=== PATIENT | male | born 1940 | race Caucasian/White ===

== ENCOUNTER 2022-01-16 18:25 | Inpatient (IN) ==
[2022-01-16] MEDS ORDERED: CEFEPIME 2,000 MG/20 ML VIAL IV STA (18:59)
[2022-01-16] MEDS ORDERED: SODIUM CHLORIDE 0.9% 1000ML 500 ML IV SCH (19:00)
--- NOTE | 2022-01-16 19:07 | Emergency Department Note ---
Impression & Plan Hypotension, Hypothermia, Weakness, Acute dehydration, Anemia, Hematemesis, Leukocytosis ED Provider Note NAME: VONNIE ALTAMIRANO AGE: 81 SEX: M : 1940 ARRIVES VIA: Ambulance INFORMANT: [Patient][nursing] ED PROVIDER(S): [John Fong MD] CHIEF COMPLAINT: Hypothermia, lethargy HISTORY OF PRESENT ILLNESS: The patient is a 81-year-old male who today seemed weaker and not quite himself. The family called EMS. The blood sugar was 279. Blood pressure was low at 8 0/50. On arrival to the ED, his temperature was 34.6. As per nursing staff, the patient was incontinent of stool and urine when he arrived. The patient states that he did vomit once today, he vomited his coffee. He denies chest pain or shortness of breath fever or chills. No abdominal pain. No urinary complaints, no diarrhea. The patient does live with family. REVIEW OF SYSTEMS: See HPI for pertinent positives and negatives. A total of ten systems were revie wed and were otherwise negative. PMHx/PSHx: See Below SOCIAL HISTORY: See Below. PHYSICAL EXAM: GENERAL: Patient is in no acute distress. HEENT: No acute trauma, normocephalic atraumatic, mucous membranes dry, no nasal congestion, no scleral icterus. NECK: No stridor, no adenopathy, no meningismus, trachea is midline. LUNGS: Clear to auscultation bilaterally, no wheeze, no rhonchi, breath sounds equal. HEART: 2/6 systolic murmur, regular rate and rhythm. ABDOMEN: Soft, nontender, bowel sounds positive, no peritonitis. EXTREMITIES: No cyanosis or edema, full range of motion of all the joints without pain or difficulty, no signs for acute trauma. Feet are quite dirty. NEUROLOGIC: Oriented x 3, no acute motor or sensory deficits, no focal weakness. SKIN: No rash, no jaundice, no diaphoresis. Skin is cool to the touch. Pale. Rectal: Brown stool, heme-negative. DIFFERENTIAL DIAGNOSIS: Infection, sepsis, COVID-19, RSV, influenza, dehydration, metabolic abnormality, hypo/hyperglycemia, electrolyte disturbance, anemia, hypoxia, cardiac sources, intracerebral event, toxicologic issues, stroke, TIA, as well as other pathologies. EMERGENCY DEPARTMENT COURSE/PROCEDURES: ECG: Indication was weakness. The ECG shows a sinus rhythm with a first- degree AV block. There is a right bundle branch block. The rate is 73. There is no ST elevation, no PVCs P the QTc is 493. Continuous Cardiac Monitoring: An order was placed for continuous cardiac monitoring. The monitor shows a rate of 70 with normal sinus rhythm. Critical Care Note: I have personally spent 51 minutes of critical care time in the direct management of this patient. This includes bedside care, interpretation of diagnostic studies, and testing, discussion with consultants, patient, and family members, and other required patient management activities. This 51 minutes is in excess of all separately billable procedures. MEDICAL DECISION MAKING: There is a mild leukocytosis, this certainly could be consistent with infection. Initial hemoglobin was at 9.2. There was a normal platelet count. No coagulopathy. Creatinine was mildly elevated, the BUN was elevated. Glucose was 256. Calcium was somewhat low at 7.9. Lactic acid level was not elevated making severe sepsis less likely. No worrisome liver enzyme elevation. Procalcitonin level was not elevated. ECG showed a sinus rhythm with a first- degree AV block, no acute ischemia. Cardiac enzyme testing x1 was not consistent with acute cardiac injury. COVID, influenza and RSV test were negative. Chest film does not show pneumonia or pneumothorax. Urinalysis is pending. On exam, the patient appeared dehydrated and pale. He was hypothermic. The patient had been hypotensive prior to arrival. His blood pressure seemed to respond to IV hydration. I did perform a rectal exam, stool was brown and heme-negative. Shortly after this exam was performed, the patient vomited and it was bloody as per the nursing staff. Gastroccult did return positive. The patient was given IV saline, he received a liter here as well as a liter by EMS. He received IV Protonix, IV cefepime. He was given IV Zofran. A angel hugger was placed and this increased the patient's temperature. I did have a repeat hemoglobin drawn during the ED stay. The value was 8.4, the patient had dropped 1 point. I did report the hemoglobin drop to the on-call hospitalist. I spoke to the family, I spoke with the gearcase assembler. Hospitalization is warranted. At this point, the cause for all his findings is unclear. I am concerned about GI bleeding. Bacteremia is a concern as well. Further work-up and care is warranted. Past Med/Surg History Medical History Diabetes mellitus Hypertension Social History Smoking Status: Never smoker Preferred Language: Slovak Feels Safe at Home: Yes Allergies Allergies Allergy/AdvReac Type Severity Reaction Status Date / Time No Known Allergies Allergy Verified 01/16/22 20:53 Home Meds Home Medications Medication Instructions Recorded Confirmed amlodipine 10 mg tablet 10 mg PO HS 01/16/22 01/16/22 atorvastatin 20 mg tablet 20 mg PO HS 01/16/22 01/16/22 clopidogrel 75 mg tablet 75 mg PO HS 01/16/22 01/16/22 glipizide 10 mg tablet, extended 10 mg PO HS 01/16/22 01/16/22 release 24 hr insulin NPH isoph U-100 human 100 50 unit subcut QAM 01/16/22 01/16/22 unit/mL (3 mL) subcutaneous pen (Novolin N Flexpen) lisinopril 40 mg tablet 40 mg PO HS 01/16/22 01/16/22 metformin 500 mg tablet,extended 1,000 mg PO HS 01/16/22 01/16/22 release 24 hr Results & Data (ED) Vital Signs Vital Signs - 24 hr 01/16/22 18:37 01/16/22 18:42 01/16/22 19:22 Temperature 34.6 C L Temperature Source Rectal Pulse Rate 70 75 Pulse Rate [Apical] Pulse Rate from SpO2 Sensor Pulse Rhythm Regular Pulse Rhythm [Apical] Respiratory Rate 20 18 Respiratory Effort / Characteristics Respiratory Depth Blood Pressure 129/70 Blood Pressure [Right Arm] Blood Pressure Mean 89 Blood Pressure Mean [Right Arm] Pulse Oximetry 93 90 Oxygen Delivery Method Room Air Room Air Room Air Sepsis Recent Fever Within 48 Hours No Sepsis New/Unexplained Change in Mental Status N/A Sepsis Action Taken by Nursing No Action Required 01/16/22 19:22 01/16/22 19:26 01/16/22 18:31 Temperature Temperature Source Pulse Rate 74 Pulse Rate [Apical] 75 76 Pulse Rate from SpO2 Sensor Pulse Rhythm Pulse Rhythm [Apical] Regular Respiratory Rate 18 18 18 Respiratory Effort / Characteristics Non-Labored Respiratory Depth Normal Blood Pressure Blood Pressure [Right Arm] 126/60 126/60 Blood Pressure Mean Blood Pressure Mean [Right Arm] 82 82 Pulse Oximetry 90 90 Oxygen Delivery Method Room Air Room Air Sepsis Recent Fever Within 48 Hours Sepsis New/Unexplained Change in Mental Status Sepsis Action Taken by Nursing 01/16/22 19:00 01/16/22 19:00 01/16/22 19:30 Temperature Temperature Source Pulse Rate 73 78 Pulse Rate [Apical] Pulse Rate from SpO2 Sensor 73 77 Pulse Rhythm Pulse Rhythm [Apical] Respiratory Rate 16 14 Respiratory Effort / Characteristics Respiratory Depth Blood Pressure 126/60 Blood Pressure [Right Arm] Blood Pressure Mean 82 Blood Pressure Mean [Right Arm] Pulse Oximetry 89 L 95 Oxygen Delivery Method Sepsis Recent Fever Within 48 Hours Sepsis New/Unexplained Change in Mental Status Sepsis Action Taken by Nursing 01/16/22 19:31 01/16/22 19:31 01/16/22 20:00 Temperature Temperature Source Pulse Rate 76 Pulse Rate [Apical] 75 Pulse Rate from SpO2 Sensor 77 Pulse Rhythm Pulse Rhythm [Apical] Respiratory Rate 17 18 Respiratory Effort / Characteristics Respiratory Depth Blood Pressure 110/63 Blood Pressure [Right Arm] 124/63 Blood Pressure Mean 78 Blood Pressure Mean [Right Arm] 83 Pulse Oximetry 97 97 Oxygen Delivery Method Sepsis Recent Fever Within 48 Hours Sepsis New/Unexplained Change in Mental Status Sepsis Action Taken by Nursing 01/16/22 20:37 01/16/22 21:15 01/16/22 21:30 Temperature 36.4 C L Temperature Source Oral Pulse Rate Pulse Rate [Apical] 74 83 81 Pulse Rate from SpO2 Sensor Pulse Rhythm Pulse Rhythm [Apical] Regular Respiratory Rate 18 20 20 Respiratory Effort / Characteristics Respiratory Depth Normal Blood Pressure Blood Pressure [Right Arm] 111/69 99/60 L 81/55 L Blood Pressure Mean Blood Pressure Mean [Right Arm] 83 73 63 Pulse Oximetry 97 94 Oxygen Delivery Method Sepsis Recent Fever Within 48 Hours Sepsis New/Unexplained Change in Mental Status Sepsis Action Taken by Nursing 01/16/22 20:35 01/16/22 22:00 Temperature 36.4 C L 36.6 C Temperature Source Oral Oral Pulse Rate Pulse Rate [Apical] 76 Pulse Rate from SpO2 Sensor Pulse Rhythm Pulse Rhythm [Apical] Respiratory Rate 18 Respiratory Effort / Characteristics Respiratory Depth Blood Pressure Blood Pressure [Right Arm] 97/58 L Blood Pressure Mean Blood Pressure Mean [Right Arm] 71 Pulse Oximetry 94 Oxygen Delivery Method Sepsis Recent Fever Within 48 Hours Sepsis New/Unexplained Change in Mental Status Sepsis Action Taken by Custodial Medications Current Medication List: was personally reviewed by me Laboratory Data Attestation: I reviewed the patient's lab results. Result diagrams: 01/16/22 22:21 01/16/22 19:35 Lab Results 01/16/22 01/16/22 01/16/22 Range/Units 19:20 19:35 19:35 WBC 13.24 H (4.8-10.8) K/ul RBC 2.98 L (4.63-6.08) M/uL Hgb 9.2 L (14.0-18.0) g/dl POC Hgb 10.9 L (14.0-18.0) g/dl Hct 27.4 L (40.1-51.0) % POC Hct 32 L (42-52) % MCV 91.9 (80.0-100.0) fL MCH 30.9 (25.0-34.0) pg MCHC 33.6 (32.0-36.0) g/dL RDW Std Deviation 46.7 H (36.4-46.3) fL RDW Coeff of Diana 13.8 (11.5-14.5) % Plt Count 144 (130-400) K/uL MPV 10.7 (9.4-12.4) fL Immature Gran % (Auto) 0.5 % Neut % (Auto) 86.5 % Lymph % (Auto) 8.2 % Humphreys % (Auto) 4.5 % Eos % (Auto) 0.1 % Baso % (Auto) 0.2 % Neut # (Auto) 11.45 H (1.4-6.5) K/uL Lymph # (Auto) 1.09 L (1.2-3.4) K/uL Humphreys # (Auto) 0.59 (0.24-0.82) K/uL Eos # (Auto) 0.01 (0-0.50) K/uL Baso # (Auto) 0.03 (0-0.2) K/uL Immature Gran # (Auto) 0.07 H (0.00-0.02) K/uL PT 11.8 (9.0-12.0) Seconds INR 1.1 (0.9-1.1) APTT 22.2 (21.0-31.0) Seconds PTT Ratio 0.8 POC Sodium 136 (135-144) mmol/L Sodium (136-145) mmol/L POC Potassium 5.3 H (3.3-5.0) mmol/L Potassium (3.5-5.1) mmol/L POC Chloride 105 (101-112) mmol/L Chloride (98-107) mmol/L Carbon Dioxide (21-32) mmol/L POC Total CO2 22 L (24-31) mmol/L Anion Gap (3-11) POC Anion Gap 15.0 L (16-25) mmol/L POC BUN 40 H (7-18) mg/dl BUN (6-23) mg/dl Creatinine (0.6-1.4) mg/dl POC Creatinine 1.4 H (0.6-1.3) mg/dl Est Cr Clr Drug Dosing ml/min Est GFR ( Amer) ml/min Est GFR (Non-Af Amer) ml/min BUN/Creatinine Ratio (10-20) Glucose (70-99(Fasting)) mg/dl POC Glucose (other) 232 H (70-99) mg/dl Lactate (0.4-2.0) mmol/L Calcium (8.5-10.1) mg/dl POC Ioniz Calcium Britton 1.01 L (1.12-1.32) mmol/l Magnesium (1.7-2.4) mg/dl Total Bilirubin (0.2-1.0) mg/dl Direct Bilirubin (0-0.2) mg/dl AST (13-39) U/L ALT (7-52) U/L Alkaline Phosphatase (34-104) U/L Troponin I High Sens (0-20) pg/ml Total Protein (6.0-8.3) gm/dl Albumin (3.4-5.0) gm/dl Procalcitonin (0-0.5) ng/ml Gastric Fluid pH Gastric Occult Blood (Negative) SARS-CoV-2 (PCR) (Negative) Influenza Type A (PCR) (Neg) Influenza Type B (PCR) (Neg) RSV (RT-PCR) (Neg) Blood Type Blood Type Recheck Antibody Screen Crossmatch 01/16/22 01/16/22 01/16/22 Range/Units 19:35 19:35 19:35 WBC (4.8-10.8) K/ul RBC (4.63-6.08) M/uL Hgb (14.0-18.0) g/dl POC Hgb (14.0-18.0) g/dl Hct (40.1-51.0) % POC Hct (42-52) % MCV (80.0-100.0) fL MCH (25.0-34.0) pg MCHC (32.0-36.0) g/dL RDW Std Deviation (36.4-46.3) fL RDW Coeff of Diana (11.5-14.5) % Plt Count (130-400) K/uL MPV (9.4-12.4) fL Immature Gran % (Auto) % Neut % (Auto) % Lymph % (Auto) % Humphreys % (Auto) % Eos % (Auto) % Baso % (Auto) % Neut # (Auto) (1.4-6.5) K/uL Lymph # (Auto) (1.2-3.4) K/uL Humphreys # (Auto) (0.24-0.82) K/uL Eos # (Auto) (0-0.50) K/uL Baso # (Auto) (0-0.2) K/uL Immature Gran # (Auto) (0.00-0.02) K/uL PT (9.0-12.0) Seconds INR (0.9-1.1) APTT (21.0-31.0) Seconds PTT Ratio POC Sodium (135-144) mmol/L Sodium 135 L (136-145) mmol/L POC Potassium (3.3-5.0) mmol/L Potassium 5.1 (3.5-5.1) mmol/L POC Chloride (101-112) mmol/L Chloride 105 (98-107) mmol/L Carbon Dioxide 25 (21-32) mmol/L POC Total CO2 (24-31) mmol/L Anion Gap 5 (3-11) POC Anion Gap (16-25) mmol/L POC BUN (7-18) mg/dl BUN 47 H (6-23) mg/dl Creatinine 1.30 (0.6-1.4) mg/dl POC Creatinine (0.6-1.3) mg/dl Est Cr Clr Drug Dosing 44.6 ml/min Est GFR ( Amer) 59.3 ml/min Est GFR (Non-Af Amer) 51.2 ml/min BUN/Creatinine Ratio 36.2 H (10-20) Glucose 256 H (70-99(Fasting)) mg/dl POC Glucose (other) (70-99) mg/dl Lactate 1.2 (0.4-2.0) mmol/L Calcium 7.9 L (8.5-10.1) mg/dl POC Ioniz Calcium Britton (1.12-1.32) mmol/l Magnesium 2.1 (1.7-2.4) mg/dl Total Bilirubin 0.4 (0.2-1.0) mg/dl Direct Bilirubin 0.1 (0-0.2) mg/dl AST 12 L (13-39) U/L ALT 13 (7-52) U/L Alkaline Phosphatase 62 (34-104) U/L Troponin I High Sens 6.5 (0-20) pg/ml Total Protein 5.7 L (6.0-8.3) gm/dl Albumin 3.2 L (3.4-5.0) gm/dl Procalcitonin < 0.05 (0-0.5) ng/ml Gastric Fluid pH Gastric Occult Blood (Negative) SARS-CoV-2 (PCR) (Negative) Influenza Type A (PCR) (Neg) Influenza Type B (PCR) (Neg) RSV (RT-PCR) (Neg) Blood Type Blood Type Recheck Antibody Screen Crossmatch 01/16/22 01/16/22 01/16/22 Range/Units 19:35 19:37 21:08 WBC (4.8-10.8) K/ul RBC (4.63-6.08) M/uL Hgb (14.0-18.0) g/dl POC Hgb (14.0-18.0) g/dl Hct (40.1-51.0) % POC Hct (42-52) % MCV (80.0-100.0) fL MCH (25.0-34.0) pg MCHC (32.0-36.0) g/dL RDW Std Deviation (36.4-46.3) fL RDW Coeff of Diana (11.5-14.5) % Plt Count (130-400) K/uL MPV (9.4-12.4) fL Immature Gran % (Auto) % Neut % (Auto) % Lymph % (Auto) % Humphreys % (Auto) % Eos % (Auto) % Baso % (Auto) % Neut # (Auto) (1.4-6.5) K/uL Lymph # (Auto) (1.2-3.4) K/uL Humphreys # (Auto) (0.24-0.82) K/uL Eos # (Auto) (0-0.50) K/uL Baso # (Auto) (0-0.2) K/uL Immature Gran # (Auto) (0.00-0.02) K/uL PT (9.0-12.0) Seconds INR (0.9-1.1) APTT (21.0-31.0) Seconds PTT Ratio POC Sodium (135-144) mmol/L Sodium (136-145) mmol/L POC Potassium (3.3-5.0) mmol/L Potassium (3.5-5.1) mmol/L POC Chloride (101-112) mmol/L Chloride (98-107) mmol/L Carbon Dioxide (21-32) mmol/L POC Total CO2 (24-31) mmol/L Anion Gap (3-11) POC Anion Gap (16-25) mmol/L POC BUN (7-18) mg/dl BUN (6-23) mg/dl Creatinine (0.6-1.4) mg/dl POC Creatinine (0.6-1.3) mg/dl Est Cr Clr Drug Dosing ml/min Est GFR ( Amer) ml/min Est GFR (Non-Af Amer) ml/min BUN/Creatinine Ratio (10-20) Glucose (70-99(Fasting)) mg/dl POC Glucose (other) (70-99) mg/dl Lactate (0.4-2.0) mmol/L Calcium (8.5-10.1) mg/dl POC Ioniz Calcium Britton (1.12-1.32) mmol/l Magnesium (1.7-2.4) mg/dl Total Bilirubin (0.2-1.0) mg/dl Direct Bilirubin (0-0.2) mg/dl AST (13-39) U/L ALT (7-52) U/L Alkaline Phosphatase (34-104) U/L Troponin I High Sens (0-20) pg/ml Total Protein (6.0-8.3) gm/dl Albumin (3.4-5.0) gm/dl Procalcitonin (0-0.5) ng/ml Gastric Fluid pH Gastric Occult Blood Positive A (Negative) SARS-CoV-2 (PCR) NEGATIVE (Negative) Influenza Type A (PCR) Negative (Neg) Influenza Type B (PCR) Negative (Neg) RSV (RT-PCR) Negative (Neg) Blood Type A Positive Blood Type Recheck Antibody Screen NEGATIVE Crossmatch See Detail 01/16/22 01/16/22 Range/Units 22:21 22:21 WBC (4.8-10.8) K/ul RBC (4.63-6.08) M/uL Hgb 8.4 L (14.0-18.0) g/dl POC Hgb (14.0-18.0) g/dl Hct 25.4 L (40.1-51.0) % POC Hct (42-52) % MCV (80.0-100.0) fL MCH (25.0-34.0) pg MCHC (32.0-36.0) g/dL RDW Std Deviation (36.4-46.3) fL RDW Coeff of Diana (11.5-14.5) % Plt Count (130-400) K/uL MPV (9.4-12.4) fL Immature Gran % (Auto) % Neut % (Auto) % Lymph % (Auto) % Humphreys % (Auto) % Eos % (Auto) % Baso % (Auto) % Neut # (Auto) (1.4-6.5) K/uL Lymph # (Auto) (1.2-3.4) K/uL Humphreys # (Auto) (0.24-0.82) K/uL Eos # (Auto) (0-0.50) K/uL Baso # (Auto) (0-0.2) K/uL Immature Gran # (Auto) (0.00-0.02) K/uL PT (9.0-12.0) Seconds INR (0.9-1.1) APTT (21.0-31.0) Seconds PTT Ratio POC Sodium (135-144) mmol/L Sodium (136-145) mmol/L POC Potassium (3.3-5.0) mmol/L Potassium (3.5-5.1) mmol/L POC Chloride (101-112) mmol/L Chloride (98-107) mmol/L Carbon Dioxide (21-32) mmol/L POC Total CO2 (24-31) mmol/L Anion Gap (3-11) POC Anion Gap (16-25) mmol/L POC BUN (7-18) mg/dl BUN (6-23) mg/dl Creatinine (0.6-1.4) mg/dl POC Creatinine (0.6-1.3) mg/dl Est Cr Clr Drug Dosing ml/min Est GFR ( Amer) ml/min Est GFR (Non-Af Amer) ml/min BUN/Creatinine Ratio (10-20) Glucose (70-99(Fasting)) mg/dl POC Glucose (other) (70-99) mg/dl Lactate (0.4-2.0) mmol/L Calcium (8.5-10.1) mg/dl POC Ioniz Calcium Britton (1.12-1.32) mmol/l Magnesium (1.7-2.4) mg/dl Total Bilirubin (0.2-1.0) mg/dl Direct Bilirubin (0-0.2) mg/dl AST (13-39) U/L ALT (7-52) U/L Alkaline Phosphatase (34-104) U/L Troponin I High Sens (0-20) pg/ml Total Protein (6.0-8.3) gm/dl Albumin (3.4-5.0) gm/dl Procalcitonin (0-0.5) ng/ml Gastric Fluid pH Gastric Occult Blood (Negative) SARS-CoV-2 (PCR) (Negative) Influenza Type A (PCR) (Neg) Influenza Type B (PCR) (Neg) RSV (RT-PCR) (Neg) Blood Type Blood Type Recheck A Positive Antibody Screen Crossmatch Administered Medications Discontinued Medications Sodium Chloride (Nss 1000ml) 500 mls @ 999 mls/hr IV .Q31M ABEL Stop: 01/16/22 19:30 Last Infusion: 01/16/22 20:02 Dose: 0 mls/hr Documented By: Admin: 10/30/22 19:21 Dose: 999 mls/hr Documented By: JANICE Cefepime HCl (Maxipime) 2,000 mg in 20 mls @ 5 mls/min IV NOW STA; Protocol Stop: 01/16/22 19:02 Last Admin: 01/16/22 19:20 Dose: 5 mls/min Documented By: JANICE Pantoprazole Sodium 80 mg/ (Dextrose) 100 mls @ 400 mls/hr IV ONE STA Stop: 01/16/22 21:11 Last Infusion: 01/16/22 23:29 Dose: 0 mls/hr Documented By: Admin: 01/16/22 22:56 Dose: 400 mls/hr Documented By: JANICE Pantoprazole Sodium 80 mg/ (Sodium Chloride) 100 mls @ 400 mls/hr IV ONE STA Stop: 01/16/22 22:05 Last Admin: 01/16/22 22:56 Dose: Not Given Documented By: JANICE Sodium Chloride (Nss 1000ml) 500 mls @ 999 mls/hr IV .Q31M ONE Stop: 01/16/22 22:41 Last Infusion: 01/16/22 23:29 Dose: 0 mls/hr Documented By: Admin: 01/16/22 22:56 Dose: 999 mls/hr Documented By: JANICE Ondansetron HCl (Ondansetron Inj 2 Mg/Ml 2 Ml Vial) 4 mg IV NOW STA Stop: 01/16/22 20:58 Last Admin: 01/16/22 21:12 Dose: 4 mg Documented By: JANICE Imaging Data Radiologist's Impression: Chest X-Ray 01/16/22 18:59 XR chest 1V portable CLINICAL HISTORY: Sepsis COMPARISON STUDY: No previous studies for comparison. FINDINGS: Lung volumes are normal. Lungs are clear. There is no pneumothorax or pleural effusion. Cardiac size is normal. Mediastinal contours are normal. Vascular stent within the superior mediastinum is noted. There is no evidence for pulmonary edema. 5 mm radiodensity projects over the superior left hilum. IMPRESSION: No acute cardiopulmonary findings. ACT 112: Negative or not required by law. Electronically signed by: Joao Sutton M.D. 01/16/2022 7:28 PM Discharge Plan Visit Data Chief Complaint: Hypothermia Stated Complaint: HYPOTENSION ED Provider: John Fong Discharge Problem: Hypotension, Hypothermia, Weakness, Acute dehydration, Anemia, Hematemesis, Apurva kocytosis Patient Disposition: Admitted As Inpatient Condition: Serious Discharge Instructions Interventions: ED Discharge Assessment Last Done: 01/17/22 01:28
--- NOTE | 2022-01-16 19:30 | XRay Report ---
XR chest 1V portable CLINICAL HISTORY: Sepsis COMPARISON STUDY: No previous studies for comparison. FINDINGS: Lung volumes are normal. Lungs are clear. There is no pneumothorax or pleural effusion. Car diac size is normal. Mediastinal contours are normal. Vascular stent within the superior mediastinum is noted. There is no evidence for pulmonary edema. 5 mm radiodensity projects over the superior left hilum. IMPRESSION: No acute cardiopulmonary findings. ACT 112: Negative or not required by law. Electronically signed by: Joao Sutton M.D. 01/16/2022 7:28 PM
[2022-01-16 19:35] LABS: iSTAT Creatinine 1.4 mg/dl (0.6-1.3); iSTAT Hemoglobin 10.9 g/dl (14.0-18.0); iSTAT Ionized Calcium 1.01 mmol/l (1.12-1.32); iSTAT Potassium 5.3 mmol/L (3.3-5.0)
[2022-01-16 19:48] LABS: Basophils # (auto) 0.03 K/uL (0-0.2); Basophils % (auto) 0.2 %; Eosinophils # (auto) 0.01 K/uL (0-0.50); Eosinophils % (auto) 0.1 %; Hematocrit (blood only) 27.4 % (40.1-51.0); Hemoglobin 9.2 g/dl (14.0-18.0); Immature Granulocytes # (auto) 0.07 K/uL (0.00-0.02); Immature Granulocytes % (auto) 0.5 %; Lymphocytes # (auto) 1.09 K/uL (1.2-3.4); Lymphocytes % (auto) 8.2 %; Mean Corpuscular Hemoglobin 30.9 pg (25.0-34.0); Mean Corpuscular Hgb Conc 33.6 g/dL (32.0-36.0); Mean Corpuscular Volume 91.9 fL (80.0-100.0); Mean Platelet Volume 10.7 fL (9.4-12.4); Monocytes # (auto) 0.59 K/uL (0.24-0.82); Monocytes % (auto) 4.5 %; Neutrophils # (auto) 11.45 K/uL (1.4-6.5); Neutrophils % (auto) 86.5 %; Platelet Count 144 K/uL (130-400); RDW Coefficient of Variation 13.8 % (11.5-14.5); RDW Standard Deviation 46.7 fL (36.4-46.3); Red Blood Count 2.98 M/uL (4.63-6.08); White Blood Count 13.24 K/ul (4.8-10.8)
[2022-01-16 20:12] LABS: INR 1.1 (0.9-1.1); Partial Thromboplastin Ratio 0.8; Partial Thromboplastin Time 22.2 Seconds (21.0-31.0); Prothrombin Time 11.8 Seconds (9.0-12.0)
[2022-01-16 20:16] LABS: Albumin Level 3.2 gm/dl (3.4-5.0); BUN Creatinine Ratio 36.2 (10-20); Bilirubin Direct 0.1 mg/dl (0-0.2); Bilirubin,Total 0.4 mg/dl (0.2-1.0); Calcium 7.9 mg/dl (8.5-10.1); Creatinine Clr Calc Pharmacy 44.6 ml/min; Est GFR (African American) 59.3 ml/min; Est GFR (Non-African American) 51.2 ml/min; Magnesium 2.1 mg/dl (1.7-2.4); Potassium 5.1 mmol/L (3.5-5.1); Total Protein 5.7 gm/dl (6.0-8.3)
[2022-01-16 20:19] LABS: Troponin I High Sensitivity 6.5 pg/ml (0-20)
[2022-01-16 20:31] LABS: Influenza A virus by PCR Negative (Neg); Influenza B virus by PCR Negative (Neg); RSV by PCR Negative (Neg); SARS CoV2 RNA(COVID-19)Cepheid NEGATIVE (Negative)
[2022-01-16] MEDS ORDERED: PANTOprazole 80 MG in DEXTROSE 5% 100 ML IV STA (20:57)
[2022-01-16] MEDS ORDERED: ONDANSETRON INJ 2 MG/ML 2 ML VIAL IV STA (20:57)
[2022-01-16 21:35] LABS: Gastric Occult Blood Positive (Negative)
[2022-01-16] MEDS ORDERED: SODIUM CHLORIDE 0.9% 1000ML 500 ML IV ONE (22:11)
[2022-01-16 22:50] LABS: Hematocrit (blood only) 25.4 % (40.1-51.0); Hemoglobin 8.4 g/dl (14.0-18.0)
[2022-01-17] MEDS ORDERED: ONDANSETRON INJ 2 MG/ML 2 ML VIAL IV PRN (01:27)
[2022-01-17] MEDS ORDERED: VANCOMYCIN CONSULT ACTIVE PRN (01:27)
[2022-01-17] MEDS ORDERED: NITROGLYCERIN SL 0.4 MG/TAB TAB SL PRN (01:27)
[2022-01-17] MEDS ORDERED: ACETAMINOPHEN 325 MG TAB PO PRN (01:27)
[2022-01-17] MEDS ORDERED: SODIUM CHLORIDE 0.9% 250 ML IV PRN ×3 (01:27→05:10)
[2022-01-17] MEDS ORDERED: GLUCOSE 40% GEL 15 GM TUBE PO PRN (02:00)
[2022-01-17] MEDS ORDERED: CARBOHYDRATES FOR HYPOGLYCEMIA PO PRN (02:00)
[2022-01-17] MEDS ORDERED: DEXTROSE 50% 50 ML SYRINGE IV PRN (02:00)
[2022-01-17] MEDS ORDERED: GLUCOSE 10 TAB/TUBE PO PRN (02:00)
[2022-01-17] MEDS ORDERED: VANCOMYCIN HCL 1,750 MG in SODIUM CHLORIDE 0.9% 500 ML IV ONE (02:00)
[2022-01-17] MEDS ORDERED: GLUCAGON FOR INJ 1 MG VIAL IM PRN (02:00)
[2022-01-17 02:01] LABS: Appearance Urine Clear (Clear); Bacteria Urine Automated Negative (Negative); Bilirubin Urine Negative (Negative); Blood Urine Negative (Negative); Color Urine Yellow; Glucose Urine UA Trace (Negative); Ketones Urine Trace (Negative); Leukocyte Esterase Urine Negative (Negative); Nitrite Urine Negative (Negative); Protein Urine Trace (Negative); RBC Urine Automated 0-4 /hpf (0-4); Specific Gravity Urine 1.022 (1.000-1.030); Urobilinogen Urine Negative (Negative)
[2022-01-17 02:17] LABS: Cast Urine Automated >30 /lpf (0-5); Mucus Urine Present (None Prsent)
--- NOTE | 2022-01-17 02:28 | History and Physical Report ---
DATE OF ADMISSION: 01/16/2022. CHIEF COMPLAINT: Hematemesis, hypotension and hypothermia. HISTORY OF PRESENT ILLNESS: This is an 81-year-old male with past medical history significant for diabetes, hypertension, hyperlipidemia, CAD status post stents, who lives at home with his , was brought in because of hematemesis. The patient's says he was doing okay and then in the evening, he complained of sick the stomach and _before the EMS came he ad an episode of bloody vomiting at home.and in the ER, he had another episode of hematemesis. As per the EMS, his blood pressure was low and he was somewhat lethargic. He was given a fluid bolus, blood pressure improved and he was also hypothermic around 34 degrees and with the Ursula-Hugger temperature improved. Currently, the patient is somewhat alert, awake, and oriented to name and place , could not tell date appropriately. Denies any chest pain or shortness of breath, somewhat nauseous. No headache, no fever, no cough, no abdominal pain. As per the , the patient has no known recent illnesses. No cough. Normal bowel and bladder movements. Ambulates without any support. It is somewhat difficult to get the history from the patient.Called and got some history from ALLERGIES: No known drug allergies. PAST MEDICAL HISTORY: As mentioned above. PAST SURGICAL HISTORY: toe surgery. MEDICATIONS: The patient is on amlodipine 10 mg p.o. at bedtime, atorvastatin 20 mg p.o. at bedtime, Plavix 75 mg p.o. at bedtime, glipizide 10 mg p.o. at bedtime, Novolin insulin NPH 15 units subcutaneous at a.m., lisinopril 40 mg p.o. at bedtime, metformin 1000 mg p.o. at bedtime. FAMILY HISTORY: Significant for mother had CAD and diabetes. SOCIAL HISTORY: Remote history of smoking, no alcohol. Lives with his . REVIEW OF SYSTEMS: As per HPI. Could not get complete review of systems, the patient is somewhat difficult to get history. PHYSICAL EXAMINATION: GENERAL: The patient is somewhat restless, not in acute distress. VITAL SIGNS: Temperature 36.6, pulse 76, respiratory rate 18, blood pressure 97/58, oxygen 94% on room air. HEENT: Pupils equal, round and reactive to light. Oral mucosa moist. NECK: No JVD or neck masses. CARDIOVASCULAR: S1 and S2 heard. Regular rate and rhythm. No murmur, no gallop. RESPIRATORY SYSTEM: Normal AP diameter. No accessory muscle use. No wheezing, no crackles. ABDOMEN: Soft, bowel sounds present, nontender, no distention. CENTRAL NERVOUS SYSTEM: Cranial nerves II through XII grossly intact, nonfocal. EXTREMITIES: No edema, no erythema. LABORATORY DATA: WBC 13.2, hemoglobin when he came in was 9.2, repeat is 8.4, hematocrit 25.4, platelets 144. PT 11.8, INR 1.1, APTT 22.8. Sodium 135, potassium 5.1, chloride 105, CO2 of 25, BUN 47, creatinine 1.0, glucose 256. Lactate 1.2, calcium 7.9, magnesium 2.1, total bilirubin 0.4, direct bilirubin 0.1, AST 12, ALT 13, alkaline phosphatase 62. Troponin I high sensitivity 6.5, gastric occult blood positive. SARS-CoV-2 PCR negative. Influenza A and B PCR negative. RSV PCR negative. IMAGING DATA: Chest x-ray, no acute cardiopulmonary findings. EKG: Sinus rhythm with sinus arrhythmia with first-degree AV block, rate of 73, right bundle-branch block, left anterior fascicular block, bifascicular block, QTc of 493. ASSESSMENT AND PLAN: This 81-year-old male presents with hematemesis, hypotension, hypothermia. 1. Hematemesis. Holding his Plavix. H and H q.6 hours. Started on Protonix drip. GI consult, n.p.o., IV fluids. Closely monitor in the tele floor. Closely monitor H and H and transfuse to keep hemoglobin greater than 8.Ordering unit prbc. 2. Hypotension, probably secondary to GI bleed. The patient was also hypothermic when he came in. His lactate was okay 1.2. Treat him as sepsis with empiric antibiotics, vancomycin and cefepime for 48 hours and then stop. We will follow the cultures. Follow the response. 3. History of diabetes: Hold his glipizide, insulin and metformin. Place him on insulin sliding scale. Follow the blood sugars. 4. History of hypertension: Currently hypotensive. Holding amlodipine and lisinopril. 5. History of hyperlipidemia: Holding his statin. 6. History of coronary artery disease, status post stent. Holding Plavix and statin. 7. Deep venous thrombosis prophylaxis: Sequential compression devices for now. Addendum: In morning patient again became hypotensive. Ordered 500cc fluid bolus and his bp seemed to improving. Ordered am labs. Hb again came at 6.7 after one unit of prbc.. No more episodes of hematemesis . Ordered to give two more units of prbc.Called GI and notified and was advised to start on Sandostatin drip as his liver status unknown at this time. Also morning labs showed platelets at 90. His labs came back as ca 4.7. Was transferred to ICU. Iv calcium gluconate ordered. CTA abd/plevis ordered.Patient is alert and awake. ICU repeating labs will follow on that. Close monitor in ICU. DISPOSITION: Closely monitor in ICU floor. Level 1 full code. To be determined. Job ID: [id number] MTDD
[2022-01-17] MEDS: SODIUM CHLORIDE 0.9% 1000ML 1,000 ML IV SCH ×3 (02:36→16:27)
[2022-01-17] MEDS: PANTOprazole 40 MG in DEXTROSE 5% 100 ML IV SCH ×4 (02:36→19:36)
[2022-01-17] MEDS: INSULIN ASPART PER UNIT SC SCH ×5 (02:37→23:36)
[2022-01-17] MEDS ORDERED: SODIUM CHLORIDE 0.9% 500 ML IV SCH (03:45)
[2022-01-17 04:52] LABS: BUN Creatinine Ratio 50.7 (10-20); Calcium 4.7 mg/dl (8.5-10.1); Creatinine Clr Calc Pharmacy 77.2 ml/min; Est GFR (African American) 99.7 ml/min; Magnesium 1.4 mg/dl (1.7-2.4)
[2022-01-17 05:06] LABS: Hematocrit (blood only) 20.5 % (40.1-51.0); Hemoglobin 6.7 g/dl (14.0-18.0)
[2022-01-17 05:10] LABS: Basophils # (auto) 0.02 K/uL (0-0.2); Basophils % (auto) 0.3 %; Eosinophils # (auto) 0.01 K/uL (0-0.50); Eosinophils % (auto) 0.1 %; Immature Granulocytes # (auto) 0.01 K/uL (0.00-0.02); Immature Granulocytes % (auto) 0.1 %; Lymphocytes # (auto) 1.37 K/uL (1.2-3.4); Lymphocytes % (auto) 18.3 %; Mean Corpuscular Hemoglobin 30.5 pg (25.0-34.0); Mean Corpuscular Hgb Conc 32.7 g/dL (32.0-36.0); Mean Corpuscular Volume 93.2 fL (80.0-100.0); Mean Platelet Volume 10.3 fL (9.4-12.4); Monocytes # (auto) 0.61 K/uL (0.24-0.82); Monocytes % (auto) 8.1 %; Neutrophils # (auto) 5.48 K/uL (1.4-6.5); Neutrophils % (auto) 73.1 %; Platelet Count 90 K/uL (130-400); Platelet Estimate Decreased (Normal); RBC Morphology Unremarkable; RDW Coefficient of Variation 14.9 % (11.5-14.5); RDW Standard Deviation 51.5 fL (36.4-46.3)
[2022-01-17] MEDS ORDERED: STAT IV STA ×2 (05:16→05:23)
[2022-01-17] MEDS ORDERED: CALCIUM GLUCONATE 10% 3,000 MG in DEXTROSE 5% 100 ML IV ONE (05:23)
[2022-01-17] MEDS ORDERED: CALCIUM GLUCONATE 10% 3,000 MG in DEXTROSE 5% 100 ML IV STA (05:27)
[2022-01-17] MEDS ORDERED: OCTREOTIDE ACETATE 500 MCG in DEXTROSE 5% 100 ML IV SCH (05:30)
--- NOTE | 2022-01-17 05:56 | Pharmacy Report ---
Pharmacy PK ABX Note - Date of Service January 17, 2022 - Assessment and Plan Assessment * Mr Nam is an 81 year old M receiving vancomycin/cefepime for empiric treatment. * Pt presents with hematemesis/weakness. WBC elevated (13.24), lactate and procal unremarkable. * Other significant PMH includes diabetes. * Pt has been admitted to the ICU. Plan Vancomycin * Loading dose: 1750 mg IV x 1 * Maintenance dose: 1250 mg IV every 24 hours * Regimen is predicted to achieve target AUC/KATLYN of 400-600 mg/L.hr * No level has been ordered at this time. If patient remains on vancomycin beyond 48hr, will check vanc level closer to steady-state, unless there are changes in patient's status or renal function. Cefepime 2gm IV q12h Pharmacy will continue to follow and will adjust dose/frequency as necessary. Thank you. Pharmacy has transitioned to AUC monitoring for vancomycin. AUC/KATLYN is the preferred PK/PD target and is associated with decreased risk of nephrotoxicity compared to traditional trough targets.
[2022-01-17] MEDS ORDERED: CEFEPIME 2,000 MG in SYRINGE 0 ML IV SCH (06:00)
[2022-01-17] MEDS ORDERED: ICU Protocol for HYPERglycemia PRN (06:01)
[2022-01-17] MEDS ORDERED: OPTIRAY 320 500ml IV ONE (06:26)
--- NOTE | 2022-01-17 06:47 | CT Scan Report ---
CT ANGIOGRAPHY OF THE ABDOMEN AND PELVIS CLINICAL HISTORY: abdominal pain? GI bleed. COMPARISON STUDY: No previous studies for comparison. TECHNIQUE: Helical axial images of the abdomen and pelvis were obtained during arterial phase followi ng intravenous injection of 102 cc of Optiray 320 IV. Sagittal and coronal reconstructions were viewe d as well as maximal intensity projections on an independent 3-D workstation. Automated exposure cont rol was utilized for the study. A dose lowering technique was utilized adhering to the principles of ALARA. FINDINGS: Emphysema is noted within the lower lungs. No pneumatosis, free air or portal venous gas is present. Stents of plaque of the abdominal aorta which is normal in caliber. The celiac axis is rob nt. There is approximately 40% stenosis of the proximal bilateral renal arteries. There is 60% stenos is of the proximal SMA due to calcified and noncalcified plaque. There is occlusion of the proximal i nferior mesenteric artery with distal reconstitution. There is occlusion of the left common iliac art kory with reconstitution at the level of the left iliac bifurcation. There is mild dilatation of the r ight common iliac artery, measuring 1.5 cm. No pneumatosis, free air or portal venous gas is present. Arterial phase images of liver, spleen, adr enal glands and pancreas are unremarkable. There is no biliary or pancreatic ductal dilatation. Water attenuation bilateral renal lesions reflect cysts. Moderate left and mild right renal cortical thinn ing is noted. 2 mm left renal calculus is present. There are no ureteral calculi. There is no hydrone phrosis. Large amount stool within the rectum is noted. There is no evidence for a bowel obstruction. No bowel wall thickening is noted. The appendix is normal. Colonic diverticulosis is noted without e vidence for acute diverticulitis. No intraluminal extravasation of contrast is noted to suggest the s ource for the GI bleed. No acute fractures within the visualized skeletal structures. IMPRESSION: 1. Extensive plaque of the abdominal aorta and branch vessels. 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 Patent celiac axis. 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 40% stenosis of the proximal bilateral renal arteries. Occlusion of the left commo n iliac artery with reconstitution at the iliac bifurcation. 2. No source for GI bleed identified on this exam. Large amount of stool within the rectum. Colonic d iverticulosis without evidence for acute diverticulitis. No bowel obstruction. No bowel wall thickeni ng. 3. Multiple renal cysts. ACT 112: Negative or not required by law. Electronically signed by: Joao Sutton M.D. 01/17/2022 6:44 AM
[2022-01-17] MEDS ORDERED: STAT IV Infusion **Titration per Protocol STA (06:56)
[2022-01-17] MEDS ORDERED: NOREPINEPHRINE/D5W 4 MG/250 ML IV ONE (06:57)
[2022-01-17] MEDS ORDERED: NOREPINEPHRINE/D5W 4 MG/250 ML PLCT IV SCH (07:00)
[2022-01-17] MEDS: MAGNESIUM SULFATE / D5W 1 GM/100 ML BAG IV SCH ×2 (07:24→08:46)
[2022-01-17] MEDS: ALBUMIN 25% 100 mL 25 GM/100 ML VIAL IV SCH ×2 (07:25→08:44)
--- NOTE | 2022-01-17 07:46 | Gastrointestinal Consultation ---
Date of Consultation January 17, 2022 History of Present Illness Reason for Consultation: hematemesis Requesting Physician: Dr. Chung Attending Physician: Tylor Freitas MD History of Present Illness Mr. Keith Nam is an 81 yr old male pt w a hx of HTN, CAD post stenting on Plavix, DM2 who was feeling well prior to experiening hematemesis last evening. On arrival in the ED, Hb was initial 9.2 but quickly dropped to 6.7 early this morning, then received 1 unit of RBCs and most recent HB is 9.9. BUN elevated at 47->38. Platelets 144->90. He has also been hypothermic and hypotensive. He is in the ICU and is saturating at 93% on room air. CTA A/P w extensive plaque, constipation, diverticulosis. Allergies Allergy/AdvReac Type Severity Reaction Status Date / Time No Known Allergies Allergy Verified 01/16/22 20:53 Home Medications Medication Instructions Recorded Confirmed Type amlodipine 10 mg tablet 10 mg PO HS 01/16/22 01/16/22 History atorvastatin 20 mg tablet 20 mg PO HS 01/16/22 01/16/22 History clopidogrel 75 mg tablet 75 mg PO HS 01/16/22 01/16/22 History glipizide 10 mg tablet, extended 10 mg PO HS 01/16/22 01/16/22 History release 24 hr insulin NPH isoph U-100 human 100 50 unit subcut QAM 01/16/22 01/16/22 History unit/mL (3 mL) subcutaneous pen (Novolin N Flexpen) lisinopril 40 mg tablet 40 mg PO HS 01/16/22 01/16/22 History metformin 500 mg tablet,extended 1,000 mg PO HS 01/16/22 01/16/22 History release 24 hr Patient History Medical History Diabetes mellitus Hypertension Social History Smoking Status: Never smoker Second Hand Exposure: No; Do You Dip or Chew Tobacco: No; Tobacco Cessation Education Requested by Patient: No Hx Alcohol Use: No Hx Substance Use: No Preferred Language: Urdu Communication Ability: Effective 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 Beliefs That Will Affect Care: None Current Living Situation: Spouse Other Information That Helps Us Care for You: No Feels Safe at Home: Yes Safety Concerns: Feels Safe At This Time Assistive Devices: Denture - Upper and Denture - Lower Results & Data ([facility]) Vital Signs (Past 12 Hours) Vital Signs Temp Pulse Pulse Resp BP BP Pulse Ox 01/17/22 06:38 36.6 C 81 15 76/48 L 93 01/17/22 06:23 67 L 01/17/22 05:45 88 20 93 01/17/22 05:45 115/54 L 01/17/22 05:32 119/66 01/17/22 05:32 88 17 94 01/17/22 05:30 84 27 H 93 01/17/22 05:25 90 19 80 L 01/17/22 05:25 101/56 L 01/17/22 05:19 93 01/17/22 06:41 01/17/22 06:01 85 01/17/22 06:08 36.6 C 84 16 78/59 L 92 01/17/22 05:53 36.6 C 83 17 119/66 93 01/17/22 05:36 36.8 C 84 18 119/66 92 01/17/22 05:00 86 19 01/17/22 05:00 94/55 L 01/17/22 04:45 85 22 93 01/17/22 04:34 96 H 17 93 01/17/22 04:34 78/57 L 01/17/22 04:32 98 H 13 93 01/17/22 04:30 90 19 92 01/17/22 04:15 85 24 93 01/17/22 04:01 87/41 L 01/17/22 04:01 85 17 91 01/17/22 04:00 13 79 L 01/17/22 03:56 86 3 L 93 01/17/22 03:56 69/55 L 01/17/22 03:45 79 16 75 L 01/17/22 03:33 72/46 L 01/17/22 03:33 86 11 L 94 01/17/22 03:30 84 39 H 92 01/17/22 03:30 67/42 L 01/17/22 03:15 88 19 94 01/17/22 03:15 92/60 L 01/17/22 03:00 88 20 89 L 01/17/22 03:00 84/51 L 01/17/22 02:45 91 H 15 93 01/17/22 02:45 102/60 01/17/22 02:30 91 H 21 92 01/17/22 02:30 111/53 L 01/17/22 02:15 89 20 92 01/17/22 02:15 105/54 L 01/17/22 02:00 92 H 22 96 01/17/22 02:00 87/50 L 01/17/22 01:45 90 21 01/17/22 01:45 118/71 01/17/22 01:30 91 H 20 100 01/17/22 01:30 90/51 L 01/17/22 01:15 90 28 H 100 01/17/22 01:15 96/59 L 01/17/22 01:00 89 23 97 01/17/22 01:00 100/60 01/17/22 00:45 87 29 H 01/17/22 00:45 88/67 L 01/17/22 00:30 83 26 H 86 L 01/17/22 00:30 94/50 L 01/17/22 00:15 83 18 89 L 01/17/22 00:15 84/51 L 01/17/22 00:00 81 18 92 01/17/22 00:00 94/51 L 01/16/22 23:55 81/64 L 01/16/22 23:55 82 20 88 L 01/16/22 23:45 84 15 92 01/17/22 04:36 93 H 18 78/57 L 93 01/17/22 03:45 74 72/46 L 94 01/17/22 02:00 88 18 102/60 92 01/17/22 02:03 36.7 C 89 18 87/50 L 94 01/17/22 01:43 36.7 C 93 H 18 118/71 95 01/17/22 00:43 36.6 C 83 18 88/67 L 94 01/17/22 00:00 36.6 C 84 18 79/48 L 94 01/17/22 00:13 36.8 C 85 18 84/51 L 94 01/16/22 23:58 36.6 C 83 18 81/64 L 93 01/16/22 23:40 36.6 C 83 18 76/43 L 94 01/16/22 22:00 36.6 C 76 18 97/58 L 94 01/16/22 20:35 36.4 C L 01/16/22 21:30 81 20 81/55 L 94 01/16/22 21:15 83 20 99/60 L 97 01/16/22 20:37 36.4 C L 74 18 111/69 01/16/22 20:00 75 18 124/63 97 O2 Del Method 01/17/22 06:38 01/17/22 06:23 01/17/22 05:45 01/17/22 05:45 01/17/22 05:32 01/17/22 05:32 01/17/22 05:30 01/17/22 05:25 01/17/22 05:25 01/17/22 05:19 01/17/22 06:41 Room Air 01/17/22 06:01 01/17/22 06:08 01/17/22 05:53 01/17/22 05:36 01/17/22 05:00 01/17/22 05:00 01/17/22 04:45 01/17/22 04:34 01/17/22 04:34 01/17/22 04:32 01/17/22 04:30 01/17/22 04:15 01/17/22 04:01 01/17/22 04:01 01/17/22 04:00 01/17/22 03:56 01/17/22 03:56 01/17/22 03:45 01/17/22 03:33 01/17/22 03:33 01/17/22 03:30 01/17/22 03:30 01/17/22 03:15 01/17/22 03:15 01/17/22 03:00 01/17/22 03:00 01/17/22 02:45 01/17/22 02:45 01/17/22 02:30 01/17/22 02:30 01/17/22 02:15 01/17/22 02:15 01/17/22 02:00 01/17/22 02:00 01/17/22 01:45 01/17/22 01:45 01/17/22 01:30 01/17/22 01:30 01/17/22 01:15 01/17/22 01:15 01/17/22 01:00 01/17/22 01:00 01/17/22 00:45 01/17/22 00:45 01/17/22 00:30 01/17/22 00:30 01/17/22 00:15 01/17/22 00:15 01/17/22 00:00 01/17/22 00:00 01/16/22 23:55 01/16/22 23:55 01/16/22 23:45 01/17/22 04:36 Room Air 01/17/22 03:45 01/17/22 02:00 01/17/22 02:03 01/17/22 01:43 01/17/22 00:43 01/17/22 00:00 01/17/22 00:13 01/16/22 23:58 01/16/22 23:40 01/16/22 22:00 01/16/22 20:35 01/16/22 21:30 01/16/22 21:15 01/16/22 20:37 01/16/22 20:00 Diagnostic Findings CTA of Abd Pelvis 01/17/22: 1. Extensive plaque of the abdominal aorta and branch vessels. 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 Patent celiac axis. 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 40% stenosis of the proximal bilateral renal arteries. Occlusion of the left common iliac artery with reconstitution at the iliac bifurcation. 2. No source for GI bleed identified on this exam. Large amount of stool within the rectum. Colonic diverticulosis without evidence for acute diverticulitis. No bowel obstruction. No bowel wall thickening. 3. Multiple renal cysts.
[2022-01-17 07:54] LABS: BUN Creatinine Ratio 44.5 (10-20); Calcium 7.6 mg/dl (8.5-10.1); Creatinine Clr Calc Pharmacy 52.7 ml/min; Est GFR (African American) 72.6 ml/min; Est GFR (Non-African American) 62.6 ml/min; Potassium 4.2 mmol/L (3.5-5.1)
--- NOTE | 2022-01-17 08:00 | Critical Care Progress Note ---
Date of Service January 17, 2022 Assessment & Plan (1) Hematemesis: Plan: Reason Critically Ill: 81-year-old male who was admitted to the hospital for hematemesis and transferred to the ICU for hypotension, acute blood loss anemia. Sedation: None Analgesia: Tylenol as needed Neuro Patient is alert and oriented x4. He has some dysarthria (which appears to be his baseline) but is otherwise able to communicate. He responds vocally to questions and follows commands well. * Cardiac Hypotension: Likely secondary to GI bleed. Now s/p IVF bolus x1, pRBC x2 units. Minimal pressor support required. Patient is hemodynamically stable. * Continue maintenance IVF, albumin * Per GI, likely EGD later today to r/o GI bleed. Appreciate recs. * Trend vitals Respiratory Patient breathing well on room air. No acute concerns. * GI GI bleed: Now status post IVF bolus x1.5 L (ED, ICU), pRBC x2 units. No active bleed identified on CT A/P. Currently awaiting EGD, likely later today for bleeding risk stratification. Appreciate recs. * Octreotide IV, pantoprazole IV * Antibiotic prophylaxis: Ceftriaxone 1 g every 24 hours * Holding home Plavix * N.p.o. RENAL/LYTES Hypocalcemia, hypomagnesemia: Patient received 2 g IV magnesium. * Trend electrolytes. Replace as needed. No signs or suspicion for renal end-organ damage. Patient is adequately making urine. No Troy catheter in place * No concerns at this time. ENDO DM2: Holding home glipizide, Novolin, metformin. * ICU hyperglycemia protocol. HEME Acute blood loss anemia: Hemoglobin of 6.7 on admission. Now 9.9 after 2 units of packed red blood cells. Patient is hemodynamically stable. Thrombocytopenia: Platelet count of 90 K. * Trend H&H every 6 hours * No need for FFP, as platelet count >50 K. * Holding home Plavix. * No DVT prophylaxis ID Leukocytosis: Resolved. No evidence of sepsis. Procalcitonin normal. Low suspicion for cirrhosis, given labs, imaging, history. * Stopping cefepime, vancomycin. Starting IV ceftriaxone. * Monitor fever curve. LINES/IV ACCESS * Large bore PIV x2 intact. DVT PROPHYLAXIS * Withholding anticoagulation Thank you for allowing us to be part of this patient's care. Please refer to Dr. Christie's documentation for any further recommendations. (2) Hypotension: (3) Hypothermia: (4) Weakness: (5) Anemia: (6) Leukocytosis: Admission and Anticipated Discharge Date Admission Date: January 16, 2022 Supervising Physician Co-Signing Physician Notes Patient seen and examined. EMR reviewed. Discussed with overnight critical care HALINA as well as with family practice resident. Patient was discussed on multidisciplinary rounds today as well. 81-year-old male admitted with hematochezia. Had an episode of hematemesis. Transiently dropped blood pressure but responded to volume resuscitation. Is been initiated on Protonix and octreotide drips. Discussed with GI. Plans to proceed with endoscopy today. Continue serial hemoglobin and hematocrit. Coagulation panel is normal. Replacing electrolyte abnormalities as needed. No indication for antimicrobial therapy currently. Ultimate disposition pending endoscopic evaluation. A total of 65 minutes critical care time was spent evaluation management and stabilization of this patient with potential life-threatening bleeding. Subjective Overnight, was hypotensive to the 70s systolic on arrival from the ED. He received 2 units packed red blood cells for hemoglobin of 6.7. This morning, patient reports some dizziness earlier (now resolved), and an episode of dark or red vomit (he is unsure). He denies headache, chest pain, nausea, or abdominal pain. He does not have an appetite this morning. He had a bowel movement x1, which he reports was normal in color. Review of Systems Review of Systems: All systems reviewed & are unremarkable except as noted in HPI & below Physical Exam Physical Exam: General: No acute distress HEENT: PERRLA. Normal conjunctiva, anicteric sclera. Oropharynx normal. Respiratory: Normal respiratory effort, CTA BL. Cardiovascular: RRR. Murmur heard loudest at the LUSB. No gallops or rubs. No pedal edema. GI: Soft abdomen with normal bowel sounds heard on auscultation. Nontender x4 quadrants Neuro: Alert and oriented x3. Results & Data Results & Data ([facility]) Vital Signs (Past 12 Hours) Vital Signs Temp Pulse Pulse Resp BP BP Pulse Ox 01/17/22 06:38 36.6 C 81 15 76/48 L 93 01/17/22 06:23 67 L 01/17/22 05:45 88 20 93 01/17/22 05:45 115/54 L 01/17/22 05:32 119/66 10/31/22 05:32 88 17 94 01/17/22 05:30 84 27 H 93 01/17/22 05:25 90 19 80 L 01/17/22 05:25 101/56 L 01/17/22 05:19 93 01/17/22 06:41 01/17/22 06:01 85 01/17/22 06:08 36.6 C 84 16 78/59 L 92 01/17/22 05:53 36.6 C 83 17 119/66 93 01/17/22 05:36 36.8 C 84 18 119/66 92 01/17/22 05:00 86 19 01/17/22 05:00 94/55 L 01/17/22 04:45 85 22 93 01/17/22 04:34 96 H 17 93 01/17/22 04:34 78/57 L 01/17/22 04:32 98 H 13 93 01/17/22 04:30 90 19 92 01/17/22 04:15 85 24 93 01/17/22 04:01 87/41 L 01/17/22 04:01 85 17 91 01/17/22 04:00 13 79 L 01/17/22 03:56 86 3 L 93 01/17/22 03:56 69/55 L 01/17/22 03:45 79 16 75 L 01/17/22 03:33 72/46 L 01/17/22 03:33 86 11 L 94 01/17/22 03:30 84 39 H 92 01/17/22 03:30 67/42 L 01/17/22 03:15 88 19 94 01/17/22 03:15 92/60 L 01/17/22 03:00 88 20 89 L 01/17/22 03:00 84/51 L 01/17/22 02:45 91 H 15 93 01/17/22 02:45 102/60 01/17/22 02:30 91 H 21 92 01/17/22 02:30 111/53 L 01/17/22 02:15 89 20 92 01/17/22 02:15 105/54 L 01/17/22 02:00 92 H 22 96 01/17/22 02:00 87/50 L 01/17/22 01:45 90 21 01/17/22 01:45 118/71 01/17/22 01:30 91 H 20 100 01/17/22 01:30 90/51 L 01/17/22 01:15 90 28 H 100 01/17/22 01:15 96/59 L 01/17/22 01:00 89 23 97 01/17/22 01:00 100/60 01/17/22 00:45 87 29 H 01/17/22 00:45 88/67 L 01/17/22 00:30 83 26 H 86 L 01/17/22 00:30 94/50 L 01/17/22 00:15 83 18 89 L 01/17/22 00:15 84/51 L 01/17/22 00:00 81 18 92 01/17/22 00:00 94/51 L 01/16/22 23:55 81/64 L 01/16/22 23:55 82 20 88 L 01/16/22 23:45 84 15 92 01/17/22 04:36 93 H 18 78/57 L 93 01/17/22 03:45 74 72/46 L 94 01/17/22 02:00 88 18 102/60 92 01/17/22 02:03 36.7 C 89 18 87/50 L 94 01/17/22 01:43 36.7 C 93 H 18 118/71 95 01/17/22 00:43 36.6 C 83 18 88/67 L 94 01/17/22 00:00 36.6 C 84 18 79/48 L 94 01/17/22 00:13 36.8 C 85 18 84/51 L 94 01/16/22 23:58 36.6 C 83 18 81/64 L 93 01/16/22 23:40 36.6 C 83 18 76/43 L 94 01/16/22 22:00 36.6 C 76 18 97/58 L 94 01/16/22 20:35 36.4 C L 01/16/22 21:30 81 20 81/55 L 94 01/16/22 21:15 83 20 99/60 L 97 01/16/22 20:37 36.4 C L 74 18 111/69 01/16/22 20:00 75 18 124/63 97 O2 Del Method 01/17/22 06:38 01/17/22 06:23 01/17/22 05:45 01/17/22 05:45 01/17/22 05:32 01/17/22 05:32 01/17/22 05:30 01/17/22 05:25 01/17/22 05:25 01/17/22 05:19 01/17/22 06:41 Room Air 01/17/22 06:01 01/17/22 06:08 01/17/22 05:53 01/17/22 05:36 01/17/22 05:00 01/17/22 05:00 01/17/22 04:45 01/17/22 04:34 01/17/22 04:34 01/17/22 04:32 01/17/22 04:30 01/17/22 04:15 01/17/22 04:01 01/17/22 04:01 01/17/22 04:00 01/17/22 03:56 01/17/22 03:56 01/17/22 03:45 01/17/22 03:33 01/17/22 03:33 01/17/22 03:30 01/17/22 03:30 01/17/22 03:15 01/17/22 03:15 01/17/22 03:00 01/17/22 03:00 01/17/22 02:45 01/17/22 02:45 01/17/22 02:30 01/17/22 02:30 01/17/22 02:15 01/17/22 02:15 01/17/22 02:00 01/17/22 02:00 01/17/22 01:45 01/17/22 01:45 01/17/22 01:30 01/17/22 01:30 01/17/22 01:15 01/17/22 01:15 01/17/22 01:00 01/17/22 01:00 01/17/22 00:45 01/17/22 00:45 01/17/22 00:30 01/17/22 00:30 01/17/22 00:15 01/17/22 00:15 01/17/22 00:00 01/17/22 00:00 01/16/22 23:55 01/16/22 23:55 01/16/22 23:45 10/31/22 04:36 Room Air 01/17/22 03:45 01/17/22 02:00 01/17/22 02:03 01/17/22 01:43 01/17/22 00:43 01/17/22 00:00 01/17/22 00:13 01/16/22 23:58 01/16/22 23:40 01/16/22 22:00 01/16/22 20:35 01/16/22 21:30 01/16/22 21:15 01/16/22 20:37 01/16/22 20:00 Resident Activity Tracking Resident Involvement: Resident Care Provided Care Provided: Adult Hospital Medicine (1) Anemia Anemia type: unspecified type Qualified Code(s): D64.9 - Anemia, unspecified (2) Hypothermia Encounter type: initial encounter Qualified Code(s): T68.XXXA - Hypothermia, initial encounter (3) Leukocytosis Leukocytosis type: unspecified Qualified Code(s): D72.829 - Elevated white blood cell count, unspecified (4) Hematemesis Nausea presence: with nausea Qualified Code(s): K92.0 - Hematemesis (5) Hypotension Hypotension type: unspecified hypotension type Qualified Code(s): I95.9 - Hypotension, unspecified
[2022-01-17 09:12] LABS: Estimated Average Glucose 146 mg/dl; Hemoglobin A1C 6.7 % (4.5-5.6)
[2022-01-17] MEDS ORDERED: cefTRIAXone SODIUM 1,000 MG in DEXTROSE 5% 50 ML IV SCH (09:15)
[2022-01-17] MEDS ORDERED: cefTRIAXone SODIUM 2,000 MG in DEXTROSE 5% 50 ML IV SCH (09:30)
[2022-01-17] MEDS ORDERED: LACTATED RINGER'S 500 ML IV ONE ×2 (10:16→10:46)
--- NOTE | 2022-01-17 10:32 | Gastrointestinal Consultation ---
Date of Consultation January 17, 2022 Assessment & Plan (1) Hematemesis: As evidenced by coffee-ground emesis Concern for peptic ulcer disease, esophagitis, AVMs, less likely ischemic disease based upon CT findings. Plan Continue with IV PPI Although no signs of liver disease okay to continue IV octreotide N.p.o. Continue to support hemodynamics, Plan for EGD today depending staff availability With further recommendations to follow. History of Present Illness Reason for Consultation: Coffee-ground emesis Attending Physician: Tylor Freitas MD History of Present Illness This is an 81-year-old gentleman with history but specifically for diabetes, coronary artery disease and hypertension. As below who presents to the emergency room with complaints of throwing up blood. He tells me that yesterday he felt a bit lightheaded when tending to his coal stove. He had dinner last evening, and then had nausea progressed to have 2 episodes of coffee-ground emesis 1 of which was in the ER, he denies any abdominal pain continued emesis or nausea. He states that he feels quite well now. Hemoglobin upon presentation was 9, without bleeding there was at least one blood count with a hemoglobin in the mid sixes, however repeat blood count with 1-1/2 units of blood shows a hemoglobin of 10. He denies any melena hematochezia or symptoms such as this in the past. He has been intermittently taken aspirin as well as Aleve. His blood pressure was intermittently soft in the ER, has responded to volume. He is awake alert and is without complaints at the current time. Has a history of coronary artery disease with the specifics that I am unaware of, he is on Plavix. He has been started on IV PPI, IV octreotide, and is doing well. CT scan with angiography did not show any evidence of liver disease or evidence of active bleeding. His stomach was empty, with no inflammation of the duodenum, or esophagus. CT ANGIOGRAPHY OF THE ABDOMEN AND PELVIS CLINICAL HISTORY: abdominal pain? GI bleed. COMPARISON STUDY: No previous studies for comparison. TECHNIQUE: Helical axial images of the abdomen and pelvis were obtained during arterial phase following intravenous injection of 102 cc of Optiray 320 IV. Sagittal and coronal reconstructions were viewed as well as maximal intensity projections on an independent 3-D workstation. Automated exposure control was utilized for the study. A dose lowering technique was utilized adhering to the principles of ALARA. FINDINGS: Emphysema is noted within the lower lungs. No pneumatosis, free air or portal venous gas is present. Stents of plaque of the abdominal aorta which is normal in caliber. The celiac axis is patent. There is approximately 40% stenosis of the proximal bilateral renal arteries. There is 60% stenosis of the proximal SMA due to calcified and noncalcified plaque. 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 There is occlusion of the left common iliac artery with reconstitution at the level of the left iliac bifurcation. There is mild dilatation of the right common iliac artery, measuring 1.5 cm. No pneumatosis, free air or portal venous gas is present. Arterial phase images of liver, spleen, adrenal glands and pancreas are unremarkable. There is no biliary or pancreatic ductal dilatation. Water attenuation bilateral renal lesions reflect cysts. Moderate left and mild right renal cortical thinning is noted. 2 mm left renal calculus is present. There are no ureteral calculi. There is no hydronephrosis. Large amount stool within the rectum is noted. There is no evidence for a bowel obstruction. No bowel wall thickening is noted. The marshall endix is normal. Colonic diverticulosis is noted without evidence for acute diverticulitis. No intraluminal extravasation of contrast is noted to suggest the source for the GI bleed. No acute fractures within the visualized skeletal structures. IMPRESSION: 1. Extensive plaque of the abdominal aorta and branch vessels. 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 Patent celiac axis. 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 40% stenosis of the proximal bilateral renal arteries. Occlusion of the left common iliac artery with reconstitution at the iliac bifurcation. 2. No source for GI bleed identified on this exam. Large amount of stool within the rectum. Colonic diverticulosis without evidence for acute diverticulitis. No bowel obstruction. No bowel wall thickening. 3. Multiple renal cysts. Allergies Allergy/AdvReac Type Severity Reaction Status Date / Time No Known Allergies Allergy Verified 01/16/22 20:53 Home Medications Medication Instructions Recorded Confirmed Type amlodipine 10 mg tablet 10 mg PO HS 01/16/22 01/16/22 History atorvastatin 20 mg tablet 20 mg PO HS 01/16/22 01/16/22 History clopidogrel 75 mg tablet 75 mg PO HS 01/16/22 01/16/22 History glipizide 10 mg tablet, extended 10 mg PO HS 01/16/22 01/16/22 History release 24 hr insulin NPH isoph U-100 human 100 50 unit subcut QAM 01/16/22 01/16/22 History unit/mL (3 mL) subcutaneous pen (Novolin N Flexpen) lisinopril 40 mg tablet 40 mg PO HS 01/16/22 01/16/22 History metformin 500 mg tablet,extended 1,000 mg PO HS 01/16/22 01/16/22 History release 24 hr Patient History Medical History Diabetes mellitus Hypertension Social History Smoking Status: Never smoker Second Hand Exposure: No; Do You Dip or Chew Tobacco: No; Tobacco Cessation Education Requested by Patient: No Hx Alcohol Use: No Hx Substance Use: No Preferred Language: [place] Communication Ability: Effective Welding Inspector Required: No Beliefs That Will Affect Care: None Current Living Situation: Spouse Other Information That Helps Us Care for You: No Feels Safe at Home: Yes Safety Concerns: Feels Safe At This Time Assistive Devices: Denture - Upper and Denture - Lower Review of Systems Review of Systems: All systems reviewed & are unremarkable except as noted in HPI & below Physical Exam Physical Exam: Awake alert oriented x3 heart is regular lungs are clear abdomen soft nontender nondistended no peripheral edema neurologically intact. Poor dentition with no teeth. Rectal exam shows brown stool in the vault Results & Data ([facility]) Vital Signs (Past 12 Hours) Vital Signs Temp Pulse Pulse Resp BP BP Pulse Ox 01/17/22 10:00 76 18 90 01/17/22 10:00 95/53 L 01/17/22 09:45 66 19 92 01/17/22 09:45 101/64 01/17/22 09:30 77 19 92 01/17/22 09:30 102/67 01/17/22 09:16 84 15 95 01/17/22 09:16 117/71 01/17/22 09:15 85 23 97 01/17/22 09:00 71 21 92 01/17/22 09:00 103/63 01/17/22 08:45 78 18 90 01/17/22 08:45 98/61 L 01/17/22 08:30 81 17 96 01/17/22 08:30 111/78 01/17/22 08:15 80 18 93 01/17/22 08:15 116/72 01/17/22 08:10 111/68 01/17/22 08:10 73 15 97 01/17/22 08:00 80 15 95 01/17/22 08:00 120/71 01/17/22 07:46 125/60 01/17/22 07:46 79 19 98 01/17/22 07:45 77 23 96 01/17/22 07:30 70 16 90 01/17/22 07:30 126/74 01/17/22 07:15 82 21 95 01/17/22 07:15 115/75 01/17/22 07:09 82 14 94 01/17/22 07:09 83/55 L 01/17/22 07:00 81 19 94 01/17/22 07:00 72/51 L 01/17/22 06:53 79 15 86 L 01/17/22 06:53 76/48 L 01/17/22 06:45 83 18 90 01/17/22 06:45 80/50 L 01/17/22 06:43 78/52 L 01/17/22 06:43 85 33 H 93 01/17/22 06:35 82 19 91 01/17/22 06:35 78/59 L 01/17/22 06:34 80/53 L 01/17/22 06:34 81 29 H 92 01/17/22 06:30 82 17 91 01/17/22 07:15 37.6 C 77 19 126/74 97 01/17/22 06:38 36.6 C 81 15 76/48 L 93 01/17/22 06:23 67 L 01/17/22 05:45 88 20 93 01/17/22 05:45 115/54 L 01/17/22 05:32 119/66 01/17/22 05:32 88 17 94 01/17/22 05:30 84 27 H 93 01/17/22 05:25 90 19 80 L 01/17/22 05:25 101/56 L 01/17/22 05:19 93 01/17/22 06:41 01/17/22 06:01 85 01/17/22 06:08 36.6 C 84 16 78/59 L 92 01/17/22 05:53 36.6 C 83 17 119/66 93 01/17/22 05:36 36.8 C 84 18 119/66 92 01/17/22 05:00 86 19 01/17/22 05:00 94/55 L 01/17/22 04:45 85 22 93 01/17/22 04:34 96 H 17 93 01/17/22 04:34 78/57 L 01/17/22 04:32 98 H 13 93 01/17/22 04:30 90 19 92 01/17/22 04:15 85 24 93 01/17/22 04:01 87/41 L 01/17/22 04:01 85 17 91 01/17/22 04:00 13 79 L 01/17/22 03:56 86 3 L 93 01/17/22 03:56 69/55 L 01/17/22 03:45 79 16 75 L 01/17/22 03:33 72/46 L 01/17/22 03:33 86 11 L 94 01/17/22 03:30 84 39 H 92 01/17/22 03:30 67/42 L 01/17/22 03:15 88 19 94 01/17/22 03:15 92/60 L 01/17/22 03:00 88 20 89 L 01/17/22 03:00 84/51 L 01/17/22 02:45 91 H 15 93 01/17/22 02:45 102/60 01/17/22 02:30 91 H 21 92 01/17/22 02:30 111/53 L 01/17/22 02:15 89 20 92 01/17/22 02:15 105/54 L 01/17/22 02:00 92 H 22 96 01/17/22 02:00 87/50 L 01/17/22 01:45 90 21 01/17/22 01:45 118/71 01/17/22 01:30 91 H 20 100 01/17/22 01:30 90/51 L 01/17/22 01:15 90 28 H 100 01/17/22 01:15 96/59 L 01/17/22 01:00 89 23 97 01/17/22 01:00 100/60 01/17/22 00:45 87 29 H 01/17/22 00:45 88/67 L 01/17/22 00:30 83 26 H 86 L 01/17/22 00:30 94/50 L 01/17/22 00:15 83 18 89 L 01/17/22 00:15 84/51 L 01/17/22 00:00 81 18 92 01/17/22 00:00 94/51 L 01/16/22 23:55 81/64 L 01/16/22 23:55 82 20 88 L 01/16/22 23:45 84 15 92 01/17/22 04:36 93 H 18 78/57 L 93 01/17/22 03:45 74 72/46 L 94 01/17/22 02:00 88 18 102/60 92 01/17/22 02:03 36.7 C 89 18 87/50 L 94 01/17/22 01:43 36.7 C 93 H 18 118/71 95 01/17/22 00:43 36.6 C 83 18 88/67 L 94 01/17/22 00:00 36.6 C 84 18 79/48 L 94 01/17/22 00:13 36.8 C 85 18 84/51 L 94 01/16/22 23:58 36.6 C 83 18 81/64 L 93 01/16/22 23:40 36.6 C 83 18 76/43 L 94 O2 Del Method O2 Flow Rate 01/17/22 10:00 01/17/22 10:00 01/17/22 09:45 01/17/22 09:45 01/17/22 09:30 01/17/22 09:30 01/17/22 09:16 01/17/22 09:16 01/17/22 09:15 01/17/22 09:00 01/17/22 09:00 01/17/22 08:45 01/17/22 08:45 01/17/22 08:30 01/17/22 08:30 01/17/22 08:15 01/17/22 08:15 01/17/22 08:10 01/17/22 08:10 01/17/22 08:00 01/17/22 08:00 01/17/22 07:46 01/17/22 07:46 01/17/22 07:45 01/17/22 07:30 01/17/22 07:30 01/17/22 07:15 01/17/22 07:15 01/17/22 07:09 01/17/22 07:09 01/17/22 07:00 Nasal Cannula 2 01/17/22 07:00 01/17/22 06:53 Room Air 01/17/22 06:53 01/17/22 06:45 01/17/22 06:45 01/17/22 06:43 01/17/22 06:43 01/17/22 06:35 01/17/22 06:35 01/17/22 06:34 01/17/22 06:34 01/17/22 06:30 01/17/22 07:15 2 01/17/22 06:38 01/17/22 06:23 01/17/22 05:45 01/17/22 05:45 01/17/22 05:32 01/17/22 05:32 01/17/22 05:30 01/17/22 05:25 01/17/22 05:25 01/17/22 05:19 01/17/22 06:41 Room Air 01/17/22 06:01 01/17/22 06:08 01/17/22 05:53 01/17/22 05:36 01/17/22 05:00 01/17/22 05:00 01/17/22 04:45 01/17/22 04:34 01/17/22 04:34 01/17/22 04:32 01/17/22 04:30 01/17/22 04:15 01/17/22 04:01 01/17/22 04:01 01/17/22 04:00 01/17/22 03:56 01/17/22 03:56 01/17/22 03:45 01/17/22 03:33 01/17/22 03:33 01/17/22 03:30 01/17/22 03:30 01/17/22 03:15 01/17/22 03:15 01/17/22 03:00 01/17/22 03:00 01/17/22 02:45 01/17/22 02:45 01/17/22 02:30 01/17/22 02:30 01/17/22 02:15 01/17/22 02:15 01/17/22 02:00 01/17/22 02:00 01/17/22 01:45 01/17/22 01:45 01/17/22 01:30 01/17/22 01:30 01/17/22 01:15 01/17/22 01:15 01/17/22 01:00 01/17/22 01:00 01/17/22 00:45 01/17/22 00:45 01/17/22 00:30 01/17/22 00:30 01/17/22 00:15 01/17/22 00:15 01/17/22 00:00 01/17/22 00:00 01/16/22 23:55 01/16/22 23:55 01/16/22 23:45 01/17/22 04:36 Room Air 01/17/22 03:45 01/17/22 02:00 01/17/22 02:03 01/17/22 01:43 01/17/22 00:43 01/17/22 00:00 01/17/22 00:13 01/16/22 23:58 01/16/22 23:40 (1) Hematemesis Nausea presence: with nausea Qualified Code(s): K92.0 - Hematemesis
--- NOTE | 2022-01-17 10:46 | Electrocardiogram Report ---
Test Reason : Blood Pressure : / mmHG Vent. Rate : 073 BPM Atrial Rate : 073 BPM P-R Int : 256 ms QRS Dur : 132 ms QT Int : 448 ms P-R-T Axes : 068 -56 009 degrees QTc Int : 493 ms Sinus rhythm with sinus arrhythmia with 1st degree A-V block Right bundle branch block Left anterior fascicular block Bifascicular block Abnormal ECG No previous ECGs available Confirmed by Andrew Luna ([id number]) on 01/17/2022 10:46:09 AM Referred By: REFERRED SELF Confirmed By:Balaji Luna
[2022-01-17 11:29] LABS: Hematocrit (blood only) 28.5 % (40.1-51.0); Hemoglobin 9.7 g/dl (14.0-18.0)
[2022-01-17] MEDS ORDERED: VANCOMYCIN HCL 1,250 MG in SODIUM CHLORIDE 0.9% 250 ML IV SCH (12:00)
--- NOTE | 2022-01-17 13:03 | Hospitalist Progress Note ---
Date of Service January 17, 2022 Assessment & Plan (1) Hematemesis: (2) Leukocytosis: (3) Anemia: (4) Hypotension: (5) Hypothermia: Plan: This 81-year-old male presents with hematemesis, hypotension, hypothermia. 1. Hematemesis. CT Abd./ pelvis No source for GI bleed identified on this exam. Large amount of stool within the rectum. Colonic diverticulosis without evidence for acute diverticulitis. No bowel obstruction. No bowel wall thickening. Holding his Plavix. Monitor H&H Started on Protonix drip. Acute blood loss anemia -patient received 2 units of PRBCs overnight. Monitor H&H GI consulted -plan for upper endoscopy 2. Hypotension, probably secondary to GI bleed. The patient was also hypothermic when he came in. His lactate was okay 1.2. Treat him as sepsis with empiric antibiotics, vancomycin and cefepime for 48 hours and then stop. We will follow the cultures. Follow the response. Patient will need to be hypotensive, and required ICU transfer. Required pressor support, currently off pressors. Blood pressure much improved, vancomycin and cefepime started by ICU. Ceftriaxone started. Electrolyte abnormalities, hypocalcemia, hypomagnesemia - replete and monitor 3. History of diabetes: Hold his glipizide, insulin and metformin. Place him on insulin sliding scale. Follow the blood sugars. 4. History of hypertension: Holding amlodipine and lisinopril for hypotension, as above. 5. History of hyperlipidemia: Holding his statin. 6. History of CAD, status post stent. Holding Plavix and statin. DVT prophylaxis: SCDs for now. DISPOSITION:ICU Code: Full Admission and Anticipated Discharge Date Admission Date: January 16, 2022 Subjective Pt seen in follow up of hematemesis Currently laying in bed, in no acute distress Denies fevers chills, chest pain, shortness of breath denies abdominal pain Required minimal pressor support, currently off pressors Plan for upper endoscopy Received 2 units of PRBCs overnight Review of Systems Review of Systems: All systems reviewed & are unremarkable except as noted in Subjective Physical Exam Physical Exam: GENERAL: WD/WN elderly M in NAD HEENT: NC/AT, EOMI, Pupils equal, round and reactive to light. Oral mucosa moist. NECK: No JVD or neck masses. CARDIOVASCULAR: S1 and S2 heard. Regular rate and rhythm. No murmur, no gallop. RESPIRATORY: Normal AP diameter. No accessory muscle use. No wheezing, no crackles. ABDOMEN: Soft, bowel sounds present, nontender, no distention. NEURO:Awake and alert, able to answer simple questions appropriately, speech fluent, moves extremities EXTREMITIES: No edema, no erythema. Results & Data Results & Data ([facility]) Vital Signs (Past 12 Hours) Vital Signs Temp Pulse Pulse Resp BP BP Pulse Ox 01/17/22 10:45 76 19 90 01/17/22 10:45 95/66 L 01/17/22 10:30 79 21 93 01/17/22 10:30 112/70 01/17/22 10:16 76 20 86 L 01/17/22 10:16 102/62 01/17/22 10:15 76 29 H 88 L 01/17/22 10:00 76 18 90 01/17/22 10:00 95/53 L 01/17/22 09:45 66 19 92 01/17/22 09:45 101/64 01/17/22 09:30 77 19 92 01/17/22 09:30 102/67 01/17/22 09:16 84 15 95 01/17/22 09:16 117/71 01/17/22 09:15 85 23 97 01/17/22 09:00 71 21 92 01/17/22 09:00 103/63 01/17/22 08:45 78 18 90 01/17/22 08:45 98/61 L 01/17/22 08:30 81 17 96 01/17/22 08:30 111/78 01/17/22 08:15 80 18 93 01/17/22 08:15 116/72 01/17/22 08:10 111/68 01/17/22 08:10 73 15 97 01/17/22 08:00 80 15 95 01/17/22 08:00 120/71 01/17/22 07:46 125/60 01/17/22 07:46 79 19 98 01/17/22 07:45 77 23 96 01/17/22 07:30 70 16 90 01/17/22 07:30 126/74 01/17/22 07:15 82 21 95 01/17/22 07:15 115/75 01/17/22 07:09 82 14 94 01/17/22 07:09 83/55 L 01/17/22 07:00 81 19 94 01/17/22 07:00 72/51 L 01/17/22 06:53 79 15 86 L 01/17/22 06:53 76/48 L 01/17/22 06:45 83 18 90 01/17/22 06:45 80/50 L 01/17/22 06:43 78/52 L 01/17/22 06:43 85 33 H 93 01/17/22 06:35 82 19 91 01/17/22 06:35 78/59 L 01/17/22 06:34 80/53 L 01/17/22 06:34 81 29 H 92 01/17/22 06:30 82 17 91 01/17/22 07:15 37.6 C 77 19 126/74 97 01/17/22 06:38 36.6 C 81 15 76/48 L 93 01/17/22 06:23 67 L 01/17/22 05:45 88 20 93 01/17/22 05:45 115/54 L 01/17/22 05:32 119/66 01/17/22 05:32 88 17 94 01/17/22 05:30 84 27 H 93 01/17/22 05:25 90 19 80 L 01/17/22 05:25 101/56 L 01/17/22 05:19 93 01/17/22 06:41 01/17/22 06:01 85 01/17/22 06:08 36.6 C 84 16 78/59 L 92 01/17/22 05:53 36.6 C 83 17 119/66 93 01/17/22 05:36 36.8 C 84 18 119/66 92 01/17/22 05:00 86 19 01/17/22 05:00 94/55 L 01/17/22 04:45 85 22 93 01/17/22 04:34 96 H 17 93 01/17/22 04:34 78/57 L 01/17/22 04:32 98 H 13 93 01/17/22 04:30 90 19 92 01/17/22 04:15 85 24 93 01/17/22 04:01 87/41 L 01/17/22 04:01 85 17 91 01/17/22 04:00 13 79 L 01/17/22 03:56 86 3 L 93 01/17/22 03:56 69/55 L 01/17/22 03:45 79 16 75 L 01/17/22 03:33 72/46 L 01/17/22 03:33 86 11 L 94 01/17/22 03:30 84 39 H 92 01/17/22 03:30 67/42 L 01/17/22 03:15 88 19 94 01/17/22 03:15 92/60 L 01/17/22 03:00 88 20 89 L 01/17/22 03:00 84/51 L 01/17/22 02:45 91 H 15 93 01/17/22 02:45 102/60 01/17/22 02:30 91 H 21 92 01/17/22 02:30 111/53 L 01/17/22 02:15 89 20 92 01/17/22 02:15 105/54 L 01/17/22 02:00 92 H 22 96 01/17/22 02:00 87/50 L 01/17/22 01:45 90 21 01/17/22 01:45 118/71 01/17/22 01:30 91 H 20 100 01/17/22 01:30 90/51 L 01/17/22 01:15 90 28 H 100 01/17/22 01:15 96/59 L 01/17/22 01:00 89 23 97 01/17/22 01:00 100/60 01/17/22 04:36 93 H 18 78/57 L 93 01/17/22 03:45 74 72/46 L 94 01/17/22 02:00 88 18 102/60 92 01/17/22 02:03 36.7 C 89 18 87/50 L 94 01/17/22 01:43 36.7 C 93 H 18 118/71 95 O2 Del Method O2 Flow Rate 01/17/22 10:45 01/17/22 10:45 01/17/22 10:30 01/17/22 10:30 01/17/22 10:16 01/17/22 10:16 01/17/22 10:15 01/17/22 10:00 01/17/22 10:00 01/17/22 09:45 01/17/22 09:45 01/17/22 09:30 01/17/22 09:30 01/17/22 09:16 01/17/22 09:16 01/17/22 09:15 01/17/22 09:00 01/17/22 09:00 01/17/22 08:45 01/17/22 08:45 01/17/22 08:30 01/17/22 08:30 01/17/22 08:15 01/17/22 08:15 01/17/22 08:10 01/17/22 08:10 01/17/22 08:00 01/17/22 08:00 01/17/22 07:46 01/17/22 07:46 01/17/22 07:45 01/17/22 07:30 01/17/22 07:30 01/17/22 07:15 01/17/22 07:15 01/17/22 07:09 01/17/22 07:09 01/17/22 07:00 Nasal Cannula 2 01/17/22 07:00 01/17/22 06:53 Room Air 01/17/22 06:53 01/17/22 06:45 01/17/22 06:45 01/17/22 06:43 01/17/22 06:43 01/17/22 06:35 01/17/22 06:35 01/17/22 06:34 01/17/22 06:34 01/17/22 06:30 01/17/22 07:15 2 01/17/22 06:38 01/17/22 06:23 01/17/22 05:45 01/17/22 05:45 01/17/22 05:32 01/17/22 05:32 01/17/22 05:30 01/17/22 05:25 01/17/22 05:25 01/17/22 05:19 01/17/22 06:41 Room Air 01/17/22 06:01 01/17/22 06:08 01/17/22 05:53 01/17/22 05:36 01/17/22 05:00 01/17/22 05:00 01/17/22 04:45 01/17/22 04:34 01/17/22 04:34 01/17/22 04:32 01/17/22 04:30 01/17/22 04:15 01/17/22 04:01 01/17/22 04:01 01/17/22 04:00 01/17/22 03:56 01/17/22 03:56 01/17/22 03:45 01/17/22 03:33 01/17/22 03:33 01/17/22 03:30 01/17/22 03:30 01/17/22 03:15 01/17/22 03:15 01/17/22 03:00 01/17/22 03:00 01/17/22 02:45 01/17/22 02:45 01/17/22 02:30 01/17/22 02:30 01/17/22 02:15 01/17/22 02:15 01/17/22 02:00 01/17/22 02:00 01/17/22 01:45 01/17/22 01:45 01/17/22 01:30 01/17/22 01:30 01/17/22 01:15 01/17/22 01:15 01/17/22 01:00 01/17/22 01:00 01/17/22 04:36 Room Air 01/17/22 03:45 01/17/22 02:00 01/17/22 02:03 01/17/22 01:43 Laboratory Results 01/17/22 01/17/22 01/17/22 Range/Units Unknown 11:05 08:20 WBC (4.8-10.8) K/ul RBC (4.63-6.08) M/uL Hgb 9.7 L (14.0-18.0) g/dl POC Hgb (14.0-18.0) g/dl Hct 28.5 L (40.1-51.0) % POC Hct (42-52) % MCV (80.0-100.0) fL MCH (25.0-34.0) pg MCHC (32.0-36.0) g/dL RDW Std Deviation (36.4-46.3) fL RDW Coeff of Diana (11.5-14.5) % Plt Count (130-400) K/uL MPV (9.4-12.4) fL Immature Gran % (Auto) % Neut % (Auto) % Lymph % (Auto) % [place] % (Auto) % Eos % (Auto) % Baso % (Auto) % Neut # (Auto) (1.4-6.5) K/uL Lymph # (Auto) (1.2-3.4) K/uL [place] # (Auto) (0.24-0.82) K/uL Eos # (Auto) (0-0.50) K/uL Baso # (Auto) (0-0.2) K/uL Immature Gran # (Auto) (0.00-0.02) K/uL Platelet Estimate (Normal) RBC Morphology PT (9.0-12.0) Seconds INR (0.9-1.1) APTT (21.0-31.0) Seconds PTT Ratio POC Sodium (135-144) mmol/L Sodium (136-145) mmol/L POC Potassium (3.3-5.0) mmol/L Potassium (3.5-5.1) mmol/L POC Chloride (101-112) mmol/L Chloride (98-107) mmol/L Carbon Dioxide (21-32) mmol/L POC Total CO2 (24-31) mmol/L Anion Gap (3-11) POC Anion Gap (16-25) mmol/L POC BUN (7-18) mg/dl BUN (6-23) mg/dl Creatinine (0.6-1.4) mg/dl POC Creatinine (0.6-1.3) mg/dl Est Cr Clr Drug Dosing ml/min Est GFR ( Amer) ml/min Est GFR (Non-Af Amer) ml/min BUN/Creatinine Ratio (10-20) Glucose (70-99(Fasting)) mg/dl POC Glucose 112 H (70-99) mg/dl POC Glucose (other) (70-99) mg/dl Estimat Average Glucose mg/dl Hemoglobin A1c (4.5-5.6) % Lactate (0.4-2.0) mmol/L Calcium (8.5-10.1) mg/dl POC Ioniz Calcium Britton (1.12-1.32) mmol/l Magnesium (1.7-2.4) mg/dl Total Bilirubin (0.2-1.0) mg/dl Direct Bilirubin (0-0.2) mg/dl AST (13-39) U/L ALT (7-52) U/L Alkaline Phosphatase (34-104) U/L Troponin I High Sens (0-20) pg/ml Total Protein (6.0-8.3) gm/dl Albumin (3.4-5.0) gm/dl Procalcitonin (0-0.5) ng/ml Urine Color Urine Appearance (Clear) Urine pH (4.5-7.5) Ur Specific [place] (1.000-1.030) Urine Protein (Negative) Urine Glucose (UA) (Negative) Urine Ketones (Negative) Urine Blood (Negative) Urine Nitrite (Negative) Urine Bilirubin (Negative) Urine Urobilinogen (Negative) Ur Leukocyte Esterase (Negative) Urine WBC (Auto) (0-5) /hpf Urine RBC (Auto) (0-4) /hpf U Hyaline Cast (Auto) (0-5) /lpf U Epithel Cells (Auto) (0-5) /lpf Urine Bacteria (Auto) (Negative) Urine Mucus (None Prsent) Nasal Screen MRSA (PCR) Negative (Negative) Gastric Fluid pH Gastric Occult Blood (Negative) SARS-CoV-2 (PCR) (Negative) Influenza Type A (PCR) (Neg) Influenza Type B (PCR) (Neg) RSV (RT-PCR) (Neg) Blood Type Blood Type Recheck Antibody Screen Crossmatch 01/17/22 01/17/22 01/17/22 Range/Units 06:51 06:51 06:51 WBC (4.8-10.8) K/ul RBC (4.63-6.08) M/uL Hgb 9.9 L D (14.0-18.0) g/dl POC Hgb (14.0-18.0) g/dl Hct (40.1-51.0) % POC Hct (42-52) % MCV (80.0-100.0) fL MCH (25.0-34.0) pg MCHC (32.0-36.0) g/dL RDW Std Deviation (36.4-46.3) fL RDW Coeff of Diana (11.5-14.5) % Plt Count (130-400) K/uL MPV (9.4-12.4) fL Immature Gran % (Auto) % Neut % (Auto) % Lymph % (Auto) % [place] % (Auto) % Eos % (Auto) % Baso % (Auto) % Neut # (Auto) (1.4-6.5) K/uL Lymph # (Auto) (1.2-3.4) K/uL [place] # (Auto) (0.24-0.82) K/uL Eos # (Auto) (0-0.50) K/uL Baso # (Auto) (0-0.2) K/uL Immature Gran # (Auto) (0.00-0.02) K/uL Platelet Estimate (Normal) RBC Morphology PT (9.0-12.0) Seconds INR (0.9-1.1) APTT (21.0-31.0) Seconds PTT Ratio POC Sodium (135-144) mmol/L Sodium 140 (136-145) mmol/L POC Potassium (3.3-5.0) mmol/L Potassium 4.2 D (3.5-5.1) mmol/L POC Chloride (101-112) mmol/L Chloride 110 H (98-107) mmol/L Carbon Dioxide 25 (21-32) mmol/L POC Total CO2 (24-31) mmol/L Anion Gap 5 (3-11) POC Anion Gap (16-25) mmol/L POC BUN (7-18) mg/dl BUN 49 H (6-23) mg/dl Creatinine 1.10 D (0.6-1.4) mg/dl POC Creatinine (0.6-1.3) mg/dl Est Cr Clr Drug Dosing 52.7 ml/min Est GFR ( Amer) 72.6 ml/min Est GFR (Non-Af Amer) 62.6 ml/min BUN/Creatinine Ratio 44.5 H (10-20) Glucose 107 H (70-99(Fasting)) mg/dl POC Glucose (70-99) mg/dl POC Glucose (other) (70-99) mg/dl Estimat Average Glucose mg/dl Hemoglobin A1c (4.5-5.6) % Lactate 1.0 (0.4-2.0) mmol/L Calcium 7.6 L D (8.5-10.1) mg/dl POC Ioniz Calcium Britton (1.12-1.32) mmol/l Magnesium (1.7-2.4) mg/dl Total Bilirubin (0.2-1.0) mg/dl Direct Bilirubin (0-0.2) mg/dl AST (13-39) U/L ALT (7-52) U/L Alkaline Phosphatase (34-104) U/L Troponin I High Sens (0-20) pg/ml Total Protein (6.0-8.3) gm/dl Albumin (3.4-5.0) gm/dl Procalcitonin (0-0.5) ng/ml Urine Color Urine Appearance (Clear) Urine pH (4.5-7.5) Ur Specific [place] (1.000-1.030) Urine Protein (Negative) Urine Glucose (UA) (Negative) Urine Ketones (Negative) Urine Blood (Negative) Urine Nitrite (Negative) Urine Bilirubin (Negative) Urine Urobilinogen (Negative) Ur Leukocyte Esterase (Negative) Urine WBC (Auto) (0-5) /hpf Urine RBC (Auto) (0-4) /hpf U Hyaline Cast (Auto) (0-5) /lpf U Epithel Cells (Auto) (0-5) /lpf Urine Bacteria (Auto) (Negative) Urine Mucus (None Prsent) Nasal Screen MRSA (PCR) (Negative) Gastric Fluid pH Gastric Occult Blood (Negative) SARS-CoV-2 (PCR) (Negative) Influenza Type A (PCR) (Neg) Influenza Type B (PCR) (Neg) RSV (RT-PCR) (Neg) Blood Type Blood Type Recheck Antibody Screen Crossmatch 01/17/22 01/17/22 01/17/22 Range/Units 04:18 04:18 04:18 WBC 7.50 (4.8-10.8) K/ul RBC 2.20 L (4.63-6.08) M/uL Hgb 6.7 L* (14.0-18.0) g/dl POC Hgb (14.0-18.0) g/dl Hct 20.5 L* (40.1-51.0) % POC Hct (42-52) % MCV 93.2 (80.0-100.0) fL MCH 30.5 (25.0-34.0) pg MCHC 32.7 (32.0-36.0) g/dL RDW Std Deviation 51.5 H (36.4-46.3) fL RDW Coeff of Diana 14.9 H (11.5-14.5) % Plt Count 90 L (130-400) K/uL MPV 10.3 (9.4-12.4) fL Immature Gran % (Auto) 0.1 % Neut % (Auto) 73.1 % Lymph % (Auto) 18.3 % [place] % (Auto) 8.1 % Eos % (Auto) 0.1 % Baso % (Auto) 0.3 % Neut # (Auto) 5.48 (1.4-6.5) K/uL Lymph # (Auto) 1.37 (1.2-3.4) K/uL [place] # (Auto) 0.61 (0.24-0.82) K/uL Eos # (Auto) 0.01 (0-0.50) K/uL Baso # (Auto) 0.02 (0-0.2) K/uL Immature Gran # (Auto) 0.01 (0.00-0.02) K/uL Platelet Estimate Decreased L (Normal) RBC Morphology Unremarkable PT (9.0-12.0) Seconds INR (0.9-1.1) APTT (21.0-31.0) Seconds PTT Ratio POC Sodium (135-144) mmol/L Sodium 144 D (136-145) mmol/L POC Potassium (3.3-5.0) mmol/L Potassium 3.0 L D (3.5-5.1) mmol/L POC Chloride (101-112) mmol/L Chloride 122 H (98-107) mmol/L Carbon Dioxide 19 L (21-32) mmol/L POC Total CO2 (24-31) mmol/L Anion Gap 3 (3-11) POC Anion Gap (16-25) mmol/L POC BUN (7-18) mg/dl BUN 38 H (6-23) mg/dl Creatinine 0.75 D (0.6-1.4) mg/dl POC Creatinine (0.6-1.3) mg/dl Est Cr Clr Drug Dosing 77.2 ml/min Est GFR ( Amer) 99.7 ml/min Est GFR (Non-Af Amer) 86.0 ml/min BUN/Creatinine Ratio 50.7 H (10-20) Glucose 128 H (70-99(Fasting)) mg/dl POC Glucose (70-99) mg/dl POC Glucose (other) (70-99) mg/dl Estimat Average Glucose 146 mg/dl Hemoglobin A1c 6.7 H (4.5-5.6) % Lactate (0.4-2.0) mmol/L Calcium 4.7 L* D (8.5-10.1) mg/dl POC Ioniz Calcium Britton (1.12-1.32) mmol/l Magnesium 1.4 L (1.7-2.4) mg/dl Total Bilirubin (0.2-1.0) mg/dl Direct Bilirubin (0-0.2) mg/dl AST (13-39) U/L ALT (7-52) U/L Alkaline Phosphatase (34-104) U/L Troponin I High Sens (0-20) pg/ml Total Protein (6.0-8.3) gm/dl Albumin (3.4-5.0) gm/dl Procalcitonin (0-0.5) ng/ml Urine Color Urine Appearance (Clear) Urine pH (4.5-7.5) Ur Specific [place] (1.000-1.030) Urine Protein (Negative) Urine Glucose (UA) (Negative) Urine Ketones (Negative) Urine Blood (Negative) Urine Nitrite (Negative) Urine Bilirubin (Negative) Urine Urobilinogen (Negative) Ur Leukocyte Esterase (Negative) Urine WBC (Auto) (0-5) /hpf Urine RBC (Auto) (0-4) /hpf U Hyaline Cast (Auto) (0-5) /lpf U Epithel Cells (Auto) (0-5) /lpf Urine Bacteria (Auto) (Negative) Urine Mucus (None Prsent) Nasal Screen MRSA (PCR) (Negative) Gastric Fluid pH Gastric Occult Blood (Negative) SARS-CoV-2 (PCR) (Negative) Influenza Type A (PCR) (Neg) Influenza Type B (PCR) (Neg) RSV (RT-PCR) (Neg) Blood Type Blood Type Recheck Antibody Screen Crossmatch 01/17/22 01/17/22 01/16/22 Range/Units 01:48 01:43 22:21 WBC (4.8-10.8) K/ul RBC (4.63-6.08) M/uL Hgb 8.4 L (14.0-18.0) g/dl POC Hgb (14.0-18.0) g/dl Hct 25.4 L (40.1-51.0) % POC Hct (42-52) % MCV (80.0-100.0) fL MCH (25.0-34.0) pg MCHC (32.0-36.0) g/dL RDW Std Deviation (36.4-46.3) fL RDW Coeff of Diana (11.5-14.5) % Plt Count (130-400) K/uL MPV (9.4-12.4) fL Immature Gran % (Auto) % Neut % (Auto) % Lymph % (Auto) % [place] % (Auto) % Eos % (Auto) % Baso % (Auto) % Neut # (Auto) (1.4-6.5) K/uL Lymph # (Auto) (1.2-3.4) K/uL [place] # (Auto) (0.24-0.82) K/uL Eos # (Auto) (0-0.50) K/uL Baso # (Auto) (0-0.2) K/uL Immature Gran # (Auto) (0.00-0.02) K/uL Platelet Estimate (Normal) RBC Morphology PT (9.0-12.0) Seconds INR (0.9-1.1) APTT (21.0-31.0) Seconds PTT Ratio POC Sodium (135-144) mmol/L Sodium (136-145) mmol/L POC Potassium (3.3-5.0) mmol/L Potassium (3.5-5.1) mmol/L POC Chloride (101-112) mmol/L Chloride (98-107) mmol/L Carbon Dioxide (21-32) mmol/L POC Total CO2 (24-31) mmol/L Anion Gap (3-11) POC Anion Gap (16-25) mmol/L POC BUN (7-18) mg/dl BUN (6-23) mg/dl Creatinine (0.6-1.4) mg/dl POC Creatinine (0.6-1.3) mg/dl Est Cr Clr Drug Dosing ml/min Est GFR ( Amer) ml/min Est GFR (Non-Af Amer) ml/min BUN/Creatinine Ratio (10-20) Glucose (70-99(Fasting)) mg/dl POC Glucose 222 H (70-99) mg/dl POC Glucose (other) (70-99) mg/dl Estimat Average Glucose mg/dl Hemoglobin A1c (4.5-5.6) % Lactate (0.4-2.0) mmol/L Calcium (8.5-10.1) mg/dl POC Ioniz Calcium Britton (1.12-1.32) mmol/l Magnesium (1.7-2.4) mg/dl Total Bilirubin (0.2-1.0) mg/dl Direct Bilirubin (0-0.2) mg/dl AST (13-39) U/L ALT (7-52) U/L Alkaline Phosphatase (34-104) U/L Troponin I High Sens (0-20) pg/ml Total Protein (6.0-8.3) gm/dl Albumin (3.4-5.0) gm/dl Procalcitonin (0-0.5) ng/ml Urine Color Yellow Urine Appearance Clear (Clear) Urine pH 5.0 (4.5-7.5) Ur Specific [place] 1.022 (1.000-1.030) Urine Protein Trace H (Negative) Urine Glucose (UA) Trace H (Negative) Urine Ketones Trace H (Negative) Urine Blood Negative (Negative) Urine Nitrite Negative (Negative) Urine Bilirubin Negative (Negative) Urine Urobilinogen Negative (Negative) Ur Leukocyte Esterase Negative (Negative) Urine WBC (Auto) 1-5 (0-5) /hpf Urine RBC (Auto) 0-4 (0-4) /hpf U Hyaline Cast (Auto) >30 H (0-5) /lpf U Epithel Cells (Auto) 10-20 H (0-5) /lpf Urine Bacteria (Auto) Negative (Negative) Urine Mucus Present A (None Prsent) Nasal Screen MRSA (PCR) (Negative) Gastric Fluid pH Gastric Occult Blood (Negative) SARS-CoV-2 (PCR) (Negative) Influenza Type A (PCR) (Neg) Influenza Type B (PCR) (Neg) RSV (RT-PCR) (Neg) Blood Type Blood Type Recheck Antibody Screen Crossmatch 01/16/22 01/16/22 01/16/22 Range/Units 22:21 21:08 19:37 WBC (4.8-10.8) K/ul RBC (4.63-6.08) M/uL Hgb (14.0-18.0) g/dl POC Hgb (14.0-18.0) g/dl Hct (40.1-51.0) % POC Hct (42-52) % MCV (80.0-100.0) fL MCH (25.0-34.0) pg MCHC (32.0-36.0) g/dL RDW Std Deviation (36.4-46.3) fL RDW Coeff of Diana (11.5-14.5) % Plt Count (130-400) K/uL MPV (9.4-12.4) fL Immature Gran % (Auto) % Neut % (Auto) % Lymph % (Auto) % [place] % (Auto) % Eos % (Auto) % Baso % (Auto) % Neut # (Auto) (1.4-6.5) K/uL Lymph # (Auto) (1.2-3.4) K/uL [place] # (Auto) (0.24-0.82) K/uL Eos # (Auto) (0-0.50) K/uL Baso # (Auto) (0-0.2) K/uL Immature Gran # (Auto) (0.00-0.02) K/uL Platelet Estimate (Normal) RBC Morphology PT (9.0-12.0) Seconds INR (0.9-1.1) APTT (21.0-31.0) Seconds PTT Ratio POC Sodium (135-144) mmol/L Sodium (136-145) mmol/L POC Potassium (3.3-5.0) mmol/L Potassium (3.5-5.1) mmol/L POC Chloride (101-112) mmol/L Chloride (98-107) mmol/L Carbon Dioxide (21-32) mmol/L POC Total CO2 (24-31) mmol/L Anion Gap (3-11) POC Anion Gap (16-25) mmol/L POC BUN (7-18) mg/dl BUN (6-23) mg/dl Creatinine (0.6-1.4) mg/dl POC Creatinine (0.6-1.3) mg/dl Est Cr Clr Drug Dosing ml/min Est GFR ( Amer) ml/min Est GFR (Non-Af Amer) ml/min BUN/Creatinine Ratio (10-20) Glucose (70-99(Fasting)) mg/dl POC Glucose (70-99) mg/dl POC Glucose (other) (70-99) mg/dl Estimat Average Glucose mg/dl Hemoglobin A1c (4.5-5.6) % Lactate (0.4-2.0) mmol/L Calcium (8.5-10.1) mg/dl POC Ioniz Calcium Britton (1.12-1.32) mmol/l Magnesium (1.7-2.4) mg/dl Total Bilirubin (0.2-1.0) mg/dl Direct Bilirubin (0-0.2) mg/dl AST (13-39) U/L ALT (7-52) U/L Alkaline Phosphatase (34-104) U/L Troponin I High Sens (0-20) pg/ml Total Protein (6.0-8.3) gm/dl Albumin (3.4-5.0) gm/dl Procalcitonin (0-0.5) ng/ml Urine Color Urine Appearance (Clear) Urine pH (4.5-7.5) Ur Specific [place] (1.000-1.030) Urine Protein (Negative) Urine Glucose (UA) (Negative) Urine Ketones (Negative) Urine Blood (Negative) Urine Nitrite (Negative) Urine Bilirubin (Negative) Urine Urobilinogen (Negative) Ur Leukocyte Esterase (Negative) Urine WBC (Auto) (0-5) /hpf Urine RBC (Auto) (0-4) /hpf U Hyaline Cast (Auto) (0-5) /lpf U Epithel Cells (Auto) (0-5) /lpf Urine Bacteria (Auto) (Negative) Urine Mucus (None Prsent) Nasal Screen MRSA (PCR) (Negative) Gastric Fluid pH Gastric Occult Blood Positive A (Negative) SARS-CoV-2 (PCR) NEGATIVE (Negative) Influenza Type A (PCR) Negative (Neg) Influenza Type B (PCR) Negative (Neg) RSV (RT-PCR) Negative (Neg) Blood Type Blood Type Recheck A Positive Antibody Screen Crossmatch 01/16/22 01/16/22 01/16/22 Range/Units 19:35 19:35 19:35 WBC (4.8-10.8) K/ul RBC (4.63-6.08) M/uL Hgb (14.0-18.0) g/dl POC Hgb (14.0-18.0) g/dl Hct (40.1-51.0) % POC Hct (42-52) % MCV (80.0-100.0) fL MCH (25.0-34.0) pg MCHC (32.0-36.0) g/dL RDW Std Deviation (36.4-46.3) fL RDW Coeff of Diana (11.5-14.5) % Plt Count (130-400) K/uL MPV (9.4-12.4) fL Immature Gran % (Auto) % Neut % (Auto) % Lymph % (Auto) % [place] % (Auto) % Eos % (Auto) % Baso % (Auto) % Neut # (Auto) (1.4-6.5) K/uL Lymph # (Auto) (1.2-3.4) K/uL [place] # (Auto) (0.24-0.82) K/uL Eos # (Auto) (0-0.50) K/uL Baso # (Auto) (0-0.2) K/uL Immature Gran # (Auto) (0.00-0.02) K/uL Platelet Estimate (Normal) RBC Morphology PT (9.0-12.0) Seconds INR (0.9-1.1) APTT (21.0-31.0) Seconds PTT Ratio POC Sodium (135-144) mmol/L Sodium (136-145) mmol/L POC Potassium (3.3-5.0) mmol/L Potassium (3.5-5.1) mmol/L POC Chloride (101-112) mmol/L Chloride (98-107) mmol/L Carbon Dioxide (21-32) mmol/L POC Total CO2 (24-31) mmol/L Anion Gap (3-11) POC Anion Gap (16-25) mmol/L POC BUN (7-18) mg/dl BUN (6-23) mg/dl Creatinine (0.6-1.4) mg/dl POC Creatinine (0.6-1.3) mg/dl Est Cr Clr Drug Dosing ml/min Est GFR ( Amer) ml/min Est GFR (Non-Af Amer) ml/min BUN/Creatinine Ratio (10-20) Glucose (70-99(Fasting)) mg/dl POC Glucose (70-99) mg/dl POC Glucose (other) (70-99) mg/dl Estimat Average Glucose mg/dl Hemoglobin A1c (4.5-5.6) % Lactate 1.2 (0.4-2.0) mmol/L Calcium (8.5-10.1) mg/dl POC Ioniz Calcium Britton (1.12-1.32) mmol/l Magnesium (1.7-2.4) mg/dl Total Bilirubin (0.2-1.0) mg/dl Direct Bilirubin (0-0.2) mg/dl AST (13-39) U/L ALT (7-52) U/L Alkaline Phosphatase (34-104) U/L Troponin I High Sens (0-20) pg/ml Total Protein (6.0-8.3) gm/dl Albumin (3.4-5.0) gm/dl Procalcitonin < 0.05 (0-0.5) ng/ml Urine Color Urine Appearance (Clear) Urine pH (4.5-7.5) Ur Specific [place] (1.000-1.030) Urine Protein (Negative) Urine Glucose (UA) (Negative) Urine Ketones (Negative) Urine Blood (Negative) Urine Nitrite (Negative) Urine Bilirubin (Negative) Urine Urobilinogen (Negative) Ur Leukocyte Esterase (Negative) Urine WBC (Auto) (0-5) /hpf Urine RBC (Auto) (0-4) /hpf U Hyaline Cast (Auto) (0-5) /lpf U Epithel Cells (Auto) (0-5) /lpf Urine Bacteria (Auto) (Negative) Urine Mucus (None Prsent) Nasal Screen MRSA (PCR) (Negative) Gastric Fluid pH Gastric Occult Blood (Negative) SARS-CoV-2 (PCR) (Negative) Influenza Type A (PCR) (Neg) Influenza Type B (PCR) (Neg) RSV (RT-PCR) (Neg) Blood Type A Positive Blood Type Recheck Antibody Screen NEGATIVE Crossmatch See Detail 01/16/22 01/16/22 01/16/22 Range/Units 19:35 19:35 19:35 WBC 13.24 H (4.8-10.8) K/ul RBC 2.98 L (4.63-6.08) M/uL Hgb 9.2 L (14.0-18.0) g/dl POC Hgb (14.0-18.0) g/dl Hct 27.4 L (40.1-51.0) % POC Hct (42-52) % MCV 91.9 (80.0-100.0) fL MCH 30.9 (25.0-34.0) pg MCHC 33.6 (32.0-36.0) g/dL RDW Std Deviation 46.7 H (36.4-46.3) fL RDW Coeff of Diana 13.8 (11.5-14.5) % Plt Count 144 (130-400) K/uL MPV 10.7 (9.4-12.4) fL Immature Gran % (Auto) 0.5 % Neut % (Auto) 86.5 % Lymph % (Auto) 8.2 % [place] % (Auto) 4.5 % Eos % (Auto) 0.1 % Baso % (Auto) 0.2 % Neut # (Auto) 11.45 H (1.4-6.5) K/uL Lymph # (Auto) 1.09 L (1.2-3.4) K/uL [place] # (Auto) 0.59 (0.24-0.82) K/uL Eos # (Auto) 0.01 (0-0.50) K/uL Baso # (Auto) 0.03 (0-0.2) K/uL Immature Gran # (Auto) 0.07 H (0.00-0.02) K/uL Platelet Estimate (Normal) RBC Morphology PT 11.8 (9.0-12.0) Seconds INR 1.1 (0.9-1.1) APTT 22.2 (21.0-31.0) Seconds PTT Ratio 0.8 POC Sodium (135-144) mmol/L Sodium 135 L (136-145) mmol/L POC Potassium (3.3-5.0) mmol/L Potassium 5.1 (3.5-5.1) mmol/L POC Chloride (101-112) mmol/L Chloride 105 (98-107) mmol/L Carbon Dioxide 25 (21-32) mmol/L POC Total CO2 (24-31) mmol/L Anion Gap 5 (3-11) POC Anion Gap (16-25) mmol/L POC BUN (7-18) mg/dl BUN 47 H (6-23) mg/dl Creatinine 1.30 (0.6-1.4) mg/dl POC Creatinine (0.6-1.3) mg/dl Est Cr Clr Drug Dosing 44.6 ml/min Est GFR ( Amer) 59.3 ml/min Est GFR (Non-Af Amer) 51.2 ml/min BUN/Creatinine Ratio 36.2 H (10-20) Glucose 256 H (70-99(Fasting)) mg/dl POC Glucose (70-99) mg/dl POC Glucose (other) (70-99) mg/dl Estimat Average Glucose mg/dl Hemoglobin A1c (4.5-5.6) % Lactate (0.4-2.0) mmol/L Calcium 7.9 L (8.5-10.1) mg/dl POC Ioniz Calcium [place] (1.12-1.32) mmol/l Magnesium 2.1 (1.7-2.4) mg/dl Total Bilirubin 0.4 (0.2-1.0) mg/dl Direct Bilirubin 0.1 (0-0.2) mg/dl AST 12 L (13-39) U/L ALT 13 (7-52) U/L Alkaline Phosphatase 62 (34-104) U/L Troponin I High Sens 6.5 (0-20) pg/ml Total Protein 5.7 L (6.0-8.3) gm/dl Albumin 3.2 L (3.4-5.0) gm/dl Procalcitonin (0-0.5) ng/ml Urine Color Urine Appearance (Clear) Urine pH (4.5-7.5) Ur Specific [place] (1.000-1.030) Urine Protein (Negative) Urine Glucose (UA) (Negative) Urine Ketones (Negative) Urine Blood (Negative) Urine Nitrite (Negative) Urine Bilirubin (Negative) Urine Urobilinogen (Negative) Ur Leukocyte Esterase (Negative) Urine WBC (Auto) (0-5) /hpf Urine RBC (Auto) (0-4) /hpf U Hyaline Cast (Auto) (0-5) /lpf U Epithel Cells (Auto) (0-5) /lpf Urine Bacteria (Auto) (Negative) Urine Mucus (None Prsent) Nasal Screen MRSA (PCR) (Negative) Gastric Fluid pH Gastric Occult Blood (Negative) SARS-CoV-2 (PCR) (Negative) Influenza Type A (PCR) (Neg) Influenza Type B (PCR) (Neg) RSV (RT-PCR) (Neg) Blood Type Blood Type Recheck Antibody Screen Crossmatch 01/16/22 Range/Units 19:20 WBC (4.8-10.8) K/ul RBC (4.63-6.08) M/uL Hgb (14.0-18.0) g/dl POC Hgb 10.9 L (14.0-18.0) g/dl Hct (40.1-51.0) % POC Hct 32 L (42-52) % MCV (80.0-100.0) fL MCH (25.0-34.0) pg MCHC (32.0-36.0) g/dL RDW Std Deviation (36.4-46.3) fL RDW Coeff of Diana (11.5-14.5) % Plt Count (130-400) K/uL MPV (9.4-12.4) fL Immature Gran % (Auto) % Neut % (Auto) % Lymph % (Auto) % [place] % (Auto) % Eos % (Auto) % Baso % (Auto) % Neut # (Auto) (1.4-6.5) K/uL Lymph # (Auto) (1.2-3.4) K/uL [place] # (Auto) (0.24-0.82) K/uL Eos # (Auto) (0-0.50) K/uL Baso # (Auto) (0-0.2) K/uL Immature Gran # (Auto) (0.00-0.02) K/uL Platelet Estimate (Normal) RBC Morphology PT (9.0-12.0) Seconds INR (0.9-1.1) APTT (21.0-31.0) Seconds PTT Ratio POC Sodium 136 (135-144) mmol/L Sodium (136-145) mmol/L POC Potassium 5.3 H (3.3-5.0) mmol/L Potassium (3.5-5.1) mmol/L POC Chloride 105 (101-112) mmol/L Chloride (98-107) mmol/L Carbon Dioxide (21-32) mmol/L POC Total CO2 22 L (24-31) mmol/L Anion Gap (3-11) POC Anion Gap 15.0 L (16-25) mmol/L POC BUN 40 H (7-18) mg/dl BUN (6-23) mg/dl Creatinine (0.6-1.4) mg/dl POC Creatinine 1.4 H (0.6-1.3) mg/dl Est Cr Clr Drug Dosing ml/min Est GFR ( Amer) ml/min Est GFR (Non-Af Amer) ml/min BUN/Creatinine Ratio (10-20) Glucose (70-99(Fasting)) mg/dl POC Glucose (70-99) mg/dl POC Glucose (other) 232 H (70-99) mg/dl Estimat Average Glucose mg/dl Hemoglobin A1c (4.5-5.6) % Lactate (0.4-2.0) mmol/L Calcium (8.5-10.1) mg/dl POC Ioniz Calcium [place] 1.01 L (1.12-1.32) mmol/l Magnesium (1.7-2.4) mg/dl Total Bilirubin (0.2-1.0) mg/dl Direct Bilirubin (0-0.2) mg/dl AST (13-39) U/L ALT (7-52) U/L Alkaline Phosphatase (34-104) U/L Troponin I High Sens (0-20) pg/ml Total Protein (6.0-8.3) gm/dl Albumin (3.4-5.0) gm/dl Procalcitonin (0-0.5) ng/ml Urine Color Urine Appearance (Clear) Urine pH (4.5-7.5) Ur Specific [place] (1.000-1.030) Urine Protein (Negative) Urine Glucose (UA) (Negative) Urine Ketones (Negative) Urine Blood (Negative) Urine Nitrite (Negative) Urine Bilirubin (Negative) Urine Urobilinogen (Negative) Ur Leukocyte Esterase (Negative) Urine WBC (Auto) (0-5) /hpf Urine RBC (Auto) (0-4) /hpf U Hyaline Cast (Auto) (0-5) /lpf U Epithel Cells (Auto) (0-5) /lpf Urine Bacteria (Auto) (Negative) Urine Mucus (None Prsent) Nasal Screen MRSA (PCR) (Negative) Gastric Fluid pH Gastric Occult Blood (Negative) SARS-CoV-2 (PCR) (Negative) Influenza Type A (PCR) (Neg) Influenza Type B (PCR) (Neg) RSV (RT-PCR) (Neg) Blood Type Blood Type Recheck Antibody Screen Crossmatch Medications Administered Current Inpatient Medications Acetaminophen (Acetaminophen 325 Mg Tab) 650 mg PO Q4H PRN PRN Reason: Pain or Fever Stop: 02/16/22 01:26 Dextrose (Dextrose 50% 50 Ml Syringe) 25 - 50 ml IV UD PRN; Protocol PRN Reason: Hypoglycemia Protocol Stop: 02/16/22 01:59 Glucagon (Glucagon For Inj 1 Mg Vial) 1 mg IM UD PRN; Protocol PRN Reason: Hypoglycemia Protocol Stop: 02/16/22 01:59 Glucose (Glucose 40% Gel 15 Gm Tube) 15 - 30 gm PO UD PRN; Protocol PRN Reason: Hypoglycemia Protocol Stop: 02/16/22 01:59 Glucose (Glucose 10 Tab/Tube) 4 - 8 tab PO UD PRN; Protocol PRN Reason: Hypoglycemia Protocol Stop: 02/16/22 01:59 Sodium Chloride (Nss 1000ml) 1,000 mls @ 150 mls/hr IV .Q6H40M [facility] Stop: 02/16/22 01:26 Last Admin: 01/17/22 08:46 Dose: 150 mls/hr Pantoprazole Sodium 40 mg/ (Dextrose) 100 mls @ 20 mls/hr IV Q5H [facility] Stop: 02/16/22 01:59 Last Admin: 01/17/22 08:43 Dose: 8 mg/hr, 20 mls/hr Sodium Chloride (Nss) 250 mls @ 15 mls/hr IV .[id number] PRN PRN Reason: For Transfusion Stop: 01/17/22 15:10 Octreotide Acetate 500 mcg/ (Dextrose) 100.5 mls @ 10.05 mls/hr IV .Q10H [facility] Stop: 02/16/22 05:29 Last Admin: 01/17/22 07:23 Dose: 50 mcg/hr, 10.1 mls/hr Norepinephrine Bitartrate (Levophed/D5w) 4 mg in 250 mls @ 15.881 mls/hr IV .[id number] [facility]; Protocol Stop: 02/16/22 06:59 Last Titration: 01/17/22 07:30 Dose: 0 mcg/kg/min, 0 mls/hr Ceftriaxone Sodium 2,000 mg/ (Dextrose) 70 mls @ 140 mls/hr IV Q24H [facility]; Protocol Stop: 01/21/22 09:29 Last Infusion: 01/17/22 10:52 Dose: Infused Insulin Aspart (Insulin Aspart Per Unit) 0 units SC Q6 ABEL Stop: 02/16/22 01:59 Last Admin: 01/17/22 08:42 Dose: Not Given Miscellaneous (Carbohydrates For Hypoglycemia ) 15 - 30 gm PO UD PRN PRN Reason: Hypoglycemia Treatment Stop: 02/16/22 01:59 Miscellaneous (Icu Protocol For Hyperglycemia) 1 each N/A PRN PRN; Protocol PRN Reason: Hyperglycemia Protocol Stop: 01/19/22 06:00 Nitroglycerin (Nitroglycerin Sl 0.4 Mg/Tab Tab) 0.4 mg SL UD PRN PRN Reason: Chest Pain Stop: 02/16/22 01:26 Ondansetron HCl (Ondansetron Inj 2 Mg/Ml 2 Ml Vial) 4 mg IV Q6H PRN PRN Reason: Nausea Stop: 02/16/22 01:26 (1) Anemia Anemia type: unspecified type Qualified Code(s): D64.9 - Anemia, unspecified (2) Hypothermia Encounter type: initial encounter Qualified Code(s): T68.XXXA - Hypothermia, initial encounter (3) Leukocytosis Leukocytosis type: unspecified Qualified Code(s): D72.829 - Elevated white blood cell count, unspecified (4) Hematemesis Nausea presence: with nausea Qualified Code(s): K92.0 - Hematemesis (5) Hypotension Hypotension type: unspecified hypotension type Qualified Code(s): I95.9 - Hypotension, unspecified
--- NOTE | 2022-01-17 13:21 | Anesthesiology Consultation ---
Date of Service January 17, 2022 Assessment & Plan (1) Encounter for pre-operative examination: Chart Review Chart Review: Acceptable Risk for Surgery and Patient NOT seen in Pre Admission Testing Consults Requested none History Surgery Operation Date: 01/17/22 17:15 Proposed Procedures p Esophagogastroduodenoscopy Dr Mine Blount MD Height/Weight Height: 5 ft 9 in Weight: 84.7 kg Allergies Allergy/AdvReac Type Severity Reaction Status Date / Time No Known Allergies Allergy Verified 01/16/22 20:53 Medications Home Medications Medication Instructions Recorded Confirmed Last Taken amlodipine 10 mg tablet 10 mg PO HS 01/16/22 01/16/22 01/15/22 atorvastatin 20 mg tablet 20 mg PO HS 01/16/22 01/16/22 01/15/22 clopidogrel 75 mg tablet 75 mg PO HS 01/16/22 01/16/22 01/15/22 glipizide 10 mg tablet, extended 10 mg PO HS 01/16/22 01/16/22 01/15/22 release 24 hr insulin NPH isoph U-100 human 100 50 unit subcut QAM 01/16/22 01/16/22 01/16/22 unit/mL (3 mL) subcutaneous pen (Novolin N Flexpen) lisinopril 40 mg tablet 40 mg PO HS 01/16/22 01/16/22 01/15/22 metformin 500 mg tablet,extended 1,000 mg PO HS 01/16/22 01/16/22 01/15/22 release 24 hr Active Medications Generic Name Dose Route Start Last Admin Trade Name Freq PRN Reason Stop Dose Admin Sodium Chloride 1,000 mls @ 150 mls/hr 01/17/22 01:27 01/17/22 08:46 Nss 1000ml IV 02/16/22 01:26 150 mls/hr .Q6H40M ABEL Administration Pantoprazole Sodium 40 mg/ 100 mls @ 20 mls/hr 01/17/22 02:00 01/17/22 13:20 Dextrose IV 02/16/22 01:59 8 mg/hr Q5H ABEL 20 mls/hr Administration 8 MG/HR Octreotide Acetate 500 mcg/ 100.5 mls @ 10.05 mls/hr 01/17/22 05:30 01/17/22 07:23 Dextrose IV 02/16/22 05:29 50 mcg/hr .Q10H ABEL 10.1 mls/hr Administration 50 MCG/HR Norepinephrine Bitartrate 4 mg in 250 mls @ 15.881 mls/hr 01/17/22 07:00 01/17/22 07:30 Levophed/D5w IV 02/16/22 06:59 0 mcg/kg/min .[id number] ABEL 0 mls/hr Titration Protocol 0.05 MCG/KG/MIN Ceftriaxone Sodium 2,000 mg/ 70 mls @ 140 mls/hr 01/17/22 09:30 01/17/22 10:52 Dextrose IV 01/21/22 09:29 Infused Q24H ABEL Infusion Protocol Insulin Aspart 0 units 01/17/22 02:00 01/17/22 08:42 Insulin Aspart Per Unit SC 02/16/22 01:59 Not Given Q6 ABEL Past Medical History Medical History Diabetes mellitus Hypertension Social History Smoking Status: Never smoker Do You Dip or Chew Tobacco: No Hx Alcohol Use: No Hx Substance Use: No Physical Exam Vital Signs Last Vital Signs Temp 99.6 F 01/17/22 07:15 Pulse 76 01/17/22 10:45 Resp 19 01/17/22 10:45 BP 95/66 L 01/17/22 10:45 Pulse Ox 90 01/17/22 10:45 O2 Del Method 01/17/22 07:00 O2 Flow Rate 2 01/17/22 07:15 Testing Laboratory Results 01/17/22 11:05 01/17/22 06:51 PT 11.8 Seconds (9.0-12.0) 01/16/22 19:35 INR 1.1 (0.9-1.1) 01/16/22 19:35 APTT 22.2 Seconds (21.0-31.0) 01/16/22 19:35 Hemoglobin A1c 6.7 % (4.5-5.6) H 01/17/22 04:18 Urine Color Yellow 01/17/22 01:48 Urine Appearance Clear (Clear) 01/17/22 01:48 Urine pH 5.0 (4.5-7.5) 01/17/22 01:48 Ur Specific [place] 1.022 (1.000-1.030) 01/17/22 01:48 Urine Protein Trace (Negative) H 01/17/22 01:48 Urine Glucose (UA) Trace (Negative) H 01/17/22 01:48 Urine Ketones Trace (Negative) H 01/17/22 01:48 Urine Nitrite Negative (Negative) 01/17/22 01:48 Ur Leukocyte Esterase Negative (Negative) 01/17/22 01:48 Urine WBC (Auto) 1-5 /hpf (0-5) 01/17/22 01:48 Urine RBC (Auto) 0-4 /hpf (0-4) 01/17/22 01:48 U Hyaline Cast (Auto) >30 /lpf (0-5) H 01/17/22 01:48 U Epithel Cells (Auto) 10-20 /lpf (0-5) H 01/17/22 01:48 Urine Bacteria (Auto) Negative (Negative) 01/17/22 01:48 Blood Type A Positive 01/16/22 19:35 Antibody Screen NEGATIVE 01/16/22 19:35 01/17/22 01/17/22 08:20 01:43 POC Glucose 112 H 222 H
--- NOTE | 2022-01-17 13:46 | Billing Data ---
Date of Service January 17, 2022 Coding Level of Care Code Critical Care mins
[2022-01-17] MEDS ORDERED: PROPOFOL IV EMULSION 10 MG/ML 20 ML VIAL IV ONE (14:08)
[2022-01-17] MEDS ORDERED: LIDOCAINE 2% MPF LOCAL 5 ML VIAL INFIL ONE (14:08)
--- NOTE | 2022-01-17 14:41 | GI REPORT ---
Patient Name: Keith Nam Procedure Date: 01/17/2022 2:05 PM Date of : 1940 Admit Type: Inpatient Age: 81 Gender: Male Attending MD: Joseph Blount MD Procedure: Upper GI endoscopy Providers: Joseph Blount MD Referring MD: Tylor Freitas Md Indications: Coffee-ground emesis Medicines: Monitored Anesthesia Care Complications: No immediate complications. Estimated blood loss: None. Estimated Blood Loss: Estimated blood loss: none. Procedure: Pre-Anesthesia Assessment: - Pre-Anesthesia Assessment: - Prior to the procedure, a History and Physical was performed, and patient medications, allergies and sensitivities were reviewed. The patient's tolerance of previous anesthesia was reviewed. Please see [employer] for complete details. - The risks and benefits of the procedure and the sedation options and risks were discussed with the patient. All questions were answered and informed consent was obtained. - Patient identification and proposed procedure were verified prior to the procedure by the physician and the nurse. The procedure was verified in the pre-procedure area in the procedure room. After obtaining informed consent, the endoscope was passed carefully and meticuously under direct vision and only advanced when the lumen was clearly identified, C02 insuflation was utilized throughout the entirity of the procedure. Throughout the procedure, the patient's blood pressure, pulse, and oxygen saturations were monitored continuously. After obtaining informed consent, the endoscope was passed under direct vision. Throughout the procedure, the patient's blood pressure, pulse, and oxygen saturations were monitored continuously. The Endoscope was introduced through the mouth, and advanced to the second part of duodenum. The upper GI endoscopy was accomplished without difficulty. The patient tolerated the procedure well. Findings: A hiatal hernia was present. Four non-bleeding superficial gastric ulcers with pigmented material were found in the gastric antrum. The largest lesion was 5 mm in largest dimension. Biopsies were taken with a cold forceps for Helicobacter pylori testing. The examined duodenum was normal. No Active bleeding, old hematin material in the stomach. Impression: - Hiatal hernia. - Non-bleeding gastric ulcers with pigmented material. Biopsied. - Normal examined duodenum. Recommendation: - Return patient to [facility] for [facility] care. - D/C Octretotide - Continue PPI infusion overnight, then go to BID dosing - Hold Plavix today and tomorrow if possible - Stop and Avoid all NSAIDs - Ok for clear liquid diet today - Continue supportive care Joseph Blount MD 01/17/2022 2:41:01 PM This report has been signed electronically. Note Initiated On: 01/17/2022 2:05 PM Number of Addenda: 0 I attest to the content of the Intraoperative Record and orders documented therein, exceptions below {[id number]}
--- NOTE | 2022-01-17 14:46 | Anesthesiology Progress Note ---
Date of Service January 17, 2022 Anesthesia Post Procedure Vital Signs Vital Signs: Temp Pulse Pulse Resp BP BP Pulse Ox 01/17/22 08:00 01/17/22 14:00 98.8 F 75 16 164/76 H 97 01/17/22 10:45 76 19 90 01/17/22 10:45 95/66 L 01/17/22 10:30 79 21 93 01/17/22 10:30 112/70 01/17/22 10:16 76 20 86 L 01/17/22 10:16 102/62 01/17/22 10:15 76 29 H 88 L 01/17/22 10:00 76 18 90 01/17/22 10:00 95/53 L 01/17/22 09:45 66 19 92 01/17/22 09:45 101/64 01/17/22 09:30 77 19 92 01/17/22 09:30 102/67 01/17/22 09:16 84 15 95 01/17/22 09:16 117/71 01/17/22 09:15 85 23 97 01/17/22 09:00 71 21 92 01/17/22 09:00 103/63 01/17/22 08:45 78 18 90 01/17/22 08:45 98/61 L 01/17/22 08:30 81 17 96 01/17/22 08:30 111/78 01/17/22 08:15 80 18 93 01/17/22 08:15 116/72 01/17/22 08:10 111/68 01/17/22 08:10 73 15 97 01/17/22 08:00 80 15 95 01/17/22 08:00 120/71 01/17/22 07:46 125/60 01/17/22 07:46 79 19 98 01/17/22 07:45 77 23 96 01/17/22 07:30 70 16 90 01/17/22 07:30 126/74 01/17/22 07:15 82 21 95 01/17/22 07:15 115/75 01/17/22 07:09 82 14 94 01/17/22 07:09 83/55 L 01/17/22 07:00 81 19 94 01/17/22 07:00 72/51 L 01/17/22 06:53 79 15 86 L 01/17/22 06:53 76/48 L 01/17/22 06:45 83 18 90 01/17/22 06:45 80/50 L 01/17/22 06:43 78/52 L 01/17/22 06:43 85 33 H 93 01/17/22 06:35 82 19 91 01/17/22 06:35 78/59 L 01/17/22 06:34 80/53 L 01/17/22 06:34 81 29 H 92 01/17/22 06:30 82 17 91 01/17/22 07:15 99.6 F 77 19 126/74 97 01/17/22 06:38 97.9 F 81 15 76/48 L 93 01/17/22 06:23 67 L 01/17/22 05:45 88 20 93 01/17/22 05:45 115/54 L 01/17/22 05:32 119/66 01/17/22 05:32 88 17 94 01/17/22 05:30 84 27 H 93 01/17/22 05:25 90 19 80 L 01/17/22 05:25 101/56 L 01/17/22 05:19 93 01/17/22 06:41 01/17/22 06:01 85 01/17/22 06:08 97.9 F 84 16 78/59 L 92 01/17/22 05:53 97.9 F 83 17 119/66 93 01/17/22 05:36 98.2 F 84 18 119/66 92 01/17/22 05:00 86 19 01/17/22 05:00 94/55 L 01/17/22 04:45 85 22 93 01/17/22 04:34 96 H 17 93 01/17/22 04:34 78/57 L 01/17/22 04:32 98 H 13 93 01/17/22 04:30 90 19 92 01/17/22 04:15 85 24 93 01/17/22 04:01 87/41 L 01/17/22 04:01 85 17 91 01/17/22 04:00 13 79 L 01/17/22 03:56 86 3 L 93 01/17/22 03:56 69/55 L 01/17/22 03:45 79 16 75 L 01/17/22 03:33 72/46 L 01/17/22 03:33 86 11 L 94 01/17/22 03:30 84 39 H 92 01/17/22 03:30 67/42 L 01/17/22 03:15 88 19 94 01/17/22 03:15 92/60 L 01/17/22 03:00 88 20 89 L 01/17/22 03:00 84/51 L 01/17/22 02:45 91 H 15 93 01/17/22 02:45 102/60 01/17/22 02:30 91 H 21 92 01/17/22 02:30 111/53 L 01/17/22 02:15 89 20 92 01/17/22 02:15 105/54 L 01/17/22 02:00 92 H 22 96 01/17/22 02:00 87/50 L 01/17/22 01:45 90 21 01/17/22 01:45 118/71 01/17/22 01:30 91 H 20 100 01/17/22 01:30 90/51 L 01/17/22 01:15 90 28 H 100 01/17/22 01:15 96/59 L 01/17/22 01:00 89 23 97 01/17/22 01:00 100/60 01/17/22 00:45 87 29 H 01/17/22 00:45 88/67 L 01/17/22 00:30 83 26 H 86 L 01/17/22 00:30 94/50 L 01/17/22 00:15 83 18 89 L 01/17/22 00:15 84/51 L 01/17/22 00:00 81 18 92 01/17/22 00:00 94/51 L 01/16/22 23:55 81/64 L 01/16/22 23:55 82 20 88 L 01/16/22 23:45 84 15 92 01/17/22 04:36 93 H 18 78/57 L 93 01/17/22 03:45 74 72/46 L 94 01/17/22 02:00 88 18 102/60 92 01/17/22 02:03 98.1 F 89 18 87/50 L 94 01/17/22 01:43 98.1 F 93 H 18 118/71 95 01/17/22 00:43 97.9 F 83 18 88/67 L 94 01/17/22 00:00 97.9 F 84 18 79/48 L 94 01/17/22 00:13 98.2 F 85 18 84/51 L 94 01/16/22 23:58 97.9 F 83 18 81/64 L 93 01/16/22 23:40 97.9 F 83 18 76/43 L 94 01/16/22 22:00 97.9 F 76 18 97/58 L 94 01/16/22 20:35 97.5 F L 01/16/22 21:30 81 20 81/55 L 94 01/16/22 21:15 83 20 99/60 L 97 01/16/22 20:37 97.5 F L 74 18 111/69 01/16/22 20:00 75 18 124/63 97 01/16/22 19:31 76 17 97 01/16/22 19:31 110/63 01/16/22 19:30 78 14 95 01/16/22 19:00 73 16 89 L 01/16/22 19:00 126/60 01/16/22 18:31 74 18 01/16/22 19:26 76 18 126/60 90 01/16/22 19:22 75 18 126/60 90 01/16/22 19:22 75 18 90 01/16/22 18:42 01/16/22 18:37 94.3 F L 70 20 129/70 93 O2 Del Method O2 Flow Rate 01/17/22 08:00 Nasal Cannula 2 01/17/22 14:00 Nasal Cannula 2 01/17/22 10:45 01/17/22 10:45 01/17/22 10:30 01/17/22 10:30 01/17/22 10:16 01/17/22 10:16 01/17/22 10:15 01/17/22 10:00 01/17/22 10:00 01/17/22 09:45 01/17/22 09:45 01/17/22 09:30 01/17/22 09:30 01/17/22 09:16 01/17/22 09:16 01/17/22 09:15 01/17/22 09:00 01/17/22 09:00 01/17/22 08:45 01/17/22 08:45 01/17/22 08:30 01/17/22 08:30 01/17/22 08:15 01/17/22 08:15 01/17/22 08:10 01/17/22 08:10 01/17/22 08:00 01/17/22 08:00 01/17/22 07:46 01/17/22 07:46 01/17/22 07:45 01/17/22 07:30 01/17/22 07:30 01/17/22 07:15 01/17/22 07:15 01/17/22 07:09 01/17/22 07:09 01/17/22 07:00 Nasal Cannula 2 01/17/22 07:00 01/17/22 06:53 Room Air 01/17/22 06:53 01/17/22 06:45 01/17/22 06:45 01/17/22 06:43 01/17/22 06:43 01/17/22 06:35 01/17/22 06:35 01/17/22 06:34 01/17/22 06:34 01/17/22 06:30 01/17/22 07:15 2 01/17/22 06:38 01/17/22 06:23 01/17/22 05:45 01/17/22 05:45 01/17/22 05:32 01/17/22 05:32 01/17/22 05:30 01/17/22 05:25 01/17/22 05:25 01/17/22 05:19 01/17/22 06:41 Room Air 01/17/22 06:01 01/17/22 06:08 01/17/22 05:53 01/17/22 05:36 01/17/22 05:00 01/17/22 05:00 01/17/22 04:45 01/17/22 04:34 01/17/22 04:34 01/17/22 04:32 01/17/22 04:30 01/17/22 04:15 01/17/22 04:01 01/17/22 04:01 01/17/22 04:00 01/17/22 03:56 01/17/22 03:56 01/17/22 03:45 01/17/22 03:33 01/17/22 03:33 01/17/22 03:30 01/17/22 03:30 01/17/22 03:15 01/17/22 03:15 01/17/22 03:00 01/17/22 03:00 01/17/22 02:45 01/17/22 02:45 01/17/22 02:30 01/17/22 02:30 01/17/22 02:15 01/17/22 02:15 01/17/22 02:00 01/17/22 02:00 01/17/22 01:45 01/17/22 01:45 01/17/22 01:30 01/17/22 01:30 01/17/22 01:15 01/17/22 01:15 01/17/22 01:00 01/17/22 01:00 01/17/22 00:45 01/17/22 00:45 01/17/22 00:30 01/17/22 00:30 01/17/22 00:15 01/17/22 00:15 01/17/22 00:00 01/17/22 00:00 01/16/22 23:55 01/16/22 23:55 01/16/22 23:45 01/17/22 04:36 Room Air 01/17/22 03:45 01/17/22 02:00 01/17/22 02:03 01/17/22 01:43 01/17/22 00:43 01/17/22 00:00 01/17/22 00:13 01/16/22 23:58 01/16/22 23:40 01/16/22 22:00 01/16/22 20:35 01/16/22 21:30 01/16/22 21:15 01/16/22 20:37 01/16/22 20:00 01/16/22 19:31 01/16/22 19:31 01/16/22 19:30 01/16/22 19:00 01/16/22 19:00 01/16/22 18:31 01/16/22 19:26 Room Air 01/16/22 19:22 Room Air 01/16/22 19:22 Room Air 01/16/22 18:42 Room Air 01/16/22 18:37 Room Air Transfer of Care Handoff Completed per policy Notes Mental Status: alert / awake / arousable and participated in evaluation Patient Amnestic to Procedure: Yes Nausea / Vomiting: adequately controlled Pain: adequately controlled Airway Patency, RR, SpO2: stable & adequate BP & HR: stable & adequate Hydration State: stable & adequate Anesthetic Complications: no major complications apparent and Pt Satisfied with anesthetic care
[2022-01-17] MEDS ORDERED: lisinopril 20 MG TAB PO STA (16:02)
[2022-01-17 17:08] LABS: Hematocrit (blood only) 28.9 % (40.1-51.0); Hemoglobin 9.7 g/dl (14.0-18.0)
[2022-01-17] MEDS: ICU ELECTROLYTE REPLACEMENT PROTOCOL SCH (18:29)
[2022-01-17] MEDS: amLODIPine BESYLATE 5 MG TAB PO SCH (20:19)
[2022-01-18] MEDS: PANTOprazole 40 MG in DEXTROSE 5% 100 ML IV SCH (01:12)
[2022-01-18 05:00] LABS: Basophils # (auto) 0.04 K/uL (0-0.2); Basophils % (auto) 0.5 %; Eosinophils # (auto) 0.15 K/uL (0-0.50); Eosinophils % (auto) 1.9 %; Hematocrit (blood only) 31.8 % (40.1-51.0); Hemoglobin 10.7 g/dl (14.0-18.0); Immature Granulocytes # (auto) 0.01 K/uL (0.00-0.02); Immature Granulocytes % (auto) 0.1 %; Lymphocytes % (auto) 21.3 %; Mean Corpuscular Hemoglobin 29.9 pg (25.0-34.0); Mean Corpuscular Hgb Conc 33.6 g/dL (32.0-36.0); Mean Corpuscular Volume 88.8 fL (80.0-100.0); Mean Platelet Volume 10.6 fL (9.4-12.4); Monocytes # (auto) 0.63 K/uL (0.24-0.82); Monocytes % (auto) 7.9 %; Neutrophils # (auto) 5.47 K/uL (1.4-6.5); Neutrophils % (auto) 68.3 %; Platelet Count 107 K/uL (130-400); Platelet Estimate Decreased (Normal); RDW Coefficient of Variation 16.4 % (11.5-14.5); RDW Standard Deviation 53.6 fL (36.4-46.3); Red Blood Count 3.58 M/uL (4.63-6.08)
[2022-01-18 05:12] LABS: BUN Creatinine Ratio 22.9 (10-20); Calcium 8.9 mg/dl (8.5-10.1); Creatinine Clr Calc Pharmacy 60.3 ml/min; Est GFR (African American) 85.6 ml/min; Est GFR (Non-African American) 73.8 ml/min; Magnesium 2.2 mg/dl (1.7-2.4); Phosphorus 2.3 mg/dl (2.5-4.9); Potassium 4.1 mmol/L (3.5-5.1)
[2022-01-18] MEDS: INSULIN ASPART PER UNIT SC SCH ×5 (05:28→20:42)
[2022-01-18] MEDS: ICU ELECTROLYTE REPLACEMENT PROTOCOL SCH (05:30)
[2022-01-18] MEDS: POT PHOSPHATE MONOBASIC W/ SOD TAB PO SCH ×3 (06:51→13:43)
[2022-01-18] MEDS ORDERED: Nursing to Pharmacy Communication SCH (07:00)
--- NOTE | 2022-01-18 07:34 | Critical Care Progress Note ---
Date of Service January 18, 2022 Assessment & Plan (1) Hematemesis: Plan: Reason Critically Ill: 81-year-old male who was admitted to the hospital for hematemesis and transferred to the ICU for hypotension, acute blood loss anemia. Now stable and awaiting downgrade from the ICU. Sedation: None Analgesia: Tylenol as needed Neuro Patient is alert and oriented x4. He has some dysarthria (which appears to be his baseline) but is otherwise able to communicate. He responds vocally to questions and follows commands well. Cardiac Hypotension: Now resolved. Patient's mIVF was stopped yesterday. He tolerated clear liquid diet well. Also gently resumed antihypertensive regimen yesterday with half home dose lisinopril (20 mg), regular nighttime amlodipine dose (10 mg), which patient tolerated well. Pressures moderately well controlled overnight and this morning. * Resume home regimen * Trend vitals Respiratory Patient breathing well on room air. No acute concerns. GI GI bleed: Nonbleeding superficial gastric (antrum) ulcers x4 found on EGD. No evidence of active bleeding. Normal duodenum. See GI recs below: * Stopped octreotide IV. Stopped pantoprazole IV after 24 hours. Transitioning to p.o. pantoprazole 40 mg twice daily. * Discontinued antibiotic prophylaxis * Clear liquid diet RENAL/LYTES No significant electrolyte derangements. * ICU electrolyte repletion protocol. No signs or suspicion for renal end-organ damage. Patient is adequately making urine. No Troy catheter in place * No concerns at this time. ENDO DM2: Blood sugars mostly well controlled. 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 Initially considered restarting glipizide yesterday. However, patient's sugars were better controlled. * Resuming home glipizide. Continue holding metformin. * Otherwise, glucose management per ICU hyperglycemia protocol. HEME Acute blood loss anemia: Stable, improving. Hemoglobin this morning 10.7, up from 9.7. Thrombocytopenia: Improving. New platelet count 112K, up from 90K. * Trend CBC daily * Continue holding home Plavix. ID Leukocytosis: Resolved. Stopped IV ceftriaxone after completion of EGD. Patient remains afebrile, otherwise asymptomatic for illness. * Monitor fever curve. LINES/IV ACCESS * Large bore PIV x2 intact. DVT PROPHYLAXIS * Withholding anticoagulation Thank you for allowing us to be part of this patient's care. Please refer to Dr. Christie's documentation for any further recommendations. (2) Hypotension: (3) Hypothermia: (4) Weakness: (5) Anemia: (6) Leukocytosis: Admission and Anticipated Discharge Date Admission Date: January 16, 2022 Supervising Physician Co-Signing Physician Notes Patient seen and examined. And reviewed peer discussed with family [facility] resident and agree with assessment and plan as noted. Upper GI bleed secondary to duodenal ulcers. His hemoglobin is been stable. Is tolerating a clear diet. Advance as tolerated. Discontinue Troy catheter. PT OT evaluations. Continue electrolyte replacements. Off Protonix drip and transition to oral. Outpatient follow-up with gastroenterology. Patient is stable to transfer out of the intensive care unit. Critical care services will sign off. Feel free to contact us with additional questions or concerns. Subjective No acute events overnight. This morning, patient has no acute concerns. He denies headache, dizziness, shortness of breath, abdominal pain, or nausea. Review of Systems Review of Systems: All systems reviewed & are unremarkable except as noted in HPI & below Physical Exam Physical Exam: General: No acute distress HEENT: PERRLA. Normal conjunctiva, anicteric sclera. Oropharynx moist. Respiratory: Normal respiratory effort, CTABL. Cardiovascular: RRR. 3/6 systolic murmur heard loudest at the LUSB. No gallops or rubs. No pedal edema. GI: Soft abdomen with normal bowel sounds heard on auscultation. Nontender x4 quadrants Neuro: Alert and oriented x3. Results & Data Results & Data ([facility]) Vital Signs (Past 12 Hours) Vital Signs Temp Pulse Resp BP Pulse Ox O2 Del Method O2 Flow Rate 01/18/22 06:00 78 18 91 01/18/22 06:00 135/56 L 01/18/22 05:00 81 19 91 01/18/22 05:00 103/73 01/18/22 04:30 77 23 91 01/18/22 04:00 71 22 89 L Room Air 01/18/22 04:00 137/79 01/18/22 03:30 71 19 90 01/18/22 03:00 37.1 C 70 20 90 Room Air 01/18/22 03:00 135/68 01/18/22 02:30 71 24 92 Nasal Cannula 2 01/18/22 02:00 143/72 H 01/18/22 02:00 71 20 94 01/18/22 01:30 82 17 97 01/18/22 01:00 61 18 96 Nasal Cannula 2 01/18/22 01:00 130/61 01/18/22 00:00 65 20 01/18/22 00:00 36.6 C 121/77 01/17/22 23:00 69 19 93 Nasal Cannula 2 01/17/22 23:00 139/64 01/17/22 22:00 68 17 01/17/22 22:00 123/55 L 01/17/22 21:00 75 20 86 L Room Air 01/17/22 21:00 144/78 H 01/17/22 20:00 68 17 91 01/17/22 20:00 157/60 H 01/17/22 19:36 70 18 01/17/22 20:07 Room Air Resident Activity Tracking Resident Involvement: Resident Care Provided Care Provided: Adult Hospital Medicine (1) Anemia Anemia type: unspecified type Qualified Code(s): D64.9 - Anemia, unspecified (2) Hypothermia Encounter type: initial encounter Qualified Code(s): T68.XXXA - Hypothermia, initial encounter (3) Leukocytosis Leukocytosis type: unspecified Qualified Code(s): D72.829 - Elevated white blood cell count, unspecified (4) Hematemesis Nausea presence: with nausea Qualified Code(s): K92.0 - Hematemesis (5) Hypotension Hypotension type: unspecified hypotension type Qualified Code(s): I95.9 - Hypotension, unspecified
--- NOTE | 2022-01-18 08:53 | Hospitalist Progress Note ---
Date of Service January 18, 2022 Assessment & Plan (1) Hematemesis: (2) Leukocytosis: (3) Anemia: (4) Hypotension: (5) Hypothermia: Plan: This 81-year-old male presents with hematemesis, hypotension, hypothermia. 1. Hematemesis. CT Abd./ pelvis No source for GI bleed identified on this exam. Large amount of stool within the rectum. Colonic diverticulosis without evidence for acute diverticulitis. No bowel obstruction. No bowel wall thickening. Holding his Plavix. Monitor H&H Started on Protonix drip. Acute blood loss anemia -patient received 2 units of PRBCs overnight. Monitor H&H GI consulted - s/p upper endoscopy Findings: A hiatal hernia was present. Four non-bleeding superficial gastric ulcers with pigmented material were found in the gastric antrum. The largest lesion was 5 mm in largest dimension. Biopsies were taken with a cold forceps for Helicobacter pylori testing. The examined duodenum was normal. No Active bleeding, old hematin material in the stomach. Impression: - Hiatal hernia. - Non-bleeding gastric ulcers with pigmented material. Biopsied. - Normal examined duodenum. Recommendation: - Return patient to [facility] for ongoing care. - D/C Octretotide - Continue PPI infusion overnight, then go to BID dosing - Hold Plavix today and tomorrow if possible - Stop and Avoid all NSAIDs - Ok for clear liquid diet today - Continue supportive care 2. Hypotension, probably secondary to GI bleed. The patient was also hypothermic when he came in. His lactate was normal 1.2. Treated initially as sepsis with empiric antibiotics, vancomycin and cefepime. Patient continued to be hypotensive, and required ICU transfer. Required pressor support, currently off pressors. Blood pressure much improved, vancomycin and cefepime stopped by ICU. Ceftriaxone started. Currently BP improved at 136/54 Electrolyte abnormalities, hypocalcemia, hypomagnesemia - replete and monitor 3. History of diabetes: Hold his glipizide, insulin and metformin. Place him on insulin sliding scale. Follow the blood sugars. 4. History of hypertension: Holding amlodipine and lisinopril for hypotension, as above. Likely resume today. 5. History of hyperlipidemia: Holding his statin. 6. History of CAD, status post stent. Holding Plavix and statin. DVT prophylaxis: SCDs for now. DISPOSITION:ICU-> PCU Code: Full Admission and Anticipated Discharge Date Admission Date: January 16, 2022 Subjective Pt seen in follow up of hematemesis Currently laying in bed, in no acute distress Denies fevers chills, chest pain, shortness of breath denies abdominal pain Underwent upper endoscopy yesterday Received 2 units of PRBCs on admission, now BP stable, off pressors No more episodes of vomiting Will downgrade from ICU Review of Systems Review of Systems: All systems reviewed & are unremarkable except as noted in Subjective Physical Exam Physical Exam: GENERAL: WD/WN elderly M in NAD HEENT: NC/AT, EOMI, Pupils equal, round and reactive to light. Oral mucosa moist. NECK: No JVD or neck masses. CARDIOVASCULAR: S1 and S2 heard. Regular rate and rhythm. No murmur, no gallop. RESPIRATORY: Normal AP diameter. No accessory muscle use. No wheezing, no crackles. ABDOMEN: Soft, bowel sounds present, nontender, no distention. NEURO:Awake and alert, able to answer simple questions appropriately, speech fluent, moves extremities EXTREMITIES: No edema, no erythema. Results & Data Results & Data ([facility]) Vital Signs (Past 12 Hours) Vital Signs Temp Pulse Resp BP Pulse Ox O2 Del Method O2 Flow Rate 01/18/22 08:00 80 24 93 01/18/22 08:00 143/64 H 01/18/22 07:02 135/64 01/18/22 07:02 75 21 93 01/18/22 07:00 72 22 92 01/18/22 08:00 Room Air 01/18/22 06:00 78 18 91 01/18/22 06:00 135/56 L 01/18/22 05:00 81 19 91 01/18/22 05:00 103/73 01/18/22 04:30 77 23 91 01/18/22 04:00 71 22 89 L Room Air 01/18/22 04:00 137/79 01/18/22 03:30 71 19 90 01/18/22 03:00 37.1 C 70 20 90 Room Air 01/18/22 03:00 135/68 01/18/22 02:30 71 24 92 Nasal Cannula 2 01/18/22 02:00 143/72 H 01/18/22 02:00 71 20 94 01/18/22 01:30 82 17 97 01/18/22 01:00 61 18 96 Nasal Cannula 2 01/18/22 01:00 130/61 01/18/22 00:00 65 20 01/18/22 00:00 36.6 C 121/77 01/17/22 23:00 69 19 93 Nasal Cannula 2 01/17/22 23:00 139/64 01/17/22 22:00 68 17 01/17/22 22:00 123/55 L 01/17/22 21:00 75 20 86 L Room Air 01/17/22 21:00 144/78 H Laboratory Results 01/18/22 01/18/22 01/18/22 Range/Units 05:21 04:12 04:12 WBC 8.00 (4.8-10.8) K/ul RBC 3.58 L (4.63-6.08) M/uL Hgb 10.7 L (14.0-18.0) g/dl Hct 31.8 L (40.1-51.0) % MCV 88.8 (80.0-100.0) fL MCH 29.9 (25.0-34.0) pg MCHC 33.6 (32.0-36.0) g/dL RDW Std Deviation 53.6 H (36.4-46.3) fL RDW Coeff of Diana 16.4 H (11.5-14.5) % Plt Count 107 L (130-400) K/uL MPV 10.6 (9.4-12.4) fL Immature Gran % (Auto) 0.1 % Neut % (Auto) 68.3 % Lymph % (Auto) 21.3 % [place] % (Auto) 7.9 % Eos % (Auto) 1.9 % Baso % (Auto) 0.5 % Neut # (Auto) 5.47 (1.4-6.5) K/uL Lymph # (Auto) 1.70 (1.2-3.4) K/uL [place] # (Auto) 0.63 (0.24-0.82) K/uL Eos # (Auto) 0.15 (0-0.50) K/uL Baso # (Auto) 0.04 (0-0.2) K/uL Immature Gran # (Auto) 0.01 (0.00-0.02) K/uL Platelet Estimate Decreased L (Normal) Sodium 138 (136-145) mmol/L Potassium 4.1 (3.5-5.1) mmol/L Chloride 104 (98-107) mmol/L Carbon Dioxide 28 (21-32) mmol/L Anion Gap 6 (3-11) BUN 22 D (6-23) mg/dl Creatinine 0.96 (0.6-1.4) mg/dl Est Cr Clr Drug Dosing 60.3 ml/min Est GFR ( Amer) 85.6 ml/min Est GFR (Non-Af Amer) 73.8 ml/min BUN/Creatinine Ratio 22.9 H (10-20) Glucose 154 H (70-99(Fasting)) mg/dl POC Glucose 172 H (70-99) mg/dl Estimat Average Glucose mg/dl Hemoglobin A1c (4.5-5.6) % Calcium 8.9 (8.5-10.1) mg/dl Phosphorus 2.3 L (2.5-4.9) mg/dl Magnesium 2.2 (1.7-2.4) mg/dl Crossmatch 01/17/22 01/17/22 01/17/22 Range/Units 23:33 18:47 17:00 WBC (4.8-10.8) K/ul RBC (4.63-6.08) M/uL Hgb 9.7 L (14.0-18.0) g/dl Hct 28.9 L (40.1-51.0) % MCV (80.0-100.0) fL MCH (25.0-34.0) pg MCHC (32.0-36.0) g/dL RDW Std Deviation (36.4-46.3) fL RDW Coeff of Diana (11.5-14.5) % Plt Count (130-400) K/uL MPV (9.4-12.4) fL Immature Gran % (Auto) % Neut % (Auto) % Lymph % (Auto) % [place] % (Auto) % Eos % (Auto) % Baso % (Auto) % Neut # (Auto) (1.4-6.5) K/uL Lymph # (Auto) (1.2-3.4) K/uL [place] # (Auto) (0.24-0.82) K/uL Eos # (Auto) (0-0.50) K/uL Baso # (Auto) (0-0.2) K/uL Immature Gran # (Auto) (0.00-0.02) K/uL Platelet Estimate (Normal) Sodium (136-145) mmol/L Potassium (3.5-5.1) mmol/L Chloride (98-107) mmol/L Carbon Dioxide (21-32) mmol/L Anion Gap (3-11) BUN (6-23) mg/dl Creatinine (0.6-1.4) mg/dl Est Cr Clr Drug Dosing ml/min Est GFR ( Amer) ml/min Est GFR (Non-Af Amer) ml/min BUN/Creatinine Ratio (10-20) Glucose (70-99(Fasting)) mg/dl POC Glucose 151 H 157 H (70-99) mg/dl Estimat Average Glucose mg/dl Hemoglobin A1c (4.5-5.6) % Calcium (8.5-10.1) mg/dl Phosphorus (2.5-4.9) mg/dl Magnesium (1.7-2.4) mg/dl Crossmatch 01/17/22 01/17/22 01/17/22 Range/Units 13:27 11:05 04:18 WBC (4.8-10.8) K/ul RBC (4.63-6.08) M/uL Hgb 9.7 L (14.0-18.0) g/dl Hct 28.5 L (40.1-51.0) % MCV (80.0-100.0) fL MCH (25.0-34.0) pg MCHC (32.0-36.0) g/dL RDW Std Deviation (36.4-46.3) fL RDW Coeff of Diana (11.5-14.5) % Plt Count (130-400) K/uL MPV (9.4-12.4) fL Immature Gran % (Auto) % Neut % (Auto) % Lymph % (Auto) % [place] % (Auto) % Eos % (Auto) % Baso % (Auto) % Neut # (Auto) (1.4-6.5) K/uL Lymph # (Auto) (1.2-3.4) K/uL [place] # (Auto) (0.24-0.82) K/uL Eos # (Auto) (0-0.50) K/uL Baso # (Auto) (0-0.2) K/uL Immature Gran # (Auto) (0.00-0.02) K/uL Platelet Estimate (Normal) Sodium (136-145) mmol/L Potassium (3.5-5.1) mmol/L Chloride (98-107) mmol/L Carbon Dioxide (21-32) mmol/L Anion Gap (3-11) BUN (6-23) mg/dl Creatinine (0.6-1.4) mg/dl Est Cr Clr Drug Dosing ml/min Est GFR ( Amer) ml/min Est GFR (Non-Af Amer) ml/min BUN/Creatinine Ratio (10-20) Glucose (70-99(Fasting)) mg/dl POC Glucose 123 H (70-99) mg/dl Estimat Average Glucose 146 mg/dl Hemoglobin A1c 6.7 H (4.5-5.6) % Calcium (8.5-10.1) mg/dl Phosphorus (2.5-4.9) mg/dl Magnesium (1.7-2.4) mg/dl Crossmatch 01/16/22 Range/Units 19:35 WBC (4.8-10.8) K/ul RBC (4.63-6.08) M/uL Hgb (14.0-18.0) g/dl Hct (40.1-51.0) % MCV (80.0-100.0) fL MCH (25.0-34.0) pg MCHC (32.0-36.0) g/dL RDW Std Deviation (36.4-46.3) fL RDW Coeff of Diana (11.5-14.5) % Plt Count (130-400) K/uL MPV (9.4-12.4) fL Immature Gran % (Auto) % Neut % (Auto) % Lymph % (Auto) % [place] % (Auto) % Eos % (Auto) % Baso % (Auto) % Neut # (Auto) (1.4-6.5) K/uL Lymph # (Auto) (1.2-3.4) K/uL [place] # (Auto) (0.24-0.82) K/uL Eos # (Auto) (0-0.50) K/uL Baso # (Auto) (0-0.2) K/uL Immature Gran # (Auto) (0.00-0.02) K/uL Platelet Estimate (Normal) Sodium (136-145) mmol/L Potassium (3.5-5.1) mmol/L Chloride (98-107) mmol/L Carbon Dioxide (21-32) mmol/L Anion Gap (3-11) BUN (6-23) mg/dl Creatinine (0.6-1.4) mg/dl Est Cr Clr Drug Dosing ml/min Est GFR ( Amer) ml/min Est GFR (Non-Af Amer) ml/min BUN/Creatinine Ratio (10-20) Glucose (70-99(Fasting)) mg/dl POC Glucose (70-99) mg/dl Estimat Average Glucose mg/dl Hemoglobin A1c (4.5-5.6) % Calcium (8.5-10.1) mg/dl Phosphorus (2.5-4.9) mg/dl Magnesium (1.7-2.4) mg/dl Crossmatch See Detail Medications Administered Current Inpatient Medications Acetaminophen (Acetaminophen 325 Mg Tab) 650 mg PO Q4H PRN PRN Reason: Pain or Fever Stop: 02/16/22 01:26 Amlodipine Besylate (Amlodipine Besylate 5 Mg Tab) 10 mg PO HS [facility] Stop: 02/16/22 20:59 Last Admin: 01/17/22 20:19 Dose: 10 mg Dextrose (Dextrose 50% 50 Ml Syringe) 25 - 50 ml IV UD PRN; Protocol PRN Reason: Hypoglycemia Protocol Stop: 02/16/22 01:59 Glucagon (Glucagon For Inj 1 Mg Vial) 1 mg IM UD PRN; Protocol PRN Reason: Hypoglycemia Protocol Stop: 02/16/22 01:59 Glucose (Glucose 40% Gel 15 Gm Tube) 15 - 30 gm PO UD PRN; Protocol PRN Reason: Hypoglycemia Protocol Stop: 02/16/22 01:59 Glucose (Glucose 10 Tab/Tube) 4 - 8 tab PO UD PRN; Protocol PRN Reason: Hypoglycemia Protocol Stop: 02/16/22 01:59 Insulin Aspart (Insulin Aspart Per Unit) 0 units SC ACHS ABEL Stop: 02/17/22 07:29 Last Admin: 01/18/22 07:29 Dose: Not Given Miscellaneous (Carbohydrates For Hypoglycemia ) 15 - 30 gm PO UD PRN PRN Reason: Hypoglycemia Treatment Stop: 02/16/22 01:59 Miscellaneous (Icu Protocol For Hyperglycemia) 1 each N/A PRN PRN; Protocol PRN Reason: Hyperglycemia Protocol Stop: 01/19/22 06:00 Miscellaneous (Icu Electrolyte Replacement Protocol) 1 each N/A BID@06,18 ABEL; Protocol Stop: 01/24/22 17:59 Last Admin: 01/18/22 05:30 Dose: 1 each Nitroglycerin (Nitroglycerin Sl 0.4 Mg/Tab Tab) 0.4 mg SL UD PRN PRN Reason: Chest Pain Stop: 02/16/22 01:26 Ondansetron HCl (Ondansetron Inj 2 Mg/Ml 2 Ml Vial) 4 mg IV Q6H PRN PRN Reason: Nausea Stop: 02/16/22 01:26 Pantoprazole Sodium (Pantoprazole 40 Mg Tab) 40 mg PO BID ABEL Stop: 02/17/22 08:59 Potassium Phosphate (Pot Phosphate Monobasic W/ Sod Tab) 1 tab PO Q4H ABEL Stop: 01/18/22 13:46 Last Admin: 01/18/22 06:51 Dose: 1 tab (1) Anemia Anemia type: unspecified type Qualified Code(s): D64.9 - Anemia, unspecified (2) Hypothermia Encounter type: initial encounter Qualified Code(s): T68.XXXA - Hypothermia, initial encounter (3) Leukocytosis Leukocytosis type: unspecified Qualified Code(s): D72.829 - Elevated white blood cell count, unspecified (4) Hematemesis Nausea presence: with nausea Qualified Code(s): K92.0 - Hematemesis (5) Hypotension Hypotension type: unspecified hypotension type Qualified Code(s): I95.9 - Hypotension, unspecified
--- NOTE | 2022-01-18 10:46 | Gastroenterology Progress Note ---
Date of Service January 18, 2022 Assessment & Plan (1) Gastric ulcer: Plan: BID PPI x 2 months then daily. No NSAIDs. OK to restart Plavix from a GI perspective. Regular consistency diet. GI will sign off. Please recall if any gross bleeding or drop in Hb/Hct. Admission and Anticipated Discharge Date Admission Date: January 16, 2022 Supervising Physician Co-Signing Physician Notes Attending attestation I have seen, examined this patient, and agree with the findings and above by our mid-level provider CODY Finnegan, with the following additions: No signs of bleeding Doing well Advance diet BID PPI at 40mg for at minimum two months, then daily afterwards Repeat EGD in 2 months to ensure gastric ulcers healed Will Sign off, call with questions Subjective 81-year-old male admitted 01/17 for hematemesis. CTA Abd/pelvis with diverticulosis no diverticulitis large amount of stool in the rectum. EGD yesterday with 4 nonbleeding superficial gastric ulcers and a hiatal hernia. No further gross GI bleeding. Hemoglobin stable posttransfusion at 10.7. (9.7 yesterday) Feeling well. Sitting up in a chair Review of Systems Review of Systems: ROS: Gen: Denies weakness, fevers, weight loss Eyes: No eye redness, or pain, no recent vision changes Resp: No SOB, no cough Cardio: No palpitations/irregular beats, no chest pain GI: Per HPI, otherwise (-) : Denies pain on urination Skin: No jaundice, itching or new rashes A total of 12 systems reviewed, all others negative Physical Exam Constitutional: WD/WN, vitals as above Eyes: PERRL, conjunctivae normal, anicteric sclerae ENMT: external ear and nose normal, oropharynx normal Neck: trachea midline, no thyromegaly Respiratory: normal respiratory effort, lungs clear to auscultation Cardiovascular: RRR, no murmur, no edema Gastrointestinal (Abdomen): normal bowel sounds, soft, nontender, no hepatosplenomegaly Musculoskeletal: no cyanosis or clubbing, extremities motor strength 5/5 Skin: no rashes, warm and dry Neurologic: PERRL, EOMI, accommodation nl, no face palsy, no dysarthria Psychiatric: A+Ox3, euthymic affect Lymphatic: no cervical or axillary lymphadenopathy Results & Data ([facility]) Vital Signs (Past 12 Hours) Vital Signs Temp Pulse Resp BP Pulse Ox O2 Del Method O2 Flow Rate 01/18/22 08:00 80 24 93 01/18/22 08:00 143/64 H 01/18/22 07:02 135/64 01/18/22 07:02 75 21 93 01/18/22 07:00 72 22 92 01/18/22 08:00 Room Air 01/18/22 06:00 78 18 91 01/18/22 06:00 135/56 L 01/18/22 05:00 81 19 91 01/18/22 05:00 103/73 01/18/22 04:30 77 23 91 01/18/22 04:00 71 22 89 L Room Air 01/18/22 04:00 137/79 01/18/22 03:30 71 19 90 01/18/22 03:00 37.1 C 70 20 90 Room Air 01/18/22 03:00 135/68 01/18/22 02:30 71 24 92 Nasal Cannula 2 01/18/22 02:00 143/72 H 01/18/22 02:00 71 20 94 01/18/22 01:30 82 17 97 01/18/22 01:00 61 18 96 Nasal Cannula 2 01/18/22 01:00 130/61 01/18/22 00:00 65 20 01/18/22 00:00 36.6 C 121/77 01/17/22 23:00 69 19 93 Nasal Cannula 2 01/17/22 23:00 139/64 Laboratory Results WBC 8, Hb 10.7, HCT 31.8, PLT S107, NA 138, K4.1, CL 104, CO2 28, BUN 22, CR 0.96, glucose 172 Diagnostic Findings EGD, CTA - see HPI
--- NOTE | 2022-01-18 10:46 | Billing Data ---
Date of Service January 18, 2022 Coding Level of Care Code 81546 Subseq Hosp Care Lvl 2
[2022-01-18] MEDS: PANTOprazole 40 MG TAB PO SCH ×2 (10:48→21:32)
[2022-01-18] MEDS: amLODIPine BESYLATE 5 MG TAB PO SCH (20:34)
[2022-01-18] MEDS ORDERED: lisinopril 40 MG TAB PO SCH (21:00)
[2022-01-18] MEDS ORDERED: glipiZIDE ER 2.5 MG TABCR PO SCH (21:00)
[2022-01-19 05:31] LABS: Hematocrit (blood only) 31.4 % (40.1-51.0); Hemoglobin 10.6 g/dl (14.0-18.0); Mean Corpuscular Hemoglobin 29.8 pg (25.0-34.0); Mean Corpuscular Hgb Conc 33.8 g/dL (32.0-36.0); Mean Corpuscular Volume 88.2 fL (80.0-100.0); Mean Platelet Volume 10.4 fL (9.4-12.4); Platelet Count 124 K/uL (130-400); RDW Coefficient of Variation 15.2 % (11.5-14.5); RDW Standard Deviation 49.6 fL (36.4-46.3); Red Blood Count 3.56 M/uL (4.63-6.08); White Blood Count 7.67 K/ul (4.8-10.8)
[2022-01-19 05:48] LABS: BUN Creatinine Ratio 23.3 (10-20); Calcium 8.8 mg/dl (8.5-10.1); Creatinine Clr Calc Pharmacy 67.4 ml/min; Est GFR (African American) 94.3 ml/min; Est GFR (Non-African American) 81.3 ml/min; Phosphorus 2.8 mg/dl (2.5-4.9); Potassium 3.6 mmol/L (3.5-5.1)
[2022-01-19] MEDS: PANTOprazole 40 MG TAB PO SCH (07:32)
[2022-01-19] MEDS: INSULIN ASPART PER UNIT SC SCH ×2 (07:35→11:55)
--- NOTE | 2022-01-19 15:23 | Discharge Summary ---
Discharge Summary Date of Service January 19, 2022 Notes For Next Care Provider Please review change in antiplatelet therapy with patient. Please assist patient with control of her arthritis pain so he will not reach for Aleve. Please ensure he is doing well after medication changes. Consider repeat blood work including CBC. Medication Changes From Visit NEW Aspirin 81 mg p.o. daily NEW Pantoprazole 40 mg p.o. twice daily STOP Aleve 200 mg p.o. daily as needed pain STOP aspirin 325 mg p.o. daily STOP clopidogrel 75 mg p.o. nightly Admission HPI Per Admitting Provider HISTORY OF PRESENT ILLNESS: This is an 81-year-old male with past medical history significant for diabetes, hypertension, hyperlipidemia, CAD status post stents, who lives at home with his , was brought in because of hematemesis. The patient's says he was doing okay and then in the evening, he complained of sick the stomach and _before the EMS came he ad an episode of bloody vomiting at home.and in the ER, he had another episode of hematemesis. As per the EMS, his blood pressure was low and he was somewhat lethargic. He was given a fluid bolus, blood pressure improved and he was also hypothermic around 34 degrees and with the Ursula-Hugger temperature improved. Currently, the patient is somewhat alert, awake, and oriented to name and place , could not tell date a ppropriately. Denies any chest pain or shortness of breath, somewhat nauseous. No headache, no fever, no cough, no abdominal pain. As per the , the patient has no known recent illnesses. No cough. Normal bowel and bladder movements. Ambulates without any support. It is somewhat difficult to get the history from the patient.Called and got some history from Admission Exam Per Admitting Provider PHYSICAL EXAMINATION: GENERAL: The patient is somewhat restless, not in acute distress. VITAL SIGNS: Temperature 36.6, pulse 76, respiratory rate 18, blood pressure 97/58, oxygen 94% on room air. HEENT: Pupils equal, round and reactive to light. Oral mucosa moist. NECK: No JVD or neck masses. CARDIOVASCULAR: S1 and S2 heard. Regular rate and rhythm. No murmur, no gallop. RESPIRATORY SYSTEM: Normal AP diameter. No accessory muscle use. No wheezing, no crackles. ABDOMEN: Soft, bowel sounds present, nontender, no distention. CENTRAL NERVOUS SYSTEM: Cranial nerves II through XII grossly intact, nonfocal. EXTREMITIES: No edema, no erythema. Principal Dx & Hospital Course #1 = Principal Diagnosis (1) Hematemesis: (2) Peptic ulcer disease: (3) Acute blood loss anemia: Plan 81-year-old man taking full dose aspirin, Plavix and Aleve as needed arthritis pain presented with hematemesis, hypotension, and hypothermia. He was admitted to the ICU with serial H&H and started on a Protonix drip, octreotide drip, and pressors. Prophylactic ceftriaxone was given and Plavix and aspirin were held. Acute blood loss anemia prompted two units of packed red blood cells overnight. Gastroenterology recommended an upper endoscopy which was performed on 01/17 revealing for nonbleeding superficial gastric ulcers in with biopsies taken and Helicobacter pylori testing performed. Hiatal hernia was present, duodenum was normal, no active bleeding was present with old hematin material in the stomach. Octreotide was stopped, PPI infusion was continued overnight then transitioned to oral Protonix twice daily. Plavix was held and all NSAIDs were avoided. He was [facility]. He only required minimal pressor support. Diet was advanced. Blood count remained stable. He was tolerating solid foods at discharge with no reports of pain and was hemodynamically stable and afebrile. His stents were 7-8 years prior at [facility] and records were not available. He noted having no regular beverage host and this was conformed with his by phone at time of discharge. Updated Medication List Medication Instructions Recorded Confirmed Type amlodipine 10 mg tablet 10 mg PO HS 01/16/22 01/16/22 History atorvastatin 20 mg tablet 20 mg PO HS 01/16/22 01/16/22 History glipizide 10 mg tablet, extended 10 mg PO HS 01/16/22 01/16/22 History release 24 hr insulin NPH isoph U-100 human 100 50 unit subcut QAM 01/16/22 01/16/22 History unit/mL (3 mL) subcutaneous pen (Novolin N Flexpen) lisinopril 40 mg tablet 40 mg PO HS 01/16/22 01/16/22 History metformin 500 mg tablet,extended 1,000 mg PO HS 01/16/22 01/16/22 History release 24 hr aspirin 81 mg tablet,delayed 81 mg PO DAILY #90 tabs 01/19/22 Rx release (Adult Low Dose Aspirin) pantoprazole 40 mg tablet,delayed 40 mg PO BID #60 tabs 01/19/22 Rx release Hospital Stay Data Consultations 01/16/22 21:05 ED Decision to Admit Stat 01/17/22 05:34 Consult Infant Lead Teacher Routine 01/17/22 08:00 Consult Gastroenterology Routine Procedures Performed Operation Date: 01/17/22 17:15 Actual Procedures p EGD Biopsy Cytology - Joseph Blount MD Diagnostic Imagining Performed 01/17/22 05:26 CTA abdomen pelvis w con [CT angio abdomen pelvis w con] Stat Pending Results Patient Have Any Pending Studies at Discharge: No Discharge Instructions Given to Patient (Per Discharging Provider) Please take all medications as instructed on discharge list below. Please note you should stop FULL DOSE aspirin (325mg) and start BABY aspirin (81mg) once daily. Plavix has been STOPPED. You will need to start taking PROTONIX twice daily for treatment of your ulcers. A two month followup [facility] Gastroenterology is recommended for repeat upper endoscopy to ensure your ulcers have healed. Please avoid Aleve for pain. Arthritis pain can be managed with Tylenol or Tramadol as a step up from that. Please discuss this ongoing arthritis pain with your primary care provider. You have a recommended follow-up appointment with your primary care provider in two days time to ensure you are still doing well since returning home. Please review medication changes with your primary care provider. It was a pleasure taking care of you! Please call if you have any questions or problems. You can reach a [facility] hospitalist on duty at [facility] 24 hours a day by calling [phone]. Take care of yourself. Ester Pederson, [facility] Medical Center[facility] Total Time Total Time Spent Total Time Spent (In Minutes): 60
== END 2022-01-19 17:40 | disposition home or self-care (01) | DRG 378 ==
LOC: ED 18:25 → EDINP 22:33 → SUATTDRO 22:33 → 1E 01-17 01:28

== ENCOUNTER 2024-07-02 19:30 | Inpatient (IN) ==
[2024-07-02 20:28] LABS: Basophils # (auto) 0.04 K/uL (0.00-0.20); Basophils % (auto) 0.3 %; Eosinophils # (auto) 0.03 K/uL (0.00-0.50); Eosinophils % (auto) 0.3 %; Hematocrit (blood only) 35.2 % (42.0-52.0); Hemoglobin 11.5 g/dl (14.0-18.0); Immature Granulocytes # (auto) 0.04 K/uL (0.01-0.20); Immature Granulocytes % (auto) 0.3 %; Lymphocytes # (auto) 1.84 K/uL (1.20-3.40); Lymphocytes % (auto) 15.8 %; Mean Corpuscular Hemoglobin 28.8 pg (25.0-34.0); Mean Corpuscular Hgb Conc 32.7 g/dL (32.0-36.0); Mean Platelet Volume 9.9 fL (9.4-12.4); Monocytes # (auto) 0.73 K/uL (0.11-0.59); Monocytes % (auto) 6.3 %; Neutrophils # (auto) 8.93 K/uL (1.40-6.50); Platelet Count 266 K/uL (130-400); RDW Coefficient of Variation 13.4 % (11.5-14.5); RDW Standard Deviation 43.6 fL (36.4-46.3); White Blood Count 11.61 K/ul (4.8-10.8)
[2024-07-02 20:39] LABS: Partial Thromboplastin Time 28 Seconds (21-31); Prothrombin Time 10.9 Seconds (9.0-12.0)
[2024-07-02] MEDS: CEFEPIME 2000MG 2,000 MG/20 ML SYR IV STA (20:48)
[2024-07-02] MEDS: SODIUM CHLORIDE 0.9% 1,000 ML IV ONE (20:50)
[2024-07-02 20:58] LABS: Troponin I High Sensitivity 8.2 pg/ml (0-20)
[2024-07-02 21:06] LABS: Albumin Level 3.7 gm/dl (3.4-5.0); Anion Gap 6 (3-11); Bilirubin,Total 0.4 mg/dl (0.2-1.0); Calcium 8.9 mg/dl (8.6-10.3); Carbon Dioxide 28 mmol/L (21-32); Chloride 97 mmol/L (98-107); Magnesium 1.9 mg/dl (1.7-2.4); Potassium 4.3 mmol/L (3.5-5.1); Sodium 131 mmol/L (136-145)
[2024-07-02 21:12] LABS: Alanine Aminotransferase 11 U/L (7-52); Albumin Globulin Ratio 0.8 (0.9-2); Alkaline Phosphatase 98 U/L (34-104); Aspartate Aminotransferase 12 U/L (13-39); BUN Creatinine Ratio 17.3 (10-20); Blood Urea Nitrogen 22 mg/dl (6-23); Globulin 4.7 gm/dl (2.5-4.0); Glucose 256 mg/dl (70-99(Fasting)); Total Protein 8.4 gm/dl (6.0-8.3)
--- NOTE | 2024-07-02 21:49 | Emergency Department Note ---
Impression & Plan Cellulitis, Anemia, Leukocytosis ED Provider Note NAME: VONNIE ALTAMIRANO AGE: 84 SEX: M : 1940 ARRIVES VIA: Walk-In INFORMANT: [Patient][family] ED PROVIDER(S): [John Fong MD] CHIEF COMPLAINT: Foot pain, infection HISTORY OF PRESENT ILLNESS: The patient is an 84-year-old male with diabetes. He is had previous issues with the left foot and has had some toes resected. The patient states that in the last week, he has noticed redness, increased pain and warmth as well as a foul odor. The patient did see his computer consultant and was referred to the hospital as he was likely going to require IV antibiotic therapy and may be, operative intervention. The patient denies any fever. There is no cough or congestion. 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 PMHx/PSHx/Social Hx: See Below PHYSICAL EXAM: GENERAL: Patient is in no acute distress. HEENT: No acute trauma, normocephalic atraumatic, mucous membranes moist, no nasal congestion. NECK: No stridor, no adenopathy, no meningismus, trachea is midline. LUNGS: Clear to auscultation bilaterally, no wheeze, no rhonchi, breath sounds equal. HEART: 2/6 systolic murmur, regular rate and rhythm. ABDOMEN: Soft, nontender, no peritonitis. EXTREMITIES: No cyanosis. The patient's left foot and distal leg are erythematous and warm. There is a large ulcer along the medial aspect of the left foot. There is some drainage and a foul odor present. A culture was obtained. He does have toes missing laterally. NEUROLOGIC: Oriented x 3, no acute motor or sensory deficits, no focal weakness. SKIN: No jaundice, no diaphoresis. DIFFERENTIAL DIAGNOSIS: Osteomyelitis, gangrene, cellulitis, abscess, among others. EMERGENCY DEPARTMENT PROCEDURES: MEDICAL DECISION MAKING: There is a mild leukocytosis, this would be consistent with infection. The patient is anemic with a hemoglobin of 11.5. The anemia is a chronic finding. There is a normal platelet count. No coagulopathy. Sodium somewhat low at 131. No renal failure. Lactic acid level is not elevated making severe sepsis less likely. No worrisome liver enzyme elevation. ECG shows a sinus rhythm, no acute ischemic change. Cardiac enzyme testing x 1 is not consistent with acute cardiac injury. Urinalysis shows glucose, no infection. Left foot film shows evidence for previous surgery, no obvious fracture or osteomyelitis. Chest x- ray showed some chronic change, no pneumonia. On exam, patient had a foul- smelling left foot, a culture was obtained. The patient was in need of a hospital stay. He had an obvious cellulitis of his left lower extremity. A CT of the left foot was performed, no osteomyelitis or abscess. Patient was given IV saline and IV cefepime. The patient requires a hospital stay. He has cellulitis and may in fact require surgical intervention given the extent of the infection. I did speak with the patient and family, the on-call hospitalist was consulted. Prior/Outside records/notes reviewed: None ECG per my interpretation: Indication was possible sepsis. The ECG shows a sinus rhythm with a sinus arrhythmia and a first-degree AV block. There is a right bundle branch block. The rate is 79. There is no acute ST elevation, no PVCs. The QTc is 442. Continuous Cardiac Monitoring per my interpretation: An order was placed for continuous cardiac monitoring. The monitor shows a rate of 76 with normal sinus rhythm. Imaging/x-ray results per my interpretation: Chest x-ray shows some chronic change, no obvious pneumonia. Left foot film shows evidence for previous surgery. No true osteomyelitis. No fractures. Chronic Medical/Social conditions affecting care: Advanced age, diabetes Care/Management discussed with: Case management, the on-call hospitalist. Level of care consideration(s): After review of the information above and other included data: --I believe the patient requires escalation of care to admission DISPOSITION: Admitted Past Med/Surg History Problem List (Updated 07/03/24 @ 01:27 by John Fong MD) Leukocytosis (Acute) Anemia (Acute) Cellulitis (Acute) Diabetic foot infection Acute blood loss anemia Peptic ulcer disease Encounter for pre-operative examination Hypotension (Acute) Hypothermia (Acute) Weakness (Acute) Acute dehydration (Acute) Anemia (Acute) Hematemesis (Acute) Leukocytosis (Acute) Medical History Gastric ulcer Diabetes mellitus Hypertension Social History Smoking Status: Never smoker Second Hand Exposure: No; Do You Dip or Chew Tobacco: No; Hx Alcohol Use: No Hx Substance Use: No Preferred Language: Guamanian Communication Ability: Unable Forensic Toxicologist Required: No Beliefs That Will Affect Care: None marital status: Current Living Situation: Spouse Feels Safe at Home: Yes Assistive Devices: None Allergies Allergies Allergy/AdvReac Type Severity Reaction Status Date / Time No Known Allergies Allergy Verified 07/02/24 21:47 Home Meds Home Medications Medication Instructions Recorded Confirmed amlodipine 10 mg tablet 10 mg PO HS 01/16/22 07/02/24 atorvastatin 20 mg tablet 20 mg PO HS 01/16/22 07/02/24 glipizide 10 mg tablet, extended 10 mg PO QAM 01/16/22 07/02/24 release 24 hr insulin NPH isoph U-100 human 100 50 unit subcut M 01/16/22 07/02/24 unit/mL (3 mL) subcutaneous pen (Novolin N FlexPen) lisinopril 40 mg tablet 40 mg PO HS 01/16/22 07/02/24 metformin 500 mg tablet,extended 1,000 mg PO HS 01/16/22 07/02/24 release 24 hr aspirin 81 mg tablet,delayed 81 mg PO HS 07/02/24 07/02/24 release (Adult Low Dose Aspirin) clopidogrel 75 mg tablet 75 mg PO HS 07/02/24 07/02/24 Previous Rx's Medication Instructions Recorded pantoprazole 40 mg tablet,delayed 40 mg PO BID #60 tabs 01/19/22 release Results & Data (ED) Vital Signs Vital Signs - 24 hr 07/02/24 19:47 07/02/24 20:30 07/02/24 21:21 Temperature 36.5 C Temperature Source Temporal Artery Scan Pulse Rate 158 H 75 76 Pulse Rate from SpO2 Sensor 76 78 Respiratory Rate 18 19 22 Respiratory Effort / Characteristics Non-Labored Spontaneous Respiratory Depth Normal Blood Pressure 109/70 101/80 125/77 Blood Pressure Mean 83 87 93 Pulse Oximetry 90 98 99 Oxygen Delivery Method Room Air Room Air Room Air Sepsis Recent Fever Within 48 Hours No Sepsis New/Unexplained Change in Mental Status No Sepsis Action Taken by Nursing No Action Required 07/02/24 22:05 07/02/24 23:09 Temperature Temperature Source Pulse Rate 75 81 Pulse Rate from SpO2 Sensor Respiratory Rate 22 Respiratory Effort / Characteristics Respiratory Depth Blood Pressure 122/70 Blood Pressure Mean 87 Pulse Oximetry 98 Oxygen Delivery Method Room Air Sepsis Recent Fever Within 48 Hours Sepsis New/Unexplained Change in Mental Status Sepsis Action Taken by [facility] Medications Current Medication List: was personally reviewed by me Laboratory Data Attestation: I reviewed the patient's lab results. 07/02/24 20:00 07/02/24 20:00 Lab Results 07/02/24 07/02/24 Range/Units 20:00 22:19 WBC 11.61 H (4.8-10.8) K/ul RBC 4.00 L (4.70-6.10) M/uL Hgb 11.5 L (14.0-18.0) g/dl Hct 35.2 L (42.0-52.0) % MCV 88.0 (80.0-100.0) fL MCH 28.8 (25.0-34.0) pg MCHC 32.7 (32.0-36.0) g/dL RDW Std Deviation 43.6 (36.4-46.3) fL RDW Coeff of Diana 13.4 (11.5-14.5) % Plt Count 266 (130-400) K/uL MPV 9.9 (9.4-12.4) fL Immature Gran % (Auto) 0.3 % Neut % (Auto) 77.0 % Lymph % (Auto) 15.8 % [place] % (Auto) 6.3 % Eos % (Auto) 0.3 % Baso % (Auto) 0.3 % Neut # (Auto) 8.93 H (1.40-6.50) K/uL Lymph # (Auto) 1.84 (1.20-3.40) K/uL [place] # (Auto) 0.73 H (0.11-0.59) K/uL Eos # (Auto) 0.03 (0.00-0.50) K/uL Baso # (Auto) 0.04 (0.00-0.20) K/uL Immature Gran # (Auto) 0.04 (0.01-0.20) K/uL PT 10.9 (9.0-12.0) Seconds INR 1.0 (0.9-1.1) APTT 28 (21-31) Seconds PTT Ratio 1.0 Sodium 131 L (136-145) mmol/L Potassium 4.3 (3.5-5.1) mmol/L Chloride 97 L (98-107) mmol/L Carbon Dioxide 28 (21-32) mmol/L Anion Gap 6 (3-11) BUN 22 (6-23) mg/dl Creatinine 1.27 (0.6-1.4) mg/dl Est Cr Clr Drug Dosing Not Reportable eGFR 55.71 BUN/Creatinine Ratio 17.3 (10-20) Glucose 256 H (70-99(Fasting)) mg/dl Lactate 1.2 (0.4-2.0) mmol/L Calcium 8.9 (8.6-10.3) mg/dl Magnesium 1.9 (1.7-2.4) mg/dl Total Bilirubin 0.4 (0.2-1.0) mg/dl AST 12 L (13-39) U/L ALT 11 (7-52) U/L Alkaline Phosphatase 98 (34-104) U/L Troponin I High Sens 8.2 (0-20) pg/ml Total Protein 8.4 H (6.0-8.3) gm/dl Albumin 3.7 (3.4-5.0) gm/dl Globulin 4.7 H (2.5-4.0) gm/dl Albumin/Globulin Ratio 0.8 L (0.9-2) Procalcitonin 0.11 (0-0.5) ng/ml Urine Color Yellow Urine Appearance Clear (Clear) Urine pH 5.5 (4.5-7.5) Ur Specific [place] 1.021 (1.000-1.030) Urine Protein Trace H (Negative) Urine Glucose (UA) 3+ H (Negative) Urine Ketones Negative (Negative) Urine Blood Negative (Negative) Urine Nitrite Negative (Negative) Urine Bilirubin Negative (Negative) Urine Urobilinogen Negative (Negative) Ur Leukocyte Esterase Negative (Negative) Urine WBC (Auto) 0-5 (0-5) /hpf Urine RBC (Auto) 0-2 (0-2) /hpf U Hyaline Cast (Auto) 0-2 (0-2) /lpf U Epithel Cells (Auto) 0-2 (0-2) /hpf Urine Bacteria (Auto) None Seen (None Seen) Administered Medications Discontinued Medications Cefepime HCl (Maxipime 2000mg) 2,000 mg in 20 mls @ 5 mls/min IV NOW STA; Protocol Stop: 07/02/24 20:39 Last Admin: 07/02/24 20:48 Dose: 5 mls/min Documented By: SEJAL Sodium Chloride (Nss) 1,000 mls @ 999 mls/hr IV .Q1H1M ONE Stop: 07/02/24 21:36 Last Infusion: 07/02/24 23:14 Dose: Infused Documented By: Admin: 07/02/24 20:50 Dose: 999 mls/hr Documented By: SEJAL Imaging Data Radiologist's Impression: Chest X-Ray 07/02/24 19:51 Exam(s): XR CXR 1 VIEW EXAM: XR Chest, 1 View CLINICAL HISTORY: Reason for exam: Sepsis. TECHNIQUE: Frontal view of the chest. COMPARISON: Chest x-ray 01/16/2022 FINDINGS: Lungs: No consolidation. No overt edema. Pleural space: No pleural effusion. No pneumothorax. Heart: Unremarkable. No cardiomegaly. IMPRESSION: No acute cardiopulmonary abnormality. Electronically signed by: Palomo Wright MD 07/02/24 23:20 PM Foot X-Ray 07/02/24 20:21 Exam(s): XR LEFT FOOT, 3+ views EXAM: XR Left Foot Complete, 3 or More Views CLINICAL HISTORY: Reason for exam: left foot infection. TECHNIQUE: Frontal, lateral and oblique views of the left foot. COMPARISON: No relevant prior studies available. FINDINGS: Bones/joints: Extensive chronic changes in the toes. No radiographically evident acute appearing or erosion to suggest acute osteomyelitis. Soft tissue ulcer adjacent to the first MTP joint. Severe arthritic changes of the first MTP joint. Moderate degenerative changes at the TMT joints. Soft tissues: Linear metallic foreign body measuring 7 mm in the forefoot plantar soft tissues. IMPRESSION: 1. No radiographic evidence of acute osteomyelitis. 2. Soft tissue ulcer adjacent to the first MTP joint. 3. Linear metallic foreign body measuring 7 mm in the plantar soft tissues. Electronically signed by: Palomo Wright MD 07/02/24 23:[address] 07/02/24 20:36 Exam(s): CT LEFT FOOT Without Contrast EXAM: CT Left Lower Extremity Without Intravenous Contrast, Foot CLINICAL HISTORY: Reason for exam: poss osteo. TECHNIQUE: Axial computed tomography images of the left foot without intravenous contrast. CTDI is 24.91 mGy and DLP is 490.53 mGy-cm. Automated exposure control was utilized for the study. A dose lowering technique was utilized adhering to the principles of ALARA. COMPARISON: Same-day x-ray. FINDINGS: Bones/joints: No CT evidence of acute osteomyelitis. Severe degenerative changes at the first MTP joint. Advanced degenerative changes at the TMT joints. No acute fracture. Erosive changes. 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 Soft tissues: Medial and plantar soft tissue ulcers at the first MTP joint. Skin thickening and cellulitis. No soft tissue gas or abscess. No radiopaque foreign body. IMPRESSION: 1. Medial and plantar soft tissue ulcers at the first MTP joint. Skin thickening and cellulitis. No soft tissue gas or abscess. 2. No CT evidence of acute osteomyelitis. Electronically signed by: Palomo Wright MD 07/02/24 23:56 PM Discharge Plan Visit Data Chief Complaint: Foot Injury/Pain Stated Complaint: LT INFECTED FT ED Provider: John Fong Discharge Problem: Cellulitis, Anemia, Leukocytosis Patient Disposition: Admitted As Inpatient Condition: Serious Forms Stand Alone Forms: [facility] [employer] Prescriptions Prescriptions: No Action atorvastatin 20 mg tablet 20 mg PO HS glipizide 10 mg tablet extended release 24hr 10 mg PO QAM amlodipine 10 mg tablet 10 mg PO HS lisinopril 40 mg tablet 40 mg PO HS metformin 500 mg tablet extended release 24 hr 1,000 mg PO HS Novolin N FlexPen 100 unit/mL (3 mL) insulin pen 50 unit SUBCUT QAM pantoprazole 40 mg Tablet,Delayed Release (Dr/Ec) 40 mg PO BID Qty: 60 1RF clopidogrel 75 mg tablet 75 mg PO HS aspirin [Adult Low Dose Aspirin] 81 mg tablet,delayed release (DR/EC) 81 mg PO HS Referrals Referrals: Susie House PA-C [Primary Care Provider] - Discharge Problem: Cellulitis Qualifiers: Site of cellulitis: extremity Site of cellulitis of extremity: lower extremity Laterality: left Qualified Code(s): L03.116 - Cellulitis of left lower limb Anemia Qualifiers: Anemia type: unspecified type Qualified Code(s): D64.9 - Anemia, unspecified Leukocytosis Qualifiers: Leukocytosis type: unspecified Qualified Code(s): D72.829 - Elevated white blood cell count, unspecified
[2024-07-02 22:28] LABS: Appearance Urine Clear (Clear); Bacteria Urine Automated None Seen (None Seen); Bilirubin Urine Negative (Negative); Blood Urine Negative (Negative); Cast Urine Automated 0-2 /lpf (0-2); Color Urine Yellow; Epithelial Cell Urine Auto 0-2 /hpf (0-2); Glucose Urine UA 3+ (Negative); Ketones Urine Negative (Negative); Leukocyte Esterase Urine Negative (Negative); Nitrite Urine Negative (Negative); Protein Urine Trace (Negative); RBC Urine Automated 0-2 /hpf (0-2); Specific Gravity Urine 1.021 (1.000-1.030); Urobilinogen Urine Negative (Negative); WBC Urine Automated 0-5 /hpf (0-5); pH Urine 5.5 (4.5-7.5)
--- NOTE | 2024-07-02 23:21 | XRay Report ---
Exam(s): XR CXR 1 VIEW EXAM: XR Chest, 1 View CLINICAL HISTORY: Reason for exam: Sepsis. TECHNIQUE: Frontal view of the chest. COMPARISON: Chest x-ray 01/16/2022 FINDINGS: Lungs: No consolidation. No overt edema. Pleural space: No pleural effusion. No pneumothorax. Heart: Unremarkable. No cardiomegaly. IMPRESSION: No acute cardiopulmonary abnormality. Electronically signed by: Palomo Wright MD 07/02/24 23:20 PM
--- NOTE | 2024-07-02 23:27 | XRay Report ---
Exam(s): XR LEFT FOOT, 3+ views EXAM: XR Left Foot Complete, 3 or More Views CLINICAL HISTORY: Reason for exam: left foot infection. TECHNIQUE: Frontal, lateral and oblique views of the left foot. COMPARISON: No relevant prior studies available. FINDINGS: Bones/joints: Extensive chronic changes in the toes. No radiographically evident acute appearing or erosion to suggest acute osteomyelitis. Soft tissue ulcer adjacent to the first MTP joint. Severe arthritic changes of the first MTP joint. Moderate degenerative changes at the TMT joints. Soft tissues: Linear metallic foreign body measuring 7 mm in the forefoot plantar soft tissues. IMPRESSION: 1. No radiographic evidence of acute osteomyelitis. 2. Soft tissue ulcer adjacent to the first MTP joint. 3. Linear metallic foreign body measuring 7 mm in the plantar soft tissues. Electronically signed by: Palomo Wright MD 07/02/24 23:27 PM
--- NOTE | 2024-07-02 23:57 | CT Scan Report ---
Exam(s): CT LEFT FOOT Without Contrast EXAM: CT Left Lower Extremity Without Intravenous Contrast, Foot CLINICAL HISTORY: Reason for exam: poss osteo. TECHNIQUE: Axial computed tomography images of the left foot without intravenous contrast. CTDI is 24.91 mGy and DLP is 490.53 mGy-cm. Automated exposure control was utilized for the study. A dose lowering technique was utilized adhering to the principles of ALARA. COMPARISON: Same-day x-ray. FINDINGS: Bones/joints: No CT evidence of acute osteomyelitis. Severe degenerative changes at the first MTP joint. Advanced degenerative changes at the TMT joints. No acute fracture. Erosive changes. 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 Soft tissues: Medial and plantar soft tissue ulcers at the first MTP joint. Skin thickening and cellulitis. No soft tissue gas or abscess. No radiopaque foreign body. IMPRESSION: 1. Medial and plantar soft tissue ulcers at the first MTP joint. Skin thickening and cellulitis. No soft tissue gas or abscess. 2. No CT evidence of acute osteomyelitis. Electronically signed by: Palomo Wright MD 07/02/24 23:56 PM
--- NOTE | 2024-07-03 00:59 | History & Physical Report ---
Date of Service July 03, 2024 Assessment & Plan (1) Diabetic foot infection: Plan: 84-year-old male with past medical history significant for diabetes, hypertension, hyperlipidemia, CAD status post stents who lives at home with his comes because of left foot infection. He says he went to the sr risk management consultant and was recommended to come to the hospital for antibiotics. Patient denies any pain. Denies any fevers. No chest pain. No shortness of breath. Has some cough. No headache. No runny nose or sore throat. No abdominal pain. Currently resting comfortably and hemodynamically stable. Diabetic foot infection Left foot cellulitis and wound on the big toe Foul-smelling Empiric Zosyn and Vanco CT scan shows cellulitis. But no abscess or gas or no CT evidence of osteomyelitis Will check arterial Doppler N.p.o., IV fluids Podiatry consult in a.m. Close monitor Diabetes Will hold home glipizide, metformin and Novolin FlexPen Placed on Lantus and sliding scale Will monitor Follow A1c levels Hypertension On amlodipine and lisinopril Hyperlipidemia On statin History of CAD status post stents On aspirin, Plavix and statin GERD On Protonix Hyponatremia Sodium 131 Will follow labs DVT prophylaxis SCDs for now Disposition Medical floor Full code. History of Present Illness Chief Complaint: Left foot infection Primary Care Provider: Susie House 84-year-old male with past medical history significant for diabetes, hypertension, hyperlipidemia, CAD status post stents who lives at home with his comes because of left foot infection. He says he went to the sr risk management consultant and was recommended to come to the hospital for antibiotics. Patient denies any pain. Denies any fevers. No chest pain. No shortness of breath. Has some cough. No headache. No runny nose or sore throat. No abdominal pain. Currently resting comfortably and hemodynamically stable. Past medical history. As mentioned above Past surgical history. Toe surgery. Social history. Remote history of smoking. No alcohol's. He lives with his . Family history. Mother had CAD and diabetes. Allergies Allergy/AdvReac Type Severity Reaction Status Date / Time No Known Allergies Allergy Verified 07/02/24 21:47 Home Medications Medication Instructions Recorded Confirmed Type amlodipine 10 mg tablet 10 mg PO HS 01/16/22 07/02/24 History atorvastatin 20 mg tablet 20 mg PO HS 01/16/22 07/02/24 History glipizide 10 mg tablet, extended 10 mg PO QAM 01/16/22 07/02/24 History release 24 hr insulin NPH isoph U-100 human 100 50 unit subcut QAM 01/16/22 07/02/24 History unit/mL (3 mL) subcutaneous pen (Novolin N FlexPen) lisinopril 40 mg tablet 40 mg PO HS 01/16/22 07/02/24 History metformin 500 mg tablet,extended 1,000 mg PO HS 01/16/22 07/02/24 History release 24 hr pantoprazole 40 mg tablet,delayed 40 mg PO BID #60 tabs 01/19/22 07/02/24 Rx release aspirin 81 mg tablet,delayed 81 mg PO HS 07/02/24 07/02/24 History release (Adult Low Dose Aspirin) clopidogrel 75 mg tablet 75 mg PO HS 07/02/24 07/02/24 History Past Med/Surg History Problem List (Updated 07/03/24 @ 01:27 by John Fong MD) Leukocytosis (Acute) Anemia (Acute) Cellulitis (Acute) Diabetic foot infection Acute blood loss anemia Peptic ulcer disease Encounter for pre-operative examination Hypotension (Acute) Hypothermia (Acute) Weakness (Acute) Acute dehydration (Acute) Anemia (Acute) Hematemesis (Acute) Leukocytosis (Acute) Medical History Gastric ulcer Diabetes mellitus Hypertension Social History Smoking Status: Former smoker Tobacco Type: Cigarettes Second Hand Exposure: No; Do You Dip or Chew Tobacco: No; Hx Alcohol Use: No Hx Substance Use: No Preferred Language: Mozambican Communication Ability: Effective Neck Fitter Required: No Beliefs That Will Affect Care: None marital status: Current Living Situation: Spouse Feels Safe at Home: No Is there a partner from a previous relationship who is making you feel unsafe now?: No Any Concerns about Your Family Situation: No W ould You Like to Speak to Someone About Your Situation: No Safety Concerns: Feels Safe At This Time Assistive Devices: Denture - Upper, Denture - Lower, Hearing Aid - Bilateral and Walker Review of Systems Review of Systems: All systems reviewed & are unremarkable except as noted in HPI & below Physical Exam Physical Exam: General- Not in distress Head- atraumatic Eyes- PERRL. ENT- oropharynx clear Neck- supple, no JVD. Lungs- clear to auscultation no wheezing or crackles Heart- regular rate and rhythm; no murmur, no gallop. Abdomen- normal bowel sounds, soft, nontender, no distension Extremities-Left foot erythematous and wound seen on big toe lateral aspect and foul smelling Neuro- alert, oriented PERRL, no facial palsy; no dysarthria; moves extremities Results & Data Results & Data Vital Signs (Past 12 Hours) Vital Signs Temp Pulse Resp BP Pulse Ox O2 Del Method 07/02/24 23:09 81 22 122/70 98 Room Air 07/02/24 22:05 75 07/02/24 21:21 76 22 125/77 99 Room Air 07/02/24 20:30 75 19 101/80 98 Room Air 07/02/24 19:47 36.5 C 158 H 18 109/70 90 Room Air Diagnostic Findings Laboratory Results WBC 11.61 K/ul (4.8-10.8) H 07/02/24 20:00 RBC 4.00 M/uL (4.70-6.10) L 07/02/24 20:00 Hgb 11.5 g/dl (14.0-18.0) L 07/02/24 20:00 Hct 35.2 % (42.0-52.0) L 07/02/24 20:00 MCV 88.0 fL (80.0-100.0) 07/02/24 20:00 MCH 28.8 pg (25.0-34.0) 07/02/24 20:00 MCHC 32.7 g/dL (32.0-36.0) 07/02/24 20:00 RDW Std Deviation 43.6 fL (36.4-46.3) 07/02/24 20:00 RDW Coeff of Diana 13.4 % (11.5-14.5) 07/02/24 20:00 Plt Count 266 K/uL (130-400) 07/02/24 20:00 MPV 9.9 fL (9.4-12.4) 07/02/24 20:00 Immature Gran % (Auto) 0.3 % 07/02/24 20:00 Neut % (Auto) 77.0 % 07/02/24 20:00 Lymph % (Auto) 15.8 % 07/02/24 20:00 [place] % (Auto) 6.3 % 07/02/24 20:00 Eos % (Auto) 0.3 % 07/02/24 20:00 Baso % (Auto) 0.3 % 07/02/24 20:00 Neut # (Auto) 8.93 K/uL (1.40-6.50) H 07/02/24 20:00 Lymph # (Auto) 1.84 K/uL (1.20-3.40) 07/02/24 20:00 [place] # (Auto) 0.73 K/uL (0.11-0.59) H 07/02/24 20:00 Eos # (Auto) 0.03 K/uL (0.00-0.50) 07/02/24 20:00 Baso # (Auto) 0.04 K/uL (0.00-0.20) 07/02/24 20: Immature Gran # (Auto) 0.04 K/uL (0.01-0.20) 07/02/24 20:00 PT 10.9 Seconds (9.0-12.0) 07/02/24 20:00 INR 1.0 (0.9-1.1) 07/02/24 20: APTT 28 Seconds (21-31) 07/02/24 20:00 PTT Ratio 1.0 07/02/24 20:00 Sodium 131 mmol/L (136-145) L 07/02/24 20:00 Potassium 4.3 mmol/L (3.5-5.1) 07/02/24 20:00 Chloride 97 mmol/L (98-107) L 07/02/24 20:00 Carbon Dioxide 28 mmol/L (21-32) 07/02/24 20:00 Anion Gap 6 (3-11) 07/02/24 20: BUN 22 mg/dl (6-23) 07/02/24 20:00 Creatinine 1.27 mg/dl (0.6-1.4) 07/02/24 20:00 Est Cr Clr Drug Dosing Not Reportable 07/02/24 20:00 eGFR 55.71 07/02/24:00 BUN/Creatinine Ratio 17.3 (10-20) 07/02/24 20:00 Glucose 256 mg/dl (70-99(Fasting)) H 07/02/24 20:00 Lactate 1.2 mmol/L (0.4-2.0) 07/02/24 20:00 Calcium 8.9 mg/dl (8.6-10.3) 07/02/24 20:00 Magnesium 1.9 mg/dl (1.7-2.4) 07/02/24 20:00 Total Bilirubin 0.4 mg/dl (0.2-1.0) 07/02/24 20:00 AST 12 U/L (13-39) L 07/02/24 20:00 ALT 11 U/L (7-52) 07/02/24 20:00 Alkaline Phosphatase 98 U/L (34-104) 07/02/24 20:00 Troponin I High Sens 8.2 pg/ml (0-20) 07/02/24 20:00 Total Protein 8.4 gm/dl (6.0-8.3) H 07/02/24 20:00 Albumin 3.7 gm/dl (3.4-5.0) 07/02/24 20:00 Globulin 4.7 gm/dl (2.5-4.0) H 07/02/24 20:00 Albumin/Globulin Ratio 0.8 (0.9-2) L 07/02/24 20:00 Procalcitonin 0.11 ng/ml (0-0.5) 07/02/24 20:00 Urine Color Yellow 07/02/24 22:19 Urine Appearance Clear (Clear) 07/02/24: Urine pH 5.5 (4.5-7.5) 07/02/24: Ur Specific [place] 1.021 (1.000-1.030) 07/02/24:19 Urine Protein Trace (Negative) H 07/02/24 22: Urine Glucose (UA) 3+ (Negative) H 07/02/24 22:19 Urine Ketones Negative (Negative) 07/02/24 22:19 Urine Blood Negative (Negative) 07/02/24 22: Urine Nitrite Negative (Negative) 07/02/24 22: Urine Bilirubin Negative (Negative) 04/15/25 22:19 Urine Urobilinogen Negative (Negative) 07/02/24 22:19 Ur Leukocyte Esterase Negative (Negative) 07/02/24 22:19 Urine WBC (Auto) 0-5 /hpf (0-5) 07/02/24 22:19 Urine RBC (Auto) 0-2 /hpf (0-2) 07/02/24 22:19 U Hyaline Cast (Auto) 0-2 /lpf (0-2) 07/02/24 22:19 U Epithel Cells (Auto) 0-2 /hpf (0-2) 07/02/24 22:19 Urine Bacteria (Auto) None Seen (None Seen) 07/02/24 22:19 Impressions Chest X-Ray 07/02/24 19:51 Exam(s): XR CXR 1 VIEW EXAM: XR Chest, 1 View CLINICAL HISTORY: Reason for exam: Sepsis. TECHNIQUE: Frontal view of the chest. COMPARISON: Chest x-ray 01/16/2022 FINDINGS: Lungs: No consolidation. No overt edema. Pleural space: No pleural effusion. No pneumothorax. Heart: Unremarkable. No cardiomegaly. IMPRESSION: No acute cardiopulmonary abnormality. Electronically signed by: Palomo Wright MD 07/02/24 23:20 PM Foot X-Ray 07/02/24 20:21 Exam(s): XR LEFT FOOT, 3+ views EXAM: XR Left Foot Complete, 3 or More Views CLINICAL HISTORY: Reason for exam: left foot infection. TECHNIQUE: Frontal, lateral and oblique views of the left foot. COMPARISON: No relevant prior studies available. FINDINGS: Bones/joints: Extensive chronic changes in the toes. No radiographically evident acute appearing or erosion to suggest acute osteomyelitis. Soft tissue ulcer adjacent to the first MTP joint. Severe arthritic changes of the first MTP joint. Moderate degenerative changes at the TMT joints. Soft tissues: Linear metallic foreign body measuring 7 mm in the forefoot plantar soft tissues. IMPRESSION: 1. No radiographic evidence of acute osteomyelitis. 2. Soft tissue ulcer adjacent to the first MTP joint. 3. Linear metallic foreign body measuring 7 mm in the plantar soft tissues. Electronically signed by: Palomo Wright MD 07/02/24 23:[address] 07/02/24 20:36 Exam(s): CT LEFT FOOT Without Contrast EXAM: CT Left Lower Extremity Without Intravenous Contrast, Foot CLINICAL HISTORY: Reason for exam: poss osteo. TECHNIQUE: Axial computed tomography images of the left foot without intravenous contrast. CTDI is 24.91 mGy and DLP is 490.53 mGy-cm. Automated exposure control was utilized for the study. A dose lowering technique was utilized adhering to the principles of ALARA. COMPARISON: Same-day x-ray. FINDINGS: Bones/joints: No CT evidence of acute osteomyelitis. Severe degenerative changes at the first MTP joint. Advanced degenerative changes at the TMT joints. No acute fracture. Erosive changes. 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 Soft tissues: Medial and plantar soft tissue ulcers at the first MTP joint. Skin thickening and cellulitis. No soft tissue gas or abscess. No radiopaque foreign body. IMPRESSION: 1. Medial and plantar soft tissue ulcers at the first MTP joint. Skin thickening and cellulitis. No soft tissue gas or abscess. 2. No CT evidence of acute osteomyelitis. Electronically signed by: Palomo Wright MD 07/02/24 23:56 PM Code Status & VTE Plan VTE Prophylaxis Plan VTE Prophylaxis will be ordered: Yes
[2024-07-03] MEDS ORDERED: GLUCOSE 10 TAB/TUBE PO PRN (03:21)
[2024-07-03] MEDS ORDERED: CARBOHYDRATES FOR HYPOGLYCEMIA PO PRN (03:21)
[2024-07-03] MEDS ORDERED: VANCOMYCIN CONSULT ACTIVE PRN (03:21)
[2024-07-03] MEDS ORDERED: POLYETHYLENE (MIRALAX) 17 GM PACK PO PRN (03:21)
[2024-07-03] MEDS ORDERED: DEXTROSE 50% 50 ML SYRINGE IV PRN (03:21)
[2024-07-03] MEDS ORDERED: GLUCAGON FOR INJ 1 MG VIAL SQ PRN (03:21)
[2024-07-03] MEDS: VANCOMYCIN HCL 1,500 MG in SODIUM CHLORIDE 0.9% 500 ML IV ONE (04:09)
[2024-07-03] MEDS: PIPERACILLIN/TAZOBACTAM 4.5 GM/100 ML BAG IV STA (04:11)
[2024-07-03] MEDS: SODIUM CHLORIDE 0.9% 1,000 ML IV SCH (04:12)
[2024-07-03] MEDS: VANCOMYCIN HCL 1,000 MG/270 ML BAG IV SCH (04:14)
[2024-07-03] MEDS: INSULIN ASPART PER UNIT CHARGE SC SCH ×2 (05:27→17:07)
[2024-07-03 08:34] LABS: Basophils # (auto) 0.03 K/uL (0.00-0.20); Basophils % (auto) 0.3 %; Eosinophils # (auto) 0.03 K/uL (0.00-0.50); Eosinophils % (auto) 0.3 %; Hematocrit (blood only) 33.7 % (42.0-52.0); Hemoglobin 11.1 g/dl (14.0-18.0); Immature Granulocytes # (auto) 0.04 K/uL (0.01-0.20); Immature Granulocytes % (auto) 0.4 %; Lymphocytes # (auto) 1.25 K/uL (1.20-3.40); Lymphocytes % (auto) 11.5 %; Mean Corpuscular Hemoglobin 29.4 pg (25.0-34.0); Mean Corpuscular Hgb Conc 32.9 g/dL (32.0-36.0); Mean Corpuscular Volume 89.2 fL (80.0-100.0); Mean Platelet Volume 9.9 fL (9.4-12.4); Monocytes # (auto) 0.67 K/uL (0.11-0.59); Monocytes % (auto) 6.2 %; Neutrophils # (auto) 8.84 K/uL (1.40-6.50); Neutrophils % (auto) 81.3 %; Platelet Count 254 K/uL (130-400); RDW Coefficient of Variation 13.5 % (11.5-14.5); RDW Standard Deviation 43.9 fL (36.4-46.3); Red Blood Count 3.78 M/uL (4.70-6.10); White Blood Count 10.86 K/ul (4.8-10.8)
[2024-07-03] MEDS: PANTOprazole 40 MG TAB PO SCH (08:52)
[2024-07-03] MEDS: LANTUS PER UNIT CHARGE SQ SCH (08:52)
[2024-07-03 09:06] LABS: Calcium 8.7 mg/dl (8.6-10.3); Potassium 3.7 mmol/L (3.5-5.1)
[2024-07-03 09:11] LABS: BUN Creatinine Ratio 15.3 (10-20); Creatinine Clr Calc Pharmacy 56.1 ml/min
[2024-07-03] MEDS: PIPERACILLIN/TAZOBACTAM 4.5 GM/100 ML BAG IV SCH (10:20)
[2024-07-03 10:21] LABS: Estimated Average Glucose 206 mg/dl; Hemoglobin A1C 8.8 % (4.5-5.6)
--- NOTE | 2024-07-03 10:21 | Electrocardiogram Report ---
Test Reason : Blood Pressure : */* mmHG Vent. Rate : 79 BPM Atrial Rate : 79 BPM P-R Int : 284 ms QRS Dur : 114 ms QT Int : 386 ms P-R-T Axes : 83 -44 9 degrees QTcB Int : 442 ms Sinus rhythm with sinus arrhythmia with occasional PACs Left axis deviation Right bundle branch block Abnormal ECG When compared with ECG of 16-Jan-2022 18:41, QT has shortened Confirmed by Andrew Luna ([id number]) on 07/03/2024 10:20:47 AM Referred By: REFERRED SELF Confirmed By: Andrew Luna
--- NOTE | 2024-07-03 10:33 | Ultrasound Report ---
US arterial duplex LE LT HISTORY: 84 years-old Male diabetic left foot infection . PVD? Dependent left lower leg with periphe ral arterial disease COMPARISON: CT left foot 07/02/2024 TECHNIQUE: Multiple real-time significant left lower extremity arterial structures were obtained asse ssing grayscale appearance, color and spectral flow with segmental pressures FINDINGS: Atherosclerosis. Biphasic and monophasic waveforms are noted throughout. No arterial occlusion identi fied. Mildly elevated peak systolic velocities are 192 cm/s and within the distal aspect of the super ficial femoral artery. Spectral broadening noted within the monophasic waveforms in the lower leg. Guy bcutaneous edema. Right-sided MASOOD of 0.64, left-sided MASOOD of 0.59. IMPRESSION: 1. Elevated peak systolic velocities within the distal superficial femoral artery compatible with a d egree of arterial stenosis. 2. No arterial occlusion. 3. Atherosclerosis with monophasic and biphasic waveforms throughout. 4. Diminished MASOOD's compatible with moderate arterial disease. ACT 112: Negative or not required by law. The above report was generated using voice recognition software. It may contain grammatical, syntax o r spelling errors. Electronically signed by: Suraj Perry M.D. 07/03/2024 10:31 AM
--- NOTE | 2024-07-03 11:22 | Podiatry Consultation ---
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 Significant malodor nonviable necrotic tissue to the wound bed and purulent drainage with surrounding cellulitis. Plan for OR based debridement with evaluation of first MPJ joint capsule integrity and bone biopsy as needed 07/04/2024. This will be a staged procedure and patient will require nerve minimum of return to OR for repeat washout and debridement versus transmetatarsal amputation. Reviewed noninvasive vascular studies with monophasic waveforms to the foot. Patient may require CTA prior to moving forward with any definitive procedure. Consult placed with vascular surgery to review noninvasive vascular studies and evaluate patient for feasibility of healing a transmetatarsal amputation of the left foot. - Patient added to operating room schedule for debridement washout and bone biopsy as needed of the left foot as a staged procedure 07/04/2024. NPO at midnight - CT scan and plain film radiographs reviewed showing signs of cellulitis with no radiographic signs of osteomyelitis or soft tissue gas. - Arterial Doppler: 07/03/2024: No arterial occlusion, atherosclerosis with monophasic and biphasic waveforms throughout. Diminished ABIs compatible with moderate arterial disease. - Postop shoe left foot - Dressing change once daily - Continues empiric IV Zosyn and vancomycin - Order: ESR, CRP History of Present Illness Reason for Consultation: Left diabetic foot ulceration with cellulitis Attending Physician: Juan Mcgarry DO History of Present Illness 84-year-old male presents to [facility] with left foot infection at recommendation of his engineering administrator for antibiotic therapy. 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 Patient reports presence of wound surrounding the first metatarsal phalangeal joint for the past 2 months. He has been following with a engineering administrator in [place] though he cannot recall the name of his engineering administrator. Ambulating in normal shoe gear. 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 Denies any nausea, vomiting, fever, chills, shortness of breath or chest pain. Patient lives at home with his and Jamshid. He does have family in town including his son who lives about 20 miles away and his nephew who lives close by who help him and his out with some more difficult ADLs including transporting Ciro for his school furnace and emptying the ashes however he often does this by himself. Primarily walks without assistive device but he does have a walker and cane available. Reports he and his spend time on their feet throughout the day taking care of the home and ADLs. Patient's does not drive. On admission to [facility] patient has CT of the foot and x- ray of the foot showing no signs of bony erosion, abscess or soft tissue gas. He was initiated on IV Zosyn and vancomycin for empiric antibiotics. Lower extremity arterial Doppler shows monophasic waveforms to the foot, diminished ABIs suggesting moderate arterial disease to the lower extremity. Allergies Allergy/AdvReac Type Severity Reaction Status Date / Time No Known Allergies Allergy Verified 07/02/24 21:47 Home Medications Medication Instructions Recorded Confirmed Type amlodipine 10 mg tablet 10 mg PO HS 01/16/22 07/02/24 History atorvastatin 20 mg tablet 20 mg PO HS 01/16/22 07/02/24 History glipizide 10 mg tablet, extended 10 mg PO QAM 01/16/22 07/02/24 History release 24 hr insulin NPH isoph U-100 human 100 50 unit subcut QAM 01/16/22 07/02/24 History unit/mL (3 mL) subcutaneous pen (Novolin N FlexPen) lisinopril 40 mg tablet 40 mg PO HS 01/16/22 07/02/24 History metformin 500 mg tablet,extended 1,000 mg PO HS 01/16/22 07/02/24 History release 24 hr pantoprazole 40 mg tablet,delayed 40 mg PO BID #60 tabs 01/19/22 07/02/24 Rx release aspirin 81 mg tablet,delayed 81 mg PO HS 07/02/24 07/02/24 History release (Adult Low Dose Aspirin) clopidogrel 75 mg tablet 75 mg PO HS 07/02/24 07/02/24 History Patient History Medical History Gastric ulcer Diabetes mellitus Hypertension Social History Smoking Status: Former smoker Tobacco Type: Cigarettes Second Hand Exposure: No; Do You Dip or Chew Tobacco: No; Hx Alcohol Use: No Hx Substance Use: No Preferred Language: Japanese Communication Ability: Effective Electronics Tester Required: No Beliefs That Will Affect Care: None marital status: Current Living Situation: Spouse Feels Safe at Home: No Is there a partner from a previous relationship who is making you feel unsafe now?: No Assistive Devices: Denture - Upper, Denture - Lower, Hearing Aid - Bilateral and Walker Review of Systems Review of Systems: Denies nausea, vomiting, fever, chills, shortness of breath, chest pain. Denies pain to the left foot. Physical Exam Physical Exam: Const: Appears well developed and well nourished. No signs of acute distress present. CV: Extremities: No cyanosis Capillary refill time is less than 2 seconds all digits of the bilateral foot. Posterior tibial and dorsalis pedis pulses are non-palpable bilateral. Skin: Thin atrophic skin the bilateral lower extremity below the knee with loss of hair growth. Cellulitis left foot Neuro: Loss of protective sensation of the bilateral foot extending to the level of the ankle Psych: Mood/Affect: Mood is normal. Affect is normal. Cognition: Orientation is intact to person, place and time. Focused lower extremity musculoskeletal exam: Leg: No pain with compression of the calf muscle. Ankles: Normal to inspection and palpation. No swelling bilaterally. No tenderness bilaterally. Motor strength is intact. Range of motion pain-free and unlimited. 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 Left foot cellulitis stemming from ulceration to the medial aspect of the first metatarsal head and subfirst MPJ which connects subcutaneously. There is friable tissue to the wound base with active purulent drainage and significant malodor on removal of the dressing. Cellulitis extending to the level of the ankle. No pain with probing of the wound. Wound bed appears to be capsular structures surrounding the first metatarsal phalangeal joint with no cesar probe to bone at this time. Results & Data Vital Signs (Past 12 Hours) Vital Signs Temp Pulse Pulse Resp BP BP Pulse Ox 07/03/24 08:50 66 19 118/64 96 07/03/24 07:04 73 07/03/24 05:31 88 17 125/83 93 07/03/24 05:31 07/03/24 02:11 79 07/03/24 02:03 77 24 126/65 96 07/03/24 01:47 37.1 C 86 22 127/83 96 07/03/24 00:00 84 24 92/59 L 96 Pulse Ox O2 Del Method O2 Del Method 07/03/24 08:50 Room Air 07/03/24 07:04 07/03/24 05:31 Room Air 07/03/24 05:31 93 Room Air 07/03/24 02:11 07/03/24 02:03 Room Air 07/03/24 01:47 Room Air 07/03/24 00:00 Room Air Laboratory Results WBC 10.86 Procalcitonin 0.11 Hemoglobin A1c 8.8 ESR pending CRP pending Diagnostic Findings Foot X-Ray 07/02/24 20:21 Exam(s): XR LEFT FOOT, 3+ views EXAM: XR Left Foot Complete, 3 or More Views CLINICAL HISTORY: Reason for exam: left foot infection. TECHNIQUE: Frontal, lateral and oblique views of the left foot. COMPARISON: No relevant prior studies available. FINDINGS: Bones/joints: Extensive chronic changes in the toes. No radiographically evident acute appearing or erosion to suggest acute osteomyelitis. Soft tissue ulcer adjacent to the first MTP joint. Severe arthritic changes of the first MTP joint. Moderate degenerative changes at the TMT joints. Soft tissues: Linear metallic foreign body measuring 7 mm in the forefoot plantar soft tissues. IMPRESSION: 1. No radiographic evidence of acute osteomyelitis. 2. Soft tissue ulcer adjacent to the first MTP joint. 3. Linear metallic foreign body measuring 7 mm in the plantar soft tissues. Foot CT 07/02/24 20:36 Exam(s): CT LEFT FOOT Without Contrast EXAM: CT Left Lower Extremity Without Intravenous Contrast, Foot CLINICAL HISTORY: Reason for exam: poss osteo. TECHNIQUE: Axial computed tomography images of the left foot without intravenous contrast. CTDI is 24.91 mGy and DLP is 490.53 mGy-cm. Automated exposure control was utilized for the study. A dose lowering technique was utilized adhering to the principles of ALARA. COMPARISON: Same-day x-ray. FINDINGS: Bones/joints: No CT evidence of acute osteomyelitis. Severe degenerative changes at the first MTP joint. Advanced degenerative changes at the TMT joints. No acute fracture. Erosive changes. 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 Soft tissues: Medial and plantar soft tissue ulcers at the first MTP joint. Skin thickening and cellulitis. No soft tissue gas or abscess. No radiopaque foreign body. IMPRESSION: 1. Medial and plantar soft tissue ulcers at the first MTP joint. Skin thickening and cellulitis. No soft tissue gas or abscess. 2. No CT evidence of acute osteomyelitis. US arterial duplex LE LT HISTORY: 84 years-old Male diabetic left foot infection . PVD? Dependent left lower leg with peripheral arterial disease COMPARISON: CT left foot 07/02/2024 TECHNIQUE: Multiple real-time significant left lower extremity arterial structures were obtained assessing grayscale appearance, color and spectral flow with segmental pressures FINDINGS: Atherosclerosis. Biphasic and monophasic waveforms are noted throughout. No arterial occlusion identified. Mildly elevated peak systolic velocities are 192 cm/s and within the distal aspect of the superficial femoral artery. Spectral broadening noted within the monophasic waveforms in the lower leg. Subcutaneous edema. Right-sided MASOOD of 0.64, left-sided MASOOD of 0.59. IMPRESSION: 1. Elevated peak systolic velocities within the distal superficial femoral artery compatible with a degree of arterial stenosis. 2. No arterial occlusion. 3. Atherosclerosis with monophasic and biphasic waveforms throughout. 4. Diminished MASOOD's compatible with moderate arterial disease. 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
--- NOTE | 2024-07-03 14:08 | Hospitalist Progress Note ---
Date of Service July 03, 2024 Assessment & Plan (1) Diabetic foot infection: (2) Insulin-requiring or dependent type II diabetes mellitus: (3) Peripheral vascular disease due to secondary diabetes: (4) Hypertension associated with diabetes: (5) Diabetes mellitus with peripheral artery disease: Plan Patient with significant left foot cellulitis due to diabetes Continue IV antibiotics Podiatry evaluation pending Family at bedside updated Admission and Anticipated Discharge Date Admission Date: July 03, 2024 Subjective Patient seen up and ambulating to bathroom. Denies any real significant pain Physical Exam Physical Exam: Constitutional: Alert, nontoxic HEENT: Mucous membranes moist. Lungs: Clear to auscultation, decreased, no wheezes rales or rhonchi CV: S1-S2, regular Abdomen: Soft, nontender, nondistended Extremities: Dressing on Left foot dry and intact Neuro: No focal deficits Psych: Cooperative, normal mood Results & Data Results & Data Vital Signs (Past 12 Hours) Vital Signs Pulse Pulse Resp BP Pulse Ox Pulse Ox O2 Del Method 07/03/24 08:50 66 19 118/64 96 Room Air 07/03/24 07:04 73 07/03/24 05:31 88 17 125/83 93 Room Air 07/03/24 05:31 93 07/03/24 02:11 79 O2 Del Method 07/03/24 08:50 07/03/24 07:04 07/03/24 05:31 07/03/24 05:31 Room Air 07/03/24 02:11 Diagnostic Findings Reviewed imaging, laboratory and diagnostic studies. Pertinent findings as below. Duplex artery scan lower extremity moderate arterial disease
[2024-07-03] MEDS ORDERED: Nursing to Pharmacy Communication SCH (14:45)
--- NOTE | 2024-07-03 14:55 | Pharmacy Report ---
Pharmacy PK ABX Note - Date of Service July 03, 2024 - Assessment and Plan Assessment 84 year old M receiving vancomycin and zosyn for treatment of left diabetic foot infection. Foot is foul smelling. CT shows cellulitis but no abscess, gas or osteo noted. Pertinent microbiologic data includes: wound culture growing staph aureus. Day # 1/ of antimicrobial therapy. Plan Vancomycin * Loading dose: 1500 mg IV x 1 (already administered) * Maintenance dose: 1250 mg IV every 24 hours * Regimen is predicted to achieve target AUC/KATLYN of 400-600 mg/L.hr * Random level ordered for: 07/04/24 with AM labs Pharmacy will continue to follow and will adjust dose/frequency as necessary. Thank you. Pharmacy has transitioned to AUC monitoring for vancomycin. AUC/KATLYN is the preferred PK/PD target and is associated with decreased risk of nephrotoxicity compared to traditional trough targets.
[2024-07-03] MEDS: amLODIPine BESYLATE 5 MG TAB PO SCH (20:46)
[2024-07-03] MEDS: VANCOMYCIN HCL 1,250 MG in SODIUM CHLORIDE 0.9% 250 ML IV SCH (20:46)
[2024-07-03] MEDS: CLOPIDOGREL BISULFATE 75 MG TAB PO SCH (20:47)
[2024-07-03] MEDS: ASPIRIN 81 MG ECTAB PO SCH (20:47)
[2024-07-03] MEDS: ATORVASTATIN 20 MG TAB PO SCH (20:47)
[2024-07-03] MEDS: lisinopril 40 MG TAB PO SCH (20:48)
[2024-07-04 05:31] LABS: Basophils # (auto) 0.04 K/uL (0.00-0.20); Basophils % (auto) 0.4 %; Eosinophils # (auto) 0.07 K/uL (0.00-0.50); Eosinophils % (auto) 0.8 %; Hematocrit (blood only) 31.9 % (42.0-52.0); Hemoglobin 10.5 g/dl (14.0-18.0); Immature Granulocytes # (auto) 0.03 K/uL (0.01-0.20); Immature Granulocytes % (auto) 0.3 %; Lymphocytes # (auto) 1.15 K/uL (1.20-3.40); Lymphocytes % (auto) 12.6 %; Mean Corpuscular Hgb Conc 32.9 g/dL (32.0-36.0); Mean Corpuscular Volume 88.1 fL (80.0-100.0); Mean Platelet Volume 9.7 fL (9.4-12.4); Monocytes # (auto) 0.59 K/uL (0.11-0.59); Monocytes % (auto) 6.5 %; Neutrophils # (auto) 7.25 K/uL (1.40-6.50); Neutrophils % (auto) 79.4 %; Platelet Count 243 K/uL (130-400); RDW Coefficient of Variation 13.5 % (11.5-14.5); RDW Standard Deviation 43.9 fL (36.4-46.3); Red Blood Count 3.62 M/uL (4.70-6.10); White Blood Count 9.13 K/ul (4.8-10.8)
[2024-07-04 05:59] LABS: Calcium 8.3 mg/dl (8.6-10.3); Potassium 4.2 mmol/L (3.5-5.1)
[2024-07-04 06:05] LABS: BUN Creatinine Ratio 13.3 (10-20)
[2024-07-04] MEDS ORDERED: Nursing to Pharmacy Communication SCH ×2 (08:00→14:45)
[2024-07-04] MEDS: INSULIN ASPART PER UNIT CHARGE SC SCH ×2 (08:31→17:04)
[2024-07-04] MEDS ORDERED: ATROPINE SULFATE 0.1 MG/ML 10ML SYR IV PRN (12:05)
[2024-07-04] MEDS ORDERED: ePHEDrine sulfate 50 MG/ML AMP IV PRN (12:05)
[2024-07-04] MEDS ORDERED: fentaNYL citrate PF 100 MCG/2 ML VIAL IV PRN (12:05)
[2024-07-04] MEDS ORDERED: PROMETHAZINE HCL 6.25 MG in SODIUM CHLORIDE 0.9% 50 ML IV PRN (12:05)
[2024-07-04] MEDS: LACTATED RINGER'S 1,000 ML IV SCH (12:10)
[2024-07-04] MEDS ORDERED: PROPOFOL IV EMULSION 10 MG/ML 20 ML VIAL IV ONE ×2 (12:13→12:36)
[2024-07-04] MEDS ORDERED: ONDANSETRON INJ 2 MG/ML 2 ML VIAL ONE (12:13)
[2024-07-04] MEDS ORDERED: LIDOCAINE 2% 2 ML VIAL/AMP(20MG/ML) INFIL ONE (12:13)
[2024-07-04] MEDS ORDERED: fentaNYL citrate PF 100 MCG/2 ML VIAL ONE (12:13)
--- NOTE | 2024-07-04 12:19 | History & Physical Bridge Note ---
Date of Service July 04, 2024 History & Physical Bridge Note I have examined the patient, reviewed the History & Physical and in the interval since the performance of the History & Physical I have noted the following changes of clinical significance: no changes noted
[2024-07-04] MEDS ORDERED: MIDAZOLAM HCL 1 MG/ML 2ML VIAL ONE (12:39)
[2024-07-04] MEDS ORDERED: ePHEDrine sulfate 50 MG/ML AMP ONE (12:47)
[2024-07-04] MEDS ORDERED: PHENYLEPHRINE HCL 10 MG/ML VIAL ONE (13:02)
[2024-07-04] MEDS: BUPIVACAINE 0.5 % 5 MG/1 ML MPF 30ML VIAL ONE (13:03)
--- NOTE | 2024-07-04 13:12 | Post Operative Brief Note ---
PG Immediate Post Op with CF Date of Surgery July 04, 2024 Pre & Post Diagnosis Operation Date: 07/05/24 14:00 <No data on this case meets the specified criteria> I identified the patient and participated in the time-out.: Yes Procedure Operation Date: 07/05/24 14:00 <No data on this case meets the specified criteria> Debridement left foot wound Surgeon Chau Newsome DPM Dry Molder na Estimated Blood Loss 5 Findings Consistent with Post-Op Diagnosis
--- NOTE | 2024-07-04 13:48 | Anesthesiology Progress Note ---
Date of Service July 04, 2024 Anesthesia Post Procedure Vital Signs Vital Signs: Temp Pulse Pulse Resp BP Pulse Ox O2 Del Method 07/04/24 13:45 36.4 C L 83 20 114/69 91 Room Air 07/04/24 13:35 81 22 114/51 L 92 Room Air 07/04/24 13:25 86 21 108/66 100 Room Air 07/04/24 13:17 36.4 C L 79 15 109/61 98 Room Air 07/04/24 11:56 36.7 C 63 20 117/67 96 Room Air 07/04/24 08:04 37.0 C 78 18 105/65 96 Room Air 07/04/24 07:40 Room Air 07/03/24 20:06 36.6 C 75 18 118/72 97 Room Air 07/03/24 19:20 Room Air 07/03/24 14:42 Room Air 07/03/24 14:25 36.7 C 76 16 116/69 95 Room Air Transfer of Care Handoff Completed per policy Notes Mental Status: alert / awake / arousable and participated in evaluation Nausea / Vomiting: adequately controlled Pain: adequately controlled Airway Patency, RR, SpO2: stable & adequate BP & HR: stable & adequate Hydration State: stable & adequate Anesthetic Complications: no major complications apparent and Pt Satisfied with anesthetic care
--- NOTE | 2024-07-04 13:50 | Operative Report ---
PG Post Operative Report Pre & Post Diagnosis Operation Date: 07/08/24 12:30 <No data on this case meets the specified criteria> I identified the patient and participated in the time-out.: Yes Procedure Operation Date: 07/08/24 12:30 Sharp excisional debridement to the level of and including muscle and joint capsule left foot Surgeon Chau Newsome DPM Button Spindler na Estimated Blood Loss 5 Findings Consistent with Post-Op Diagnosis Specimens None Complications None Indications Diabetic ulcer left foot associated cellulitis Description of Procedure Patient brought to the operating room placed on the operating table in supine position. Following IV sedation local anesthesia was obtained about the patient's left first ray utilizing a total of 10 cc of half percent Marcaine plain. Timeout is held confirming correct patient, side, site, procedure, site is confirmed. The left lower extremity scrubbed prepped and draped to the level of the ankle in the usual aseptic fashion. Attention was directed to the ulceration to the plantar and a second ulceration to the medial aspect of the first metatarsal head measuring 3 cm in diameter and a smaller plantar wound subfirst metatarsal head measuring 1.5 cm diameter. [place] elevator is removed within the subcutaneous tissue and ulcerations connect at the subcutaneous level. The overlying skin bridge is elevated and 2 ulcerations are connected with sharp excision of the bridge and any loose and undermining tissue was resected. Sharp dissection is carried out of the wound bed removing all fibrotic slough and nonviable/necrotic tissue with a rongeur and 15 blade to the level of joint capsule. Wound edges are excised circu mferentially for approximately 1/8 of an inch exposing healthy bleeding wound border. Nonviable/necrotic joint capsule was excised and sharp excisional debridement using a 15 blade to the level of healthy joint capsule. The joint is not exposed in the wound bed and there is no frankly exposed bone to the wound bed. Wound is flushed with 1 L of normal sterile saline. Postdebridement wound measurements cm x 4 cm x 0.5 cm. Total of 36 cm debrided Overall there is surprisingly brisk bleeding at all resected borders and to the wound bed itself in many areas with the exception of the joint capsule. Wound was dressed with Betadine soaked Adaptic 4 x 4 fluff gauze ABD pad Estephania and tape. Patient to remain nonweightbearing to the left foot until further notice. Will see patient 07/05/2024 for initial dressing change and reevaluation of the wound bed. Patient is able to maintain a relatively healthy wound bed and show signs of early granulation tissue may be able to continue with local wound care and monitor with offloading to see if he is shailesh be able to heal this wound versus transitioning to a transmetatarsal amputation. Patient would still need vascular clearance prior to moving forward with transmetatarsal amputation however today's bleeding at the debridement site was encouraging from a foot perfusion standpoint. I attest to the content of the Intraoperative Record and any orders documented therein. Any exceptions are noted below.
--- NOTE | 2024-07-04 14:17 | Pharmacy Report ---
Pharmacy PK ABX Note - Date of Service July 04, 2024 - Assessment and Plan Assessment 07/04: * Blood cultures x 2 from 07/02 are NGTD (prelim) and left foot culture from 07/02 grew ren sensitive S. aureus. * I&D of left foot done today--will follow for culture results * leukocytosis has resolved, patient has been afebrile, and has had slightly fluctuating renal function. 07/03: 84 year old M receiving vancomycin and zosyn for treatment of left diabetic foot infection. Foot is foul smelling. CT shows cellulitis but no abscess, gas or osteo noted. Pertinent microbiologic data includes: wound culture growing staph aureus. Day # 2 of antimicrobial therapy. Plan Vancomycin * Random vancomycin level drawn today was 14.8mcg/mL which extrapolates to an AUC/KATLYN within the target range. Since the vancomycin was not yet at steady state, another vanco level has been scheduled for tomorrow. * Continue maintenance dose: 1250 mg IV every 24 hours * Regimen is predicted to achieve target AUC/KATLYN of 400-600 mg/L.hr * Random level ordered for: 07/05/24. Pharmacy will continue to follow and will adjust dose/frequency as necessary. Thank you. Pharmacy has transitioned to AUC monitoring for vancomycin. AUC/KATLYN is the preferred PK/PD target and is associated with decreased risk of nephrotoxicity compared to traditional trough targets.
--- NOTE | 2024-07-04 14:38 | Hospitalist Progress Note ---
Date of Service July 04, 2024 Assessment & Plan (1) Diabetic foot infection: (2) Insulin-requiring or dependent type II diabetes mellitus: (3) Peripheral vascular disease due to secondary diabetes: (4) Hypertension associated with diabetes: (5) Diabetes mellitus with peripheral artery disease: Plan Patient with severe diabetic foot infection and evidence of peripheral vascular disease. Reviewed all operative note, status post debridement of necrotic tissue. Vascular surgery consult pending, patient may need transmetatarsal amputation Continue antibiotics, can discontinue vancomycin Continue monitor glucose with insulin management Updated patient's via phone Admission and Anticipated Discharge Date Admission Date: July 03, 2024 Subjective Patient seen prior to going to the OR. Denies any real significant pain. Physical Exam Physical Exam: Constitutional: Alert, nontoxic HEENT: Mucous membranes moist. Lungs: Clear to auscultation, decreased, no wheezes rales or rhonchi CV: S1-S2, regular Abdomen: Soft, nontender, nondistended Extremities: No significant edema,Left foot dressing clean and dry Neuro: No focal deficits Psych: Cooperative, normal mood Results & Data Results & Data Vital Signs (Past 12 Hours) Vital Signs Temp Pulse Pulse Resp BP Pulse Ox O2 Del Method 07/04/24 14:25 36.5 C 73 17 96/61 L 94 Nasal Cannula 07/04/24 13:55 80 20 105/65 94 Nasal Cannula 07/04/24 13:45 36.4 C L 83 20 114/69 91 Room Air 07/04/24 13:35 81 22 114/51 L 92 Room Air 07/04/24 13:25 86 21 108/66 100 Room Air 07/04/24 13:17 36.4 C L 79 15 109/61 98 Room Air 07/04/24 11:56 36.7 C 63 20 117/67 96 Room Air 07/04/24 08:04 37.0 C 78 18 105/65 96 Room Air 07/04/24 07:40 Room Air O2 Flow Rate 07/04/24 14:25 2 07/04/24 13:55 2 07/04/24 13:45 07/04/24 13:35 07/04/24 13:25 07/04/24 13:17 07/04/24 11:56 07/04/24 08:04 07/04/24 07:40 Diagnostic Findings Reviewed imaging, laboratory and diagnostic studies. Pertinent findings as belo w. WBCs 9.1 Hemoglobin 10.5 Electrolytes stable Creatinine 1.28 CRP 7.01 ESR 87 Wound culture noted, growing methicillin sensitive Staph aureus
[2024-07-05 07:30] LABS: Hematocrit (blood only) 31.3 % (42.0-52.0); Hemoglobin 10.3 g/dl (14.0-18.0); Mean Corpuscular Hemoglobin 29.1 pg (25.0-34.0); Mean Corpuscular Hgb Conc 32.9 g/dL (32.0-36.0); Mean Corpuscular Volume 88.4 fL (80.0-100.0); Mean Platelet Volume 9.9 fL (9.4-12.4); Platelet Count 249 K/uL (130-400); RDW Coefficient of Variation 13.5 % (11.5-14.5); RDW Standard Deviation 44.4 fL (36.4-46.3); Red Blood Count 3.54 M/uL (4.70-6.10); White Blood Count 6.97 K/ul (4.8-10.8)
[2024-07-05 07:46] LABS: BUN Creatinine Ratio 12.5 (10-20); Calcium 8.4 mg/dl (8.6-10.3); Creatinine Clr Calc Pharmacy 49.1 ml/min; Potassium 4.4 mmol/L (3.5-5.1)
--- NOTE | 2024-07-05 08:09 | Podiatry Progress Note ---
Date of Service July 05, 2024 Predebridement wound photos 07/04/2024. 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 - Wound dressing changed and tissue to the wound bed is relatively healthy in appearance postdebridement with no further development of necrotic tissue at this time. Wound is a relatively large soft tissue deficit with significant exposure of the medial aspect of the first metatarsal phalangeal joint and partial thickness debridement of the joint capsule was required to remove necrotic tissue. - Wound with normal sterile saline dressed with Adaptic and a Allevyn followed by ABD pad Estephania and tape. Orders placed for dressing change once daily. - Patient seen by vascular surgery with plan for endovascular intervention of the left common iliac artery this coming Monday. 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 Appreciate vascular input. -Wound culture left foot 07/02/2024 growing MSSA. Patient continues IV Zosyn. -Blood culture 07/02/2024 with no growth to date. -Patient okay to weight-bear as tolerated in postop shoe for short distance and transfer to the left foot at this time. Weightbearing status updated. - Will reevaluate wound on Monday morning. If patient is showing signs of reasonable granulation and healing to the wound bed may be appropriate to consider continued local wound care possible need for grafting and other modalities to heal the area. However, if there is further development of necrotic tissue to the wound bed or no reasonable signs of potential patient would benefit from tarsal amputation. Explained to patient that his are often difficult to achieve adequate soft post poorly vascularized tissues to the wound bed. Patient voices understanding. All questions answered. Admission and Anticipated Discharge Date Admission Date: July 03, 2024 Subjective Postop day 1 status post operating room based debridement of left foot wound. Patient seen resting comfortably in hospital bed. Surgical dressing remains intact with moderate sanguinous drainage. Reports no pain until about 3:00 this morning. Now having mild pain in the left foot. Denies nausea vomiting fever chills. Review of Systems 2 Review of Systems: Denies nausea, vomiting, fever, chills, shortness of breath, chest pain. Mild pain to the left foot with intermittent moderate pain which seems well- controlled at present. Physical Exam 2 Physical Exam: Const: Appears well developed and well nourished. No signs of acute distress present. CV: Extremities: No cyanosis Capillary refill time is less than 2 seconds all digits of the bilateral foot. Posterior tibial and dorsalis pedis pulses are non-palpable bilateral. Skin: Thin atrophic skin the bilateral lower extremity below the knee with loss of hair growth. Cellulitis left foot Neuro: Loss of protective sensation of the bilateral foot extending to the level of the ankle Psych: Mood/Affect: Mood is normal. Affect is normal. Cognition: Orientation is intact to person, place and time. Focused lower extremity musculoskeletal exam: Leg: No pain with compression of the calf muscle. Ankles: Normal to inspection and palpation. No swelling bilaterally. No tenderness bilaterally. Motor strength is intact. Range of motion pain-free and unlimited. 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 Decreased erythema and edema to the left foot. Surgical wound dressing is removed with moderate sanguinous drainage to dressing. No active bleeding from the wound. The wound bed is mixed joint capsule and subcutaneous tissue. Minimal slough overlying the wound bed. No frankly exposed bone. 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
--- NOTE | 2024-07-05 12:15 | Hospitalist Progress Note ---
Date of Service July 05, 2024 Assessment & Plan (1) Diabetic foot infection: (2) Insulin-requiring or dependent type II diabetes mellitus: (3) Peripheral vascular disease due to secondary diabetes: (4) Hypertension associated with diabetes: (5) Diabetes mellitus with peripheral artery disease: Plan Patient with diabetic foot infection status post debridement on 07/04/2024. No wound culture growing MSSA, continue Zosyn Communication with Dr. Berrios, planning to do iliac artery stenting on Monday to improve blood flow to the lower extremity in anticipation of possible transmetatarsal amputation Continue to monitor glucose and manage with insulin Therapies as tolerated Updated via phone Admission and Anticipated Discharge Date Admission Date: July 03, 2024 Subjective No acute issues overnight. Patient tolerated procedure. Physical Exam Physical Exam: Constitutional: Alert HEENT: Mucous membranes moist. Lungs: Clear to auscultation, decreased, no wheezes rales or rhonchi CV: S1-S2, regular Abdomen: Soft, nontender, nondistended Extremities: No significant edema, left foot with large surgical dressing, dry and clean Neuro: No focal deficits Psych: Cooperative, normal mood Results & Data Results & Data Vital Signs (Past 12 Hours) Vital Signs Temp Pulse Pulse Resp BP Pulse Ox O2 Del Method 07/05/24 07:19 36.7 C 71 18 114/67 95 Room Air 07/05/24 03:24 36.6 C 68 16 94/56 L 94 Room Air Laboratory Results Reviewed imaging, laboratory and diagnostic studies. Pertinent findings as below. WBC 6.9 Sodium 135 Creatinine 1.12 Glucose was reviewed
--- NOTE | 2024-07-05 12:34 | Consultation ---
Date of Consultation July 05, 2024 Assessment & Plan (1) Peripheral vascular disease due to secondary diabetes: At this point I would recommend endovascular intervention of his left common iliac artery lesion. This will be done in an attempt to increase the blood flow to the left foot especially if he needs further surgery on the foot for amputation or debridements. This will be scheduled for this coming Monday. I have discussed the risks options and benefits of the procedure with the patient. The patient understands the risks options and benefits and agrees to the procedure. Thank you very much for letting us participate in the care of this patient. History of Present Illness Reason for Consultation: Necrotic wound infection left foot Attending Physician: Juan Mcgarry, History of Present Illness This is an 84-year-old gentleman who was admitted with a necrotic left foot wound. He had noninvasives which showed no inflow disease of the left side. 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 His indices at this time are 0.59 on the left. Allergies Allergy/AdvReac Type Severity Reaction Status Date / Time No Known Allergies Allergy Verified 07/04/24 11:59 Home Medications Medication Instructions Recorded Confirmed Type amlodipine 10 mg tablet 10 mg PO HS 01/16/22 07/02/24 History atorvastatin 20 mg tablet 20 mg PO HS 01/16/22 07/02/24 History glipizide 10 mg tablet, extended 10 mg PO QAM 01/16/22 07/02/24 History release 24 hr insulin NPH isoph U-100 human 100 50 unit subcut QAM 01/16/22 07/02/24 History unit/mL (3 mL) subcutaneous pen (Novolin N FlexPen) lisinopril 40 mg tablet 40 mg PO HS 01/16/22 07/02/24 History metformin 500 mg tablet,extended 1,000 mg PO HS 01/16/22 07/02/24 History release 24 hr pantoprazole 40 mg tablet,delayed 40 mg PO BID #60 tabs 01/19/22 07/02/24 Rx release aspirin 81 mg tablet,delayed 81 mg PO HS 07/02/24 07/02/24 History release (Adult Low Dose Aspirin) clopidogrel 75 mg tablet 75 mg PO HS 07/02/24 07/02/24 History Patient History Medical History Gastric ulcer Diabetes mellitus Hypertension Social History Smoking Status: Former smoker Tobacco Type: Cigarettes Second Hand Exposure: No; Do You Dip or Chew Tobacco: No; Hx Alcohol Use: No Hx Substance Use: No Preferred Language: Cymro Communication Ability: Effective 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 Beliefs That Will Affect Care: None marital status: Current Living Situation: Spouse Feels Safe at Home: No Is there a partner from a previous relationship who is making you feel unsafe now?: No Assistive Devices: Cane and Walker Review of Systems Review of Systems: All systems reviewed & are unremarkable except as noted in HPI & below Physical Exam Constitutional: WD/WN, vitals as above Respiratory: normal respiratory effort, lungs clear to auscultation Cardiovascular: RRR, no murmur, no edema Vessels: femoral pulses present and radial pulses present; + posterior tibial pulses abnormal and + dorsalis pedis pulses abnormal Extremities: + abnormal capillary refill Gastrointestinal (Abdomen): Inspection/Auscultation: abdomen normal to inspection Percussion/Palpation: abdomen soft; abdomen nontender Neurologic: CN's II-XI intact bilaterally and moves all extremities Psychiatric: A+Ox3, euthymic affect Results & Data Vital Signs (Past 12 Hours) Vital Signs Temp Pulse Pulse Resp BP Pulse Ox O2 Del Method 07/05/24 07:19 36.7 C 71 18 114/67 95 Room Air 07/05/24 03:24 36.6 C 68 16 94/56 L 94 Room Air
[2024-07-05] MEDS: AMPICILLIN/SULBACTAM SOD 3,000 MG/100 ML BAG IV SCH (17:24)
--- NOTE | 2024-07-06 13:03 | Hospitalist Progress Note ---
Date of Service July 06, 2024 Assessment & Plan (1) Diabetic foot infection: (2) Insulin-requiring or dependent type II diabetes mellitus: (3) Peripheral vascular disease due to secondary diabetes: (4) Hypertension associated with diabetes: (5) Diabetes mellitus with peripheral artery disease: Plan Patient with diabetic foot infection status post debridement. Continue current antibiotics, transition to Unasyn yesterday to cover MSSA foot infection. Continue wound care as directed by podiatry Anticipating vascular intervention on Monday Continue to monitor glucose with insulin management Admission and Anticipated Discharge Date Admission Date: July 03, 2024 Subjective No acute complaints from patient. No significant pain in foot. Physical Exam Physical Exam: Constitutional: Alert HEENT: Mucous membranes moist. Lungs: Clear to auscultation, decreased, no wheezes rales or rhonchi CV: S1-S2, regular Abdomen: Soft, nontender, nondistended Extremities: No significant edema, left foot with surgical dressing dry and intact Neuro: No focal deficits Psych: Cooperative, normal mood Results & Data Results & Data Vital Signs (Past 12 Hours) Vital Signs Temp Pulse Resp BP Pulse Ox O2 Del Method 07/06/24 07:41 36.5 C 66 18 119/70 92 Room Air Diagnostic Findings Glucoses reviewed
[2024-07-07 06:23] LABS: BUN Creatinine Ratio 13.9 (10-20); Calcium 8.6 mg/dl (8.6-10.3); Creatinine Clr Calc Pharmacy 50.9 ml/min; Magnesium 2.1 mg/dl (1.7-2.4)
[2024-07-07 06:26] LABS: Hematocrit (blood only) 33.4 % (42.0-52.0); Mean Corpuscular Hemoglobin 29.3 pg (25.0-34.0); Mean Corpuscular Hgb Conc 32.9 g/dL (32.0-36.0); Mean Corpuscular Volume 88.8 fL (80.0-100.0); Mean Platelet Volume 9.8 fL (9.4-12.4); Platelet Count 265 K/uL (130-400); RDW Coefficient of Variation 13.2 % (11.5-14.5); RDW Standard Deviation 43.5 fL (36.4-46.3); Red Blood Count 3.76 M/uL (4.70-6.10); White Blood Count 7.08 K/ul (4.8-10.8)
--- NOTE | 2024-07-07 11:13 | Hospitalist Progress Note ---
Date of Service July 07, 2024 Assessment & Plan (1) Diabetic foot infection: (2) Insulin-requiring or dependent type II diabetes mellitus: (3) Peripheral vascular disease due to secondary diabetes: (4) Hypertension associated with diabetes: (5) Diabetes mellitus with peripheral artery disease: Plan Patient presented with diabetic foot ulcer and infection. Status post debridement, may need transmetatarsal amputation. Plan for vascular surgical intervention on Monday possible stenting of the iliac artery on the left to improve blood flow to the left foot for improved healing of possible amputation Continue Unasyn for MSSA foot infection Continue wound care Continue to monitor glucose with insulin management Phone conversation with patient's , updated the plans of care Admission and Anticipated Discharge Date Admission Date: July 03, 2024 Subjective No acute issues overnight. Patient wishes that he could be home to watch the kids do the [employer] amor. Physical Exam Physical Exam: Constitutional: Alert HEENT: Mucous membranes moist. Lungs: Clear to auscultation, decreased, no wheezes rales or rhonchi CV: S1-S2, regular Abdomen: Soft, nontender, nondistended Extremities: No significant edema, left foot in surgical dressing Neuro: No focal deficits Psych: Cooperative, normal mood Results & Data Results & Data Laboratory Results Reviewed imaging, laboratory and diagnostic studies. Pertinent findings as below. WBC 7.0 Hemoglobin 0.0 Platelets of 265 Electrolytes within normal range Creatinine 1.08 Glucose was reviewed
[2024-07-08] MEDS: SODIUM CHLORIDE 0.9% 1,000 ML IV SCH (08:08)
--- NOTE | 2024-07-08 08:42 | Podiatry Progress Note ---
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 - Wound dressing changed - Wound flushed with normal sterile saline dressed with Adaptic and a Allevyn followed by ABD pad Estephania and tape. Orders placed for dressing change once daily. - Plan for endovascular intervention of the left common iliac artery today. Possible femoral bypass Monday. 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 - Wound culture left foot 07/02/2024 growing MSSA. Patient continues IV Zosyn. - Blood culture 07/02/2024 with no growth to date. - Patient okay to weight-bear as tolerated in postop shoe for short distance and transfer to the left foot at this time. Weightbearing status updated. Communication order for postop shoe placed. Should patient undergo bypass surgery this coming Monday we will plan for transmetatarsal amputation of the left foot either or Monday. Admission and Anticipated Discharge Date Admission Date: July 03, 2024 Subjective Postop day 4 status post left foot wound debridement. Status post attempt of left common iliac artery endovascular procedure. It is determined that patient will need a bypass. He seen resting comfortably in hospital bed eating dinner with the assistance of an aide. Denies pain in the left foot. Review of Systems Review of Systems: Denies nausea, vomiting, fever, chills, shortness of breath, chest pain. Mild pain to the left foot with intermittent moderate pain which seems well- controlled at present. Physical Exam Physical Exam: Const: Appears well developed and well nourished. No signs of acute distress present. CV: Extremities: No cyanosis Capillary refill time is less than 2 seconds all digits of the bilateral foot. Posterior tibial and dorsalis pedis pulses are non-palpable bilateral. Skin: Thin atrophic skin the bilateral lower extremity below the knee with loss of hair growth. Cellulitis left foot Neuro: Loss of protective sensation of the bilateral foot extending to the level of the ankle Psych: Mood/Affect: Mood is normal. Affect is normal. Cognition: Orientation is intact to person, place and time. Focused lower extremity musculoskeletal exam: Leg: No pain with compression of the calf muscle. Ankles: Normal to inspection and palpation. No swelling bilaterally. No tenderness bilaterally. Motor strength is intact. Range of motion pain-free and unlimited. 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 Mild erythema and edema to the left foot. No active drainage. Scant serosanguineous drainage to wound dressing. Wound bed is joint capsule which is now turning a dusky lainez to brown discoloration, slough and subcutaneous tissue. No significant growth of granular tissue over the weekend. No frankly exposed bone. 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
--- NOTE | 2024-07-08 10:05 | History & Physical Bridge Note ---
Date of Service July 08, 2024 History & Physical Bridge Note Patient for arteriography with possible intervention today. I have discussed the risks options and benefits of the procedure with the patient. The patient understands the risks options and benefits and agrees to the procedure. I have examined the patient, reviewed the History & Physical and in the interval since the performance of the History & Physical I have noted the following changes of clinical significance: no changes noted
--- NOTE | 2024-07-08 10:59 | Pre Anesthesia Assessment ---
Date of Service July 08, 2024 Pre Sedation Assessment Vital Signs Temp Pulse Resp BP BP Pulse Ox O2 Del Method 07/08/24 09:09 37.2 C 82 20 128/79 95 Room Air 07/08/24 07:09 36.7 C 77 16 141/64 H 93 Room Air 07/07/24 19:12 36.5 C 71 18 134/63 96 Room Air 07/07/24 11:45 36.5 C 92 H 18 137/84 93 Room Air Cardiovascular RRR, no murmur, no edema Respiratory normal respiratory effort, lungs clear to auscultation Pre-Sedation Airway Assessment Smoking Status: Former smoker Hx Sleep Apnea: No Short, Thick Neck: Yes Thyromental Distance: > or= 3.5 Finger Breadths Oral Cavity: + Dental Abnormalities Mallampati Class: III ASA: ASA3 NPO Status Date of Last Intake of Fluids: 07/07/24 Time of Last Intake of Fluids: 17:00 Date of Last Intake of Solid Food: 07/07/24 Time of Last Intake of Solid Foods: 17:00 Procedure Planning Contraindications for Sedation: none Current Medications Reviewed: Yes Notes The planned sedation has been discussed with the patient. Informed Consent was obtained. I have identified the patient, determined the appropriateness of sedation and have assessed the patient immediately prior to the procedure. All medicine(s) and interventions are by my order.
[2024-07-08] MEDS: MIDAZOLAM HCL 1 MG/ML 2ML VIAL ONE (11:05)
[2024-07-08] MEDS: fentaNYL citrate PF 100 MCG/2 ML VIAL ONE (11:05)
[2024-07-08] MEDS: LIDOCAINE 1% LOCAL 20 ML VIAL ONE (11:12)
[2024-07-08] MEDS: VISIPAQUE IV PRN (12:07)
--- NOTE | 2024-07-08 12:15 | Post Anesthesia Assessment ---
Date of Service July 08, 2024 Post Sedation Assessment Vital Signs Temp Pulse Pulse Resp BP BP Pulse Ox 07/08/24 12:10 74 18 116/75 97 07/08/24 12:05 76 18 120/76 100 07/08/24 12:00 76 18 122/72 100 07/08/24 11:55 76 18 121/72 100 07/08/24 11:50 72 18 120/69 100 07/08/24 11:45 72 18 116/70 100 07/08/24 11:40 72 18 122/69 100 07/08/24 11:35 74 18 118/74 100 07/08/24 11:30 72 18 106/68 100 07/08/24 11:25 72 18 108/68 100 07/08/24 11:20 74 18 106/62 100 07/08/24 11:15 72 18 112/64 100 07/08/24 11:10 74 18 136/74 99 07/08/24 11:05 76 18 132/74 98 07/08/24 11:00 78 18 124/78 97 07/08/24 09:09 37.2 C 82 20 128/79 95 07/08/24 07:09 36.7 C 77 16 141/64 H 93 07/07/24 19:12 36.5 C 71 18 134/63 96 O2 Del Method O2 Flow Rate 07/08/24 12:10 Oxymask 3 07/08/24 12:05 Oxymask 3 07/08/24 12:00 Oxymask 3 07/08/24 11:55 Oxymask 3 07/08/24 11:50 Oxymask 3 07/08/24 11:45 Oxymask 3 07/08/24 11:40 Oxymask 3 07/08/24 11:35 Oxymask 3 07/08/24 11:30 Oxymask 3 07/08/24 11:25 Oxymask 3 07/08/24 11:20 Oxymask 3 07/08/24 11:15 Oxymask 3 07/08/24 11:10 Oxymask 3 07/08/24 11:05 Oxymask 3 07/08/24 11:00 Room Air 07/08/24 09:09 Room Air 07/08/24 07:09 Room Air 07/07/24 19:12 Room Air Recovery Score Activity: Moves 4 extremities Respiration: Deep Breath/Cough Circulation: +/-20% PreAnes Value Consciousness: Fully Awake Oxygen Saturation: > 92% On Room Air Post Anesthesia Score: 10 Discharge Sedation Level of Care: Fast Track Phase II Post Sedation Plan On clinical assessment, the patient appears to have tolerated the sedation without complications. Patient is recovering as anticipated. Patient will continue to be monitored by nursing and may be discharged when sedation discharge criteria are met per below protocol. Upon Completions of procedure up to 15 minutes continue every 5 minute vital signs and the P.A.R. score; then discharge to a Phase I or Fast Track to Phase II per the following guidelines: * Discharge Patient to appropriate Phase II area if PAR is 8 or greater or return to pre- procedure baseline. The post - procedure orders will be as directed. * If PAR score is less than 8 or not return to pre-procedure baseline then patient will follow Phase I monitoring till PAR is reached for Phase II. The Phase I may be done in procedure room or may call to secure a Phase I area. * If naloxone or flumazenil are used for reversal, hold in Phase I for continued monitoring from when last reversal dose was given for a minimum of 60 minutes or longer pending the nurse and/or physician discretion of patient condition before discharge to Phase II. Please call the Sedation Physician to re-evaluate and complete post-note for discharge to Phase II area. Do NOT discharge from procedure sedation or Phase 1 until post- sedation evaluation note is complete by procedure /sedation MD Sedation Discharge Instructions to be given to the patient at discharge to home.
--- NOTE | 2024-07-08 12:17 | Post Operative Brief Note ---
Immediate Post Op Note Date of Surgery July 08, 2024 Pre & Post Diagnosis Operation Date: 07/08/24 10:10 Pre-Op Diagnosis: Gangrene Left Foot and Left Iliac Occlusion Post-Op Diagnosis: Gangrene Left Foot and Left Iliac Occlusion I identified the patient and participated in the time-out.: Yes Procedure Operation Date: 07/08/24 10:10 Actual Procedures p Bilateral Iliac Arteriogram, Ultrasound Localization of Bilateral Iliac Arteries, Moderate Sedation [id number] (Left) - Ramiro Berrios MD Surgeon Ramiro Berrios MD Commodity Loan Clerk MD Turner Estimated Blood Loss 5 Findings Consistent with Post-Op Diagnosis Anesthesia Type RN Sedation Complications none Disposition Accompanied Patient To Recovery: No Disposition: Recovery Room
--- NOTE | 2024-07-08 12:24 | Operative Report ---
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 After discussion of the risks and benefits and procedure the patient elected to proceed with an angiogram of the left leg Description of Procedure The patient was taken to the operating room and placed in a supine position. Pre-operative antibiotics, 2g Ancef, were administered and conscious sedation was given, Versed and Fentanyl. The right and left groin were prepped and draped in the usual sterile fashion. Using ultrasound guidance, the left groin was accessed using micropuncture technique. The J wire advanced into the left common femoral artery and the micropuncture needle was exchanged for a 5Fr sheath. An angiogram was performed showing a chronic appearing occlusion of the L WILLIE with reconstitution of the EIA and IIA. An 0.35'' angled glide wire was advanced into the EIA followed by a QuickCross Catheter. The wire and catheter combination were used to attempt cross the occlusion. This was passed passed the aortic bifurcation but the wire was unable to re-enter true lumen. Using ultrasound guidance, the right groin was accessed using micropuncture technique. The J wire advanced into the right common femoral artery and the micropuncture needle was exchanged for a 5Fr sheath. A pigtail catheter was placed in the infrarenal aorta and an aortogram was performed. This showed no significant hemodynamic stenosis of the right iliac system. A Rim Catheter followed by an HK catheter, angled glide wire and V18 were used to attempt to cross the L WILLIE occlusion from above. This was ultimately unsuccessful. At this point endovascular treatment had failed. The bilateral groin sheaths were removed. Hemostasis was obtained. PT and DP signals were confirmed. The patient was transferred to the PACU in stable condition. He will require a femoral to femoral artery bypass for his CLTI Dr. Berrios was present and scrubbed for the entire procedure. I attest to the content of the Intraoperative Record and any orders documented therein. Any exceptions are noted below. Supervising Physician Co-Signing Physician Notes Ramiro Berrios MD
[2024-07-08] MEDS: HEPARIN SOD (PORCINE) 1000 UNIT/ML ONE (12:36)
--- NOTE | 2024-07-08 12:47 | Communication Note ---
Date of Service: July 08, 2024 Patient will need a fem fem bypass. Only time to get him on the schedule is next week.
[2024-07-08] MEDS: SODIUM CHLORIDE 0.9% 500 ML IV SCH (12:57)
--- NOTE | 2024-07-08 14:15 | Hospitalist Progress Note ---
Date of Service July 08, 2024 Assessment & Plan (1) Diabetic foot infection: Plan: Presented with diabetic foot and toe ulceration with gangrene on the left side Complicated by peripheral arterial disease Appreciate client experience administrator input and recommendation Status post debridement of the left foot wound and likely to need amputation Wound culture is growing MSSA on 07/02/2024 and has been on Unasyn. was on Zosyn before (2) Insulin-requiring or dependent type II diabetes mellitus: (3) Peripheral vascular disease due to secondary diabetes: Plan: Plan for vascular surgical intervention on Monday possible stenting of the iliac artery on the left to improve blood flow to the left foot for improved healing of possible amputation Status post bilateral iliac arteriogram on 07/08/2024 Appreciate vascular surgery input and recommendation He will need femorofemoral bypass on Monday (4) Hypertension associated with diabetes: (5) Diabetes mellitus with peripheral artery disease: Plan: Continue to monitor glucose with insulin management Plan Phone conversation with patient's , updated the plans of care DVT prophylaxis SQ Heparin Admission and Anticipated Discharge Date Admission Date: July 03, 2024 Subjective 07/08/2024 The patient was seen and examined in medical floor in presence of the family members He has had bilateral iliac arteriogram and will require left femorofemoral bypass which will be done on Monday He remains otherwise asymptomatic Review of Systems Review of Systems: All systems reviewed and are unremarkable except as noted below Physical Exam Physical Exam: Lying in bed without any acute distress Constitutional: well developed, well nourished, + ill appearing and average body habitus Eyes: PERRL, conjunctivae normal, anicteric sclerae ENMT: external ear and nose normal, oropharynx normal Neck: trachea midline, no thyromegaly Respiratory: no respiratory distress Auscultation: lungs clear to auscultation bilaterally and + diminished lung sounds Cardiovascular: Rate/Rhythm: regular rate and regular rhythm; not tachycardic Heart Sounds: normal S1 and normal S2; no murmur Extremities: no edema ( no edema in right and 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) Gastrointestinal (Abdomen): Inspection/Auscultation: normal bowel sounds; abdomen not distended Percussion/Palpation: abdomen soft; abdomen nontender Musculoskeletal: Has significant osteoarthritic changes involving the extremities with left foot and toes ulceration and gangrenous Neurologic: normal touch/pain/proprioception and moves all extremities; no focal motor deficits Lymphatic: no cervical or axillary lymphadenopathy Results & Data Results & Data Vital Signs (Past 12 Hours) Vital Signs Temp Pulse Pulse Pulse Resp BP BP 07/08/24 13:35 36.4 C L 76 16 117/70 07/08/24 13:06 36.7 C 76 18 131/80 07/08/24 12:32 36.7 C 77 16 127/77 07/08/24 12:22 78 18 120/74 07/08/24 12:17 78 18 119/75 07/08/24 12:15 74 18 118/75 07/08/24 12:10 74 18 116/75 07/08/24 12:05 76 18 120/76 07/08/24 12:00 76 18 122/72 07/08/24 11:55 76 18 121/72 07/08/24 11:50 72 18 120/69 07/08/24 11:45 72 18 116/70 07/08/24 11:40 72 18 122/69 07/08/24 11:35 74 18 118/74 07/08/24 11:30 72 18 106/68 07/08/24 11:25 72 18 108/68 07/08/24 11:20 74 18 106/62 07/08/24 11:15 72 18 112/64 07/08/24 11:10 74 18 136/74 07/08/24 11:05 76 18 132/74 07/08/24 11:00 78 18 124/78 07/08/24 09:09 37.2 C 82 20 128/79 07/08/24 07:09 36.7 C 77 16 141/64 H Pulse Ox O2 Del Method O2 Flow Rate 07/08/24 13:35 95 Room Air 07/08/24 13:06 96 Room Air 07/08/24 12:32 95 Room Air 07/08/24 12:22 95 Room Air 0 07/08/24 12:17 95 Room Air 0 07/08/24 12:15 97 Oxymask 3 07/08/24 12:10 97 Oxymask 3 07/08/24 12:05 100 Oxymask 3 07/08/24 12:00 100 Oxymask 3 07/08/24 11:55 100 Oxymask 3 07/08/24 11:50 100 Oxymask 3 07/08/24 11:45 100 Oxymask 3 07/08/24 11:40 100 Oxymask 3 07/08/24 11:35 100 Oxymask 3 07/08/24 11:30 100 Oxymask 3 07/08/24 11:25 100 Oxymask 3 07/08/24 11:20 100 Oxymask 3 07/08/24 11:15 100 Oxymask 3 07/08/24 11:10 99 Oxymask 3 07/08/24 11:05 98 Oxymask 3 07/08/24 11:00 97 Room Air 07/08/24 09:09 95 Room Air 07/08/24 07:09 93 Room Air Medications Administered Current Inpatient Medications Acetaminophen (Acetaminophen 325 Mg Tab) 650 mg PO Q4H PRN PRN Reason: pain/fever Stop: 08/02/24 03:20 Amlodipine Besylate (Amlodipine Besylate 5 Mg Tab) 10 mg PO HS ABEL Stop: 08/02/24 20:59 Last Admin: 07/07/24 19:51 Dose: 10 mg Aspirin (Aspirin 81 Mg Ectab) 81 mg PO HS ABEL Stop: 08/02/24 20:59 Last Admin: 07/07/24 19:51 Dose: 81 mg Atorvastatin Calcium (Atorvastatin 20 Mg Tab) 20 mg PO HS ABEL Stop: 08/02/24 20:59 Last Admin: 07/07/24 19:52 Dose: 20 mg Clopidogrel Bisulfate (Clopidogrel Bisulfate 75 Mg Tab) 75 mg PO HS ABEL Stop: 08/02/24 20:59 Last Admin: 07/07/24 19:52 Dose: 75 mg Dextrose (Dextrose 50% 50 Ml Syringe) 25 - 50 ml IV UD PRN; Protocol PRN Reason: Hypoglycemia Protocol Stop: 08/02/24 03:20 Glucagon (Glucagon For Inj 1 Mg Vial) 1 mg SQ UD PRN; Protocol PRN Reason: Hypoglycemia Protocol Stop: 08/02/24 03:20 Glucose (Glucose 40% Gel 15 Gm Tube) 15 - 30 gm PO UD PRN; Protocol PRN Reason: Hypoglycemia Protocol Stop: 08/02/24 03:20 Glucose (Glucose 10 Tab/Tube) 4 - 8 tab PO UD PRN; Protocol PRN Reason: Hypoglycemia Protocol Stop: 08/02/24 03:20 Ampicillin Sodium/Sulbactam Sodium (Unasyn) 3,000 mg in 100 mls @ 200 mls/hr IV Q6H [facility]; Protocol Stop: 07/12/24 17:59 Last Infusion: 07/08/24 13:27 Dose: Infused Sodium Chloride (Nss) 500 mls @ 125 mls/hr IV .Q4H [facility] Stop: 07/08/24 16:34 Last Admin: 07/08/24 12:57 Dose: Not Given Insulin Aspart (Insulin Aspart Per Unit Charge) 0 units SC ACHS ABEL Stop: 08/03/24 07:59 Last Admin: 07/08/24 13:08 Dose: 9 units Insulin Glargine (Lantus Per Unit Charge) 5 units SQ DAILY ABEL Stop: 08/02/24 08:59 Last Admin: 07/08/24 08:01 Dose: 5 units Lisinopril (Lisinopril 40 Mg Tab) 40 mg PO HS [facility] Stop: 08/02/24 20:59 Last Admin: 07/07/24 19:52 Dose: 40 mg Miscellaneous (Carbohydrates For Hypoglycemia ) 15 - 30 gm PO UD PRN PRN Reason: Hypoglycemia Protocol Stop: 08/02/24 03:20 Pantoprazole Sodium (Pantoprazole 40 Mg Tab) 40 mg PO BID ABEL Stop: 08/02/24 08:59 Last Admin: 07/08/24 08:02 Dose: 40 mg Polyethylene Glycol (Polyethylene (Miralax) 17 Gm Pack) 17 gm PO DAILY PRN PRN Reason: Constipation Stop: 08/02/24 03:20
--- NOTE | 2024-07-08 14:16 | Communication Note ---
Date of Service: July 08, 2024 There is a possibility we can do his surgery this monday.
[2024-07-08] MEDS: HEPARIN SOD 5,000 UNIT/0.5 ML VIAL SQ SCH (20:19)
[2024-07-09] MEDS: ACETAMINOPHEN 325 MG TAB PO PRN (03:41)
--- NOTE | 2024-07-09 15:06 | Communication Note ---
Date of Service: July 09, 2024 Discussed fem fem BPG procedure with pt, he is agreeable, but states is unable to sign his consent forms. Wishes his to sign them, will obtain consent prior to procedure tomorrow.
--- NOTE | 2024-07-09 17:35 | Hospitalist Progress Note ---
Date of Service July 09, 2024 Assessment & Plan (1) Diabetic foot infection: Plan: Presented with diabetic foot and toe ulceration with gangrene on the left side Complicated by peripheral arterial disease Appreciate security officer supervisor input and recommendation Status post debridement of the left foot wound and likely to need amputation Wound culture is growing MSSA on 07/02/2024 and has been on Unasyn. was on Zosyn before Remains medically stable without any fever and/or chills Will continue current antibiotic Further intervention following femorofemoral bypass by the security officer supervisor (2) Insulin-requiring or dependent type II diabetes mellitus: (3) Peripheral vascular disease due to secondary diabetes: Plan: Plan for vascular surgical intervention on Monday possible stenting of the iliac artery on the left to improve blood flow to the left foot for improved healing of possible amputation Status post bilateral iliac arteriogram on 07/08/2024 Appreciate vascular surgery input and recommendation He will need femorofemoral bypass on Monday Will have femorofemoral bypass tomorrow (4) Hypertension associated with diabetes: (5) Diabetes mellitus with peripheral artery disease: Plan: Continue to monitor glucose with insulin management Plan Phone conversation with patient's , updated the plans of care DVT prophylaxis SQ Heparin Admission and Anticipated Discharge Date Admission Date: July 03, 2024 Subjective 07/09/2024 The patient was seen and examined in medical floor He has been stable with minimal pain in the left foot Denies any chest pain, palpitation or shortness of breath No fever and no chills Review of Systems Review of Systems: All systems reviewed and are unremarkable except as noted below Physical Exam Physical Exam: Lying in bed without any acute distress Constitutional: well developed, well nourished, + ill appearing and average body habitus Eyes: PERRL, conjunctivae normal, anicteric sclerae ENMT: external ear and nose normal, oropharynx normal Neck: trachea midline, no thyromegaly Respiratory: no respiratory distress Auscultation: lungs clear to auscultation bilaterally and + diminished lung sounds Cardiovascular: Rate/Rhythm: regular rate and regular rhythm; not tachycardic Heart Sounds: normal S1 and normal S2; no murmur Extremities: no edema ( no edema in right and 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) Gastrointestinal (Abdomen): Inspection/Auscultation: normal bowel sounds; abdomen not distended Percussion/Palpation: abdomen soft; abdomen nontender Neurologic: normal touch/pain/proprioception and moves all extremities; no focal motor deficits Lymphatic: no cervical or axillary lymphadenopathy Results & Data Results & Data Vital Signs (Past 12 Hours) Vital Signs Temp Pulse Resp BP Pulse Ox O2 Del Method 07/09/24 15:37 36.5 C 61 16 117/66 95 Room Air 07/09/24 11:29 36.6 C 67 16 113/67 96 Room Air 07/09/24 07:17 36.5 C 78 16 118/73 97 Room Air Medications Administered Current Inpatient Medications Acetaminophen (Acetaminophen 325 Mg Tab) 650 mg PO Q4H PRN PRN Reason: pain/fever Stop: 08/02/24 03:20 Last Admin: 07/09/24 03:41 Dose: 650 mg Amlodipine Besylate (Amlodipine Besylate 5 Mg Tab) 10 mg PO HS ABEL Stop: 08/02/24 20:59 Last Admin: 07/08/24 20:19 Dose: 10 mg Aspirin (Aspirin 81 Mg Ectab) 81 mg PO HS ABEL Stop: 08/02/24 20:59 Last Admin: 07/08/24 20:19 Dose: 81 mg Atorvastatin Calcium (Atorvastatin 20 Mg Tab) 20 mg PO HS ABEL Stop: 08/02/24 20:59 Last Admin: 07/08/24 20:19 Dose: 20 mg Clopidogrel Bisulfate (Clopidogrel Bisulfate 75 Mg Tab) 75 mg PO HS ABEL Stop: 08/02/24 20:59 Last Admin: 07/08/24 20:19 Dose: 75 mg Dextrose (Dextrose 50% 50 Ml Syringe) 25 - 50 ml IV UD PRN; Protocol PRN Reason: Hypoglycemia Protocol Stop: 08/02/24 03:20 Glucagon (Glucagon For Inj 1 Mg Vial) 1 mg SQ UD PRN; Protocol PRN Reason: Hypoglycemia Protocol Stop: 08/02/24 03:20 Glucose (Glucose 40% Gel 15 Gm Tube) 15 - 30 gm PO UD PRN; Protocol PRN Reason: Hypoglycemia Protocol Stop: 08/02/24 03:20 Glucose (Glucose 10 Tab/Tube) 4 - 8 tab PO UD PRN; Protocol PRN Reason: Hypoglycemia Protocol Stop: 08/02/24 03:20 Heparin Sodium (Porcine) (Heparin Sod 5,000 Unit/0.5 Ml Vial) 5,000 units SQ Q12 ABEL Stop: 08/07/24 20:59 Last Admin: 07/09/24 08:23 Dose: 5,000 units Ampicillin Sodium/Sulbactam Sodium (Unasyn) 3,000 mg in 100 mls @ 200 mls/hr IV Q6H [facility]; Protocol Stop: 07/12/24 17:59 Last Infusion: 07/09/24 13:20 Dose: Infused Sodium Chloride (Nss) 100 mls @ 15 mls/hr IV .Q6H40M PRN PRN Reason: For Transfusion Duration Stop: 08/09/24 04:59 Insulin Aspart (Insulin Aspart Per Unit Charge) 0 units SC ACHS [facility] Stop: 08/03/24 07:59 Last Admin: 07/09/24 12:31 Dose: 12 units Insulin Glargine (Lantus Per Unit Charge) 5 units SQ DAILY [facility] Stop: 08/02/24 08:59 Last Admin: 07/09/24 08:23 Dose: 5 units Lisinopril (Lisinopril 40 Mg Tab) 40 mg PO HS [facility] Stop: 08/02/24 20:59 Last Admin: 07/08/24 20:19 Dose: 40 mg Miscellaneous (Carbohydrates For Hypoglycemia ) 15 - 30 gm PO UD PRN PRN Reason: Hypoglycemia Protocol Stop: 08/02/24 03:20 Pantoprazole Sodium (Pantoprazole 40 Mg Tab) 40 mg PO BID [facility] Stop: 08/02/24 08:59 Last Admin: 07/09/24 08:25 Dose: 40 mg Polyethylene Glycol (Polyethylene (Miralax) 17 Gm Pack) 17 gm PO DAILY PRN PRN Reason: Constipation Stop: 08/02/24 03:20
[2024-07-10] MEDS ORDERED: SODIUM CHLORIDE 0.9% 100 ML IV PRN ×2 (05:00→12:10)
[2024-07-10 06:06] LABS: Basophils # (auto) 0.05 K/uL (0.00-0.20); Basophils % (auto) 0.8 %; Eosinophils # (auto) 0.06 K/uL (0.00-0.50); Eosinophils % (auto) 0.9 %; Hematocrit (blood only) 34.7 % (42.0-52.0); Hemoglobin 11.4 g/dl (14.0-18.0); Immature Granulocytes # (auto) 0.03 K/uL (0.01-0.20); Immature Granulocytes % (auto) 0.5 %; Lymphocytes % (auto) 25.8 %; Mean Corpuscular Hemoglobin 28.9 pg (25.0-34.0); Mean Corpuscular Hgb Conc 32.9 g/dL (32.0-36.0); Mean Corpuscular Volume 88.1 fL (80.0-100.0); Mean Platelet Volume 9.6 fL (9.4-12.4); Monocytes # (auto) 0.47 K/uL (0.11-0.59); Monocytes % (auto) 7.1 %; Neutrophils # (auto) 4.27 K/uL (1.40-6.50); Neutrophils % (auto) 64.9 %; Platelet Count 260 K/uL (130-400); RDW Coefficient of Variation 13.5 % (11.5-14.5); RDW Standard Deviation 43.3 fL (36.4-46.3); Red Blood Count 3.94 M/uL (4.70-6.10); White Blood Count 6.58 K/ul (4.8-10.8)
[2024-07-10 06:18] LABS: BUN Creatinine Ratio 12.2 (10-20); Calcium 8.5 mg/dl (8.6-10.3); Creatinine Clr Calc Pharmacy 47.8 ml/min
[2024-07-10] MEDS ORDERED: Nursing to Pharmacy Communication SCH (07:00)
[2024-07-10] MEDS ORDERED: GLYCOPYRROLATE 0.2 MG/ML VIAL ONE (07:43)
[2024-07-10] MEDS ORDERED: DEXAMETHASONE SOD INJ 4 MG/ML VIAL ONE (07:43)
[2024-07-10] MEDS ORDERED: fentaNYL citrate PF 100 MCG/2 ML VIAL ONE ×2 (07:43→09:21)
[2024-07-10] MEDS ORDERED: ROCURONIUM BROMIDE 10 MG/ML 5 ML VIAL IV ONE (07:43)
[2024-07-10] MEDS ORDERED: PROPOFOL IV EMULSION 10 MG/ML 20 ML VIAL IV ONE (07:43)
[2024-07-10] MEDS ORDERED: ONDANSETRON INJ 2 MG/ML 2 ML VIAL ONE (07:43)
[2024-07-10] MEDS ORDERED: LIDOCAINE 2% 2 ML VIAL/AMP(20MG/ML) INFIL ONE (07:43)
[2024-07-10] MEDS ORDERED: MIDAZOLAM HCL 1 MG/ML 2ML VIAL ONE (07:43)
[2024-07-10] MEDS ORDERED: PHENYLEPHRINE HCL 25 MG/250 ML NSS IV ONE (07:44)
[2024-07-10] MEDS ORDERED: HEPARIN SOD (PORCINE) 1000 UNIT/ML ONE (07:44)
[2024-07-10] MEDS ORDERED: SUGAMMADEX SODIUM 200 MG/2 ML VIAL IV ONE (07:45)
--- NOTE | 2024-07-10 07:54 | Anesthesiology Consultation ---
Date of Service July 10, 2024 Assessment & Plan Chart Review Chart Review: Acceptable Risk for Surgery and Patient NOT seen in Pre Admission Testing Consults Requested none History Surgery Operation Date: 07/04/24 08:20 Proposed Procedures p Left Foot Incision and Drainage - Chau Newsome DPM Operation Date: 07/08/24 10:10 Proposed Procedures p Left Iliac Arteriogram, Possible Intervention - Ramiro Berrios MD Operation Date: 07/10/24 13:00 Proposed Procedures p Femoral to Femoral Bypass - Ramiro Berrios MD Height/Weight Height: 5 ft 9 in Weight: 77.9 kg Allergies Allergy/AdvReac Type Severity Reaction Status Date / Time No Known Allergies Allergy Verified 07/04/24 11:59 Medications Home Medications Medication Instructions Recorded Confirmed Last Taken amlodipine 10 mg tablet 10 mg PO HS 01/16/22 07/02/24 07/01/24 atorvastatin 20 mg tablet 20 mg PO HS 01/16/22 07/02/24 07/01/24 glipizide 10 mg tablet, extended 10 mg PO QAM 01/16/22 07/02/24 07/02/24 release 24 hr insulin NPH isoph U-100 human 100 50 unit subcut QAM 01/16/22 07/02/24 07/02/24 unit/mL (3 mL) subcutaneous pen (Novolin N FlexPen) lisinopril 40 mg tablet 40 mg PO HS 01/16/22 07/02/24 07/01/24 metformin 500 mg tablet,extended 1,000 mg PO HS 01/16/22 07/02/24 07/01/24 release 24 hr pantoprazole 40 mg tablet,delayed 40 mg PO BID #60 tabs 01/19/22 07/02/24 07/01/24 release aspirin 81 mg tablet,delayed 81 mg PO HS 07/02/24 07/02/24 07/01/24 release (Adult Low Dose Aspirin) clopidogrel 75 mg tablet 75 mg PO HS 07/02/24 07/02/24 07/01/24 Active Medications Generic Name Dose Route Start Last Admin Trade Name Freq PRN Reason Stop Dose Admin Acetaminophen 650 mg 07/03/24 03:21 07/09/24 21:04 Acetaminophen 325 Mg Tab PO 08/02/24 03:20 650 mg Q4H PRN Administration pain/fever Amlodipine Besylate 10 mg 07/03/24 21:00 07/09/24 20:06 Amlodipine Besylate 5 Mg Tab PO 08/02/24 20:59 10 mg HS ABEL Administration Aspirin 81 mg 07/03/24 21:00 07/09/24 20:05 Aspirin 81 Mg Ectab PO 08/02/24 20:59 81 mg HS ABEL Administration Atorvastatin Calcium 20 mg 07/03/24 21:00 07/09/24 20:06 Atorvastatin 20 Mg Tab PO 08/02/24 20:59 20 mg HS ABEL Administration Clopidogrel Bisulfate 75 mg 07/03/24 21:00 07/09/24 20:06 Clopidogrel Bisulfate 75 Mg Tab PO 08/02/24 20:59 75 mg HS ABEL Administration Heparin Sodium (Porcine) 5,000 units 07/08/24 21:00 07/09/24 20:09 Heparin Sod 5,000 Unit/0.5 Ml Vial SQ 08/07/24 20:59 5,000 units Q12 ABEL Administration Ampicillin Sodium/Sulbactam Sodium 3,000 mg in 100 mls @ 200 mls/hr 07/05/24 18:00 07/10/24 05:42 Unasyn IV 07/12/24 17:59 Infused Q6H ABEL Infusion Protocol Insulin Glargine 5 units 07/03/24 09:00 07/09/24 08:23 Lantus Per Unit Charge SQ 08/02/24 08:59 5 units DAILY ABEL Administration Lisinopril 40 mg 07/03/24 21:00 07/09/24 20:07 Lisinopril 40 Mg Tab PO 08/02/24 20:59 40 mg HS ABEL Administration Pantoprazole Sodium 40 mg 07/03/24 09:00 07/09/24 20:06 Pantoprazole 40 Mg Tab PO 08/02/24 08:59 40 mg BID ABEL Administration NPO Date Last Intake of Fluids: 07/09/24 Time Last Intake of Fluids: 21:00 Date Last Intake of Solids: 07/09/24 Time Last Intake of Solids: 18:00 Past Medical History Medical History Gastric ulcer Diabetes mellitus Hypertension Social History Smoking Status: Former smoker Do You Dip or Chew Tobacco: No Hx Alcohol Use: No Hx Substance Use: No substance use type: does not use Physical Exam Vital Signs Last Vital Signs Temp 36.7 C 07/10/24 07:34 Pulse 82 07/10/24 07:34 Resp 20 07/10/24 07:34 BP 124/65 07/10/24 07:34 Pulse Ox 97 07/10/24 07:34 O2 Del Method Room Air 07/10/24 07:34 O2 Flow Rate 0 07/08/24 12:22 Testing Laboratory Results 07/10/24 05:31 07/10/24 05:31 PT 10.9 Seconds (9.0-12.0) 07/02/24 20:00 INR 1.0 (0.9-1.1) 07/02/24 20:00 APTT 28 Seconds (21-31) 07/02/24 20:00 Hemoglobin A1c 8.8 % (4.5-5.6) H 07/03/24 08:12 Urine Color Yellow 07/02/24 22:19 Urine Appearance Clear (Clear) 07/02/24 22:19 Urine pH 5.5 (4.5-7.5) 07/02/24 22:19 Ur Specific [place] 1.021 (1.000-1.030) 07/02/24 22:19 Urine Protein Trace (Negative) H 07/02/24 22:19 Urine Glucose (UA) 3+ (Negative) H 07/02/24 22:19 Urine Ketones Negative (Negative) 07/02/24 22:19 Urine Nitrite Negative (Negative) 07/02/24 22:19 Ur Leukocyte Esterase Negative (Negative) 07/02/24 22:19 Urine WBC (Auto) 0-5 /hpf (0-5) 07/02/24 22:19 Urine RBC (Auto) 0-2 /hpf (0-2) 07/02/24 22:19 U Hyaline Cast (Auto) 0-2 /lpf (0-2) 07/02/24 22:19 U Epithel Cells (Auto) 0-2 /hpf (0-2) 07/02/24 22:19 Urine Bacteria (Auto) None Seen (None Seen) 07/02/24 22:19 Blood Type A Positive 07/10/24 05:31 Antibody Screen NEGATIVE 07/10/24 05:31 07/02/24 20:00 Aerobic Blood Culture - Final Blood No growth in Aerobic bottle after 5 days. Anaerobic Blood Culture - Final No growth in Anaerobic bottle after 5 days. 07/02/24 20:00 Aerobic Blood Culture - Final Blood No growth in Aerobic bottle after 5 days. Anaerobic Blood Culture - Final 07/02/24 20:35 Gram Stain - Final Foot,Left Aerobic and Anaerobic Culture - Final Staphylococcus aureus Staphylococcus aureus#2 Anaerococcus hydrogenalis 07/10/24 07/09/24 05:38 20:30 POC Glucose 142 H 179 H
[2024-07-10] MEDS ORDERED: ePHEDrine sulfate 50 MG/ML AMP IV PRN (07:56)
[2024-07-10] MEDS ORDERED: ATROPINE SULFATE 0.1 MG/ML 10ML SYR IV PRN (07:56)
[2024-07-10] MEDS ORDERED: fentaNYL citrate PF 100 MCG/2 ML VIAL IV PRN (07:56)
[2024-07-10] MEDS ORDERED: ONDANSETRON INJ 2 MG/ML 2 ML VIAL IV PRN (07:56)
--- NOTE | 2024-07-10 08:05 | History & Physical Bridge Note ---
Date of Service July 10, 2024 History & Physical Bridge Note Patient for a fem fem bypass today. I have discussed the risks options and benefits of the procedure with the patient. The patient understands the risks options and benefits and agrees to the procedure. I have examined the patient, reviewed the History & Physical and in the interval since the performance of the History & Physical I have noted the following changes of clinical significance: no changes noted
[2024-07-10] MEDS: LIDOCAINE 1% LOCAL 20 ML VIAL ONE (09:29)
[2024-07-10] MEDS: BUPIVACAINE/EPINEPHRINE 0.5% MPF 1:200,000 30 ML VIAL ONE (09:29)
[2024-07-10 12:28] LABS: Hematocrit (blood only) 30.8 % (42.0-52.0)
[2024-07-10] MEDS ORDERED: NOREPINEPHRINE BITARTRATE 1 MG/ML 4 ML VIAL IV ONE (13:21)
[2024-07-10] MEDS: ceFAZolin 2000MG 2,000 MG/15 ML SYR IV ONE (13:40)
--- NOTE | 2024-07-10 13:46 | Post Operative Brief Note ---
Immediate Post Op Note Date of Surgery July 10, 2024 Pre & Post Diagnosis Operation Date: 07/10/24 13:00 Pre-Op Diagnosis: Left Iliac Occlusion Post-Op Diagnosis: Left Iliac Occlusion I identified the patient and participated in the time-out.: Yes Procedure Operation Date: 07/10/24 13:00 Actual Procedures p Femoral to Femoral Bypass, Right Femoral Endarterectomy, Bovine Patch Angioplasty right(Not Applicable) - Ramiro Berrios MD Surgeon Ramiro Berrios MD Musical String Maker Juancarlos Weber MD LYonMinarchick,PAC Estimated Blood Loss 1,000 Findings Consistent with Post-Op Diagnosis Anesthesia Type General Complications none Disposition Accompanied Patient To Recovery: No Disposition: Recovery Room
[2024-07-10] MEDS: HEPARIN (PORCINE) 1000 UNIT/ML 10 ML (CATH LAB USE ONLY) ONE (14:06)
[2024-07-10] MEDS: ceFAZolin 330 MG/ML 1 GM VIAL ONE (14:07)
[2024-07-10] MEDS: GELATIN SPONGE SZ 100 ONE ×2 (14:08→16:21)
[2024-07-10] MEDS: THROMBIN FOR SOLN 20000 UNIT KIT ONE ×2 (14:08→16:21)
--- NOTE | 2024-07-10 14:22 | Operative Report ---
Post Operative Report Pre & Post Diagnosis Operation Date: 07/10/24 13:00 Pre-Op Diagnosis: Left Iliac Occlusion Post-Op Diagnosis: Left Iliac Occlusion I identified the patient and participated in the time-out.: Yes Procedure Operation Date: 07/10/24 13:00 Actual Procedures p Femoral to Femoral Bypass, Bilateral Femoral Endarterectomy, Bovine Patch Angioplasty right(Not Applicable) - Ramiro Berrios MD Surgeon Ramiro Berrios MD Data Modeling Specialist Juancarlos Weber MD [employer]Yon[employer]archick,PAC Estimated Blood Loss 1,000 Findings Consistent with Post-Op Diagnosis Severe stenosis of the bilateral DIRECTOR VALIDATION requiring endarterectomy on the right. 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 General endotracheal anesthesia was induced. The right and left groin were prepped and draped in the usual sterile fashion. A longitudinal incision was made over the left common femoral artery using a #15 blade. Dissection using electrocautery proceeded through soft tissue. When the femoral sheath was encountered this was switched to Metzenbaum scissors. The common femoral artery on the left was identified. It was dissected free circumferentially. Attention was then turned to the right common femoral artery. An incision was made over it using a #15 blade. Dissection using electrocautery proceeded through soft tissue. When the femoral sheath was encountered this was switched to Metzenbaum scissors. The common femoral artery on the right was identified. It was dissected free circumferentially. A tunnel over the lower abdomenal wall was then created using an angled aortic clamp. 6000U of heparin were given. The Right DIRECTOR VALIDATION, SFA and profunda were clamped. There was extensive plaque within the DIRECTOR VALIDATION and SFA. An endarterectomy was performed. Given the length of artery requiring endarterectomy, a patch angioplasty was then performed using 5-0 Prolene suture and a bovine carotid patch. Prior to completion, the DIRECTOR VALIDATION SFA and profunda were flushed with good backbleeding. a 8mm ringed PTFE graft was then used. The right DIRECTOR VALIDATION SFA and profunda were clamped again above and below the patch. An arteriotomy was made in the patch and the PTFE graft was sutured in place using 5-0 Gortex suture. All vessels were flushed prior to completion. The right DIRECTOR VALIDATION SFA and profunda were unclamped. Hemostasis was obtained. The graft was then clamped. Attention was turned to the left DIRECTOR VALIDATION. It was clamped as well as the SFA and profunda. An arteriotomy was made. There was posterior wall plaque but no endarterectomy was required. The PTFE bypass was then anastomosed to the left DIRECTOR VALIDATION using 5-0 Gortex. Prior to completion, the DIRECTOR VALIDATION SFA and profunda were flushed with good backbleeding. All vessels were unclamped. There was a good pulse in the graft at completion. Hemostasis was obtained. The wound was closed with interrupted 2-0 Vicryl sutures followed by 3-0 running subcutaneous Vicryl sutures. The skin was closed with millicent. Prevena Vac was applied. Dr. Berrios was present and scrubbed for the entire procedure. I attest to the content of the Intraoperative Record and any orders documented therein. Any exceptions are noted below. Supervising Physician Co-Signing Physician Notes Ramiro Berrios MD
[2024-07-10] MEDS ORDERED: VASOPRESSIN 20 UNIT/ML VIAL ONE (14:32)
--- NOTE | 2024-07-10 14:36 | Hospitalist Progress Note ---
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 Patent R WILLIE and bilateral IIA, EIA, INSULATION PROFESSIONAL, SFA and profunda Underwent fem to femoral bypass on 07/10/2024 Wound culture growing Staph aureus and and anaerococcus hydrogenalis Patient transferred to ICU after OR after he was found to be hypotensive; requiring vasopressors and IV fluid support. Estimated blood loss of about 1000 mL. Management of vasopressors as per ICU Plan for possible transmetatarsal amputation next few days as per podiatry Will change antibiotic from ampicillin to Zosyn to cover anaerobes Continue on aspirin and liptor; hold plavix (4) Hypertension associated with diabetes: Plan: On lisinopril; will hold for today (5) Diabetes mellitus with peripheral artery disease: Plan: Continue to monitor glucose with insulin management Plan Time spent evaluating patient, direct bedside care, chart review, placing orders, interpretation of diagnostic studies, discussion with consultants, patient, and family members, as well as other required patient management activities is 50 minutes Please note the above document was generated using voice recognition software. It may contain grammatical, syntax or spelling errors. Any formal questions or concerns about the content, text or information contained within the body of this dictation should be directly addressed to the provider for clarification Admission and Anticipated Discharge Date Admission Date: July 03, 2024 Review of Systems Review of Systems: All systems reviewed & are unremarkable except as noted in Subjective Physical Exam Physical Exam: Constitutional: Alert oriented x 3; not in distress. Respiratory: normal respiratory effort, lungs clear to auscultation, no wheeze, rales, rhonchi. Normal insp/exp effort, no accessory muscle use Cardiovascular: RRR, no murmur, no edema Vessels: no JVD or carotid bruit Chest: normal inspection of chest Abdomen: normal bowel sounds, soft, nontender, no hepatosplenomegaly Musculoskeletal: Left foot dressing clean dry intact. Neurologic: PERRL, EOMI, accommodation nl, no face palsy, no dysarthria CN's II- XI intact bilaterally and moves all extremities Results & Data Results & Data Vital Signs (Past 12 Hours) Vital Signs Temp Pulse Resp BP Pulse Ox O2 Del Method 07/10/24 07:34 36.7 C 82 20 124/65 97 Room Air 07/10/24 07:00 36.6 C 77 18 121/68 95 Room Air
[2024-07-10] MEDS ORDERED: ceFAZolin 2000MG 2,000 MG/15 ML SYR IV ONE (14:45)
[2024-07-10 15:02] LABS: Basophils # (auto) 0.06 K/uL (0.00-0.20); Basophils % (auto) 0.6 %; Eosinophils # (auto) 0.02 K/uL (0.00-0.50); Eosinophils % (auto) 0.2 %; Immature Granulocytes # (auto) 0.08 K/uL (0.01-0.20); Immature Granulocytes % (auto) 0.8 %; Lymphocytes # (auto) 1.04 K/uL (1.20-3.40); Lymphocytes % (auto) 9.9 %; Mean Platelet Volume 10.4 fL (9.4-12.4); Monocytes # (auto) 0.12 K/uL (0.11-0.59); Monocytes % (auto) 1.1 %; Neutrophils # (auto) 9.17 K/uL (1.40-6.50); Neutrophils % (auto) 87.4 %; Platelet Count 288 K/uL (130-400); RDW Coefficient of Variation 13.6 % (11.5-14.5); RDW Standard Deviation 43.7 fL (36.4-46.3); Red Blood Count 3.48 M/uL (4.70-6.10); White Blood Count 10.49 K/ul (4.8-10.8)
[2024-07-10 15:19] LABS: Hematocrit (blood only) 38.8 % (42.0-52.0); Hemoglobin 13.1 g/dl (14.0-18.0)
--- NOTE | 2024-07-10 15:49 | Critical Care Consultation ---
Date of Consultation July 10, 2024 Assessment & Plan (1) Hypovolemic shock: (2) Lactic acidosis: (3) Acute blood loss anemia: (4) Peripheral vascular disease due to secondary diabetes: (5) Insulin-requiring or dependent type II diabetes mellitus: (6) Diabetic ulcer of left foot with necrosis of muscle: Plan Impression: 84-year-old male admitted with diabetic foot ulcer status post revascularization procedure today. 1 L blood loss intraoperatively. Patient is hypotensive perioperatively with focused ultrasound suggesting volume depletion. Central line placed. Lactic acidosis identified. Recommendations: 1. Neurologic: Patient has some mild confusion, likely metabolic encephalopathy. Continue to follow. No indication for advanced imaging currently. Pain control per vascular surgery 2. Cardiovascular: Suspect hypovolemic shock based on limited echocardiogram. Additional crystalloid and albumin will be administered. Wean pressors as tolerated. Check random cortisol. Trend lactate. May need additional blood products. Formal echocardiogram pending. Check cardiac enzymes and trend troponin. 3. Pulmonary: No active issues. Supplemental oxygen as needed to maintain oxygen saturations at or above 90%. 4. ID: Diabetic foot ulcer. Currently on Zosyn. Deep cultures from the foot showed methicillin sensitive Staph aureus as well as anaerococcus hydrogenalis. Continue zosyn. 5. Renal: Awaiting electrolytes. ICU replacement protocol. At risk for development of acute renal failure. 6. Endocrine: Diabetes with hyperglycemia. Glycemic consult pharmacy. May need need insulin drip. Await random cortisol 7. Heme-onc: Acute blood loss anemia. Hemoglobin is stable but may be falsely reassuring in the setting of acute blood loss. Will trend indices as he is resuscitated with crystalloid and may require additional blood products. 8. GI: Will hold on diet pending improvement in hemodynamics. CRITICAL CARE TIME - I have personally spent 75 minutes of critical care time in the direct management of this patient. This is a life/limb threatening event. This includes time spent evaluating patient, direct bedside care, chart review, placing orders, interpretation of diagnostic studies, discussion with consultants, patient, and family members, as well as other required patient management activities. This time is exclusive of all separately billable procedures, and teaching time and separate from and in addition to any other critical care service time. History of Present Illness Attending Physician: Kb Mack MD History of Present Illness Asked by vascular surgery to assist in evaluation management this patient postoperative open femorofemoral bypass for severe peripheral arterial disease. History is obtained from discussion with the patient as well as review of the electronic medical record. Patient is an 84-year-old male with a history of diabetes and peripheral arterial disease who was admitted to facility with a diabetic foot infection. He was placed on Zosyn and vancomycin. He was seen by podiatry and taken to the OR the next day. He was noted to have significant left common iliac stenosis likely contributing to poor wound healing and vascular surgery was obtained who recommended intervention. On 07/08/2024 he underwent bilateral iliac arteriogram. They were unable to cross the left common inguinal artery occlusion from above and therefore recommended femorofemoral bypass. He was taken to the OR today where the above procedure was performed. Estimated blood loss was about 1 L. He received 3 units packed cells during the case. He was extubated. He was taken to the PACU but was found to be hypotensive monitoring on his arterial line which required initiation of norepinephrine with intermittent pushes of vasopressin. He is awake and emerging from general anesthesia. On arrival to the ICU the patient was assessed with focused ultrasound. The LV appeared underfilled and hyperdynamic. Carotid veins were flat suggestive of volume depletion. He was administered an additional 2 L of crystalloid and a central line was placed given escalating pressor requirements. Blood gas showed acidosis and he was given an amp of bicarb for pH of 7.3. Lactate came back at 3.1 Allergies Allergy/AdvReac Type Severity Reaction Status Date / Time No Known Allergies Allergy Verified 07/04/24 11:59 Home Medications Medication Instructions Recorded Confirmed Type amlodipine 10 mg tablet 10 mg PO HS 01/16/22 07/02/24 History atorvastatin 20 mg tablet 20 mg PO HS 01/16/22 07/02/24 History glipizide 10 mg tablet, extended 10 mg PO QAM 01/16/22 07/02/24 History release 24 hr insulin NPH isoph U-100 human 100 50 unit subcut QAM 01/16/22 07/02/24 History unit/mL (3 mL) subcutaneous pen (Novolin N FlexPen) lisinopril 40 mg tablet 40 mg PO HS 01/16/22 07/02/24 History metformin 500 mg tablet,extended 1,000 mg PO HS 01/16/22 07/02/24 History release 24 hr pantoprazole 40 mg tablet,delayed 40 mg PO BID #60 tabs 01/19/22 07/02/24 Rx release aspirin 81 mg tablet,delayed 81 mg PO HS 07/02/24 07/02/24 History release (Adult Low Dose Aspirin) clopidogrel 75 mg tablet 75 mg PO HS 07/02/24 07/02/24 History Patient History Medical History Gastric ulcer Diabetes mellitus Hypertension Social History Smoking Status: Former smoker Tobacco Type: Cigarettes Second Hand Exposure: No; Do You Dip or Chew Tobacco: No; Hx Alcohol Use: No Hx Substance Use: No Preferred Language: Venezuelan Communication Ability: Effective Church Official Required: No Beliefs That Will Affect Care: None marital status: Current Living Situation: Spouse Feels Safe at Home: No Is there a partner from a previous relationship who is making you feel unsafe now?: No Assistive Devices: Cane and Walker Review of Systems Review of Systems: Please refer to hospitalist notes. No additions or deletions Physical Exam Physical Exam: Confused Constitutional: well developed, well nourished, + ill appearing and average body habitus Eyes: PERRL, conjunctivae normal, anicteric sclerae ENMT: external ear and nose normal, oropharynx normal Neck: trachea midline, no thyromegaly Respiratory: no respiratory distress Auscultation: lungs clear to auscultation bilaterally and + diminished lung sounds Cardiovascular: Rate/Rhythm: regular rate and regular rhythm; not tachycardic Heart Sounds: normal S1 and normal S2; no murmur Extremities: no edema ( no edema in right and 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) Gastrointestinal (Abdomen): Inspection/Auscultation: normal bowel sounds; abdomen not distended Percussion/Palpation: abdomen soft; abdomen nontender Musculoskeletal: Has significant osteoarthritic changes involving the extremities with left foot and toes ulceration and gangrenous Neurologic: normal touch/pain/proprioception and moves all extremities; no focal motor deficits Lymphatic: no cervical or axillary lymphadenopathy Results & Data Results & Data Vital Signs (Past 12 Hours) Vital Signs Temp Pulse Pulse Resp BP BP Pulse Ox 07/10/24 15:05 105 H 25 H 132/68 96/48 L 94 07/10/24 14:55 100 H 22 113/69 107/65 94 07/10/24 14:45 99 H 15 90/50 L 92 07/10/24 14:35 101 H 18 74/48 L 62/42 L 98 07/10/24 14:25 105 H 20 102/59 L 92/47 L 98 07/10/24 14:19 36.1 C L 97 H 24 71/51 L 95 07/10/24 07:34 36.7 C 82 20 124/65 97 07/10/24 07:00 36.6 C 77 18 121/68 95 O2 Del Method O2 Flow Rate 07/10/24 15:05 Nasal Cannula 2 07/10/24 14:55 Nasal Cannula 2 07/10/24 14:45 Room Air 07/10/24 14:35 Oxymask 7 07/10/24 14:25 Oxymask 7 07/10/24 14:19 Oxymask 7 07/10/24 07:34 Room Air 07/10/24 07:00 Room Air Critical Care Results & Data Vital Signs (Past 12 Hours) Vital Signs Temp Pulse Pulse Resp BP BP BP 07/10/24 15:35 36.5 C 105 H 18 98/65 L 07/10/24 15:25 103 H 18 121/78 93/48 L 07/10/24 15:15 107 H 17 122/74 106/55 L 07/10/24 15:05 105 H 25 H 132/68 96/48 L 07/10/24 14:55 100 H 22 113/69 107/65 07/10/24 14:45 99 H 15 90/50 L 07/10/24 14:35 101 H 18 74/48 L 62/42 L 07/10/24 14:25 105 H 20 102/59 L 92/47 L 07/10/24 14:19 36.1 C L 97 H 24 71/51 L 07/10/24 07:34 36.7 C 82 20 124/65 07/10/24 07:00 36.6 C 77 18 121/68 Pulse Ox O2 Del Method O2 Flow Rate 07/10/24 15:35 95 Nasal Cannula 2 07/10/24 15:25 96 Nasal Cannula 2 07/10/24 15:15 97 Nasal Cannula 2 07/10/24 15:05 94 Nasal Cannula 2 07/10/24 14:55 94 Nasal Cannula 2 07/10/24 14:45 92 Room Air 07/10/24 14:35 98 Oxymask 7 07/10/24 14:25 98 Oxymask 7 07/10/24 14:19 95 Oxymask 7 07/10/24 07:34 97 Room Air 07/10/24 07:00 95 Room Air Lab & Micro Results (Past 24 Hours) RBC 3.48 M/uL (4.70-6.10) L 07/10/24 WBC 10.49 K/ul (4.8-10.8) 07/10/24 Hgb 13.1 g/dl (14.0-18.0) L 07/10/24 Hct 38.8 % (42.0-52.0) L 07/10/24 MCV 88.1 fL (80.0-100.0) 07/10/24 MCH 29.0 pg (25.0-34.0) 07/10/24 MCHC 32.9 g/dL (32.0-36.0) 07/10/24 RDW Standard Deviation 43.7 fL (36.4-46.3) 07/10/24 RDW Coefficient of Variation 13.6 % (11.5-14.5) 07/10/24 Plt Count 288 K/uL (130-400) 07/10/24 MPV 10.4 fL (9.4-12.4) 07/10/24 Neutrophils (%) (Auto) 87.4 % 07/10/24 Lymphocytes (%) (Auto) 9.9 % 07/10/24 Monocytes # (Auto) 0.12 K/uL (0.11-0.59) 07/10/24 Eosinophils # (Auto) 0.02 K/uL (0.00-0.50) 07/10/24 Immature Granulocyte % (Auto) 0.8 % 07/10/24 Neutrophils # (Auto) 9.17 K/uL (1.40-6.50) H 07/10/24 Lymphocytes # (Auto) 1.04 K/uL (1.20-3.40) L 07/10/24 Monocytes # (Auto) 0.12 K/uL (0.11-0.59) 07/10/24 Eosinophils # (Auto) 0.02 K/uL (0.00-0.50) 07/10/24 Basophils # (Auto) 0.06 K/uL (0.00-0.20) 07/10/24 Immature Granulocyte # (Auto) 0.08 K/uL (0.01-0.20) 5 Na 138 mmol/L (136-145) 07/10/24 K 4.9 mmol/L (3.5-5.1) 07/10/24 Cl 106 mmol/L (98-107) 07/10/24 CO2 20 mmol/L (21-32) L 07/10/24 Anion Gap 12 (3-11) H 07/10/24 BUN 16 mg/dl (6-23) 07/10/24 Creatinine 1.09 mg/dl (0.6-1.4) 07/10/24 BUN/Creatinine Ratio 14.7 (10-20) 07/10/24 Glu 371 mg/dl (70-99(Fasting)) H* 07/10/24 Ca 7.1 mg/dl (8.6-10.3) L 07/10/24 Total Bilirubin 0.7 mg/dl (0.2-1.0) 07/10/24 AST 13 U/L (13-39) 07/10/24 ALT 8 U/L (7-52) 07/10/24 Alkaline Phosphatase 62 U/L (34-104) 07/10/24 TP 5.2 gm/dl (6.0-8.3) L 07/10/24 Albumin 2.4 gm/dl (3.4-5.0) L 07/10/24 Globulin 2.8 gm/dl (2.5-4.0) 07/10/24 Albumin/Globulin Ratio 0.9 (0.9-2) 07/10/24 Calcium Level 7.1 mg/dl (8.6-10.3) L 07/10/24 16:11 Sherif Test NA 07/10/24 16:03 I & O Totals 24 Hours 07/09/24 07/10/24 07/11/24 06:59 06:59 06:59 Intake Total 1780 / 1780 740 / 740 3600 / 3600 Output Total 1450 / 1450 1601 / 1601 2100 / 2100 Balance 330 / 330 -861 / -861 1500 / 1500 Cumulative 07/02/24 19:30 thru 07/10/24 15:28 Intake Total 43768 Output Total 8281 Balance 4524 RT Ventilator Mngmt (Last Documented) Ventilator Ordered Settings Respiratory Rate 18 07/10/24 15:35 Ventilator - PT Measurements Respiratory Rate 18 Coding Level of Care Code 51542 CRITICAL CARE EA ADD 30M Diagnoses Hypovolemic shock R57.1 Lactic acidosis E87.20 Acute blood loss anemia D62 Peripheral vascular disease due to secondary diabetes E13.51 Insulin-requiring or dependent type II diabetes mellitus E11.9; Z79.4 Diabetic ulcer of left midfoot associated with type 2 diabetes mellitus, with necrosis of muscle E11.621; L97.423 Diabetic foot ulcer location: midfoot Diabetes mellitus type: type 2 (6) Diabetic ulcer of left foot with necrosis of muscle Diabetic foot ulcer location: midfoot Diabetes mellitus type: type 2 Qualified Code(s): E11.621 - Type 2 diabetes mellitus with foot ulcer; L97.423 - Non-pressure chronic ulcer of left heel and midfoot with necrosis of muscle
--- NOTE | 2024-07-10 15:55 | Anesthesiology Progress Note ---
Date of Service July 10, 2024 Anesthesia Post Procedure Vital Signs Vital Signs: Temp Pulse Pulse Resp BP BP BP 07/10/24 15:35 36.5 C 105 H 18 98/65 L 07/10/24 15:25 103 H 18 121/78 93/48 L 07/10/24 15:15 107 H 17 122/74 106/55 L 07/10/24 15:05 105 H 25 H 132/68 96/48 L 07/10/24 14:55 100 H 22 113/69 107/65 07/10/24 14:45 99 H 15 90/50 L 07/10/24 14:35 101 H 18 74/48 L 62/42 L 07/10/24 14:25 105 H 20 102/59 L 92/47 L 07/10/24 14:19 36.1 C L 97 H 24 71/51 L 07/10/24 07:34 36.7 C 82 20 124/65 07/10/24 07:00 36.6 C 77 18 121/68 07/09/24 20:05 07/09/24 19:46 36.5 C 64 16 125/73 Pulse Ox O2 Del Method O2 Flow Rate 07/10/24 15:35 95 Nasal Cannula 2 07/10/24 15:25 96 Nasal Cannula 2 07/10/24 15:15 97 Nasal Cannula 2 07/10/24 15:05 94 Nasal Cannula 2 07/10/24 14:55 94 Nasal Cannula 2 07/10/24 14:45 92 Room Air 07/10/24 14:35 98 Oxymask 7 07/10/24 14:25 98 Oxymask 7 07/10/24 14:19 95 Oxymask 7 07/10/24 07:34 97 Room Air 07/10/24 07:00 95 Room Air 07/09/24 20:05 Room Air 07/09/24 19:46 95 Room Air Pain Intensity Right Groin: Pain Intensity: 2 Transfer of Care Handoff Completed per policy Notes Mental Status: alert / awake / arousable Patient Amnestic to Procedure: Yes Nausea / Vomiting: adequately controlled Pain: adequately controlled Airway Patency, RR, SpO2: stable & adequate BP & HR: see Notes below Hydration State: stable & adequate Anesthetic Complications: no major complications apparent and Pt Satisfied with anesthetic care Notes: pt with adequate H/H, however, still requiring vasopressor support despite fluid resuscitation. transfer to ICU on levophed gtt.
[2024-07-10] MEDS ORDERED: oxyCODONE/ACETAMINOPHEN 5mg/325mg TAB PO PRN (16:15)
[2024-07-10] MEDS ORDERED: MoRPHine SULFATE 4 MG/ML 1 ML CARP\\VIAL IV PRN (16:15)
[2024-07-10 16:17] LABS: iSTAT Art Bld Gas pCO2 Correct 32 mmHg (35-46); iSTAT Art Bld Gas pH Corrected 7.319 (7.35-7.45); iSTAT Arterial Blood Gas HCO3 16 meg/L (19-24); iSTAT Arterial Blood Gas pCO2 32 mmHg (35-46); iSTAT Arterial Blood Gas pH 7.31 (7.35-7.45); iSTAT Arterial Blood Gas pO2 58 mmHg (80-95); iSTAT Arterial Blood Gas pO2 C 56; iSTAT Carbon Dioxide 17 mmol/L (24-31); iSTAT Hematocrit 38 % (42-52); iSTAT Hemoglobin 12.9 g/dl (14.0-18.0); iSTAT Sample Type Arterial; iSTAT Site Art Line; iSTAT Sodium 138 mmol/L (135-144); iSTAT SpO2 91
[2024-07-10] MEDS: INSULIN ASPART PER UNIT CHARGE SC SCH ×3 (16:20→21:56)
[2024-07-10] MEDS: PHENYLEPHRINE 100MCG/ML 5ML SYR ONE (16:21)
[2024-07-10] MEDS: SODIUM CHLORIDE 0.9% 1,000 ML IV SCH (16:23)
[2024-07-10] MEDS ORDERED: STAT IV Infusion **Titration per Protocol STA ×2 (16:23→20:27)
[2024-07-10] MEDS: NOREPINEPHRINE/D5W 4 MG/250 ML IV ONE (16:28)
[2024-07-10] MEDS: PIPERACILLIN/TAZOBACTAM 4.5 GM/100 ML BAG IV ONE (16:31)
[2024-07-10] MEDS: NOREPINEPHRINE/D5W 4 MG/250 ML PLCT IV SCH (16:37)
[2024-07-10] MEDS: LACTATED RINGER'S 1,000 ML IV SCH (16:39)
[2024-07-10] MEDS: ALBUMIN 25% 25 GM/100 ML VIAL IV SCH (16:39)
[2024-07-10] MEDS: SODIUM BICARB 8.4% INJ 50 MEQ/50 ML SYR IV ONE (16:46)
[2024-07-10] MEDS: SODIUM BICARB 8.4% INJ 50 MEQ/50 ML SYR IV STA (16:47)
--- NOTE | 2024-07-10 17:01 | Procedure Note ---
Procedure Note Date of Service July 10, 2024 CENTRAL LINE PROCEDURE NOTE: Procedure: Central Line Placement Provider: Timothy Christie MD Indication: Central Drug Administration, Poor Venous Access, Multiple Lab Draws Necessary, etc. Anesthesia: 5cc 1% lidocaine Site: Left subclavian A time-out was completed verifying correct patient, procedure, site, positioning, and implants(s) or special equipment if applicable. Patients left clavicular area was cleansed and draped in the typical sterile fashion using Chloraprep. Landmarks were identified. Full barrier precautions were used. The superficial tissue inferior to the mid clavicle was anesthetized using 5 mL of 1% lidocaine without epinephrine. After adequate anesthetization was achieved, the left subclavian vein was cannulated using an introducer needle on a syringe. Good venous blood return was maintained prior to removal of syringe from in troducer needle. Using Seldinger Technique, a guide wire was advanced through the introducer needle without resistance. The introducer needle was removed. A small incision was made in penetrating fashion at the guide wire insertion site utilizing an 11 blade scalpel. The dilator was advanced to the vessel without resistance. The dilator was exchanged for the triple lumen catheter which was advanced into the vessel without resistance. The guide wire was removed intact from the catheter without issue. Claves were placed on each catheter tip with confirmation of good blood flow from each lumen. Each port was easily flushed with sterile saline. The catheter was placed at the hub and sutured in place. BioPatch was applied to the catheter and a sterile Tegaderm dressing was applied over the catheter with careful attention to sterility. Patient tolerated procedure well. No immediate complications were met. Post procedure x-ray [place] [facility] [place] (Charges) Tubes, Drains, and Vasc Access Procedure 1: Tubes, Drains, and Vasc Access: [id number] Place catheter in vein superior or inferior vena cava Coding CPT Codes Tubes, Drains, and Vasc Access - Tubes, Drains, and Vasc Access: [id number] Place catheter in vein superior or inferior vena cava ([id number]) Additional Codes Date of Service ([facility].SURGERY)
[2024-07-10 17:03] LABS: Albumin Globulin Ratio 0.9 (0.9-2); Albumin Level 2.4 gm/dl (3.4-5.0); BUN Creatinine Ratio 14.7 (10-20); Bilirubin,Total 0.7 mg/dl (0.2-1.0); Calcium 7.1 mg/dl (8.6-10.3); Creatinine Clr Calc Pharmacy 50.4 ml/min; Globulin 2.8 gm/dl (2.5-4.0); Potassium 4.9 mmol/L (3.5-5.1); Total Protein 5.2 gm/dl (6.0-8.3); Troponin I High Sensitivity 7.5 pg/ml (0-20)
[2024-07-10] MEDS ORDERED: PHARMACY GLYCEMIC MGMT CONSULT PRN (17:06)
[2024-07-10] MEDS: HYDROCORTISONE SOD 50 MG in SYRINGE 0 ML IV SCH (17:25)
[2024-07-10] MEDS: FLUDROCORTISONE ACETATE 0.1 MG TAB PO SCH (17:25)
[2024-07-10] MEDS: CALCIUM CHLORIDE 10% 1,000 MG in DEXTROSE 5% 50 ML IV STA (17:32)
[2024-07-10] MEDS: LANTUS PER UNIT CHARGE SQ ONE (17:32)
[2024-07-10] MEDS: ICU ELECTROLYTE REPLACEMENT PROTOCOL SCH (17:39)
--- NOTE | 2024-07-10 17:52 | XRay Report ---
Clinical History: Line placement Technique: A frontal view of the chest was obtained Comparison is made to the prior examination dated 07/02/2024 Findings: There are no confluent pulmonary infiltrates. The heart size is within normal limits. No pleural effusion or pneumothorax is seen. There is suspected mild pulmonary vascular congestion There are old healed right rib fractures. There is a new left subclavian central line with its tip in the SVC Impression: 1. New left subclavian central line with its tip in the SVC 2. Mild pulmonary vascular congestion ACT 112: Positive. There are findings on this exam that require communication between the performing entity and the patient following Patient Test Result Information Act ([place] ACT 112) guidelines. Electronically signed by Antony Hermosillo 07-10-2024 5:52 PM
[2024-07-10 19:23] LABS: Mean Corpuscular Hgb Conc 32.5 g/dL (32.0-36.0); Mean Corpuscular Volume 88.5 fL (80.0-100.0)
[2024-07-10 20:18] LABS: iSTAT Art Bld Gas pCO2 Correct 35 mmHg (35-46); iSTAT Art Bld Gas pH Corrected 7.304 (7.35-7.45); iSTAT Arterial Blood Gas HCO3 17 meg/L (19-24); iSTAT Arterial Blood Gas pCO2 33 mmHg (35-46); iSTAT Arterial Blood Gas pH 7.32 (7.35-7.45); iSTAT Arterial Blood Gas pO2 78 mmHg (80-95); iSTAT Arterial Blood Gas pO2 C 83; iSTAT Carbon Dioxide 18 mmol/L (24-31); iSTAT Hematocrit 34 % (42-52); iSTAT Hemoglobin 11.6 g/dl (14.0-18.0); iSTAT Potassium 4.5 mmol/L (3.3-5.0); iSTAT Sample Type Arterial; iSTAT Site Art Line; iSTAT Sodium 137 mmol/L (135-144); iSTAT SpO2 96
[2024-07-10] MEDS ORDERED: INSULIN PROTOCOL GOAL RANGE ONE (20:27)
[2024-07-10] MEDS ORDERED: SEVERE STRESS LEVEL ONE (20:27)
[2024-07-10] MEDS: INSULIN REGULAR 250 UNITS in SODIUM CHLORIDE 0.9% 247.5 ML IV SCH (20:59)
[2024-07-10] MEDS: NovoLIN-R BOLUS FROM BAG IV ONE (21:01)
[2024-07-10] MEDS: LACTATED RINGER'S 1,000 ML IV ONE (21:36)
[2024-07-10] MEDS: PIPERACILLIN/TAZOBACTAM 4.5 GM/100 ML BAG IV SCH (22:43)
[2024-07-11 05:32] LABS: BUN Creatinine Ratio 14.6 (10-20); Calcium 7.8 mg/dl (8.6-10.3); Creatinine Clr Calc Pharmacy 61.8 ml/min; Magnesium 1.7 mg/dl (1.7-2.4); Phosphorus 2.4 mg/dl (2.5-4.9); Potassium 3.6 mmol/L (3.5-5.1)
[2024-07-11] MEDS: POT PHOSPHATE MONOBASIC W/ SOD TAB PO SCH (06:06)
[2024-07-11] MEDS: POTASSIUM CHLORIDE CRTAB 20 MEQ TABCR PO SCH (06:06)
[2024-07-11] MEDS: MAGNESIUM SULFATE / D5W 1 GM/100 ML BAG IV SCH (06:06)
[2024-07-11 06:28] LABS: Basophils # (auto) 0.04 K/uL (0.00-0.20); Basophils % (auto) 0.3 %; Hematocrit (blood only) 26.6 % (42.0-52.0); Hemoglobin 9.2 g/dl (14.0-18.0); Immature Granulocytes # (auto) 0.05 K/uL (0.01-0.20); Immature Granulocytes % (auto) 0.4 %; Lymphocytes # (auto) 1.02 K/uL (1.20-3.40); Lymphocytes % (auto) 7.7 %; Mean Corpuscular Hgb Conc 34.6 g/dL (32.0-36.0); Mean Corpuscular Volume 83.9 fL (80.0-100.0); Mean Platelet Volume 10.4 fL (9.4-12.4); Monocytes # (auto) 0.75 K/uL (0.11-0.59); Monocytes % (auto) 5.6 %; Neutrophils # (auto) 11.47 K/uL (1.40-6.50); Platelet Count 184 K/uL (130-400); RDW Coefficient of Variation 15.4 % (11.5-14.5); RDW Standard Deviation 47.1 fL (36.4-46.3); Red Blood Count 3.17 M/uL (4.70-6.10); White Blood Count 13.33 K/ul (4.8-10.8)
[2024-07-11] MEDS ORDERED: SODIUM CHLORIDE 0.9% 100 ML IV PRN (06:33)
--- NOTE | 2024-07-11 07:20 | Podiatry Progress Note ---
Date of Service July 11, 2024 Assessment & Plan (1) Cellulitis of left foot: (2) Diabetic ulcer of left foot with necrosis of muscle: (3) Diabetes mellitus with peripheral artery disease: (4) Peripheral vascular disease due to secondary diabetes: Plan Status post debridement left foot wound 07/04/2024. Status post femoral to femoral bypass 07/10/2024. - Wound dressing changed - Wound flushed with normal sterile saline dressed with Optifoam border. Continue dressing changes once daily. - Patient okay to weight-bear as tolerated in postop shoe for short distance and transfer to the left foot at this time. Weightbearing status updated. Communication order for postop shoe placed. Lower extremity surgical plan discussed with hospitalist team. Plan for transmetatarsal amputation of the left foot potentially Monday pending further medical stabilization. Patient okay to continue Plavix and aspirin through the perioperative period for transmetatarsal amputation. Would like to see his hemoglobin above 10 and hematocrit above 30 and stabilized prior to moving forward with amputation. Admission and Anticipated Discharge Date Admission Date: July 03, 2024 Subjective Patient seen resting comfortably in ICU bed status post femoral to femoral bypass for correction of obstructed left inguinal artery. 1 L blood loss intraoperatively received 3 units of packed red cells intraoperatively. Patient is hypotensive postoperatively requiring pressors which he is currently slowly weaning off. Hemoglobin of 9.2 this morning and he received 1 unit of packed red blood cells. Patient denies pain in the left foot. Dressing is changed and wound is cleansed without discomfort. Explained to patient that there are some signs of early healing around the wound periphery unfortunately there is desiccation of the joint capsule immediately overlying the first MPJ and first metatarsal head which is concerning and likely to contribute to nonhealing wound in this location. Patient is still on board with the idea of moving the transmetatarsal amputation for more definitive correction of the left foot with reduce risk of future breakdown. Plan to revisit this discussion with patient and his and daughter prior to consent and procedure. Review of Systems Review of Systems: Denies nausea, vomiting, fever, chills, shortness of breath, chest pain. No pain to the left foot. Physical Exam Physical Exam: Const: Appears well developed and well nourished. No signs of acute distress present. CV: Extremities: No cyanosis Capillary refill time is less than 2 seconds all digits of the bilateral foot. Posterior tibial and dorsalis pedis pulses are non-palpable bilateral. Skin: Thin atrophic skin the bilateral lower extremity below the knee with loss of hair growth. Cellulitis left foot Neuro: Loss of protective sensation of the bilateral foot extending to the level of the ankle Psych: Mood/Affect: Mood is normal. Patient having trouble remembering specific names and finding words. Cognition: Orientation is intact to person, place and time. Focused lower extremity musculoskeletal exam: Leg: No pain with compression of the calf muscle. Ankles: Normal to inspection and palpation. No swelling bilaterally. No tenderness bilaterally. Motor strength is intact. Range of motion pain-free and unlimited. 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 Wound to the plantar and plantar medial aspect of the left first MPJ with e xposed joint capsule. No active drainage. Scant serosanguineous drainage to wound dressing. Wound bed is joint capsule which is now turning a dusky lainez to brown discoloration, slough and subcutaneous tissue. New development of granular tissue to the wound periphery. No frankly exposed bone. Results & Data Results & Data Vital Signs (Past 12 Hours) Vital Signs Temp Pulse Resp BP Pulse Ox O2 Del Method O2 Flow Rate 07/11/24 06:58 36.5 C 64 18 118/59 L 98 07/11/24 05:00 63 19 96 07/11/24 05:00 132/57 L 07/11/24 05:00 132/57 L 07/11/24 04:30 64 16 98 07/11/24 04:30 136/63 07/11/24 04:00 140/63 07/11/24 04:00 140/63 07/11/24 04:00 72 14 98 07/11/24 04:00 65 129/65 07/11/24 03:33 60 20 98 07/11/24 03:30 138/57 L 07/11/24 03:18 66 22 98 07/11/24 03:03 68 17 97 07/11/24 03:00 134/70 07/11/24 03:00 134/70 07/11/24 02:51 65 22 99 07/11/24 02:30 65 20 96 07/11/24 02:30 129/65 07/11/24 02:03 68 19 95 04/24/25 02:00 138/54 L 07/11/24 01:45 75 24 86 L 07/11/24 01:36 66 21 92 07/11/24 01:30 143/62 H 07/11/24 01:27 71 21 94 07/11/24 01:09 73 16 97 07/11/24 00:36 68 18 96 07/11/24 00:30 130/65 07/11/24 00:30 130/65 07/11/24 00:30 130/65 07/11/24 00:18 74 20 96 07/11/24 00:03 85 19 98 07/11/24 00:00 138/68 07/11/24 00:00 138/68 07/10/24 23:57 78 21 90 07/10/24 23:51 65 22 96 07/10/24 23:43 85 07/10/24 23:30 129/61 07/10/24 23:18 83 20 89 L 07/10/24 23:15 83 21 93 07/10/24 22:33 87 22 97 07/10/24 22:30 143/60 H 07/10/24 22:30 143/60 H 07/10/24 22:21 87 20 93 07/10/24 22:06 91 H 20 96 07/10/24 22:04 Nasal Cannula 4 07/10/24 21:57 92 H 20 93 07/10/24 21:45 146/70 H 07/10/24 21:45 97 H 20 96 07/10/24 21:30 139/63 07/10/24 21:30 139/63 07/10/24 21:24 99 H 23 95 07/10/24 21:15 124/58 L 07/10/24 21:12 102 H 21 90 07/10/24 21:03 100 H 19 98 07/10/24 21:00 113/59 L 07/10/24 21:00 113/59 L 07/10/24 20:51 99 H 20 93 07/10/24 20:45 118/61 07/10/24 20:39 101 H 20 94 07/10/24 20:30 140/72 07/10/24 20:24 107 H 22 97 07/10/24 20:15 140/69 07/10/24 20:15 140/69 07/10/24 20:15 140/69 07/10/24 20:15 140/69 07/10/24 20:12 105 H 19 96 07/10/24 20:06 100 H 19 96 07/10/24 20:00 125/63 07/10/24 20:00 125/63 07/10/24 20:00 125/63 07/10/24 20:00 125/63 07/10/24 19:48 105 H 20 97 07/10/24 19:45 112 H 18 95 07/10/24 19:45 117/67 07/10/24 19:45 117/67 07/10/24 19:39 102 H 13 95 07/10/24 19:30 120/76 07/10/24 19:27 113 H 23 97 Coding Level of Care Code 42519 SUB INP/OBS CARE MIN Diagnoses Cellulitis of left foot L03.116 Diabetic ulcer of left midfoot associated with type 2 diabetes mellitus, with necrosis of muscle E11.621; L97.423 Diabetic foot ulcer location: midfoot Diabetes mellitus type: type 2 Diabetes mellitus with peripheral artery disease E11.51 Peripheral vascular disease due to secondary diabetes E13.51 (2) Diabetic ulcer of left foot with necrosis of muscle Diabetic foot ulcer location: midfoot Diabetes mellitus type: type 2 Qualified Code(s): E11.621 - Type 2 diabetes mellitus with foot ulcer; L97.423 - Non-pressure chronic ulcer of left heel and midfoot with necrosis of muscle
--- NOTE | 2024-07-11 07:37 | Hospitalist Progress Note ---
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 Patent R WILLIE and bilateral IIA, EIA, INSTALLATION HELPER, SFA and profunda Underwent fem to femoral bypass on 07/10/2024 Wound culture growing Staph aureus and and anaerococcus hydrogenalis Patient transferred to ICU after OR after he was found to be hypotensive; requiring vasopressors and IV fluid support. Estimated blood loss of about 1000 mL. Management of vasopressors as per ICU;; Given 3 packed RBCs Plan for possible transmetatarsal amputation next few days as per podiatry Continue on zoysn Continue on aspirin and liptor and plavix (4) Hypertension associated with diabetes: Plan: On lisinopril; will hold give hypotension (5) Diabetes mellitus with peripheral artery disease: Plan: On insulin drip while he in the ICU Plan Full code DVT prophylaxis heparin Time spent evaluating patient, direct bedside care, chart review, placing orders, interpretation of diagnostic studies, discussion with consultants, patient, and family members, as well as other required patient management activities is 50 minutes Please note the above document was generated using voice recognition software. It may contain grammatical, syntax or spelling errors. Any formal questions or concerns about the content, text or information contained within the body of this dictation should be directly addressed to the provider for clarification Admission and Anticipated Discharge Date Admission Date: July 03, 2024 Subjective Patient seen and examined at bedside. He is comfortably lying in the bed; not in distress. He is alert oriented x 3. He is requiring Levophed for vasopressor support. Review of Systems Review of Systems: All systems reviewed & are unremarkable except as noted in Subjective Physical Exam Physical Exam: Constitutional: Alert oriented x 3; not in distress. Respiratory: normal respiratory effort, lungs clear to auscultation, no wheeze, rales, rhonchi. 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 Neurologic: PERRL, EOMI, accommodation nl, no face palsy, no dysarthria CN's II- XI intact bilaterally and moves all extremities Results & Data Results & Data Vital Signs (Past 12 Hours) Vital Signs Temp Pulse Resp BP Pulse Ox O2 Del Method O2 Flow Rate 07/11/24 07:30 36.4 C L 80 18 107/64 97 07/11/24 07:15 36.3 C L 75 19 116/53 L 93 07/11/24 06:58 36.5 C 64 18 118/59 L 98 07/11/24 05:00 63 19 96 07/11/24 05:00 132/57 L 07/11/24 05:00 132/57 L 07/11/24 04:30 64 16 98 07/11/24 04:30 136/63 07/11/24 04:00 140/63 07/11/24 04:00 140/63 07/11/24 04:00 72 14 98 07/11/24 04:00 65 129/65 07/11/24 03:33 60 20 98 07/11/24 03:30 138/57 L 07/11/24 03:18 66 22 98 07/11/24 03:03 68 17 97 07/11/24 03:00 134/70 07/11/24 03:00 134/70 07/11/24 02:51 65 22 99 07/11/24 02:30 65 20 96 07/11/24 02:30 129/65 07/11/24 02:03 68 19 95 07/11/24 02:00 138/54 L 07/11/24 01:45 75 24 86 L 07/11/24 01:36 66 21 92 07/11/24 01:30 143/62 H 07/11/24 01:27 71 21 94 07/11/24 01:09 73 16 97 07/11/24 00:36 68 18 96 07/11/24 00:30 130/65 07/11/24 00:30 130/65 07/11/24 00:30 130/65 07/11/24 00:18 74 20 96 07/11/24 00:03 85 19 98 07/11/24 00:00 138/68 07/11/24 00:00 138/68 07/10/24 23:57 78 21 90 07/10/24 23:51 65 22 96 07/10/24 23:43 85 07/10/24 23:30 129/61 07/10/24 23:18 83 20 89 L 07/10/24 23:15 83 21 93 07/10/24 22:33 87 22 97 07/10/24 22:30 143/60 H 07/10/24 22:30 143/60 H 07/10/24 22:21 87 20 93 07/10/24 22:06 91 H 20 96 07/10/24 22:04 Nasal Cannula 4 07/10/24 21:57 92 H 20 93 07/10/24 21:45 146/70 H 07/10/24 21:45 97 H 20 96 07/10/24 21:30 139/63 07/10/24 21:30 139/63 07/10/24 21:24 99 H 23 95 07/10/24 21:15 124/58 L 07/10/24 21:12 102 H 21 90 07/10/24 21:03 100 H 19 98 07/10/24 21:00 113/59 L 07/10/24 21:00 113/59 L 07/10/24 20:51 99 H 20 93 07/10/24 20:45 118/61 07/10/24 20:39 101 H 20 94 07/10/24 20:30 140/72 07/10/24 20:24 107 H 22 97 07/10/24 20:15 140/69 07/10/24 20:15 140/69 07/10/24 20:15 140/69 07/10/24 20:15 140/69 07/10/24 20:12 105 H 19 96 07/10/24 20:06 100 H 19 96 07/10/24 20:00 125/63 07/10/24 20:00 125/63 07/10/24 20:00 125/63 07/10/24 20:00 125/63 07/10/24 19:48 105 H 20 97 07/10/24 19:45 112 H 18 95 07/10/24 19:45 117/67 07/10/24 19:45 117/67 07/10/24 19:39 102 H 13 95
--- NOTE | 2024-07-11 07:54 | Critical Care Progress Note ---
Date of Service July 11, 2024 Assessment & Plan (1) Diabetic foot infection: (2) Insulin-requiring or dependent type II diabetes mellitus: (3) Peripheral vascular disease due to secondary diabetes: (4) Hypertension associated with diabetes: (5) Diabetes mellitus with peripheral artery disease: Plan Keith is 84-year-old male admitted with diabetic foot ulcer status post femoral-femoral bypass due to obstruction at left inguinal artery. 1 L blood loss intraoperatively. Patient was hypotensive perioperatively with focused ultrasound suggesting volume depletion. Central line placed. Lactic acidosis identified. Pt was started on norepi and given IVF, albumin, and bicarb. Today, his BP and MAP are improved. Acidosis is resolving. Recommendations: 1. Neurologic: Pt is A&O x 3. Pt is at risk for delirium. Will continue to monitor. Pain is controlled as per vascular surgery. 2. Cardiovascular: Pt continues on 0.03mcg/kg/hr of noriepi and did not tolerate stoppage. Will continue IV norepi, and add midodrine. Continue weaning from pressors. Holding home BP meds. Pt also had Hbg drop from 13.3 to 9.2 this morning and continued concern for pt to maintain volume. 1 unit of pRBCs given. Continue LR at 125mls/hr. Continue corticosteroids. Will recheck H & H 2 hr following infusion. Echocardiogram without significant cardiac structural issues. Troponin is stable at this time, lactate down trended yesterday. Will follow as needed 3. Pulmonary: No active issues. Pt maintaining O2 sat > 90% without supplemental O2 this morning. Due to noted upper lung field expiratory wheezing and and noted aspiration of eggs at breakfast, consider chest XR of pt's O2 drops below 90% 4. ID: Diabetic foot ulcer found to have MSSA. Currently on Zosyn, but likely to have good coverage with Unisyn. Podiatry following 5. Renal: Kidney function at baseline. Potassium, calcium, and phos low this morning- replaced. Continue to monitor with AM labs. 6. Endocrine: Diabetes with hyperglycemia. Pt on insulin drip with BSG ranging 311-127 downtrending since last night. Plan to stop insulin drip and return to basal insulin and aspart on sliding scale when pt is able to wean from pressors. Wean corticosteroid when BPs are stable 7. Heme-onc: Acute blood loss anemia. Hemoglobin dropped significantly overnight. Pt received 1 unit this AM, planning to recheck H&H. Will trend continue to trend and transfuse as appropriate 8. GI: Due to choking this morning, pt's diet changed to minced and moist. Continue home dose of PPI 9. : Remove weems to decrease risk of infection after pressors are stopped. Admission and Anticipated Discharge Date Admission Date: July 03, 2024 Supervising Physician Co-Signing Physician Notes Patient seen and examined. EMR reviewed. Discussed with bedside critical care nurse and overnight critical care HALINA as well as with family practice resident. Patient was reviewed on multidisciplinary rounds. Agree with assessment plan as noted. Overall the patient is improved. His pressor requirement is decreased. CVP remains low likely consistent with hypovolemic underfilled ventricle. Lactate is clearing and acid-base status is improved. Has persistent respiratory alkalosis this morning. Echocardiogram reviewed and unrevealing with the exception of stage I diastolic dysfunction Return antibiotics to Unasyn which would provide adequate anaerobic coverage as well as coverage for the methicillin sensitive Staph aureus identified. Defer duration of antibiotics to podiatry and primary admitting service Anticoagulation per vascular surgery. Blood counts appear stable. Will discontinue Weems catheter once the patient is off pressors. Continue stress dose steroids for relative adrenal insufficiency. Start midodrine and follow clinically. Replace calcium. Arterial line may not be providing accurate data so may need to go based on cuff pressures. Do not feel it needs to be replaced at this point in time. Disposition per vascular surgery Subjective Pt had not acute events over night. this morning, Pt was coughing after choking on scrambled eggs this morning. He reports that he is feeling ok this morning. Denies significant left foot pain. Denies CP, SOB, nausea or abdominal pain, headache or dizziness. Review of Systems Review of Systems: As per HPI Physical Exam Constitutional: well nourished; no acute distress Alert and oriented x 3 ENMT: external ear and nose normal, oropharynx normal Respiratory: normal respiratory effort Auscultation: + wheezes (expiratory at bilateral upper lung bejarano) Cardiovascular: Rate/Rhythm: regular rate and regular rhythm Heart Sounds: normal S1 and normal S2; no murmur Extremities: + edema (left foot) Gastrointestinal (Abdomen): normal bowel sounds, soft, nontender, no hepatosplenomegaly Skin: Left foot is erythematous and swollen. Bandage covering wound. Groin incision covered with wound vac Neurologic: PERRL, EOMI, accommodation nl, no face palsy, no dysarthria Results & Data Results & Data Vital Signs (Past 12 Hours) Vital Signs Temp Pulse Resp BP Pulse Ox O2 Del Method O2 Flow Rate 07/11/24 07:30 36.4 C L 80 18 107/64 97 07/11/24 07:15 36.3 C L 75 19 116/53 L 93 07/11/24 06:58 36.5 C 64 18 118/59 L 98 07/11/24 05:00 63 19 96 07/11/24 05:00 132/57 L 07/11/24 05:00 132/57 L 07/11/24 04:30 64 16 98 07/11/24 04:30 136/63 07/11/24 04:00 140/63 07/11/24 04:00 140/63 07/11/24 04:00 72 14 98 07/11/24 04:00 65 129/65 07/11/24 03:33 60 20 98 07/11/24 03:30 138/57 L 07/11/24 03:18 66 22 98 07/11/24 03:03 68 17 97 07/11/24 03:00 134/70 07/11/24 03:00 134/70 07/11/24 02:51 65 22 99 07/11/24 02:30 65 20 96 07/11/24 02:30 129/65 07/11/24 02:03 68 19 95 07/11/24 02:00 138/54 L 07/11/24 01:45 75 24 86 L 07/11/24 01:36 66 21 92 07/11/24 01:30 143/62 H 07/11/24 01:27 71 21 94 07/11/24 01:09 73 16 97 07/11/24 00:36 68 18 96 07/11/24 00:30 130/65 07/11/24 00:30 130/65 07/11/24 00:30 130/65 07/11/24 00:18 74 20 96 07/11/24 00:03 85 19 98 07/11/24 00:00 138/68 07/11/24 00:00 138/68 07/10/24 23:57 78 21 90 07/10/24 23:51 65 22 96 07/10/24 23:43 85 07/10/24 23:30 129/61 07/10/24 23:18 83 20 89 L 07/10/24 23:15 83 21 93 07/10/24 22:33 87 22 97 07/10/24 22:30 143/60 H 07/10/24 22:30 143/60 H 07/10/24 22:21 87 20 93 07/10/24 22:06 91 H 20 96 07/10/24 22:04 Nasal Cannula 4 07/10/24 21:57 92 H 20 93 07/10/24 21:45 146/70 H 07/10/24 21:45 97 H 20 96 07/10/24 21:30 139/63 07/10/24 21:30 139/63 07/10/24 21:24 99 H 23 95 07/10/24 21:15 124/58 L 07/10/24 21:12 102 H 21 90 07/10/24 21:03 100 H 19 98 07/10/24 21:00 113/59 L 07/10/24 21:00 113/59 L 07/10/24 20:51 99 H 20 93 07/10/24 20:45 118/61 07/10/24 20:39 101 H 20 94 07/10/24 20:30 140/72 07/10/24 20:24 107 H 22 97 07/10/24 20:15 140/69 07/10/24 20:15 140/69 07/10/24 20:15 140/69 07/10/24 20:15 140/69 07/10/24 20:12 105 H 19 96 07/10/24 20:06 100 H 19 96 07/10/24 20:00 125/63 07/10/24 20:00 125/63 07/10/24 20:00 125/63 07/10/24 20:00 125/63
--- NOTE | 2024-07-11 09:25 | XCELERA ---
[id number] \\[id number]
[2024-07-11 10:00] LABS: iSTAT Art Bld Gas pCO2 Correct 33 mmHg (35-46); iSTAT Art Bld Gas pH Corrected 7.435 (7.35-7.45); iSTAT Arterial Blood Gas HCO3 22 meg/L (19-24); iSTAT Arterial Blood Gas pCO2 33 mmHg (35-46); iSTAT Arterial Blood Gas pH 7.43 (7.35-7.45); iSTAT Arterial Blood Gas pO2 79 mmHg (80-95); iSTAT Arterial Blood Gas pO2 C 76; iSTAT Carbon Dioxide 23 mmol/L (24-31); iSTAT Hematocrit 28 % (42-52); iSTAT Hemoglobin 9.5 g/dl (14.0-18.0); iSTAT Potassium 3.5 mmol/L (3.3-5.0); iSTAT Sample Type Arterial; iSTAT Site Art Line; iSTAT Sodium 139 mmol/L (135-144); iSTAT SpO2 97
[2024-07-11] MEDS: ALBUMIN 25% 25 GM/100 ML VIAL IV SCH (10:51)
[2024-07-11] MEDS: CALCIUM CHLORIDE 10% 1,000 MG in DEXTROSE 5% 50 ML IV STA (10:52)
[2024-07-11] MEDS: MIDODRINE HCL 2.5 MG TAB PO SCH (10:52)
--- NOTE | 2024-07-11 11:14 | Billing Data ---
Date of Service July 11, 2024 Coding Level of Care Code 19820 SUB INP/OBS CARE
[2024-07-11] MEDS: AMPICILLIN/SULBACTAM SOD 3,000 MG/100 ML BAG IV SCH (12:10)
--- NOTE | 2024-07-11 13:37 | Pharmacy Report ---
Pharmacy Glycemic Short Note 2 - Date of Service July 11, 2024 - Glycemic Short BSG Results (Last 24 hours): 07/10/24 07/10/24 07/10/24 15:32 16:11 20:20 Glucose 371 H* POC Glucose 258 H POC Glucose (other) 365 H* 07/10/24 07/10/24 07/11/24 22:08 23:01 00:00 Glucose POC Glucose POC Glucose (other) 311 H 282 H 263 H 07/11/24 07/11/24 07/11/24 01:05 02:05 03:10 Glucose POC Glucose POC Glucose (other) 243 H 224 H 205 H 07/11/24 07/11/24 07/11/24 04:03 04:20 05:07 Glucose 178 H POC Glucose POC Glucose (other) 183 H 159 H 07/11/24 07/11/24 07/11/24 06:06 07:07 08:25 Glucose POC Glucose POC Glucose (other) 138 H 127 H 126 H 07/11/24 07/11/24 09:32 11:35 Glucose POC Glucose 116 H POC Glucose (other) 129 H OUTPATIENT ANTIDIABETIC REGIMEN: * Novolin-N Flexpen 48-50 units in AM, Glipizide ER 10mg AM, Metformin ER 500mg HS * A1c 8.8% (eAG 206) on 07/03/24 ASSESSMENT: * Patient admitted to the ICU requiring pressors following femoral bypass. Patient received 8 mg IV dexamethasone and is currently receiving hydrocortisone 50 mg q6H in addition to low dose norepinephrine. * Patient received 25 units of lantus and 12 units of novolog prior to initiation of insulin infusion. * Anticipate requirements to decrease after dexamethasone wears off. Insulin infusion has been running at 4.2 units/hr within goal range. * Discussed at multidisciplinary rounds, will continue with insulin infusion at this time given fluctuating pressor needs PLAN FOR INPATIENT GLYCEMIC CONTROL: * Hold outpatient oral diabetes medications * Continue insulin infusion to maintain goal 110-180 mg/dL
--- NOTE | 2024-07-11 13:46 | Surgery Progress Note ---
Date of Service July 11, 2024 Assessment & Plan (1) S/P vascular surgery: Plan: Patient doing well post op. Continue present care. (2) Acute blood loss as cause of postoperative anemia: Plan: There was significant blood loss during surgery. Hgb of 13 had to be a false reading. He normally runs 10 to 11. Will follow serial hgb. Admission and Anticipated Discharge Date Admission Date: July 03, 2024 Subjective Patient claims foot feels better. Physical Exam Constitutional: WD/WN, vitals as above Respiratory: normal respiratory effort; no respiratory distress Cardiovascular: Rate/Rhythm: regular rate and regular rhythm Skin: + incision (no complications) Neurologic: CN's II-XI intact bilaterally and moves all extremities Psychiatric: A+Ox3, euthymic affect Results & Data Vital Signs (Past 12 Hours) Vital Signs Temp Pulse Resp BP Pulse Ox O2 Del Method 07/11/24 12:17 36.6 C 07/11/24 12:09 80 17 97 07/11/24 12:00 117/46 L 07/11/24 11:56 89/54 L 07/11/24 11:54 71 17 95 07/11/24 11:33 73 18 96 07/11/24 11:30 143/61 H 07/11/24 11:18 67 20 96 07/11/24 11:00 71 19 96 07/11/24 11:00 125/63 07/11/24 10:54 114/54 L 07/11/24 10:48 116/54 L 07/11/24 10:42 64 18 96 07/11/24 10:39 61 19 95 07/11/24 10:37 121/50 L 07/11/24 10:30 123/49 L 07/11/24 10:12 60 21 94 07/11/24 10:06 62 19 95 07/11/24 10:00 107/44 L 07/11/24 09:54 62 21 96 07/11/24 09:32 90/45 L 07/11/24 09:32 90/45 L 07/11/24 09:30 67 19 07/11/24 09:25 36.6 C 78 18 105/50 L 95 07/11/24 09:00 36.5 C 60 18 125/55 L 92 07/11/24 08:00 Room Air 07/11/24 08:00 36.5 C 62 15 107/64 93 07/11/24 07:30 36.4 C L 80 18 107/64 97 07/11/24 07:15 36.3 C L 75 19 116/53 L 93 07/11/24 06:58 36.5 C 64 18 118/59 L 98 07/11/24 05:00 63 19 96 07/11/24 05:00 132/57 L 07/11/24 05:00 132/57 L 07/11/24 04:30 64 16 98 07/11/24 04:30 136/63 07/11/24 04:00 140/63 07/11/24 04:00 140/63 07/11/24 04:00 72 14 98 07/11/24 04:00 65 129/65 07/11/24 03:33 60 20 98 07/11/24 03:30 138/57 L 07/11/24 03:18 66 22 98 07/11/24 03:03 68 17 97 07/11/24 03:00 134/70 07/11/24 03:00 134/70 07/11/24 02:51 65 22 99 07/11/24 02:30 65 20 96 07/11/24 02:30 129/65 07/11/24 02:03 68 19 95 07/11/24 02:00 138/54 L 07/11/24 01:45 75 24 86 L
[2024-07-12] MEDS: GLUCOSE 40% GEL 15 GM TUBE PO PRN (00:15)
[2024-07-12 05:13] LABS: Basophils # (auto) 0.03 K/uL (0.00-0.20); Basophils % (auto) 0.2 %; Hematocrit (blood only) 26.8 % (42.0-52.0); Hemoglobin 9.3 g/dl (14.0-18.0); Immature Granulocytes # (auto) 0.07 K/uL (0.01-0.20); Immature Granulocytes % (auto) 0.5 %; Lymphocytes # (auto) 0.82 K/uL (1.20-3.40); Lymphocytes % (auto) 5.9 %; Mean Corpuscular Hemoglobin 29.4 pg (25.0-34.0); Mean Corpuscular Hgb Conc 34.7 g/dL (32.0-36.0); Mean Corpuscular Volume 84.8 fL (80.0-100.0); Mean Platelet Volume 10.4 fL (9.4-12.4); Monocytes # (auto) 0.64 K/uL (0.11-0.59); Monocytes % (auto) 4.6 %; Neutrophils # (auto) 12.31 K/uL (1.40-6.50); Neutrophils % (auto) 88.8 %; Platelet Count 142 K/uL (130-400); RDW Coefficient of Variation 15.1 % (11.5-14.5); RDW Standard Deviation 45.9 fL (36.4-46.3); Red Blood Count 3.16 M/uL (4.70-6.10); White Blood Count 13.87 K/ul (4.8-10.8)
[2024-07-12 05:25] LABS: BUN Creatinine Ratio 18.5 (10-20); Calcium 7.6 mg/dl (8.6-10.3); Creatinine Clr Calc Pharmacy 67.9 ml/min; Magnesium 2.2 mg/dl (1.7-2.4); Phosphorus 2.3 mg/dl (2.5-4.9); Potassium 3.3 mmol/L (3.5-5.1)
[2024-07-12] MEDS: POTASSIUM CHLORIDE CRTAB 20 MEQ TABCR PO SCH (06:13)
[2024-07-12] MEDS: POT PHOSPHATE MONOBASIC W/ SOD TAB PO SCH (06:13)
--- NOTE | 2024-07-12 07:39 | Critical Care Progress Note ---
Date of Service July 12, 2024 Assessment & Plan (1) Diabetic foot infection: (2) Insulin-requiring or dependent type II diabetes mellitus: (3) Peripheral vascular disease due to secondary diabetes: (4) Hypertension associated with diabetes: (5) Diabetes mellitus with peripheral artery disease: Plan Keith is 84-year-old male admitted with diabetic foot ulcer status post femoral-femoral bypass due to obstruction at left inguinal artery. Acute blood loss causing hypovolumic shock and lactic acidosis requiring pressors for hemodynamic control. Pt's BP began to stabilize yesterday and was hemodynamically stable to pressors yesterday afternoon. Pt will be ready to downgrade to med tele today. Recommendations: 1. Neurologic: Pt is A&O x 2 with more confusion this morning as compared to yesterday. Pt is at risk for delirium. Plan to stop opioid pain meds in favor of Tylenol for pain control. 2. Cardiovascular: BP is stable and mildly elevated this morning. Plan to stop midodrine and resume home BP meds of amlodipine 10mg and lisinopril 40mg qhs. Reduce corticosteroids to 50mg Q12h. Hbg is stable, will continue to monitor. 3. Pulmonary: No active issues. Pt maintaining O2 sat > 90% during waking hours without supplemental O2. Hypoxic event over night maybe due to sleep apnea. Recommended testing and treatment in outpatient setting. 4. ID: Diabetic foot ulcer found to have MSSA. Currently on IV Unisyn. Podiatry following. Will defer to podiatry for abx regimen 5. Renal: Kidney function at baseline. Potassium, calcium, and phos low this morning- replaced. Continue to monitor with AM labs. 6. Endocrine: DMT2. Due to stoppage of pressures and hypoglycemic event overnight, plan to DC insulin drip and resume SQ aspart on sliding scale per pharmacy recommendation. Relative adrenal insufficiency. Reduced corticosteroid as above for stabilized BP. 7. Heme-onc: Acute blood loss anemia is able with Hbg stable at 9.3. Baseline Hbg is 10. Will trend continue to trend and transfuse as appropriate. Started antiplatelets clopidogrel 75mg and aspirin 81mg 8. GI: No new episodes of choking since breakfast yesterday morning. No need for ST swallow evaluation at this time. Continue diabetic diet with minced and moist texture. Continue home dose of PPI 9. : Noted edema at penis and scrotum. Ordered one dose lasix 20mg. Will consider scheduled if pt continues with edema. Remove weems to decrease risk of infection Admission and Anticipated Discharge Date Admission Date: July 03, 2024 Supervising Physician Co-Signing Physician Notes Patient seen and examined. EMR reviewed. Discussed with overnight critical care HALINA as well as with family practice resident and on multidisciplinary rounds. The patient has improved significantly clinically. He is now off pressors. Will discontinue midodrine and commence taper of steroids to off over the next 3 days. Discontinue Florinef. Diuresis initiated given his significant resuscitation. Continue antibiotics under the direction of podiatry. Out of bed to chair. Discontinue Weems. PT and OT evaluations. The patient's critical care issues have resolved. He can transfer to the floor. Additional management per hospitalist services. Critical care signing off. Feel free to contact us with questions or concerns Subjective Overnight, pt had a hypoglycemic event and short hypoxic event while sleeping. Both were resolved. This morning, Pt reports feeling well without mild to moderate pain at his bilateral groin, but no pain at left foot. Review of Systems Review of Systems: As per HPI Physical Exam Constitutional: well nourished; no acute distress ENMT: external ear and nose normal, oropharynx normal Respiratory: normal respiratory effort Auscultation: lungs clear to auscultation bilaterally Cardiovascular: Rate/Rhythm: regular rate and regular rhythm Heart Sounds: normal S1 and normal S2; no murmur Extremities: normal capillary refill (Doppler + for pulses at B posterior tib and dosalis pedis) and + edema (left foot. ) Gastrointestinal (Abdomen): normal bowel sounds, soft, nontender, no hepatosplenomegaly Skin: Surgical incisions at bilateral groin with wound vac in place. Bloody drainage at left, not drainage at right Neurologic: PERRL, EOMI, accommodation nl, no face palsy, no dysarthria Psychiatric: A&O x 2, confusion regarding place. Some tangential speech noted today Genitourinary: + edematous penis and + edematous scrotu m Results & Data Results & Data Vital Signs (Past 12 Hours) Vital Signs Pulse Resp BP Pulse Ox O2 Del Method 07/12/24 04:00 60 136/57 L 07/12/24 03:33 78 21 134/52 L 95 07/12/24 03:09 70 22 86 L 07/12/24 03:00 140/62 07/12/24 02:45 60 22 91 07/12/24 02:42 70 23 90 07/12/24 02:41 136/65 07/12/24 02:30 139/68 07/12/24 02:06 63 15 88 L 07/12/24 01:42 72 20 92 07/12/24 01:00 73 23 93 07/12/24 01:00 146/62 H 07/12/24 00:30 136/62 07/12/24 00:06 65 26 H 94 07/12/24 00:00 139/63 07/12/24 00:00 66 07/11/24 23:15 69 25 H 94 07/11/24 22:30 120/62 07/11/24 22:09 80 21 94 07/11/24 22:00 133/68 07/11/24 21:06 76 20 93 07/11/24 21:00 107/45 L 94 07/11/24 20:30 69 23 95 07/11/24 20:30 142/53 H 07/11/24 20:00 69 22 131/53 L 93 07/11/24 20:00 Room Air 07/11/24 20:00 80 106/51 L
[2024-07-12] MEDS: ACETAMINOPHEN 325 MG TAB PO PRN (08:34)
[2024-07-12] MEDS: LANTUS PER UNIT CHARGE SC ONE (08:41)
[2024-07-12] MEDS: FUROSEMIDE 20 MG TAB PO ONE (08:50)
[2024-07-12] MEDS: amLODIPine BESYLATE 5 MG TAB PO SCH (08:50)
--- NOTE | 2024-07-12 10:42 | Billing Data ---
Date of Service July 12, 2024 Coding Level of Care Code 32620 SUB INP/OBS CARE
--- NOTE | 2024-07-12 10:48 | Surgery Progress Note ---
Date of Service July 12, 2024 Assessment & Plan (1) S/P vascular surgery: Plan: Patient doing well post op. Continue present care. (2) Acute blood loss as cause of postoperative anemia: Plan: There was significant blood loss during surgery, now stable near baseline. Admission and Anticipated Discharge Date Admission Date: July 03, 2024 Subjective 84 yo m s/p R to L fem fem BPG, seen in f/u today. Pt states feeling ok, pain well controlled. anxious to get OOB. Review of Systems Review of Systems: All systems reviewed & are unremarkable except as noted in HPI & below Physical Exam Constitutional: WD/WN, vitals as above Respiratory: normal respiratory effort, lungs clear to auscultation normal respiratory effort; no respiratory distress Cardiovascular: RRR, no murmur, no edema Rate/Rhythm: regular rate and r egular rhythm Vessels: femoral pulses present and radial pulses present; + posterior tibial pulses abnormal and + dorsalis pedis pulses abnormal Extremities: + abnormal capillary refill Gastrointestinal (Abdomen): Inspection/Auscultation: abdomen normal to inspection Percussion/Palpation: abdomen soft; abdomen nontender Skin: + incision (no complications) Neurologic: CN's II-XI intact bilaterally and moves all extremities Psychiatric: A+Ox3, euthymic affect Results & Data Vital Signs (Past 12 Hours) Vital Signs Temp Pulse Resp BP Pulse Ox O2 Del Method 07/12/24 10:00 70 19 92 07/12/24 10:00 144/68 H 07/12/24 09:30 68 20 07/12/24 09:30 139/57 L 07/12/24 09:06 72 20 96 07/12/24 09:00 162/70 H 07/12/24 08:30 131/62 07/12/24 08:30 75 18 97 07/12/24 08:21 36.3 C L 07/12/24 08:00 165/71 H 07/12/24 08:00 89 24 95 07/12/24 08:00 Room Air 07/12/24 07:31 159/73 H 07/12/24 07:18 73 22 97 07/12/24 07:15 79 20 96 07/12/24 07:05 91/70 L 07/12/24 04:00 60 136/57 L 07/12/24 03:33 78 21 134/52 L 95 07/12/24 03:09 70 22 86 L 07/12/24 03:00 140/62 07/12/24 02:45 60 22 91 07/12/24 02:42 70 23 90 07/12/24 02:41 136/65 07/12/24 02:30 139/68 07/12/24 02:06 63 15 88 L 07/12/24 01:42 72 20 92 07/12/24 01:00 73 23 93 07/12/24 01:00 146/62 H 07/12/24 00:30 136/62 07/12/24 00:06 65 26 H 94 07/12/24 00:00 139/63 07/12/24 00:00 66 07/11/24 23:15 69 25 H 94
[2024-07-12] MEDS: INSULIN ASPART PER UNIT CHARGE SC SCH (11:43)
--- NOTE | 2024-07-12 11:58 | Hospitalist Progress Note ---
Date of Service July 12, 2024 Assessment & Plan (1) Diabetic foot infection: (2) Insulin-requiring or dependent type II diabetes mellitus: (3) Acute blood loss as cause of postoperative anemia: (4) Peripheral vascular disease due to secondary diabetes: Plan: Presented with diabetic foot and toe ulceration with gangrene on the left side Complicated by peripheral arterial disease Status post debridement of the left foot wound on 07/04 Patient underwent bilateral iliac angiogram on 07/08; 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 Patent R WILLIE and bilateral IIA, EIA, COLORER MACHINE, SFA and profunda Underwent fem to femoral bypass on 07/10/2024 Wound culture growing Staph aureus and and anaerococcus hydrogenalis Patient transferred to ICU after OR after he was found to be hypotensive; requiring vasopressors and IV fluid support. Estimated blood loss of about 1000 mL. Management of vasopressors as per ICU;; Given 3 packed RBCs Transferred out of ICU on 07/12/2024 Plan for possible transmetatarsal amputation on 07/15/2024 Continue on Unasyn until definitive management is done with surgery next week Continue on aspirin and liptor and plavix Wean off stress dose steroids (5) Hypertension associated with diabetes: Plan: On lisinopril; ; Will resume if blood pressure continues to rise. Also on aml odipine continue. (6) Diabetes mellitus with peripheral artery disease: Plan: Continue on subcu insulin Maintain hypoglycemia protocol Plan Full code DVT prophylaxis heparin Time spent evaluating patient, direct bedside care, chart review, placing orders, interpretation of diagnostic studies, discussion with consultants, patient, and family members, as well as other required patient management activities is 50 minutes Please note the above document was generated using voice recognition software. It may contain grammatical, syntax or spelling errors. Any formal questions or concerns about the content, text or information contained within the body of this dictation should be directly addressed to the provider for clarification Admission and Anticipated Discharge Date Admission Date: July 03, 2024 Subjective Patient seen and examined at bedside. He is sitting up on bed; not in distress Denies any pain or discomfort. Denies fever, chills, chest pain or shortness of breath. Hemodynamically stable; off vasopressors Review of Systems Review of Systems: All systems reviewed & are unremarkable except as noted in Subjective Physical Exam Physical Exam: Constitutional: Alert oriented x 3; not in distress. Respiratory: normal respiratory effort, lungs clear to auscultation, no wheeze, rales, rhonchi. 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 Neurologic: PERRL, EOMI, accommodation nl, no face palsy, no dysarthria CN's II- XI intact bilaterally and moves all extremities Results & Data Results & Data Vital Signs (Past 12 Hours) Vital Signs Temp Pulse Resp BP Pulse Ox O2 Del Method 07/12/24 11:36 36.4 C L 07/12/24 11:30 142/60 H 07/12/24 11:03 65 15 95 07/12/24 11:00 129/64 07/12/24 10:42 64 15 96 07/12/24 10:33 62 20 95 07/12/24 10:00 70 19 92 07/12/24 10:00 144/68 H 07/12/24 09:30 68 20 07/12/24 09:30 139/57 L 07/12/24 09:06 72 20 96 07/12/24 09:00 162/70 H 07/12/24 08:30 131/62 07/12/24 08:30 75 18 97 07/12/24 08:21 36.3 C L 07/12/24 08:00 165/71 H 07/12/24 08:00 89 24 95 07/12/24 08:00 Room Air 07/12/24 07:31 159/73 H 07/12/24 07:18 73 22 97 07/12/24 07:15 79 20 96 07/12/24 07:05 91/70 L 07/12/24 04:00 60 136/57 L 07/12/24 03:33 78 21 134/52 L 95 07/12/24 03:09 70 22 86 L 07/12/24 03:00 140/62 07/12/24 02:45 60 22 91 07/12/24 02:42 70 23 90 07/12/24 02:41 136/65 07/12/24 02:30 139/68 07/12/24 02:06 63 15 88 L 07/12/24 01:42 72 20 92 07/12/24 01:00 73 23 93 07/12/24 01:00 146/62 H 07/12/24 00:30 136/62 07/12/24 00:06 65 26 H 94 07/12/24 00:00 139/63 07/12/24 00:00 66
--- NOTE | 2024-07-12 12:30 | Pharmacy Report ---
Pharmacy Glycemic Short Note 2 - Date of Service July 12, 2024 - Glycemic Short BSG Results (Last 24 hours): 07/11/24 07/11/24 07/12/24 16:13 20:12 00:06 Glucose POC Glucose 123 H 120 H 58 L* 07/12/24 07/12/24 07/12/24 00:07 00:31 01:04 Glucose POC Glucose 60 L* 71 115 H 07/12/24 07/12/24 07/12/24 01:35 02:41 04:02 Glucose POC Glucose 144 H 160 H 156 H 07/12/24 07/12/24 07/12/24 04:44 04:50 05:58 Glucose 156 H POC Glucose 164 H 133 H 07/12/24 07/12/24 07/12/24 07:08 09:06 09:58 Glucose POC Glucose 137 H 200 H 191 H 07/12/24 07/12/24 10:59 11:31 Glucose POC Glucose 162 H 142 H OUTPATIENT ANTIDIABETIC REGIMEN: * Novolin-N Flexpen 48-50 units in AM, Glipizide ER 10mg AM, Metformin ER 500mg HS * A1c 8.8% (eAG 206) on 07/03/24 ASSESSMENT: 07/12 * Patient has been weaned off pressors. Hypoglycemic event on insulin drip last night, resolved with decrease in insulin drip rate. * Will transition to basal/bolus. Given 20 units of lantus this morning and transitioned off insulin drip at lunch. * Patient is tolerating diet- will begin weight stress of 2 novolog 07/11 * Patient admitted to the ICU requiring pressors following femoral bypass. Patient received 8 mg IV dexamethasone and is currently receiving hydrocortisone 50 mg q6H in addition to low dose norepinephrine. * Patient received 25 units of lantus and 12 units of novolog prior to initiation of insulin infusion. * Anticipate requirements to decrease after dexamethasone wears off. Insulin infusion has been running at 4.2 units/hr within goal range. * Discussed at multidisciplinary rounds, will continue with insulin infusion at this time given fluctuating pressor needs PLAN FOR INPATIENT GLYCEMIC CONTROL: * Hold outpatient oral diabetes medications * Basal Insulin * Lantus 20 units SQ x 1- reassess in AM * Bolus insulin * Novolog ACHS or q6H if NPO * Correction Factor 30 mg/dl/unit * Carb Ratio: 1 unit per 10 gram CHO consumed
[2024-07-12] MEDS ORDERED: HYDROCORTISONE SOD 50 MG in SYRINGE 0 ML IV SCH (18:00)
[2024-07-12] MEDS: Nursing to Pharmacy Communication SCH (22:26)
[2024-07-13 04:57] LABS: Basophils # (auto) 0.02 K/uL (0.00-0.20); Basophils % (auto) 0.2 %; Eosinophils # (auto) 0.09 K/uL (0.00-0.50); Eosinophils % (auto) 0.8 %; Hematocrit (blood only) 30.4 % (42.0-52.0); Hemoglobin 10.2 g/dl (14.0-18.0); Immature Granulocytes # (auto) 0.04 K/uL (0.01-0.20); Immature Granulocytes % (auto) 0.4 %; Lymphocytes # (auto) 2.37 K/uL (1.20-3.40); Lymphocytes % (auto) 21.6 %; Mean Corpuscular Hemoglobin 29.4 pg (25.0-34.0); Mean Corpuscular Hgb Conc 33.6 g/dL (32.0-36.0); Mean Corpuscular Volume 87.6 fL (80.0-100.0); Mean Platelet Volume 10.4 fL (9.4-12.4); Monocytes # (auto) 0.77 K/uL (0.11-0.59); Neutrophils # (auto) 7.66 K/uL (1.40-6.50); Platelet Count 142 K/uL (130-400); RDW Coefficient of Variation 15.1 % (11.5-14.5); RDW Standard Deviation 47.5 fL (36.4-46.3); Red Blood Count 3.47 M/uL (4.70-6.10); White Blood Count 10.95 K/ul (4.8-10.8)
[2024-07-13 06:07] LABS: Calcium 7.9 mg/dl (8.6-10.3); Creatinine Clr Calc Pharmacy 71.4 ml/min; Magnesium 2.1 mg/dl (1.7-2.4); Phosphorus 1.8 mg/dl (2.5-4.9); Potassium 3.6 mmol/L (3.5-5.1)
[2024-07-13] MEDS ORDERED: POTASSIUM PHOS 3 MMOL/1 ML INFUSION IV STA (07:23)
[2024-07-13] MEDS: HYDROCORTISONE SOD 50 MG in SYRINGE 0 ML IV SCH (07:40)
[2024-07-13] MEDS: POTASSIUM PHOSPHATE 15 MMOL in SODIUM CHLORIDE 0.9% 250 ML IV ONE (08:15)
[2024-07-13] MEDS: LANTUS PER UNIT CHARGE SC SCH (08:16)
--- NOTE | 2024-07-13 08:24 | Hospitalist Progress Note ---
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 Patent R WILLIE and bilateral IIA, EIA, WEDDING FLORIST, SFA and profunda Underwent fem to femoral bypass on 07/10/2024 Wound culture growing Staph aureus and and anaerococcus hydrogenalis Patient transferred to ICU after OR after he was found to be hypotensive; requiring vasopressors and IV fluid support. Estimated blood loss of about 1000 mL. Management of vasopressors as per ICU;; Given 3 packed RBCs Transferred out of ICU on 07/12/2024 Plan for possible transmetatarsal amputation on 07/15/2024 Continue on Unasyn until definitive management is done with surgery next week Continue on aspirin and liptor and plavix Wean off stress dose steroids (5) Hypertension associated with diabetes: Plan: On lisinopril; ; Will resume if blood pressure continues to rise. Also on aml odipine continue. (6) Diabetes mellitus with peripheral artery disease: Plan: Continue on subcu insulin Maintain hypoglycemia protocol Plan Full code DVT prophylaxis heparin Time spent evaluating patient, direct bedside care, chart review, placing orders, interpretation of diagnostic studies, discussion with consultants, patient, and family members, as well as other required patient management activities is 50 minutes Please note the above document was generated using voice recognition software. It may contain grammatical, syntax or spelling errors. Any formal questions or concerns about the content, text or information contained within the body of thi s dictation should be directly addressed to the provider for clarification Admission and Anticipated Discharge Date Admission Date: July 03, 2024 Subjective Patient is seen and examined at bedside. He is sitting up on the chair comfortable; not in any distress. Hemodynamically stable. No pain or discomfort. Review of Systems Review of Systems: All systems reviewed & are unremarkable except as noted in Subjective Physical Exam Physical Exam: Constitutional: Alert oriented x 3; not in distress. Respiratory: normal respiratory effort, lungs clear to auscultation, no wheeze, rales, rhonchi. 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 Neurologic: PERRL, EOMI, accommodation nl, no face palsy, no dysarthria CN's II- XI intact bilaterally and moves all extremities Results & Data Results & Data Vital Signs (Past 12 Hours) Vital Signs Temp Pulse Pulse Resp BP Pulse Ox O2 Del Method 07/13/24 03:49 36.4 C L 92 H 21 143/82 H 94 Room Air 07/12/24 23:07 75 07/12/24 22:52 36.5 C 72 12 137/59 L 96 Room Air 07/12/24 22:21 Room Air
[2024-07-14 05:00] LABS: Magnesium 2.1 mg/dl (1.7-2.4)
[2024-07-14] MEDS ORDERED: POTASSIUM PHOS 3 MMOL/1 ML INFUSION IV STA (07:52)
[2024-07-14] MEDS: POTASSIUM PHOSPHATE 21 MMOL in SODIUM CHLORIDE 0.9% 500 ML IV ONE (09:39)
--- NOTE | 2024-07-14 12:54 | Hospitalist Progress Note ---
Date of Service July 14, 2024 Assessment & Plan (1) Diabetic foot infection: Plan: Presented with diabetic foot and toe ulceration with gangrene on the left side Complicated by peripheral arterial disease Appreciate cloth piecer input and recommendation Status post debridement of the left foot wound on 07/04 Plan for possible transmetatarsal amputation on 07/15/2024 Wound culture growing Staph aureus and and anaerococcus hydrogenalis Continue on Unasyn until definitive management is done with surgery next week Denies any significant pain in the foot No fever no chills He will have possible transmetatarsal amputation tomorrow (2) Insulin-requiring or dependent type II diabetes mellitus: (3) Acute blood loss as cause of postoperative anemia: (4) Peripheral vascular disease due to secondary diabetes: Plan: Appreciated vascular surgery input and recommendation Patient underwent bilateral iliac angiogram on 07/08; 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 Patent R WILLIE and bilateral IIA, EIA, SCHOOL PSYCHOLOGY SPECIALIST, SFA and profunda Underwent fem to femoral bypass on 07/10/2024 Patient transferred to ICU after OR after he was found to be hypotensive; requiring vasopressors and IV fluid support. Estimated blood loss of about 1000 mL. Management of vasopressors as per ICU;; Given 3 packed RBCs Transferred out of ICU on 07/12/2024 Continue on aspirin and liptor and plavix Wean off stress dose steroids (5) Hypertension associated with diabetes: Plan: On lisinopril; ; Will resume if blood pressure continues to rise. Also on amlodipine continue. Blood pressure remains stable (6) Diabetes mellitus with peripheral artery disease: Plan: Continue on subcu insulin Maintain hypoglycemia protocol Plan Full code DVT prophylaxis heparin Admission and Anticipated Discharge Date Admission Date: July 03, 2024 Subjective 07/09/2024 The patient was seen and examined in medical floor He has been stable with minimal pain in the left foot Denies any chest pain, palpitation or shortness of breath No fever and no chills 07/14/2024 The patient was seen and examined in intensive care unit He is sitting on a chair without any acute distress Denies any significant pain Review of Systems Review of Systems: All systems reviewed and are unremarkable except as noted below Physical Exam Physical Exam: Sitting on a chair without any acute distress Constitutional: well developed, well nourished, + ill appearing and average body habitus Eyes: PERRL, conjunctivae normal, anicteric sclerae ENMT: external ear and nose normal, oropharynx normal Neck: trachea midline, no thyromegaly Respiratory: no respiratory distress Auscultation: lungs clear to auscultation bilaterally and + diminished lung sounds Cardiovascular: Rate/Rhythm: regular rate and regular rhythm; not tachycardic Heart Sounds: normal S1 and normal S2; no murmur Extremities: no edema ( no edema in right and 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) Gastrointestinal (Abdomen): Inspection/Auscultation: normal bowel sounds; abdomen not distended Percussion/Palpation: abdomen soft; abdomen nontender Neurologic: normal touch/pain/proprioception and moves all extremities; no focal motor deficits Lymphatic: no cervical or axillary lymphadenopathy Results & Data Results & Data Vital Signs (Past 12 Hours) Vital Signs Temp Pulse Pulse Resp BP BP Pulse Ox 07/14/24 11:26 36.5 C 07/14/24 11:20 120/57 L 97 07/14/24 11:12 65 19 07/14/24 10:15 74 19 07/14/24 08:00 89 20 96 07/14/24 08:00 36.6 C 07/14/24 07:09 76 23 136/74 07/14/24 03:47 36.5 C 76 22 144/82 H 95 O2 Del Method 07/14/24 11:26 07/14/24 11:20 Room Air 07/14/24 11:12 07/14/24 10:15 07/14/24 08:00 Room Air 07/14/24 08:00 07/14/24 07:09 07/14/24 03:47 Room Air Medications Administered Current Inpatient Medications Acetaminophen (Acetaminophen 325 Mg Tab) 650 mg PO Q4H PRN PRN Reason: Mild-Mod Pain (Scale 1-6) Stop: 08/11/24 08:10 Last Admin: 07/14/24 07:35 Dose: 650 mg Amlodipine Besylate (Amlodipine Besylate 5 Mg Tab) [facility] Stop: 08/11/24 08:59 Last Admin: 07/14/24 07:36 Dose: 10 mg Aspirin (Aspirin 81 Mg Ectab) 81 mg PO [facility] Stop: 08/02/24 20:59 Last Admin: 07/13/24 20:53 Dose: 81 mg Atorvastatin Calcium (Atorvastatin 20 Mg Tab) 20 mg PO HS [facility] Stop: 08/02/24 20:59 Last Admin: 07/13/24 20:53 Dose: 20 mg Clopidogrel Bisulfate (Clopidogrel Bisulfate 75 Mg Tab) 75 mg PO HS [facility] Stop: 08/02/24 20:59 Last Admin: 07/13/24 20:53 Dose: 75 mg Dextrose (Dextrose 50% 50 Ml Syringe) 25 - 50 ml IV UD PRN; Protocol PRN Reason: Hypoglycemia Protocol Stop: 08/02/24 03:20 Glucagon (Glucagon For Inj 1 Mg Vial) 1 mg SQ UD PRN; Protocol PRN Reason: Hypoglycemia Protocol Stop: 08/02/24 03:20 Glucose (Glucose 40% Gel 15 Gm Tube) 15 - 30 gm PO UD PRN; Protocol PRN Reason: Hypoglycemia Protocol Stop: 08/02/24 03:20 Last Admin: 07/12/24 00:15 Dose: 15 gm Glucose (Glucose 10 Tab/Tube) 4 - 8 tab PO UD PRN; Protocol PRN Reason: Hypoglycemia Protocol Stop: 08/02/24 03:20 Heparin Sodium (Beef Lung) (Heparin 10 Unit/Ml 5 Ml Flush) 5 ml FLUSH PRN PRN PRN Reason: Flush Stop: 08/10/24 03:45 Heparin Sodium (Porcine) (Heparin Sod 5,000 Unit/0.5 Ml Vial) 5,000 units SQ Q12 [facility] Stop: 08/07/24 20:59 Last Admin: 07/14/24 07:35 Dose: 5,000 units Ampicillin Sodium/Sulbactam Sodium (Unasyn) 3,000 mg in 100 mls @ 200 mls/hr IV Q6H [facility]; Protocol Stop: 07/18/24 13:59 Last Infusion: 07/14/24 08:37 Dose: Infused Insulin Aspart (Insulin Aspart Per Unit Charge) 0 units SC ACHS [facility] Stop: 08/11/24 11:29 Last Admin: 07/14/24 11:16 Dose: 4 units Insulin Glargine (Lantus Per Unit Charge) 20 units SC DAILY [facility] Stop: 08/12/24 08:59 Last Admin: 07/14/24 07:34 Dose: 20 units Lisinopril (Lisinopril 40 Mg Tab) 40 mg PO HS [facility] Stop: 08/02/24 20:59 Last Admin: 07/09/24 20:07 Dose: 40 mg Miscellaneous (Carbohydrates For Hypoglycemia ) 15 - 30 gm PO UD PRN PRN Reason: Hypoglycemia Protocol Stop: 08/02/24 03:20 Miscellaneous Information (Pharmacy Glycemic Mgmt Consult) 1 each N/A UD PRN; Protocol PRN Reason: Consult Stop: 08/09/24 17:05 Pantoprazole Sodium (Pantoprazole 40 Mg Tab) 40 mg PO BID [facility] Stop: 08/02/24 08:59 Last Admin: 07/14/24 07:36 Dose: 40 mg Polyethylene Glycol (Polyethylene (Miralax) 17 Gm Pack) 17 gm PO DAILY PRN PRN Reason: Constipation Stop: 08/02/24 03:20
[2024-07-15 06:51] LABS: Basophils # (auto) 0.05 K/uL (0.00-0.20); Basophils % (auto) 0.6 %; Eosinophils # (auto) 0.08 K/uL (0.00-0.50); Hematocrit (blood only) 34.3 % (42.0-52.0); Hemoglobin 11.2 g/dl (14.0-18.0); Immature Granulocytes # (auto) 0.06 K/uL (0.01-0.20); Immature Granulocytes % (auto) 0.7 %; Lymphocytes # (auto) 1.68 K/uL (1.20-3.40); Lymphocytes % (auto) 20.7 %; Mean Corpuscular Hemoglobin 29.3 pg (25.0-34.0); Mean Corpuscular Hgb Conc 32.7 g/dL (32.0-36.0); Mean Corpuscular Volume 89.8 fL (80.0-100.0); Mean Platelet Volume 10.3 fL (9.4-12.4); Monocytes # (auto) 0.85 K/uL (0.11-0.59); Monocytes % (auto) 10.5 %; Neutrophils # (auto) 5.38 K/uL (1.40-6.50); Neutrophils % (auto) 66.5 %; Platelet Count 191 K/uL (130-400); RDW Coefficient of Variation 15.3 % (11.5-14.5); RDW Standard Deviation 48.5 fL (36.4-46.3); Red Blood Count 3.82 M/uL (4.70-6.10)
[2024-07-15 07:09] LABS: BUN Creatinine Ratio 25.6 (10-20); Calcium 8.2 mg/dl (8.6-10.3); Creatinine Clr Calc Pharmacy 63.9 ml/min; Magnesium 2.1 mg/dl (1.7-2.4); Phosphorus 2.6 mg/dl (2.5-4.9); Potassium 4.2 mmol/L (3.5-5.1)
--- NOTE | 2024-07-15 08:14 | Podiatry Progress Note ---
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 Status post femoral to femoral bypass 07/10/2024. Transferred from ICU to [facility] 06/22/2024. Hemoglobin and hematocrit stabilized at 11.2/34.3. - Wound dressing changed - Wound flushed with normal sterile saline dressed with Optifoam border. Continue dressing changes once daily. - Plan for transmetatarsal amputation today around 10 AM. Continue n.p.o. until postop. Again reviewed recommendation for transmetatarsal amputation and tendo Achilles lengthening given patient's large wound with necrotic first metatarsal phalangeal joint joint capsule and history of partial 3rd and 5th ray amputation on the left foot. Reviewed written informed consent with patient for procedure left foot transmetatarsal amputation, tendo Achilles lengthening, possible foreign body removal and debridement of all nonviable soft tissue and bone. All patient's questions were answered. We reviewed risks and benefits to the procedure as well as alternatives to the procedure which would include wound care, offloading and antibiotic therapy. Patient would like to move forward with the procedure as planned. Written informed consent signed by patient and witnessed by his nurse who is present in room for our discussion. Following today's interview with patient I did call his Maura and updated her on plan for today's surgery and answered all her questions. plans to visit Keith either this evening or tomorrow. Admission and Anticipated Discharge Date Admission Date: July 03, 2024 Subjective Patient resting comfortably in hospital bed. Blood pressure stabilized. Transferred from the ICU to the [facility] 07/12/2024. Plan for transmetatarsal amputation with tendo Achilles lengthening potentially around 1130 this morning. Review of Systems Review of Systems: Denies nausea, vomiting, fever, chills, shortness of breath, chest pain. No pain to the left foot. Physical Exam Physical Exam: Const: Appears well developed and well nourished. No signs of acute distress present. CV: Extremities: No cyanosis Capillary refill time is less than 2 seconds all digits of the bilateral foot. Posterior tibial and dorsalis pedis pulses are non-palpable bilateral. Skin: Thin atrophic skin the bilateral lower extremity below the knee with loss of hair growth. Cellulitis left foot Neuro: Loss of protective sensation of the bilateral foot extending to the level of the ankle Psych: Mood/Affect: Mood is normal. Patient having trouble remembering specific names and finding words. Cognition: Orientation is intact to person, place and time. Focused lower extremity musculoskeletal exam: Leg: No pain with compression of the calf muscle. Ankles: Normal to inspection and palpation. No swelling bilaterally. No tenderness bilaterally. Motor strength is intact. Range of motion pain-free and unlimited. 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 Wound to the plantar and plantar medial aspect of the left first MPJ with exposed joint capsule. No active drainage. Moderate serosanguineous drainage to wound dressing. Wound bed is joint capsule which is now turning a dusky lainez to yellow discoloration, slough and subcutaneous tissue. There are some granular tissue around the periphery of the wound with large area of exposed joint capsule of the first MPJ centrally. No change in wound dimensions. No frankly exposed bone. Results & Data Results & Data Vital Signs (Past 12 Hours) Vital Signs Temp Pulse Pulse Resp BP Pulse Ox O2 Del Method 07/15/24 08:00 36.5 C 88 18 113/61 95 Room Air 07/15/24 04:00 36.8 C 85 18 135/69 96 Room Air 07/14/24 23:50 36.5 C 88 18 153/76 H 95 Room Air 07/14/24 23:17 84 07/14/24 20:11 36.7 C 73 17 150/69 H 97 Room Air Laboratory Results Hemoglobin 11.2 Hematocrit 34.3 Coding Level of Care Code 45684 SUB INP/OBS CARE 2/35MIN Diagnoses Cellulitis of left foot L03.116 Diabetic ulcer of left midfoot associated with type 2 diabetes mellitus, with necrosis of muscle E11.621; L97.423 Diabetes mellitus type: type 2 Diabetic foot ulcer location: midfoot Diabetes mellitus with peripheral artery disease E11.51 Peripheral vascular disease due to secondary diabetes E13.51 (2) 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
--- NOTE | 2024-07-15 10:27 | Pharmacy Report ---
Pharmacy Glycemic Short Note 2 - Date of Service July 15, 2024 - Glycemic Short BSG Results (Last 24 hours): 07/14/24 07/14/24 07/14/24 11:11 16:24 20:55 Glucose POC Glucose 176 H 94 146 H 07/15/24 07/15/24 06:03 07:13 Glucose 225 H POC Glucose 232 H OUTPATIENT ANTIDIABETIC REGIMEN: * Novolin-N Flexpen 48-50 units in AM, Glipizide ER 10mg AM, Metformin ER 500mg HS * A1c 8.8% (eAG 206) on 07/03/24 ASSESSMENT: 07/15 * Keith received 38 units of insulin yesterday (20 were basal) * Fasting BSG this AM elevated, will not increase at this time as patient is NPO for potential procedure, will add a basal scale at bedtime if BSGs remain elevated * Carbohydrate ratio loosened as steroids have been discontinued, He continues on Unasyn. 07/12 * Patient has been weaned off pressors. Hypoglycemic event on insulin drip last night, resolved with decrease in insulin drip rate. * Will transition to basal/bolus. Given 20 units of lantus this morning and transitioned off insulin drip at lunch. * Patient is tolerating diet- will begin weight stress of 2 novolog 07/11 * Patient admitted to the ICU requiring pressors following femoral bypass. Patient received 8 mg IV dexamethasone and is currently receiving hydrocortisone 50 mg q6H in addition to low dose norepinephrine. * Patient received 25 units of lantus and 12 units of novolog prior to initiation of insulin infusion. * Anticipate requirements to decrease after dexamethasone wears off. Insulin infusion has been running at 4.2 units/hr within goal range. * Discussed at multidisciplinary rounds, will continue with insulin infusion at this time given fluctuating pressor needs PLAN FOR INPATIENT GLYCEMIC CONTROL: * Hold outpatient oral diabetes medications * Basal Insulin * Lantus 20 units SQ QAM * Lantus 0-10 units SQ HS (10 units if BSG is greater than 180mg/dL) * Bolus insulin * Novolog ACHS or q6H if NPO * Correction Factor 30 mg/dl/unit * Carb Ratio: 1 unit per 9 gram CHO consumed
[2024-07-15] MEDS: LACTATED RINGER'S 1,000 ML IV SCH (11:04)
--- NOTE | 2024-07-15 11:12 | Anesthesiology Consultation ---
Date of Service July 15, 2024 Assessment & Plan Chart Review Chart Review: Acceptable Risk for Surgery Consults Requested none History Surgery Operation Date: 07/04/24 08:20 Proposed Procedures p Left Foot Incision and Drainage - Chau Newsome DPM Operation Date: 07/08/24 10:10 Proposed Procedures p Left Iliac Arteriogram, Possible Intervention - Ramiro Berrios MD Operation Date: 07/10/24 13:00 Proposed Procedures p Femoral to Femoral Bypass - Ramiro Berrios MD Operation Date: 07/15/24 07:00 Proposed Procedures p Left Tendo Achilles Lengthening - Chau Newsome DPM s Left Transmetatarsal Amputation - Chau Newsome DPM Height/Weight Height: 5 ft 9 in Weight: 79.7 kg Allergies Allergy/AdvReac Type Severity Reaction Status Date / Time No Known Allergies Allergy Verified 07/04/24 11:59 Medications Home Medications Medication Instructions Recorded Confirmed Last Taken amlodipine 10 mg tablet 10 mg PO 01/16/22 07/02/24 07/01/24 atorvastatin 20 mg tablet 20 mg PO 01/16/22 07/02/24 07/01/24 glipizide 10 mg tablet, extended 10 mg PO [facility] 01/16/22 07/02/24 07/02/24 release 24 hr insulin NPH isoph U-100 human 100 50 unit subcut [facility] 01/16/22 07/02/24 07/02/24 unit/mL (3 mL) subcutaneous pen (Novolin N FlexPen) lisinopril 40 mg tablet 40 mg PO 01/16/22 07/02/24 07/01/24 metformin 500 mg tablet,extended 1,000 mg PO 01/16/22 07/02/24 07/01/24 release 24 hr pantoprazole 40 mg tablet,delayed 40 mg PO BID #60 tabs 01/19/22 07/02/24 07/01/24 release aspirin 81 mg tablet,delayed 81 mg PO HS 07/02/24 07/02/24 07/01/24 release (Adult Low Dose Aspirin) clopidogrel 75 mg tablet 75 mg PO 07/02/24 07/02/24 07/01/24 Active Medications Generic Name Dose Route Start Last Admin Trade Name Freq PRN Reason Stop Dose Admin Acetaminophen 650 mg 07/12/24 08:11 07/14/24 07:35 Acetaminophen 325 Mg Tab PO 08/11/24 08:10 650 mg Q4H PRN Administration Mild-Mod Pain (Scale 1-6) Amlodipine Besylate 10 mg 07/12/24 09:00 07/14/24 07:36 Amlodipine Besylate 5 Mg Tab PO 08/11/24 08:59 10 mg QAM ABEL Administration Aspirin 81 mg 07/03/24 21:00 07/14/24 19:46 Aspirin 81 Mg Ectab PO 08/02/24 20:59 81 mg HS ABEL Administration Atorvastatin Calcium 20 mg 07/03/24 21:00 07/14/24 19:46 Atorvastatin 20 Mg Tab PO 08/02/24 20:59 20 mg HS ABEL Administration Clopidogrel Bisulfate 75 mg 07/03/24 21:00 07/14/24 19:46 Clopidogrel Bisulfate 75 Mg Tab PO 08/02/24 20:59 75 mg HS ABEL Administration Glucose 15 - 30 gm 07/03/24 03:21 07/12/24 00:15 Glucose 40% Gel 15 Gm Tube PO 08/02/24 03:20 15 gm UD PRN Administration Hypoglycemia Protocol Protocol Heparin Sodium (Porcine) 5,000 units 07/08/24 21:00 07/14/24 20:07 Heparin Sod 5,000 Unit/0.5 Ml Vial SQ 08/07/24 20:59 5,000 units Q12 ABEL Administration Ampicillin Sodium/Sulbactam Sodium 3,000 mg in 100 mls @ 200 mls/hr 07/11/24 14:00 07/15/24 08:45 Unasyn IV 07/18/24 13:59 Infused Q6H ABEL Infusion Protocol Lactated Ringer's 1,000 mls @ 15 mls/hr 07/15/24 11:15 07/15/24 11:04 Lr IV 07/16/24 11:14 15 mls/hr .Q24H ABEL Administration Insulin Aspart 0 units 07/12/24 11:30 07/15/24 07:55 Insulin Aspart Per Unit Charge SC 08/11/24 11:29 3 units ACHS ABEL Administration Insulin Glargine 20 units 07/13/24 09:00 07/15/24 07:54 Lantus Per Unit Charge SC 08/12/24 08:59 20 units DAILY ABEL Administration Lisinopril 40 mg 07/03/24 21:00 07/09/24 20:07 Lisinopril 40 Mg Tab PO 08/02/24 20:59 40 mg HS ABEL Administration Pantoprazole Sodium 40 mg 07/03/24 09:00 07/14/24 19:46 Pantoprazole 40 Mg Tab PO 08/02/24 08:59 40 mg BID ABEL Administration NPO Date Last Intake of Fluids: 07/14/24 Time Last Intake of Fluids: 20:00 Date Last Intake of Solids: 07/14/24 Time Last Intake of Solids: 18:00 Past Medical History Medical History Gastric ulcer Diabetes mellitus Hypertension Social History Smoking Status: Former smoker Do You Dip or Chew Tobacco: No Hx Alcohol Use: No Hx Substance Use: No substance use type: does not use Physical Exam Vital Signs Last Vital Signs Temp 36.8 C 07/15/24 10:52 Pulse 79 07/15/24 10:52 Resp 20 07/15/24 10:52 BP 133/70 07/15/24 10:52 Pulse Ox 97 07/15/24 10:52 O2 Del Method Room Air 07/15/24 10:52 O2 Flow Rate 4 07/10/24 22:04 Testing Laboratory Results 07/15/24 06:03 07/15/24 06:03 PT 10.9 Seconds (9.0-12.0) 07/02/24 20:00 INR 1.0 (0.9-1.1) 07/02/24 20:00 APTT 28 Seconds (21-31) 07/02/24 20:00 Hemoglobin A1c 8.8 % (4.5-5.6) H 07/03/24 08:12 Urine Color Yellow 07/02/24 22:19 Urine Appearance Clear (Clear) 07/02/24 22:19 Urine pH 5.5 (4.5-7.5) 07/02/24 22:19 Ur Specific [place] 1.021 (1.000-1.030) 07/02/24 22:19 Urine Protein Trace (Negative) H 07/02/24 22:19 Urine Glucose (UA) 3+ (Negative) H 07/02/24 22:19 Urine Ketones Negative (Negative) 07/02/24 22:19 Urine Nitrite Negative (Negative) 07/02/24 22:19 Ur Leukocyte Esterase Negative (Negative) 07/02/24 22:19 Urine WBC (Auto) 0-5 /hpf (0-5) 07/02/24 22:19 Urine RBC (Auto) 0-2 /hpf (0-2) 07/02/24 22:19 U Hyaline Cast (Auto) 0-2 /lpf (0-2) 07/02/24 22:19 U Epithel Cells (Auto) 0-2 /hpf (0-2) 07/02/24 22:19 Urine Bacteria (Auto) None Seen (None Seen) 07/02/24 22:19 Blood Type A Positive 07/10/24 05:31 Antibody Screen NEGATIVE 07/10/24 05:31 07/02/24 20:00 Aerobic Blood Culture - Final Blood No growth in Aerobic bottle after 5 days. Anaerobic Blood Culture - Final No growth in Anaerobic bottle after 5 days. 07/02/24 20:00 Aerobic Blood Culture - Final Blood No growth in Aerobic bottle after 5 days. Anaerobic Blood Culture - Final 07/02/24 20:35 Gram Stain - Final Foot,Left Aerobic and Anaerobic Culture - Final Staphylococcus aureus Staphylococcus aureus#2 Anaerococcus hydrogenalis 07/15/24 07/15/24 10:49 07:13 POC Glucose 185 H 232 H
[2024-07-15] MEDS ORDERED: ATROPINE SULFATE 0.1 MG/ML 10ML SYR IV PRN (11:17)
[2024-07-15] MEDS ORDERED: ONDANSETRON INJ 2 MG/ML 2 ML VIAL IV PRN (11:17)
[2024-07-15] MEDS ORDERED: fentaNYL citrate PF 100 MCG/2 ML VIAL IV PRN (11:17)
[2024-07-15] MEDS ORDERED: ePHEDrine sulfate 50 MG/ML AMP IV PRN (11:17)
[2024-07-15] MEDS ORDERED: PROMETHAZINE HCL 6.25 MG in SODIUM CHLORIDE 0.9% 50 ML IV PRN (11:17)
[2024-07-15] MEDS ORDERED: HYDROmorphone INJ 2 MG/ML SYR/VIAL IV PRN (11:17)
[2024-07-15] MEDS ORDERED: PROPOFOL IV EMULSION 10 MG/ML 20 ML VIAL IV ONE (11:28)
[2024-07-15] MEDS ORDERED: DexMEDEtomidine HCL IV 100 MCG/ML VIAL IV ONE (11:28)
[2024-07-15] MEDS ORDERED: ROCURONIUM BROMIDE 10 MG/ML 5 ML VIAL IV ONE (11:44)
[2024-07-15] MEDS ORDERED: fentaNYL citrate PF 100 MCG/2 ML VIAL ONE (11:47)
[2024-07-15] MEDS ORDERED: PHENYLEPHRINE 100MCG/ML 5ML SYR ONE ×2 (11:53→12:52)
[2024-07-15] MEDS ORDERED: ONDANSETRON INJ 2 MG/ML 2 ML VIAL ONE (11:54)
[2024-07-15] MEDS ORDERED: ePHEDrine sulfate 50 MG/5 ML SYR ONE (11:54)
[2024-07-15] MEDS: LIDOCAINE 1% LOCAL 20 ML VIAL ONE (11:56)
[2024-07-15] MEDS: BUPIVACAINE 0.5 % 5 MG/1 ML MPF 30ML VIAL ONE (11:56)
[2024-07-15] MEDS ORDERED: SUGAMMADEX SODIUM 200 MG/2 ML VIAL IV ONE (12:57)
[2024-07-15] MEDS: VANCOMYCIN HCL 1000MG/20ML VIAL ONE (13:17)
--- NOTE | 2024-07-15 13:22 | Post Operative Brief Note ---
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, Diabetes mellitus with peripheral artery disease, Peripheral vascular disease due to secondary diabetes I identified the patient and participated in the time-out.: Yes Procedure Operation Date: 07/15/24 07:00 Actual Procedures p Left Tendo Achilles Lengthening(Left) - Chau Newsome DPM s Left Transmetatarsal Amputation, Debridement of All Nonviable Soft Tissue and Bone(Left) - Chau Newsome DPM Surgeon Chau Newsome DPM Vp [employer] Marketing Juancarlos Weber MD [facility] Estimated Blood Loss 30 Findings Consistent with Post-Op Diagnosis Remove the foreign body noted on plain film work radiograph would require significant dissection of tenuous plantar flap and so this is foregone Specimens Specimen Description: Proximal margin for pathology metatarsals 1 through 4. First metatarsal head for culture. Left foot for pathology. Anesthesia Type General Complications NOne
--- NOTE | 2024-07-15 13:23 | Hospitalist Progress Note ---
Date of Service July 15, 2024 Assessment & Plan (1) Diabetic foot infection: Plan: Presented with diabetic foot and toe ulceration with gangrene on the left side Complicated by peripheral arterial disease Appreciate steward/stewardess wine input and recommendation Status post debridement of the left foot wound on 07/04, status post femoral femoral bypass on 07/10/2024 Plan for possible transmetatarsal amputation on 07/15/2024 Wound culture growing Staph aureus and and anaerococcus hydrogenalis Continue on Unasyn until definitive management is done with surgery next week Denies any significant pain in the foot No fever no chills He remains stable and will go for left transmetatarsal amputation this morning (2) Insulin-requiring or dependent type II diabetes mellitus: (3) Acute blood loss as cause of postoperative anemia: (4) Peripheral vascular disease due to secondary diabetes: Plan: Appreciated vascular surgery input and recommendation Patient underwent bilateral iliac angiogram on 07/08; 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 Estimated blood loss of about 1000 mL. Management of vasopressors as per ICU;; Given 3 packed RBCs Transferred out of ICU on 07/12/2024 Continue on aspirin and liptor and plavix Wean off stress dose steroids The color of his feet improves following the bypass surgery- denies any more pain (5) Hypertension associated with diabetes: Plan: On lisinopril; ; Will resume if blood pressure continues to rise. Also on amlodipine continue. Blood pressure remains stable (6) Diabetes mellitus with peripheral artery disease: Plan: Continue on subcu insulin Maintain hypoglycemia protocol Plan Full code DVT prophylaxis heparin Admission and Anticipated Discharge Date Admission Date: July 03, 2024 Subjective 07/09/2024 The patient was seen and examined in medical floor He has been stable with minimal pain in the left foot Denies any chest pain, palpitation or shortness of breath No fever and no chills 07/14/2024 The patient was seen and examined in intensive care unit He is sitting on a chair without any acute distress Denies any significant pain 07/15/2024 The patient was seen and examined in telemetry unit He has been feeling much better and awaiting left transmetatarsal amputation today Denies any significant symptoms except some weakness Review of Systems Review of Systems: All systems reviewed and are unremarkable except as noted below Physical Exam Physical Exam: Sitting on a chair without any acute distress Constitutional: well developed, well nourished, + ill appearing and average body habitus Eyes: PERRL, conjunctivae normal, anicteric sclerae ENMT: external ear and nose normal, oropharynx normal Neck: trachea midline, no thyromegaly Respiratory: no respiratory distress Auscultation: lungs clear to auscultation bilaterally and + diminished lung sounds Cardiovascular: Rate/Rhythm: regular rate and regular rhythm; not tachycardic Heart Sounds: normal S1 and normal S2; no murmur Extremities: no edema ( no edema in right and 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) Gastrointestinal (Abdomen): Inspection/Auscultation: normal bowel sounds; abdomen not distended Percussion/Palpation: abdomen soft; abdomen nontender Musculoskeletal: No acute arthritis involving any of the joint Neurologic: normal touch/pain/proprioception and moves all extremities; no focal motor deficits Lymphatic: no cervical or axillary lymphadenopathy Results & Data Results & Data Vital Signs (Past 12 Hours) Vital Signs Temp Pulse Pulse Resp BP Pulse Ox O2 Del Method 07/15/24 10:52 36.8 C 79 20 133/70 97 Room Air 07/15/24 08:00 Room Air 07/15/24 08:00 84 07/15/24 08:00 36.5 C 88 18 113/61 95 Room Air 07/15/24 04:00 36.8 C 85 18 135/69 96 Room Air Laboratory Results Short CBC 07/15/24 Range/Units 06:03 WBC 8.10 (4.8-10.8) K/ul Hgb 11.2 L (14.0-18.0) g/dl Hct 34.3 L (42.0-52.0) % Plt Count 191 (130-400) K/uL BMP 07/15/24 06:03 Sodium 137 Potassium 4.2 Chloride 101 Carbon Dioxide 31 BUN 22 Creatinine 0.86 Glucose 225 H Calcium 8.2 L Medications Administered Current Inpatient Medications Acetaminophen (Acetaminophen 325 Mg Tab) 650 mg PO Q4H PRN PRN Reason: Mild-Mod Pain (Scale 1-6) Stop: 08/11/24 08:10 Last Admin: 07/14/24 07:35 Dose: 650 mg Amlodipine Besylate (Amlodipine Besylate 5 Mg Tab) 10 mg PO QAM [facility] Stop: 08/11/24 08:59 Last Admin: 07/14/24 07:36 Dose: 10 mg Aspirin (Aspirin 81 Mg Ectab) 81 mg PO [facility] Stop: 08/02/24 20:59 Last Admin: 07/14/24 19:46 Dose: 81 mg Atorvastatin Calcium (Atorvastatin 20 Mg Tab) 20 mg PO HS [facility] Stop: 08/02/24 20:59 Last Admin: 07/14/24 19:46 Dose: 20 mg Atropine Sulfate (Atropine Sulfate 0.1 Mg/Ml 10ml Syr) 0.5 mg IV Q1M PRN PRN Reason: PACU Use-HR<40 &/or Bradycardi Stop: 07/15/24 19:17 Clopidogrel Bisulfate (Clopidogrel Bisulfate 75 Mg Tab) 75 mg PO [facility] Stop: 08/02/24 20:59 Last Admin: 07/14/24 19:46 Dose: 75 mg Dextrose (Dextrose 50% 50 Ml Syringe) 25 - 50 ml IV UD PRN; Protocol PRN Reason: Hypoglycemia Protocol Stop: 08/02/24 03:20 Ephedrine Sulfate (Ephedrine Sulfate 50 Mg/Ml Amp) 5 mg IV Q5M PRN PRN Reason: PACU Use Only-SBP<90 mmHg Stop: 07/15/24 19:17 Fentanyl Citrate (Fentanyl Citrate Pf 100 Mcg/2 Ml Vial) 50 mcg IV Q5M PRN PRN Reason: PACU Use Only-Pain Stop: 07/15/24 19:17 Glucagon (Glucagon For Inj 1 Mg Vial) 1 mg SQ UD PRN; Protocol PRN Reason: Hypoglycemia Protocol Stop: 08/02/24 03:20 Glucose (Glucose 40% Gel 15 Gm Tube) 15 - 30 gm PO UD PRN; Protocol PRN Reason: Hypoglycemia Protocol Stop: 08/02/24 03:20 Last Admin: 07/12/24 00:15 Dose: 15 gm Glucose (Glucose 10 Tab/Tube) 4 - 8 tab PO UD PRN; Protocol PRN Reason: Hypoglycemia Protocol Stop: 08/02/24 03:20 Heparin Sodium (Beef Lung) (Heparin 10 Unit/Ml 5 Ml Flush) 5 ml FLUSH PRN PRN PRN Reason: Flush Stop: 08/10/24 03:45 Heparin Sodium (Porcine) (Heparin Sod 5,000 Unit/0.5 Ml Vial) 5,000 units SQ Q12 ABEL Stop: 08/07/24 20:59 Last Admin: 07/14/24 20:07 Dose: 5,000 units Hydromorphone HCl (Hydromorphone Inj 2 Mg/Ml Syr/Vial) 0.5 mg IV Q5M PRN PRN Reason: PACU Use Only-Pain Stop: 07/15/24 19:17 Ampicillin Sodium/Sulbactam Sodium (Unasyn) 3,000 mg in 100 mls @ 200 mls/hr IV Q6H [facility]; Protocol Stop: 07/18/24 13:59 Last Infusion: 07/15/24 08:45 Dose: Infused Lactated Ringer's (Lr) 1,000 mls @ 15 mls/hr IV .Q24H [facility] Stop: 07/16/24 11:14 Last Admin: 07/15/24 11:04 Dose: 15 mls/hr Promethazine HCl 6.25 mg/ (Sodium Chloride) 50.25 mls @ 204 mls/hr IV ONCE PRN PRN Reason: PACU Use Only-Nausea/Vomiting Stop: 07/15/24 19:17 Insulin Aspart (Insulin Aspart Per Unit Charge) 0 units SC ACHS [facility] Stop: 08/11/24 11:29 Last Admin: 07/15/24 07:55 Dose: 3 units Insulin Glargine (Lantus Per Unit Charge) 20 units SC DAILY [facility] Stop: 08/12/24 08:59 Last Admin: 07/15/24 07:54 Dose: 20 units Insulin Glargine (Lantus Per Unit Charge) 0 units SC HS [facility]; Protocol Stop: 08/14/24 20:59 Lisinopril (Lisinopril 40 Mg Tab) 40 mg PO HS ABEL Stop: 08/02/24 20:59 Last Admin: 07/09/24 20:07 Dose: 40 mg Miscellaneous (Carbohydrates For Hypoglycemia ) 15 - 30 gm PO UD PRN PRN Reason: Hypoglycemia Protocol Stop: 08/02/24 03:20 Miscellaneous Information (Pharmacy Glycemic Mgmt Consult) 1 each N/A UD PRN; Protocol PRN Reason: Consult Stop: 08/09/24 17:05 Ondansetron HCl (Ondansetron Inj 2 Mg/Ml 2 Ml Vial) 4 mg IV ONCE PRN PRN Reason: PACU Use Only-Nausea/Vomiting Stop: 07/15/24 19:17 Pantoprazole Sodium (Pantoprazole 40 Mg Tab) 40 mg PO BID ABEL Stop: 08/02/24 08:59 Last Admin: 07/14/24 19:46 Dose: 40 mg Polyethylene Glycol (Polyethylene (Miralax) 17 Gm Pack) 17 gm PO DAILY PRN PRN Reason: Constipation Stop: 08/02/24 03:20
--- NOTE | 2024-07-15 14:38 | Anesthesiology Progress Note ---
Date of Service July 15, 2024 Anesthesia Post Procedure Vital Signs Vital Signs: Temp Pulse Pulse Resp BP BP Pulse Ox 07/15/24 14:25 81 20 88/50 L 94 07/15/24 14:15 36.7 C 82 20 96/52 L 94 07/15/24 14:05 81 20 87/52 L 94 07/15/24 13:55 90 18 85/52 L 97 07/15/24 13:45 93 H 16 88/52 L 97 07/15/24 13:35 97 H 20 92/58 L 96 07/15/24 13:25 36.0 C L 99 H 20 90/64 L 97 07/15/24 10:52 36.8 C 79 20 133/70 97 07/15/24 08:00 07/15/24 08:00 84 07/15/24 08:00 36.5 C 88 18 113/61 95 07/15/24 04:00 36.8 C 85 18 135/69 96 07/14/24 23:50 36.5 C 88 18 153/76 H 95 07/14/24 23:17 84 07/14/24 20:11 36.7 C 73 17 150/69 H 97 07/14/24 20:00 07/14/24 15:52 07/14/24 15:52 65 O2 Del Method O2 Flow Rate 07/15/24 14:25 Nasal Cannula 2 07/15/24 14:15 Nasal Cannula 2 07/15/24 14:05 Nasal Cannula 2 07/15/24 13:55 Oxymask 2 07/15/24 13:45 Oxymask 4 07/15/24 13:35 Oxymask 4 07/15/24 13:25 Oxymask 6 07/15/24 10:52 Room Air 07/15/24 08:00 Room Air 07/15/24 08:00 07/15/24 08:00 Room Air 07/15/24 04:00 Room Air 07/14/24 23:50 Room Air 07/14/24 23:17 07/14/24 20:11 Room Air 07/14/24 20:00 Room Air 07/14/24 15:52 Room Air 07/14/24 15:52 Pain Intensity Left Leg: Pain Intensity: 0 Right Groin: Pain Intensity: 0 Transfer of Care Handoff Completed per policy Notes Mental Status: alert / awake / arousable and participated in evaluation Patient Amnestic to Procedure: Yes Nausea / Vomiting: adequately controlled Pain: adequately controlled Airway Patency, RR, SpO2: stable & adequate BP & HR: stable & adequate Hydration State: stable & adequate Anesthetic Complications: no major complications apparent
--- NOTE | 2024-07-15 19:36 | Operative Report ---
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, Diabetes mellitus with peripheral artery disease, Peripheral vascular disease due to secondary diabetes I identified the patient and participated in the time-out.: Yes Procedure Operation Date: 07/15/24 07:00 Actual Procedures p Left Tendo Achilles Lengthening(Left) - Chau Newsome DPM s Left Transmetatarsal Amputation, Debridement of All Nonviable Soft Tissue and Bone(Left) - Chau Newsome DPM Surgeon Chau Newsome DPM Cnc Maintenance Technician MD Getachew Chow,PAC Estimated Blood Loss 30 Findings Consistent with Post-Op Diagnosis Specimens 1 proximal margin first metatarsal left to pathology 2 proximal margin second metatarsal left to pathology 3 proximal margin third metatarsal left to pathology 4 proximal margin fourth metatarsal left to pathology 5 left foot transmetatarsal amputation pathology 6 first metatarsal head bone for culture Drains None Anesthesia Type General Complications none Disposition Accompanied Patient To Recovery: Yes Disposition: Recovery Room Description of Procedure Left foot transmetatarsal amputation and tendo Achilles lengthening. Patient brought in the operating room and remains in hospital bed for general anesthesia. Timeout is held confirming patient identity, side, site, procedure with all necessary parties confirming. Following general anesthesia ankle block is performed utilizing a total of 14 cc of one-to-one mixture of half percent Marcaine 1% lidocaine plain in a modified ankle block fashion. The left lower extremity is scrubbed prepped and draped in the usual aseptic fashion to the level of a nonsterile calf tourniquet. Attention was directed to the distal end of the left foot where a large ulceration is noted overlying the medial and plantar aspect of the first metatarsal head and metatarsal phalangeal joint. There is significant exposed joint capsule with desiccation and nonviable joint capsule exposed centrally with brown to yellow discoloration. Skin scribe was utilized to plan incision for transmetatarsal amputation in a modified [place] fashion to include the ulceration excision medially. 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 Dorsal incision is created with electrocautery attempted cauterize all small bleeding vessels within the dorsal soft tissue and incision is carried deep to the level of bone. Centering dissection of the intermetatarsal spaces the intermetatarsal arteries are noted to have relatively brisk bleeding and though they are ligated with 2-0 Vicryl there is bleeding from multiple other areas and decision is made to inflate calf tourniquet to 250 mmHg without exsanguination of the foot. This procedure is typically done without the use of a calf tourniquet however patient had significant blood loss with recent bypass surgery and was just recently stabilized hemodynamically and therefore tourniquet is used to reduce blood loss and risk any potential side effects or need for blood products. At the level of bone periosteum is freed from the dorsal medial and lateral aspect of the first second third remnant and fourth metatarsal head recreating metatarsal parabola at the level of amputation. A sagittal saw was utilized to resect the distal third of the metatarsals with cuts being oriented dorsal distal to plantar proximal. Once the bones have been resected there carefully dissected plantarly to create a soft viable and padded plantar flap as possible for closure. Plantar flap is explored bluntly for metallic foreign body noted plain film radiographs. On review of radiographs of the foreign body has been noted to be early close to be close to the skin surface and blunt dissection is foregone after not finding the foreign body as to not further disrupt the soft tissue planes or vascularity to the plantar flap. On the back table sagittal saw was utilized to resect the proximal margin for pathology from each of the 4 metatarsal bones. Tourniquet is released at a total of 21 minutes total tourniquet time and a prompt hyperemic response is noted to the remaining soft tissues of the left foot and amputation site. All bleeding vessels are cauterized with electrocautery or ligated with 2-0 Vicryl as necessary to achieve hemostasis. The plantar flap is also held under direct pressure for 2 minutes to aid in hemostasis of smaller bleeding vessels. Surgical wound is flushed with 1 L of normal sterile saline. Amputation site is evaluated and noted to be free of all nonviable appearing soft tissue and bone. The tendons are pulled distally cut and allowed to retract into soft tissue. 0.75 g of vancomycin powder was placed within the wound bed and along the cut margins of the metatarsal. Plantar flap was reapproximated over the distal end of the foot and wound edges are reapproximated and closed with 3-0 nylon suture in simple interrupted fashion. Attention is directed to the posterior aspect of the left leg when the Achilles tendon is identified and skin scribe is utilized to stevie the medial border of the Achilles tendon at 3 and 8 cm proximal to its insertion on the calcaneus and laterally at 5 cm proximal to the insertion of the calcaneus and 3 percutaneous incisions are created that these intervals blade is rotated toward the border of the Achilles tendon to create 3 hemisections of the tendon for lengthening. The foot is dorsiflexed and patient is able to reach 7 to 10 degrees of dorsiflexion with the knee extended. These wounds were flushed with normal sterile saline and dressed with Betadine soaked Adaptic 4 x 4 fluff gauze and an ABD pad. Foot is cleansed with normal sterile saline, dried and dressed with Betadine soaked Adaptic 4 x 4 fluff gauze ABD pad Estephania and Ronan followed by an Johann bandage to hold dressings in place. Patient tolerated the procedure and anesthesia well. He is transferred to the recovery room with vital signs stable and vascular status intact to the left foot. Following a brief period of mild postoperative monitoring in the recovery room patient is transferred back to the telemetry floor for ongoing medical management. Dressing to be left clean dry and intact. Patient remain nonweightbearing to the left foot until further notice. Will likely have patient fit with cam walker prior to discharge to allow at least heel touch weightbearing in the cam walker for short distance and transfer. I do not believe it is necessary to await on pathology results for discharge as all bone in close proximity to the open wound at the medial aspect of the foot has been resected and bone at the amputation margin appears clinically healthy. I attest to the content of the Intraoperative Record and any orders documented therein. Any exceptions are noted below.
[2024-07-15] MEDS: LANTUS PER UNIT CHARGE SC SCH (20:16)
[2024-07-16 07:02] LABS: Phosphorus 3.1 mg/dl (2.5-4.9)
[2024-07-16] MEDS: LANTUS PER UNIT CHARGE SC SCH (08:55)
--- NOTE | 2024-07-16 13:06 | Hospitalist Progress Note ---
Date of Service July 16, 2024 Assessment & Plan (1) Diabetic foot infection: Plan: Presented with diabetic foot and toe ulceration with gangrene on the left side Complicated by peripheral arterial disease Appreciate coding coordinator input and recommendation Status post debridement of the left foot wound on 07/04, status post femoral femoral bypass on 07/10/2024 Plan for possible transmetatarsal amputation on 07/15/2024 Wound culture growing Staph aureus and and anaerococcus hydrogenalis Continue on Unasyn until definitive management is done with surgery next week Denies any significant pain in the foot No fever no chills He remains stable and will go for left transmetatarsal amputation this morning Continue current antibiotic with Unasyn and duration will be as per coding coordinator specially after the amputation Status post left tendo Achilles lengthening and left transmetatarsal amputation, debridement on 07/15/2024 Has been feeling much better following the procedure and denies any pain involving the amputation site Will continue current medications (2) Insulin-requiring or dependent type II diabetes mellitus: (3) Acute blood loss as cause of postoperative anemia: (4) Peripheral vascular disease due to secondary diabetes: Plan: Appreciated vascular surgery input and recommendation Patient underwent bilateral iliac angiogram on 07/08; 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 Patent R WILLIE and bilateral IIA, EIA, INDUSTRI[employer] ILLUMINATING ENGINEER, SFA and profunda Underwent fem to femoral bypass on 07/10/2024 Patient transferred to ICU after OR after he was found to be hypotensive; requiring vasopressors and IV fluid support. Estimated blood loss of about 1000 mL. Management of vasopressors as per ICU;; Given 3 packed RBCs Transferred out of ICU on 07/12/2024 Continue on aspirin and liptor and plavix Wean off stress dose steroids The color of his feet improves following the bypass surgery- denies any more pain Denies any pain in the legs (5) Hypertension associated with diabetes: Plan: On lisinopril; ; Will resume if blood pressure continues to rise. Also on amlodipine continue. Blood pressure remains on the lower side at 99/61 His amlodipine will be on hold and monitor blood pressure (6) Diabetes mellitus with peripheral artery disease: Plan: Continue on subcu insulin Maintain hypoglycemia protocol Plan Full code DVT prophylaxis heparin Admission and Anticipated Discharge Date Admission Date: July 03, 2024 Subjective 07/09/2024 The patient was seen and examined in medical floor He has been stable with minimal pain in the left foot Denies any chest pain, palpitation or shortness of breath No fever and no chills 07/14/2024 The patient was seen and examined in intensive care unit He is sitting on a chair without any acute distress Denies any significant pain 07/15/2024 The patient was seen and examined in telemetry unit He has been feeling much better and awaiting left transmetatarsal amputation today Denies any significant symptoms except some weakness 07/16/2024 The patient was seen and examined in telemetry unit He is status post left tendo Achilles lengthening and left transmetatarsal amputation, debridement of all nonviable soft tissue and bone on 07/15/2024 He has been stable since the procedure and denies any significant pain involving the left foot She does not have any other acute distress Review of Systems Review of Systems: All systems reviewed and are unremarkable except as noted below Physical Exam Physical Exam: Sitting on a chair without any acute distress Constitutional: well developed, well nourished, + ill appearing and average body habitus Eyes: PERRL, conjunctivae normal, anicteric sclerae ENMT: external ear and nose normal, oropharynx normal Neck: trachea midline, no thyromegaly Respiratory: no respiratory distress Auscultation: lungs clear to auscultation bilaterally and + diminished lung sounds Cardiovascular: Rate/Rhythm: regular rate and regular rhythm; not tachycardic Heart Sounds: normal S1 and normal S2; no murmur Extremities: no edema ( no edema in right and 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) Gastrointestinal (Abdomen): Inspection/Auscultation: normal bowel sounds; abdomen not distended Percussion/Palpation: abdomen soft; abdomen nontender Neurologic: normal touch/pain/proprioception and moves all extremities; no focal motor deficits Lymphatic: no cervical or axillary lymphadenopathy Results & Data Results & Data Vital Signs (Past 12 Hours) Vital Signs Temp Pulse Pulse Resp BP Pulse Ox O2 Del Method 07/16/24 10:41 36.4 C L 80 18 99/61 L 97 Room Air 07/16/24 08:00 Room Air 07/16/24 08:00 74 07/16/24 07:30 36.5 C 70 18 129/64 95 Room Air 07/16/24 03:03 36.8 C 83 18 110/57 L 95 Room Air Medications Administered Current Inpatient Medications Acetaminophen (Acetaminophen 325 Mg Tab) 650 mg PO Q4H PRN PRN Reason: Mild-Mod Pain (Scale 1-6) Stop: 08/11/24 08:10 Last Admin: 07/16/24 01:52 Dose: 650 mg Amlodipine Besylate (Amlodipine Besylate 5 Mg Tab) 10 mg PO QAM [facility] Stop: 08/11/24 08:59 Last Admin: 07/16/24 08:57 Dose: 10 mg Aspirin (Aspirin 81 Mg Ectab) 81 mg PO HS [facility] Stop: 08/02/24 20:59 Last Admin: 07/15/24 20:10 Dose: 81 mg Atorvastatin Calcium (Atorvastatin 20 Mg Tab) 20 mg PO HS [facility] Stop: 08/02/24 20:59 Last Admin: 07/15/24 20:10 Dose: 20 mg Clopidogrel Bisulfate (Clopidogrel Bisulfate 75 Mg Tab) 75 mg PO HS [facility] Stop: 08/02/24 20:59 Last Admin: 07/15/24 20:10 Dose: 75 mg Dextrose (Dextrose 50% 50 Ml Syringe) 25 - 50 ml IV UD PRN; Protocol PRN Reason: Hypoglycemia Protocol Stop: 08/02/24 03:20 Glucagon (Glucagon For Inj 1 Mg Vial) 1 mg SQ UD PRN; Protocol PRN Reason: Hypoglycemia Protocol Stop: 08/02/24 03:20 Glucose (Glucose 40% Gel 15 Gm Tube) 15 - 30 gm PO UD PRN; Protocol PRN Reason: Hypoglycemia Protocol Stop: 08/02/24 03:20 Last Admin: 07/12/24 00:15 Dose: 15 gm Glucose (Glucose 10 Tab/Tube) 4 - 8 tab PO UD PRN; Protocol PRN Reason: Hypoglycemia Protocol Stop: 08/02/24 03:20 Heparin Sodium (Beef Lung) (Heparin 10 Unit/Ml 5 Ml Flush) 5 ml FLUSH PRN PRN PRN Reason: Flush Stop: 08/10/24 03:45 Heparin Sodium (Porcine) (Heparin Sod 5,000 Unit/0.5 Ml Vial) 5,000 units SQ Q12 ABEL Stop: 08/07/24 20:59 Last Admin: 07/16/24 08:57 Dose: 5,000 units Ampicillin Sodium/Sulbactam Sodium (Unasyn) 3,000 mg in 100 mls @ 200 mls/hr IV Q6H [facility]; Protocol Stop: 07/18/24 13:59 Last Infusion: 07/16/24 09:51 Dose: Infused Insulin Aspart (Insulin Aspart Per Unit Charge) 0 units SC ACHS [facility] Stop: 08/11/24 11:29 Last Admin: 07/16/24 12:21 Dose: 13 units Insulin Glargine (Lantus Per Unit Charge) 0 units SC HS [facility]; Protocol Stop: 08/14/24 20:59 Last Admin: 07/15/24 20:16 Dose: Not Given Insulin Glargine (Lantus Per Unit Charge) 25 units SC DAILY [facility] Stop: 08/15/24 08:59 Last Admin: 07/16/24 08:55 Dose: 25 units Lisinopril (Lisinopril 40 Mg Tab) 40 mg PO HS [facility] Stop: 08/02/24 20:59 Last Admin: 07/09/24 20:07 Dose: 40 mg Miscellaneous (Carbohydrates For Hypoglycemia ) 15 - 30 gm PO UD PRN PRN Reason: Hypoglycemia Protocol Stop: 08/02/24 03:20 Miscellaneous Information (Pharmacy Glycemic Mgmt Consult) 1 each N/A UD PRN; Protocol PRN Reason: Consult Stop: 08/09/24 17:05 Pantoprazole Sodium (Pantoprazole 40 Mg Tab) 40 mg PO BID [facility] Stop: 08/02/24 08:59 Last Admin: 07/16/24 08:57 Dose: 40 mg Polyethylene Glycol (Polyethylene (Miralax) 17 Gm Pack) 17 gm PO DAILY PRN PRN Reason: Constipation Stop: 08/02/24 03:20
--- NOTE | 2024-07-16 14:12 | Pharmacy Report ---
Pharmacy Glycemic Short Note 2 - Date of Service July 16, 2024 - Glycemic Short BSG Results (Last 24 hours): 07/15/24 07/15/24 07/16/24 16:03 20:15 07:28 POC Glucose 185 H 173 H 225 H 07/16/24 07/16/24 11:25 11:28 POC Glucose 341 H* 329 H* OUTPATIENT ANTIDIABETIC REGIMEN: * Novolin-N Flexpen 48-50 units in AM, Glipizide ER 10mg AM, Metformin ER 500mg HS * A1c 8.8% (eAG 206) on 07/03/24 ASSESSMENT: 07/16 * Keith received 32 units of insulin yesterday (20 were basal) * Fasting BSG this AM still elevated, will increase Lantus slightly and continue with Lantus at bedtime if BSGs are elevated * NovoLog carbohydrate ratio tightened slightly. Lunchtime postprandial significantly elevated, unclear cause, will continue to trend, patient has been correcting fairly well with current correction factor, do not want to over adjust, will continue to trend. 07/15 * Keith received 38 units of insulin yesterday (20 were basal) * Fasting BSG this AM elevated, will not increase at this time as patient is NPO for potential procedure, will add a basal scale at bedtime if BSGs remain elevated * Carbohydrate ratio loosened as steroids have been discontinued, He continues on Unasyn. 07/12 * Patient has been weaned off pressors. Hypoglycemic event on insulin drip last night, resolved with decrease in insulin drip rate. * Will transition to basal/bolus. Given 20 units of lantus this morning and transitioned off insulin drip at lunch. * Patient is tolerating diet- will begin weight stress of 2 novolog 07/11 * Patient admitted to the ICU requiring pressors following femoral bypass. Patient received 8 mg IV dexamethasone and is currently receiving hydrocortisone 50 mg q6H in addition to low dose norepinephrine. * Patient received 25 units of lantus and 12 units of novolog prior to initiation of insulin infusion. * Anticipate requirements to decrease after dexamethasone wears off. Insulin infusion has been running at 4.2 units/hr within goal range. * Discussed at multidisciplinary rounds, will continue with insulin infusion at this time given fluctuating pressor needs PLAN FOR INPATIENT GLYCEMIC CONTROL: * Hold outpatient oral diabetes medications * Basal Insulin * Lantus 25 units SQ QAM * Lantus 0-10 units SQ HS (10 units if BSG is greater than 180mg/dL) * Bolus insulin * Novolog ACHS or q6H if NPO * Correction Factor 30 mg/dl/unit * Carb Ratio: 1 unit per 8 gram CHO consumed
--- NOTE | 2024-07-16 14:19 | Podiatry Progress Note ---
Date of Service July 16, 2024 Assessment & Plan (1) Status post transmetatarsal amputation of left foot: Plan Postop day 1 status post transmetatarsal amputation left and tendo Achilles lengthening left. - Surgical dressing remains clean dry and intact. - Order placed for high tide cam walker left lower extremity which we will plan to have patient fit sometime following tomorrow's dressing change. Once patient is fit with high tide Cam walker we will likely adjust weightbearing status to heel touch weightbearing for short distance and transfer to the left lower extremity. - Okay from podiatry standpoint to transition to p.o. antibiotic for discharge. - At discharge will have patient leave hospital place dressing in place until follow-up in the podiatry clinic - Patient cleared for discharge from podiatry standpoint following tomorrow's dressing change and boot fitting pending clearance from PT/OT. Follow-up in the podiatry clinic with myself within 1 week of discharge. Admission and Anticipated Discharge Date Admission Date: July 03, 2024 Subjective Patient seen resting in bedside chair just having finished lunch. Postop day 1 status post left transmetatarsal amputation and tendo Achilles lengthening. Foot is elevated on stool pillows behind the leg. Denies pain in the left foot. No strikethrough to dressing. Review of Systems Review of Systems: Denies nausea, vomiting, fever, chills, shortness of breath, chest pain, he adache, dizziness or lightheadedness. Denies pain in the left foot at present. 2 points over the past 24 hours he had mild pain in the left foot which he attributes to changing position in bed. Review of systems otherwise negative unless noted above. Physical Exam Physical Exam: Const: Appears well developed and well nourished. No signs of acute distress present. CV: Extremities: No cyanosis Capillary refill time is less than 2 seconds all digits of the bilateral foot. Posterior tibial and dorsalis pedis pulses are non-palpable bilateral. Skin: Thin atrophic skin the bilateral lower extremity below the knee with loss of hair growth. Cellulitis left foot Neuro: Loss of protective sensation of the bilateral foot extending to the level of the ankle Psych: Mood/Affect: Mood is normal. Patient having trouble remembering specific names and finding words. Cognition: Orientation is intact to person, place and time. Focused lower extremity musculoskeletal exam: Leg: No pain with compression of the calf muscle. Ankles: Normal to inspection and palpation. No swelling bilaterally. No tenderness bilaterally. Motor strength is intact. Range of motion pain-free and unlimited. Feet: Postop day 1 status post left transmetatarsal amputation and tendo Achilles lengthening. Surgical dressing is clean dry and intact with no signs of strikethrough. Dressing left in place today plan for first dressing change on 07/17/2024. Results & Data Results & Data Vital Signs (Past 12 Hours) Vital Signs Temp Pulse Pulse Resp BP Pulse Ox O2 Del Method 07/16/24 10:41 36.4 C L 80 18 99/61 L 97 Room Air 07/16/24 08:00 Room Air 07/16/24 08:00 74 07/16/24 07:30 36.5 C 70 18 129/64 95 Room Air 07/16/24 03:03 36.8 C 83 18 110/57 L 95 Room Air Laboratory Results White blood count 8.1 Hemoglobin 11.2 Hematocrit 34.3 Coding Level of Care Code 43616 Post Operative Follow-Up Diagnoses Status post transmetatarsal amputation of left foot Z89.432
[2024-07-17 06:50] LABS: Basophils # (auto) 0.04 K/uL (0.00-0.20); Basophils % (auto) 0.5 %; Eosinophils # (auto) 0.15 K/uL (0.00-0.50); Eosinophils % (auto) 1.8 %; Hematocrit (blood only) 29.9 % (42.0-52.0); Hemoglobin 9.8 g/dl (14.0-18.0); Immature Granulocytes # (auto) 0.04 K/uL (0.01-0.20); Immature Granulocytes % (auto) 0.5 %; Lymphocytes # (auto) 1.37 K/uL (1.20-3.40); Lymphocytes % (auto) 16.3 %; Mean Corpuscular Hemoglobin 29.3 pg (25.0-34.0); Mean Corpuscular Hgb Conc 32.8 g/dL (32.0-36.0); Mean Corpuscular Volume 89.5 fL (80.0-100.0); Mean Platelet Volume 10.1 fL (9.4-12.4); Monocytes # (auto) 0.84 K/uL (0.11-0.59); Neutrophils # (auto) 5.97 K/uL (1.40-6.50); Neutrophils % (auto) 70.9 %; Platelet Count 178 K/uL (130-400); RDW Coefficient of Variation 15.8 % (11.5-14.5); RDW Standard Deviation 50.3 fL (36.4-46.3); Red Blood Count 3.34 M/uL (4.70-6.10); White Blood Count 8.41 K/ul (4.8-10.8)
[2024-07-17 07:12] LABS: BUN Creatinine Ratio 20.8 (10-20); Calcium 8.1 mg/dl (8.6-10.3); Creatinine Clr Calc Pharmacy 71.4 ml/min; Phosphorus 2.5 mg/dl (2.5-4.9); Potassium 3.9 mmol/L (3.5-5.1)
--- NOTE | 2024-07-17 08:06 | Podiatry Progress Note ---
Date of Service July 17, 2024 Assessment & Plan (1) Status post transmetatarsal amputation of left foot: Plan Postop day 2 status post transmetatarsal amputation left and tendo Achilles lengthening left. - Surgical dressing removed, foot cleansed with Betadine and wound redressed with dry sterile dressing loosely applied Johann bandage. -Continue resting supine position with foot elevated when possible. - Order placed for high tide cam walker left lower extremity. Once patient is fit with high tide Cam walker okay to begin heel touch weightbearing in CAM Walker with walker to assist for short distance and transfer. - Okay from podiatry standpoint to transition to p.o. antibiotic for discharge. - At discharge will have patient leave hospital place dressing in place until follow-up in the podiatry clinic - Patient cleared for discharge from podiatry standpoint following tomorrow's dressing change and boot fitting pending clearance from PT/OT. Follow-up in the podiatry clinic with myself within 1 week of discharge. Admission and Anticipated Discharge Date Admission Date: July 03, 2024 Subjective Patient seen resting comfortably in hospital bed. Reports mild intermittent pain to the left foot which is currently well-controlled. Dressing remains clean dry and intact. Reports doing relatively well with physical therapy though he had some issues with the walker height which has been resolved. Planning for discharge to half-way facility. Review of Systems Review of Systems: Reports mild pain to the left foot. Denies nausea, vomiting, fever, chills, shortness of breath, chest pain. All other systems reviewed and negative unless detailed in HPI. Physical Exam Physical Exam: Const: Appears well developed and well nourished. No signs of acute distress present. CV: Extremities: No cyanosis Capillary refill time is less than 2 seconds all digits of the bilateral foot. Posterior tibial and dorsalis pedis pulses are non-palpable bilateral. Skin: Thin atrophic skin the bilateral lower extremity below the knee with loss of hair growth. Cellulitis left foot Neuro: Loss of protective sensation of the bilateral foot extending to the level of the ankle Psych: Mood/Affect: Mood is normal. Patient having trouble remembering specific names and finding words. Cognition: Orientation is intact to person, place and time. Focused lower extremity musculoskeletal exam: Leg: No pain with compression of the calf muscle. Ankles: Normal to inspection and palpation. No swelling bilaterally. No tenderness bilaterally. Motor strength is intact. Range of motion pain-free and unlimited. Feet: Postop day 2 status post left transmetatarsal amputation and tendo Achilles lengthening. Surgical dressing is clean dry and intact with no signs of strikethrough. Surgical dressing removed incision line is evaluated painted with Betadine and redressed with a dry sterile dressing and lightly applied Johann bandage. Wound edges are well-approximated with all sutures intact. There are no dusky areas along the incision. Capillary refill time is 2 to 3 seconds along the entire incision line. No active drainage. No signs of local soft tissue infection. Results & Data Results & Data Vital Signs (Past 12 Hours) Vital Signs Temp Pulse Pulse Resp BP Pulse Ox O2 Del Method 07/17/24 07:01 36.5 C 69 19 121/57 L 96 Room Air 07/17/24 02:52 36.7 C 80 16 144/63 H 96 Room Air 07/16/24 22:56 36.6 C 68 16 131/61 96 Room Air 07/16/24 21:59 70 Coding Level of Care Code 28831 Post Operative Follow-Up Diagnoses Status post transmetatarsal amputation of left foot Z89.432
[2024-07-17] MEDS: INSULIN ASPART PER UNIT CHARGE SC SCH ×2 (08:50→12:20)
--- NOTE | 2024-07-17 11:18 | Pharmacy Report ---
Pharmacy Glycemic Short Note 2 - Date of Service July 17, 2024 - Glycemic Short BSG Results (Last 24 hours): 07/16/24 07/16/24 07/16/24 11:25 11:28 16:03 Glucose POC Glucose 341 H* 329 H* 219 H 07/16/24 07/17/24 07/17/24 20:05 06:34 06:57 Glucose 167 H POC Glucose 164 H 161 H 07/17/24 11:02 Glucose POC Glucose 270 H OUTPATIENT ANTIDIABETIC REGIMEN: * Novolin-N Flexpen 48-50 units in AM, Glipizide ER 10mg AM, Metformin ER 500mg HS * A1c 8.8% (eAG 206) on 07/03/24 ASSESSMENT: 07/17 * Keith received 55 units of insulin yesterday (25 were basal) * Fasting BSG this AM acceptable, continue current regimen * Lunch time post-prandials elevated, tighter breakfast parameters trialed today with some improvement, will tighten carbohydrate ratio further for the morning. 07/16 * Keith received 32 units of insulin yesterday (20 were basal) * Fasting BSG this AM still elevated, will increase Lantus slightly and continue with Lantus at bedtime if BSGs are elevated * NovoLog carbohydrate ratio tightened slightly. Lunchtime postprandial significantly elevated, unclear cause, will continue to trend, patient has been correcting fairly well with current correction factor, do not want to over adjust, will continue to trend. 07/15 * Keith received 38 units of insulin yesterday (20 were basal) * Fasting BSG this AM elevated, will not increase at this time as patient is NPO for potential procedure, will add a basal scale at bedtime if BSGs remain elevated * Carbohydrate ratio loosened as steroids have been discontinued, He continues on Unasyn. 07/12 * Patient has been weaned off pressors. Hypoglycemic event on insulin drip last night, resolved with decrease in insulin drip rate. * Will transition to basal/bolus. Given 20 units of lantus this morning and transitioned off insulin drip at lunch. * Patient is tolerating diet- will begin weight stress of 2 novolog 07/11 * Patient admitted to the ICU requiring pressors following femoral bypass. Patient received 8 mg IV dexamethasone and is currently receiving hydrocortisone 50 mg q6H in addition to low dose norepinephrine. * Patient received 25 units of lantus and 12 units of novolog prior to initiation of insulin infusion. * Anticipate requirements to decrease after dexamethasone wears off. Insulin infusion has been running at 4.2 units/hr within goal range. * Discussed at multidisciplinary rounds, will continue with insulin infusion at this time given fluctuating pressor needs PLAN FOR INPATIENT GLYCEMIC CONTROL: * Hold outpatient oral diabetes medications * Basal Insulin * Lantus 25 units SQ QAM * Lantus 0-10 units SQ HS (10 units if BSG is greater than 180mg/dL) * Bolus insulin * Novolog QDB * Correction Factor 20 mg/dl/unit * Carb Ratio: 1 unit per 6 gram CHO consumed * Novolog QDL, QDD, and HS or q6H if NPO * Correction Factor 30 mg/dl/unit * Carb Ratio: 1 unit per 8 gram CHO consumed
--- NOTE | 2024-07-17 12:06 | Infectious Disease Consult ---
Date of Service July 17, 2024 Telehealth Information I performed this visit using a real-time telehealth connection between my location and the patients location ([facility]). After connecting through interactive tele-video, patient was identified by name and date of and/or wristband check.Patient (or authorized healthcare marketing development representative) was informed that this was a telemedicine visit and it was being conducted confidentially over secure lines. My office door was closed and no on e else was present in the room with me.Patient (or authorized healthcare marketing development representative) provided consent to proceed with the visit, expressed an understanding of privacy and security of the telemedicine visit, and gave permission to have a hospital marketing development representative in the room in order to assist with the visit and to conduct portions of the visit, as needed. I informed the patient (or authorized healthcare marketing development representative) that I reviewed their record and presented the opportunity for them to ask any questions regarding the visit today. The patient agreed to participate. Assessment & Plan (1) Status post transmetatarsal amputation of left foot: Plan: I agree with Unasyn. Discuss dosing with your pharmacist. Whether to complete a full 6-week course depends on whether Podiatry has a suspicion for residual OM after surgery. If there is suspicion (or confirmation), then the patient will need 6 weeks of Unasyn with weekly CBCd, CMP and CRP. All orders are deferred to the primary/requesting service. Recommendations were communicated to and/or discussed with the primary/requesting service. These recommendations are not final. For subsequent recommendations, use the on- call schedule to find out which ID provider is covering your facility. ID will not follow the patient after discharge. If any antibiotics/lab were recommended, these will need to be managed by the patients PCP. History of Present Illness History of Present Illness The patient was admitted for worsening of a previous foot wound (in the context of diabetes). The patient was seen by Podiatry and they took the patient for I&D (07/08) and L TMA (07/15). Foot cultures from prior to admission on 07/02 grew MSSA and anaerococcus. OR cultures from 07/15 were negative. The patient reports stable pain. Allergies Allergy/AdvReac Type Severity Reaction Status Date / Time No Known Allergies Allergy Verified 07/04/24 11:59 Home Medications Medication Instructions Recorded Confirmed Type amlodipine 10 mg tablet 10 mg PO HS 01/16/22 07/02/24 History atorvastatin 20 mg tablet 20 mg PO HS 01/16/22 07/02/24 History glipizide 10 mg tablet, extended 10 mg PO QAM 01/16/22 07/02/24 History release 24 hr insulin NPH isoph U-100 human 100 50 unit subcut QAM 01/16/22 07/02/24 History unit/mL (3 mL) subcutaneous pen (Novolin N FlexPen) lisinopril 40 mg tablet 40 mg PO HS 01/16/22 07/02/24 History metformin 500 mg tablet,extended 1,000 mg PO HS 01/16/22 07/02/24 History release 24 hr pantoprazole 40 mg tablet,delayed 40 mg PO BID #60 tabs 01/19/22 07/02/24 Rx release aspirin 81 mg tablet,delayed 81 mg PO HS 07/02/24 07/02/24 History release (Adult Low Dose Aspirin) clopidogrel 75 mg tablet 75 mg PO HS 07/02/24 07/02/24 History Patient History Medical History Gastric ulcer Diabetes mellitus Hypertension Social History Smoking Status: Former smoker Tobacco Type: Cigarettes Second Hand Exposure: No; Do You Dip or Chew Tobacco: No; Hx Alcohol Use: No Hx Substance Use: No Preferred Language: Swedish Communication Ability: Effective Spanish Interpreter Required: No Beliefs That Will Affect Care: None marital status: Current Living Situation: Spouse Feels Safe at Home: No Is there a partner from a previous relationship who is making you feel unsafe now?: No Assistive Devices: Cane and Walker Review of Systems As reviewed in HPI; a complete ROS was otherwise negative Physical Exam Vitals: see EMR Exam limited due to constraints of telemedicine Gen/Constitutional: appears at stated age, NAD, nontoxic Head: AT, NC Eyes: sclera anicteric, no conjunctival injection ENT: MMM, trachea midline Card: appears to be well-perfused Resp: not tachypneic, nml effort, symmetric chest rise, no accessory muscle use Derm: no visible diaphoresis, no visible rash, no visible jaundice Results & Data Vital Signs (Past 12 Hours) Vital Signs Temp Pulse Resp BP Pulse Ox O2 Del Method 07/17/24 10:25 36.4 C L 69 18 120/69 97 Room Air 07/17/24 07:01 36.5 C 69 19 121/57 L 96 Room Air 07/17/24 02:52 36.7 C 80 16 144/63 H 96 Room Air Laboratory Results SEE EMR Diagnostic Findings [facility] [address] [place] [address] / Director: Mariela Cade M.D. Clinical Laboratory Report Name: VONNIE ALTAMIRANO Acct: [id number] Status: ADM [place] : 1940 [facility] Date: 07/03/24 Age: 84 Sex: M Dis Date: Loc: Telemetry [address] [place] [address]/Bed: [facility] Spec: [id number] Collected: 07/02/24 Received: 07/02/[address]: John Fong M.D. Source: Foot,Left OV Order: Ordered: Aer/Violette Cult/Sm Procedure Result Verified Site Gram Stain Final 07/02/24-2156 Gram Stain Result Few Gram Positive Cocci Rare WBCs Seen Aero/Violette Cult Final 07/07/24-1027 Organism 1 Staphylococcus aureus Quantity Moderate Sens No Sensitivities to Follow +MixWound Plus Moderate Counts of Probable Skin Aurora Organism 2 Staphylococcus aureus#2 Quantity Moderate Sens Sensitivities to Follow Organism 3 Anaerococcus hydrogenalis Probable Organism Identification Quantity Moderate Sens No Sensitivities to Follow Identification and susceptibility testing have confirmed the two organisms previously reported are the same organism. No susceptibility results will be generated on the first isolate. S aureus#2 RX M.I.C. --- --------- Clindamycin S <=0.25 Daptomycin S <=0.5 Erythromycin S <=0.25 Linezolid S 2 Oxacillin S <=0.25 Tetracycline S <=4 Trimeth/Sulfa S <=0.5/9.5 Vancomycin S 1 S = SENSITIVE I = INTERMEDIATE R = RESISTANT Name: VONNIE ALTAMIRANO : 1940 PAGE 1 Printed: 07/17/24 4550 END OF REPORT [address], [place] [address] / Director: Mariela Cade M.D. Clinical Laboratory Report Name: VONNIE ALTAMIRANO Acct: [id number] Status: ADM [place] : 1940 [facility] Date: 07/03/24 Age: 84 Sex: M Dis Date: Loc: Telemetry [address] [place] [address]/Bed: [facility] Spec: [id number] Collected: 07/15/24 Received: 07/15/24-[address]: Chau Newsome, DPM Copy To: Efren Chung MD Source: Toe,Left OV Order: Ordered: Aer/Violette Cult/Sm Comments: Comment Culture 1) First metarsal head Procedure Result Verified Site Gram Stain Final 07/15/24 Gram Stain Result Few WBCs Seen No Organisms Seen Aero/Violette Cult Preliminary 07/17/24 No growth to date. Name: VONNIE ALTAMIRANO : 1940 PAGE 1 Printed: 07/17/24 1904 END OF REPORT
[2024-07-17] MEDS: NYSTATIN POWDER 15GM BTL EXT SCH (12:20)
--- NOTE | 2024-07-17 13:23 | Hospitalist Progress Note ---
Date of Service July 17, 2024 Assessment & Plan (1) Diabetic foot infection: Plan: per previous hospitalist notes with addendum: Presented with diabetic foot and toe ulceration with gangrene on the left side Complicated by peripheral arterial disease Appreciate malted milk supervisor input and recommendation Status post debridement of the left foot wound on 07/04, status post femoral femoral bypass on 07/10/2024 Plan for possible transmetatarsal amputation on 07/15/2024 Wound culture growing Staph aureus and and anaerococcus hydrogenalis Continue on Unasyn until definitive management is done with surgery next week Denies any significant pain in the foot No fever no chills He remains stable and will go for left transmetatarsal amputation this morning Continue current antibiotic with Unasyn and duration will be as per malted milk supervisor specially after the amputation Status post left tendo Achilles lengthening and left transmetatarsal amputation, debridement on 07/15/2024 Has been feeling much better following the procedure and denies any pain involving the amputation site Will continue current medications 07/17 Status post transmetatarsal amputation, day number 2 patient appears to be stable overall Awaiting Ortho shoe Podiatry service recommendations noted, appreciate the recommendations currently on IV Unasyn ID consulted for antibiotic recommendations upon discharge (2) Insulin-requiring or dependent type II diabetes mellitus: (3) Acute blood loss as cause of postoperative anemia: (4) Peripheral vascular disease due to secondary diabetes: Plan: Appreciated vascular surgery input and recommendation Patient underwent bilateral iliac angiogram on 07/08; 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 Patent R WILLIE and bilateral IIA, EIA, [employer], SFA and profunda Underwent fem to femoral bypass on 07/10/2024 Patient transferred to ICU after OR after he was found to be hypotensive; requiring vasopressors and IV fluid support. Estimated blood loss of about 1000 mL. Management of vasopressors as per ICU;; Given 3 packed RBCs Transferred out of ICU on 07/12/2024 Continue on aspirin and liptor and plavix Wean off stress dose steroids The color of his feet improves following the bypass surgery- denies any more pain Denies any pain in the legs 07/17 Wound VAC on bilateral inguinal region still in place Vascular surgery notified to request follow-up evaluation, and to obtain recommendations regarding wound VAC (5) Hypertension associated with diabetes: Plan: On lisinopril; ; Will resume if blood pressure continues to rise. Also on amlodipine continue. Blood pressure remains on the lower side at 99/61 His amlodipine will be on hold and monitor blood pressure 07/17 Blood pressure seems to be more stable since lisinopril, amlodipine held monitor closely (6) Diabetes mellitus with peripheral artery disease: Plan: Continue on subcu insulin Maintain hypoglycemia protocol Plan Full code DVT prophylaxis heparin Disposition [facility] 2 days Admission and Anticipated Discharge Date Admission Date: July 03, 2024 Subjective Follow-up for status post left foot amputation, peripheral artery disease, etc. Seen resting in bed, comfortable, not in distress states he feels fine overall Denies significant foot pain No chest pain, shortness of breath, abdominal pain, nausea vomiting, fevers or chills No other new symptoms Review of Systems Review of Systems: all noted and negative except for above Physical Exam Physical Exam: General- oriented x 3, not in distress, speaks in sentences with no effort or accessory muscle use Eyes- anicteric Neck- no JVD Lungs- clear breath sounds bilaterally, no rales/wheezes Heart- normal rate, regular rhythm; no murmurs Abdomen- normal bowel sounds, nondistended, soft, nontender Extremities- left lower extremity: Heavy dressing over the left foot, no bleeding or discharge Right lower extremity: Essentially normal Neuro- alert, oriented x 3; no gross focal neurologic deficits Skin- warm & dry Results & Data Results & Data Vital Signs (Past 12 Hours) Vital Signs Temp Pulse Resp BP Pulse Ox O2 Del Method 07/17/24 10:25 36.4 C L 69 18 120/69 97 Room Air 07/17/24 07:01 36.5 C 69 19 121/57 L 96 Room Air 07/17/24 02:52 36.7 C 80 16 144/63 H 96 Room Air all noted and reviewed including below
[2024-07-18] MEDS: ALBUMIN 25% 12.5 GM/50 ML VIAL IV ONE (01:05)
[2024-07-18 07:24] VITALS: RESP 19
[2024-07-18] MEDS ORDERED: LANTUS PER UNIT CHARGE SC SCH (09:00)
[2024-07-18 11:03] LABS: Ferritin 98.2 ng/ml (8-388)
[2024-07-18 11:09] LABS: Folate (Folic Acid),Ser orPlas 6.23 ng/ml (>5.38)
[2024-07-18 11:16] VITALS: TEMP 97.9; O2SAT 100
[2024-07-18] MEDS: ADVANCED PROBIOTIC 625 MG CAPSULE PO SCH (12:17)
--- NOTE | 2024-07-18 12:35 | Discharge Summary ---
Discharge Summary Date of Service July 18, 2024 Principal Dx & Hospital Course #1 = Principal Diagnosis (1) Diabetic foot infection: per previous hospitalist notes with addendum: Presented with diabetic foot and toe ulceration with gangrene on the left side Complicated by peripheral arterial disease Appreciate oil well services supervisor input and recommendation Status post debridement of the left foot wound on 07/04, status post femoral femoral bypass on 07/10/2024 Plan for possible transmetatarsal amputation on 07/15/2024 Wound culture growing Staph aureus and and anaerococcus hydrogenalis Continue on Unasyn until definitive management is done with surgery next week Denies any significant pain in the foot No fever no chills He remains stable and will go for left transmetatarsal amputation this morning Continue current antibiotic with Unasyn and duration will be as per oil well services supervisor specially after the amputation Status post left tendo Achilles lengthening and left transmetatarsal amputation, debridement on 07/15/2024 Has been feeling much better following the procedure and denies any pain involving the amputation site Will continue current medications 07/18 Status post transmetatarsal amputation, day number 3 stable overall oil well services supervisor Dr. Newsome changed surgical dressing on July 17, 2024 Recommend continued resting supine position with foot elevated when possible Recommend begin heel touch weightbearing in CAM Walker with walker to assist for short distance and transfer Leave hospital dressing in place until follow-up with podiatry clinic- Please call his office to set up an appointment Received IV Unasyn while admitted ID consulted for antibiotic recommendations upon discharge Also discussed with Dr. Newsome- Clear margins obtained with surgical cure upon discussion with Dr. 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 Patent R WILLIE and bilateral IIA, EIA, PIPEMAN, SFA and profunda Underwent fem to femoral bypass on 07/10/2024 Patient transferred to ICU after OR after he was found to be hypotensive; requiring vasopressors and IV fluid support. Estimated blood loss of about 1000 mL. Management of vasopressors as per ICU;; Given 3 packed RBCs Transferred out of ICU on 07/12/2024 Continue on aspirin and liptor and plavix Wean off stress dose steroids The color of his feet improves following the bypass surgery- denies any more pain Denies any pain in the legs 07/18 Prevena dressing bilateral inguinal region still in place per wound care nurse, once the battery runs out, Prevena dressing should be removed continue aspirin and Plavix, Lipitor (5) Hypertension associated with diabetes: On lisinopril; ; Will resume if blood pressure continues to rise. Also on amlodipine continue. Blood pressure remains on the lower side at 99/61 His amlodipine will be on hold and monitor blood pressure 07/18 Blood pressure seems to be more stable since lisinopril, amlodipine held change lisinopril to 20 mg daily from 40 mg Monitor blood pressure closely (6) Diabetes mellitus with peripheral artery disease: continue insulin sliding scale and Lantus in a.m. A1c 8.8 upon admission Usually on glipizide, metformin, Novolin Plan Full code DVT prophylaxis heparin Disposition discharged to group home facility Follow-up with vascular surgeon Dr. Ramiro Berrios and oil well services supervisor Dr. Chau Newsome Notes For Next Care Provider Medication Changes From Visit as per assessment and plan Admission HPI Per Admitting Provider 84-year-old male with past medical history significant for diabetes, hypertension, hyperlipidemia, CAD status post stents who lives at home with his comes because of left foot infection. He says he went to the oil well services supervisor and was recommended to come to the hospital for antibiotics. Patient denies any pain. Denies any fevers. No chest pain. No shortness of breath. Has some cough. No headache. No runny nose or sore throat. No abdominal pain. Currently resting comfortably and hemodynamically stable. Past medical history. As mentioned above Past surgical history. Toe surgery. Social history. Remote history of smoking. No alcohol's. He lives with his . Family history. Mother had CAD and diabetes. Admission Exam Per Admitting Provider General- Not in distress Head- atraumatic Eyes- PERRL. ENT- oropharynx clear Neck- supple, no JVD. Lungs- clear to auscultation no wheezing or crackles Heart- regular rate and rhythm; no murmur, no gallop. Abdomen- normal bowel sounds, soft, nontender, no distension Extremities-Left foot erythematous and wound seen on big toe lateral aspect and foul smelling Neuro- alert, oriented PERRL, no facial palsy; no dysarthria; moves extremities Discharge Exam General- oriented x 3, not in distress, speaks in sentences with no effort or accessory muscle use Eyes- anicteric Neck- no JVD Lungs- clear breath sounds bilaterally, no rales/wheezes Heart- normal rate, regular rhythm; no murmurs Abdomen- normal bowel sounds, nondistended, soft, nontender Extremities- left lower extremity: Heavy dressing over the left foot, no bleeding or discharge Right lower extremity: Essentially normal Neuro- alert, oriented x 3; no gross focal neurologic deficits Skin- warm & dry Updated Medication List Medication Instructions Recorded Confirmed Type Lactobacillus acidophilus, 1 packet PO DAILY #30 ea 07/18/24 Rx bulgaricus 100 million cell granules packet (Floranex) amoxicillin 875 mg-potassium 1 tab PO BIDM 3 days #6 tabs 07/18/24 Rx clavulanate 125 mg tablet aspirin 81 mg tablet,delayed 81 mg PO HS 30 days #30 tabs 07/18/24 Rx release (Adult Low Dose Aspirin) atorvastatin 20 mg tablet 20 mg PO HS 30 days #30 tabs 07/18/24 Rx clopidogrel 75 mg tablet 75 mg PO HS 30 days #30 tabs 07/18/24 Rx heparin, porcine (PF) 5,000 5,000 unit (0.5 mL) subcut Q12 30 07/18/24 Rx unit/0.5 mL injection syringe days #30 mL insulin aspart U-100 100 unit/mL 1 unit (0.01 mL) SC ACHS #10 mL 07/18/24 Rx subcutaneous solution (Novolog U-100 Insulin aspart) insulin glargine 100 unit/mL 27 unit (0.27 mL) SC DAILY #10 mL 07/18/24 Rx subcutaneous solution (Lantus U-100 Insulin) lisinopril 40 mg tablet 20 mg (1/2 x 40 mg) PO HS 30 days 07/18/24 Rx #15 tabs nystatin 100,000 unit/gram topical 1 applic EXT BID 10 days #60 grams 07/18/24 Rx powder (Nystop) pantoprazole 40 mg tablet,delayed 40 mg PO DAILY #30 tabs 07/18/24 Rx release polyethylene glycol 3350 17 gram 17 g PO DAILY PRN constipation #10 05/01/25 Rx oral powder packet (Miralax) ea Hospital Stay Data Consultations 07/02/24 21:25 ED Decision to Admit Stat 07/03/24 08:00 Consult Podiatry Routine 07/03/24 18:49 Consult Vascular Surgery Routine 07/10/24 16:15 Consult Optical Fabricator Routine 07/17/24 07:57 Consult Infectious Diseases Routine Procedures Performed Operation Date: 07/15/24 07:00 Actual Procedures p Left Tendo Achilles Lengthening(Left) - Chau Newsome DPM s Left Transmetatarsal Amputation, Debridement of All Nonviable Soft Tissue and Bone(Left) - Chau Newsome DPM Diagnostic Imagining Performed Laboratory Results WBC 8.41 K/ul (4.8-10.8) 07/17/24 06:34 RBC 3.34 M/uL (4.70-6.10) L 07/17/24 06:34 Hgb 9.8 g/dl (14.0-18.0) L 07/17/24 06:34 POC Hgb 9.5 g/dl (14.0-18.0) L 07/11/24 09:47 Hct 29.9 % (42.0-52.0) L 07/17/24 06:34 POC Hct 28 % (42-52) L 07/11/24 09:47 MCV 89.5 fL (80.0-100.0) 07/17/24 06:34 MCH 29.3 pg (25.0-34.0) 07/17/24 06:34 MCHC 32.8 g/dL (32.0-36.0) 07/17/24 06:34 RDW Std Deviation 50.3 fL (36.4-46.3) H 07/17/24 06:34 RDW Coeff of Diana 15.8 % (11.5-14.5) H 07/17/24 06:34 Plt Count 178 K/uL (130-400) 07/17/24 06:34 MPV 10.1 fL (9.4-12.4) 07/17/24 06:34 Immature Gran % (Auto) 0.5 % 07/17/24 06:34 Neut % (Auto) 70.9 % 07/17/24 06:34 Lymph % (Auto) 16.3 % 07/17/24 06:34 [place] % (Auto) 10.0 % 07/17/24 06:34 Eos % (Auto) 1.8 % 07/17/24 06:34 Baso % (Auto) 0.5 % 07/17/24 06:34 Neut # (Auto) 5.97 K/uL (1.40-6.50) 07/17/24 06:34 Lymph # (Auto) 1.37 K/uL (1.20-3.40) 07/17/24 06:34 [place] # (Auto) 0.84 K/uL (0.11-0.59) H 07/17/24 06:34 Eos # (Auto) 0.15 K/uL (0.00-0.50) 07/17/24 06:34 Baso # (Auto) 0.04 K/uL (0.00-0.20) 07/17/24 06:34 Immature Gran # (Auto) 0.04 K/uL (0.01-0.20) 07/17/24 06:34 Absolute Nucleated RBC Cancelled 07/10/24 12:15 Nucleated RBC % (auto) Cancelled 07/10/24 12:15 Neutrophils % (Manual) Cancelled 07/10/24 12:15 Band Neutrophils % Cancelled 07/10/24 12:15 Lymphocytes % (Manual) Cancelled 07/10/24 12:15 Prolymphocyte % Cancelled 07/10/24 12:15 Reactive Lymphs % (Man) Cancelled 07/10/24 12:15 Monocytes % (Manual) Cancelled 07/10/24 12:15 Eosinophils % (Manual) Cancelled 07/10/24 12:15 Basophils % (Manual) Cancelled 07/10/24 12:15 Metamyelocytes % (Man) Cancelled 07/10/24 12:15 Myelocytes % (Man) Cancelled 07/10/24 12:15 Promyelocytes % (Man) Cancelled 07/10/24 12:15 Blast Cells % (Manual) Cancelled 07/10/24 12:15 Plasma Cell % (Manual) Cancelled 07/10/24 12:15 Other Cells % Cancelled 07/10/24 12:15 Nucleated RBC % Cancelled 07/10/24 12:15 Neutrophils # (Manual) Cancelled 07/10/24 12:15 Band Neutrophils # Cancelled 07/10/24 12:15 Total Absolute Neuts Cancelled 07/10/24 12:15 Lymphocytes # (Manual) Cancelled 07/10/24 12:15 Prolymphocyte # Cancelled 07/10/24 12:15 Reactive Lymphs # Cancelled 07/10/24 12:15 Total Abs Lymphocytes Cancelled 07/10/24 12:15 Monocytes # (Manual) Cancelled 07/10/24 12:15 Eosinophils # (Manual) Cancelled 07/10/24 12:15 Basophils # (Manual) Cancelled 07/10/24 12:15 Metamyelocytes # (Man) Cancelled 07/10/24 12:15 Myelocytes # (Manual) Cancelled 07/10/24 12:15 Promyelocytes # (Man) Cancelled 07/10/24 12:15 Blast Cells # (Man) Cancelled 07/10/24 12:15 Plasma Cell # (Manual) Cancelled 07/10/24 12:15 Other Cells # Cancelled 07/10/24 12:15 Nucleated RBCs # (Man) Cancelled 07/10/24 12:15 Hypersegmented Neuts Cancelled 07/10/24 12:15 Hyposegmented Neuts Cancelled 07/10/24 12:15 Hypogranular Neuts Cancelled 07/10/24 12:15 Large Granular Lymphs Cancelled 07/10/24 12:15 # Lrg Granular Lymphs Cancelled 07/10/24 12:15 Hairy Cells Cancelled 07/10/24 12:15 Smudge Cells Cancelled 07/10/24 12:15 Toxic Granulation Cancelled 07/10/24 12:15 Toxic Vacuolation Cancelled 07/10/24 12:15 Dohle Bodies Cancelled 07/10/24 12:15 Samir Rods Cancelled 07/10/24 12:15 Platelet Estimate Cancelled 07/10/24 12:15 Hypogranular Platelets Cancelled 07/10/24 12:15 Giant Platelets Cancelled 07/10/24 12:15 Platelet Satelliting Cancelled 07/10/24 12:15 RBC Morphology Cancelled 07/10/24 12:15 Polychromasia Cancelled 07/10/24 12:15 Hypochromasia Cancelled 07/10/24 12:15 Poikilocytosis Cancelled 07/10/24 12:15 Basophilic Stippling Cancelled 07/10/24 12:15 Anisocytosis Cancelled 07/10/24 12:15 Microcytosis Cancelled 07/10/24 12:15 Macrocytosis Cancelled 07/10/24 12:15 Spherocytes Cancelled 07/10/24 12:15 Pappenheimer Bodies Cancelled 07/10/24 12:15 Sickle Cells Cancelled 07/10/24 12:15 Target Cells Cancelled 07/10/24 12:15 Tear Drop Cells Cancelled 07/10/24 12:15 Ovalocytes Cancelled 07/10/24 12:15 Stomatocytes Cancelled 07/10/24 12:15 [place] Bodies Cancelled 07/10/24 12:15 Echinocytes Cancelled 07/10/24 12:15 Acanthocytes (Spur) Cancelled 07/10/24 12:15 Rouleaux Cancelled 07/10/24 12:15 RBC Agglutinates Cancelled 07/10/24 12:15 Schistocytes Cancelled 07/10/24 12:15 ESR 87 mm/hr (0-20) H 07/04/24 05:03 Sezary Cell Cancelled 07/10/24 12:15 PT 10.9 Seconds (9.0-12.0) 07/02/24 20:00 INR 1.0 (0.9-1.1) 07/02/24 20:00 APTT 28 Seconds (21-31) 07/02/24 20:00 PTT Ratio 1.0 07/02/24 20:00 Specimen Type Arterial 07/11/24 09:47 Sample Site Art Line 07/11/24 09:47 POC pH 7.43 (7.35-7.45) 07/11/24 09:47 POC pCO2 33 mmHg (35-46) L 07/11/24 09:47 POC pO2 79 mmHg (80-95) L 07/11/24 09:47 POC HCO3 22 galo/L (19-24) 07/11/24 09:47 POC Total CO2 23 mmol/L (24-31) L 07/11/24 09:47 POC Base Excess -2.0 galo/L (-9-1.8) 07/11/24 09:47 O2 Sat Pulse Oximetry 97 07/11/24 09:47 ABG pH (Temp Correct) 7.435 (7.35-7.45) 07/11/24 09:47 ABG pCO2 (Temp Corrct 33 mmHg (35-46) L 07/11/24 09:47 POC ABG pO2 at Pt Temp 76 07/11/24 09:47 POC ABG O2 Sat 96.0 % (90-95) H 07/11/24 09:47 Sherif Test NA 07/11/24 09:47 O2 Delivery Device Room Air 07/11/24 09:47 POC Sodium 139 mmol/L (135-144) 07/11/24 09:47 Sodium 137 mmol/L (136-145) 07/17/24 06:34 POC Potassium 3.5 mmol/L (3.3-5.0) 07/11/24 09:47 Potassium 3.9 mmol/L (3.5-5.1) 07/17/24 06:34 Chloride 102 mmol/L (98-107) 07/17/24 06:34 Carbon Dioxide 31 mmol/L (21-32) 07/17/24 06:34 Anion Gap 4 (3-11) 07/17/24 06:34 BUN 16 mg/dl (6-23) 07/17/24 06:34 Creatinine 0.77 mg/dl (0.6-1.4) 07/17/24 06:34 Est Cr Clr Drug Dosing 71.4 ml/min 07/17/24 06:34 eGFR 88.28 07/17/24 06:34 BUN/Creatinine Ratio 20.8 (10-20) H 07/17/24 06:34 Glucose 167 mg/dl (70-99(Fasting)) H 07/17/24 06:34 POC Glucose 260 mg/dl (70-99) H 07/18/24 11:30 POC Glucose (other) 129 mg/dl (70-99) H 07/11/24 09:32 Estimat Average Glucose 206 mg/dl 07/03/24 08:12 Hemoglobin A1c 8.8 % (4.5-5.6) H 07/03/24 08:12 Lactate 2.5 mmol/L (0.4-2.0) H* 07/10/24 19:48 Calcium 8.1 mg/dl (8.6-10.3) L 07/17/24 06:34 Phosphorus 2.5 mg/dl (2.5-4.9) 07/17/24 06:34 Magnesium 2.0 mg/dl (1.7-2.4) 07/17/24 06:34 Iron 45 mcg/dl (35-175) 07/18/24 09:36 Transferrin 172 mg/dl (200-360) L 07/18/24 09:36 Ferritin 98.2 ng/ml (8-388) 07/18/24 09:36 Total Bilirubin 0.7 mg/dl (0.2-1.0) 07/10/24 16:11 AST 13 U/L (13-39) 07/10/24 16:11 ALT 8 U/L (7-52) 07/10/24 16:11 Alkaline Phosphatase 62 U/L (34-104) 07/10/24 16:11 Troponin I High Sens 7.5 pg/ml (0-20) 07/10/24 16:11 C-Reactive Protein 7.01 mg/dl (0-0.5) H 07/04/24 05:03 Total Protein 5.2 gm/dl (6.0-8.3) L 07/10/24 16:11 Albumin 2.4 gm/dl (3.4-5.0) L 07/10/24 16:11 Globulin 2.8 gm/dl (2.5-4.0) 07/10/24 16:11 Albumin/Globulin Ratio 0.9 (0.9-2) 07/10/24 16:11 Vitamin B12 409 pg/ml (180-914) 07/18/24 09:36 Folate 6.23 ng/ml (>5.38) 07/18/24 09:36 Procalcitonin 0.11 ng/ml (0-0.5) 07/02/24 20:00 Random Cortisol 6.78 mcg/dl 07/10/24 16:11 Urine Color Yellow 07/02/24 22:19 Urine Appearance Clear (Clear) 07/02/24 22:19 Urine pH 5.5 (4.5-7.5) 07/02/24 22:19 Ur Specific [place] 1.021 (1.000-1.030) 07/02/24 22:19 Urine Protein Trace (Negative) H 07/02/24 22:19 Urine Glucose (UA) 3+ (Negative) H 07/02/24 22:19 Urine Ketones Negative (Negative) 07/02/24 22:19 Urine Blood Negative (Negative) 07/02/24 22:19 Urine Nitrite Negative (Negative) 07/02/24 22:19 Urine Bilirubin Negative (Negative) 07/02/24 22:19 Urine Urobilinogen Negative (Negative) 07/02/24 22:19 Ur Leukocyte Esterase Negative (Negative) 07/02/24 22:19 Urine WBC (Auto) 0-5 /hpf (0-5) 07/02/24 22:19 Urine RBC (Auto) 0-2 /hpf (0-2) 07/02/24 22:19 U Hyaline Cast (Auto) 0-2 /lpf (0-2) 07/02/24 22:19 U Epithel Cells (Auto) 0-2 /hpf (0-2) 07/02/24 22:19 Urine Bacteria (Auto) None Seen (None Seen) 07/02/24 22:19 Nasal Screen MRSA (PCR) Negative (Negative) 07/03/24 14:30 Random Vancomycin 14.8 mcg/ml (10-20) 07/04/24 05:03 Blood Parasites ID Cancelled 07/10/24 12:15 Blood Type A Positive 07/10/24 05:31 Antibody Screen NEGATIVE 07/10/24 05:31 Crossmatch See Detail 07/10/24 05:31 Impressions Foot X-Ray 07/02/24 20:21 Exam(s): XR LEFT FOOT, 3+ views EXAM: XR Left Foot Complete, 3 or More Views CLINICAL HISTORY: Reason for exam: left foot infection. TECHNIQUE: Frontal, lateral and oblique views of the left foot. COMPARISON: No relevant prior studies available. FINDINGS: Bones/joints: Extensive chronic changes in the toes. No radiographically evident acute appearing or erosion to suggest acute osteomyelitis. Soft tissue ulcer adjacent to the first MTP joint. Severe arthritic changes of the first MTP joint. Moderate degenerative changes at the TMT joints. Soft tissues: Linear metallic foreign body measuring 7 mm in the forefoot plantar soft tissues. IMPRESSION: 1. No radiographic evidence of acute osteomyelitis. 2. Soft tissue ulcer adjacent to the first MTP joint. 3. Linear metallic foreign body measuring 7 mm in the plantar soft tissues. Electronically signed by: Palomo Wright MD 07/02/24 23:[address] 07/02/24 20:36 Exam(s): CT LEFT FOOT Without Contrast EXAM: CT Left Lower Extremity Without Intravenous Contrast, Foot CLINICAL HISTORY: Reason for exam: poss osteo. TECHNIQUE: Axial computed tomography images of the left foot without intravenous contrast. CTDI is 24.91 mGy and DLP is 490.53 mGy-cm. Automated exposure control was utilized for the study. A dose lowering technique was utilized adhering to the principles of ALARA. COMPARISON: Same-day x-ray. FINDINGS: Bones/joints: No CT evidence of acute osteomyelitis. Severe degenerative changes at the first MTP joint. Advanced degenerative changes at the TMT joints. No acute fracture. Erosive changes. 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 Soft tissues: Medial and plantar soft tissue ulcers at the first MTP joint. Skin thickening and cellulitis. No soft tissue gas or abscess. No radiopaque foreign body. IMPRESSION: 1. Medial and plantar soft tissue ulcers at the first MTP joint. Skin thickening and cellulitis. No soft tissue gas or abscess. 2. No CT evidence of acute osteomyelitis. Electronically signed by: Palomo Wright MD 07/02/24 23:56 PM Duplex Scan Lower Extremity Artery 07/03/24 03:21 US arterial duplex LE LT HISTORY: 84 years-old Male diabetic left foot infection . PVD? Dependent left lower leg with peripheral arterial disease COMPARISON: CT left foot 07/02/2024 TECHNIQUE: Multiple real-time significant left lower extremity arterial structures were obtained assessing grayscale appearance, color and spectral flow with segmental pressures FINDINGS: Atherosclerosis. Biphasic and monophasic waveforms are noted throughout. No arterial occlusion identified. Mildly elevated peak systolic velocities are 192 cm/s and within the distal aspect of the superficial femoral artery. Spectral broadening noted within the monophasic waveforms in the lower leg. Subcutaneous edema. Right-sided MASOOD of 0.64, left-sided MASOOD of 0.59. IMPRESSION: 1. Elevated peak systolic velocities within the distal superficial femoral artery compatible with a degree of arterial stenosis. 2. No arterial occlusion. 3. Atherosclerosis with monophasic and biphasic waveforms throughout. 4. Diminished MASOOD's compatible with moderate arterial disease. ACT 112: Negative or not required by law. The above report was generated using voice recognition software. It may contain grammatical, syntax or spelling errors. Electronically signed by: Suraj Perry M.D. 07/03/2024 10:31 AM Chest X-Ray 07/10/24 17:00 Clinical History: Line placement Technique: A frontal view of the chest was obtained Comparison is made to the prior examination dated 07/02/2024 Findings: There are no confluent pulmonary infiltrates. The heart size is within normal limits. No pleural effusion or pneumothorax is seen. There is suspected mild pulmonary vascular congestion There are old healed right rib fractures. There is a new left subclavian central line with its tip in the SVC Impression: 1. New left subclavian central line with its tip in the SVC 2. Mild pulmonary vascular congestion ACT 112: Positive. There are findings on this exam that require communication between the performing entity and the patient following Patient Test Result Information Act ([place] ACT 112) guidelines. Electronically signed by Antony Hermosillo 07-10-2024 5:52 PM Discharge Instructions Given to Patient (Per Discharging Provider) Patient needs a follow-up with the vascular surgeon Dr. Ramiro Berrios and oil well services supervisor Dr. Chau Newsome in 1 week. Please call their office to set up an appointment. Contact information outlined above. please refer to accompanying hospital discharge summary for further details. Total Time Total Time Spent Total Time Spent (In Minutes): 60 minutes
[2024-07-18 13:32] VITALS: BP 145/72
[2024-07-18 13:56] VITALS: PULSE 73
[2024-07-18] MEDS ORDERED: AMOXICILLIN/CLAVULANATE 875 MG TAB PO SCH (17:00)
[2024-07-19] MEDS ORDERED: LANTUS PER UNIT CHARGE SC SCH (09:00)
== END 2024-07-18 14:13 | DRG 239 ==
LOC: ED 19:30 → EDINP 07-03 00:47 → SUATTDRO 07-03 00:47 → 3E 07-03 03:21 → 1E 07-10 15:54 → 2S 07-14 16:05